=== PATIENT | male | born 1940 | race Caucasian/White ===

== ENCOUNTER → 2016-11-02 | Outpatient (REF) | payer MEDICARE ==
[~2016-11-02] MED LIST: /GUAIMAX PO; ACET50TA PO; ACET65TA OR; ALBUPOW9 INH; ASPI81TA83 OR; CEFT500T PO; COLA100C2 OR; CRANPOW2 PO; FISH1000 OR; FOLI1TAB OR; GARLIC OIL PO; LEVOTHYROXINE PO; MAALSUS OR; MATURE MULTI VITAMIN PO; METH2.5T OR; MULTIVIT PO; OMEP20TA7 OR; PRED10TA2 OR; PRED10TA2 PO; PRED1TAB32 PO; PREDFORTE OD; SULF50TA OR; VIBR100C PO; VIT D 2000 PO; [UNRECOGNIZED DRUG - CODE] PO; [UNRECOGNIZED DRUG - OTHER] OD; [UNRECOGNIZED DRUG - OTHER] OD; [UNRECOGNIZED DRUG - OTHER] OD; [UNRECOGNIZED DRUG - OTHER] OD; [UNRECOGNIZED DRUG - OTHER] OD; [UNRECOGNIZED DRUG - OTHER] OU
[2016-11-02 12:31] LABS: FREE T4 1.45 NG/DL (0.76-1.46)
== END ==
LOC: M LABDRAW1 11:44
PROVIDERS: ATTEND Emergency Medicine
DX: E03.9 Hypothyroidism, unspecified (principal)

== ENCOUNTER 2017-01-23 06:06 | Inpatient (IN) | payer MEDICARE ==
[~2017-01-23] VITALS: Ht 167.6 cm; Wt 73.4 kg
[2017-01-23] MEDS ORDERED: ALEN70TA39 PO ×2 (06:28→09:41)
[2017-01-23] MEDS ORDERED: MAGN400C2 PO (06:28)
[2017-01-23 06:40] LABS: BASO # 0.1 K/mm3 (0.0-0.2); BASO % 0.8 % (0.0-1.0); EOS # 0.3 K/mm3 (0.0-0.50); LARGE UNSTAINED CELL # 0.1 K/mm3 (0.0-0.4); LARGE UNSTAINED CELL % 1.2 % (0.0-4.0); LYMPH # 2.2 K/mm3 (1.5-4.5); MEAN CORPUSCULAR HEMOGLOBIN 28.5 pg (27.0-33.0); MEAN CORPUSCULAR HGB CONC 32.5 g/dl (32.0-36.5); MEAN CORPUSCULAR VOLUME 87.6 fl (80.0-96.0); MONO # 0.5 K/mm3 (0.0-0.8); MONO % 6.2 % (0.0-5.0); NEUTROPHILS % 60.8 % (36.0-66.0); PLATELET COUNT, AUTOMATED 397 k/mm3 (150-450); RED CELL DISTRIBUTION WIDTH 13.4 % (11.5-14.5); WHITE BLOOD COUNT 8.2 K/mm3 (4.0-10.0)
[2017-01-23 06:44] LABS: INR 0.94
[2017-01-23 06:47] LABS: ANION GAP 5 MEQ/L (8-16); BLOOD UREA NITROGEN 18 MG/DL (7-18); CALCIUM LEVEL 8.8 MG/DL (8.8-10.2); CARBON DIOXIDE LEVEL 30 MEQ/L (21-32); CHLORIDE LEVEL 101 MEQ/L (98-107); CREATININE FOR GFR 0.85 MG/DL (0.70-1.30); GLOMERULAR FILTRATION RATE > 60.0 (>42); GLUCOSE, FASTING 92 MG/DL (83-110); POTASSIUM SERUM 3.9 MEQ/L (3.5-5.1); SODIUM LEVEL 136 MEQ/L (136-145)
--- NOTE | 2017-01-23 07:00 | REPUSA ---
CLINICAL HISTORY: Altered level of consciousness. TECHNIQUE: Multiple axial CT images were obtained through the brain without IV contrast material. COMMENTS: There is normal configuration of sella turcica. There are no intra or extra-axial collections. There is no mass effect or midline shift. There is no evidence of hematoma formation. No hydrocephalus is p resent. The ventricles are symmetrical. No abnormal calcifications are present. There is diffuse age-appropriate cerebellar and cerebral atrophy with proportionally dilated ventricl es and cortical sulci. There are bilateral periventricular and subcortical white matter hypolucencies compatible with mild c hronic microvascular disease. Otherwise, no significant focal abnormalities are seen either in the posterior fossa or supratentoria l compartment. IMPRESSION: 1. Age-appropriate cerebellar and cerebral atrophy. 2. Mild chronic microvascular disease. 3. No evidence of acute intracranial pathology. Thank you for your kind referral of this patient.
[2017-01-23] MEDS ORDERED: ISOVUE-370 76% 100ML VIAL (Q9967) As Ordered ONE (07:12)
[2017-01-23] MEDS ORDERED: ASPIRIN ENTERIC 325 MG TAB PO SCH (09:00)
[2017-01-23] MEDS ORDERED: ONDANSETRON 4MG/2ML VIAL (J2405) IV PRN (09:30)
[2017-01-23] MEDS ORDERED: ACETAMINOPHEN TAB 650MG DOSE (2X325MG) PO PRN (09:30)
[2017-01-23] MEDS ORDERED: HEPARIN SOD (PORCINE) 5000 UNITS/ML VIAL SC SCH (09:30)
[2017-01-23] MEDS ORDERED: VITA20008 PO (09:41)
[2017-01-23] MEDS ORDERED: [UNRECOGNIZED DRUG - OTHER] OD (09:41)
[2017-01-23] MEDS ORDERED: OMEP40CA2 PO (09:41)
[2017-01-23] MEDS ORDERED: SYSTSOL11 OU (09:41)
[2017-01-23] MEDS ORDERED: PRED5TA PO (09:41)
[2017-01-23] MEDS ORDERED: FLAX1000 PO (09:41)
[2017-01-23] MEDS ORDERED: FISH120012 PO (09:41)
[2017-01-23] MEDS ORDERED: CALC-210 PO (09:41)
[2017-01-23] MEDS ORDERED: PRED1SUS OS (09:41)
[2017-01-23] MEDS ORDERED: LEVO112T2 PO (09:41)
[2017-01-23] MEDS ORDERED: ASPI1TAB PO (09:41)
[2017-01-23] MEDS ORDERED: MAGN1TAB25 PO (09:41)
[2017-01-23] MEDS ORDERED: VITMTA PO (09:41)
[2017-01-23] MEDS ORDERED: STOO1CAP9 PO (09:41)
[2017-01-23] MEDS ORDERED: PRESCAP6 PO (09:41)
--- NOTE | 2017-01-23 10:03 | REP ---
Portable chest, single AP view, the patient semiupright, 09:44 a.m.: Comparison is the PA and lateral chest dated 12/17/2013. The left hemidiaphragm is obscured. This is nonspecific and could be artifact from portable positioning or could represent a r left lower lobe infiltrate. The remainder of the lung mike are clear. Cardiac size is upper normal for portable positioning. The franko, mediastinum, and bony thorax are unremarkable. Impression: Left lower lobe infiltrate versus artifact from portable positioning. Signed by Zhang Kent MD 01/23/2017 09:54 A
[2017-01-23 10:12] LABS: ALBUMIN 2.7 GM/DL (3.2-5.2); ALBUMIN/GLOBULIN RATIO 0.84 (1.00-1.93); ALKALINE PHOSPHATASE 49 U/L (45-117); ALT/SGPT 35 U/L (12-78); AST/SGOT 25 U/L (15-37); BILIRUBIN,DIRECT < 0.1 MG/DL (0.0-0.2); BILIRUBIN,TOTAL 0.3 MG/DL (0.2-1.0); CHOLESTEROL LEVEL 256 MG/DL (<200); MAGNESIUM LEVEL 2.2 MG/DL (1.8-2.4); TOTAL PROTEIN 5.9 GM/DL (6.4-8.2); TRIGLYCERIDES LEVEL 153 MG/DL (<150)
[2017-01-23] MEDS ORDERED: PANTOPRAZOLE 40MG INJ (PROTONIX) (C9113) IV SCH (11:00)
--- NOTE | 2017-01-23 11:07 | REP ---
CT ANGIOGRAM OF THE HEAD: 01/23/2017. Comparison: CT brain 01/23/2017. Clinical history: CVA. Technique: The patient received a bolus of 100 mls of Isovue 370 with scanning through the brain with axial, coronal and sagittal reformats and 3-D surface rendering rotated about the longitudinal axis of the brain. Ventricles are midline, symmetric and their size proportionate to the mild diffuse cerebral atrophy. Third and fourth ventricles also correspond to some mild atrophy. There is slight asymmetric contribution of the left greater than right vertebral artery to the basilar artery. There is no basilar stenosis or basilar tip aneurysm. Origin of both posterior cerebral arteries is from the basilar tip as are the superior cerebellar arteries in a symmetric fashion supplying the posterior fossa. This is symmetric from these vessels. Right internal carotid from the skull base to the carotid siphon shows no stenosis. There is atherosclerotic plaque and calcifications in the carotid siphon. Supraclinoid, A1 and M1 segments on the right are grossly unremarkable. The A2 segment on the right was intact. The trifurcation vessels on the right are grossly unremarkable. The left internal carotid from the skull base to the carotid siphon shows some atherosclerotic plaque with more calcific plaque in the carotid siphon but no aneurysm. Supraclinoid carotid, A1 and M1 segments on the left were all intact. The A2 segment and trifurcation vessels on the left were unremarkable. Although there is very mild ectasia within the carotid siphon, I do not see aneurysm. No vascular anomaly. No vessel cutoff or other finding to suggest vascular territory infarct. Impression: 1. Atherosclerotic calcifications and slight ectasia of the carotid siphons bilaterally with the internal carotids, supraclinoid carotids, A1, M1 segments and their major branches in the anterior circulation are unremarkable. No evidence of aneurysm, vessel cutoff or other acute finding. 2. Posterior circulation grossly intact with no basilar stenosis or aneurysm and normal basilar tip origin for the posterior cerebral arteries. Signed by Aureliano Miranda MD 01/23/2017 08:14 P
[2017-01-23 12:30] VITALS: BP 127/84
[2017-01-23] MEDS: ATORVASTATIN 20 MG TAB PO SCH (12:37)
[2017-01-23] MEDS: predniSONE 10 MG TAB PO SCH (12:37)
[2017-01-23] MEDS: LEVOTHYROXINE 112MCG TABLET (0.112MG) PO SCH (12:37)
[2017-01-23] MEDS: NS 1,000 ML IV SCH (12:44)
--- NOTE | 2017-01-23 15:20 | HPE ---
DATE OF ADMISSION: 01/23/2017 Patient's primary care provider is [facility] clinic and also Dr. Lerma. Patient's mine safety manager is Dr. Vaughn. CHIEF COMPLAINT: Left-sided weakness. HISTORY OF PRESENT ILLNESS: 76-year-old male with past medical history of rheumatoid arthritis, gastroesophageal reflux disease (GERD), history of pericarditis in 2008, hyperlipidemia, BPH, history of shingles, osteopenia, and hypothyroidism, presented with left-sided weakness started this morning around 3:30 when patient woke up to urinate. Patient stated that the entire left side feels heavy. Patient was having trouble to lift his left leg up and was having trouble using the left arm as well. He also admits to some discomfort at the back of his head; however, it has improved during the interview. Patient stated this never happened in the past. Denies any headache, any blurred vision, any change of speech, any slurred speech, any loss of bladder or urine control, or any loss of consciousness. Patient denies any falls. Denies any chest pain, trouble breathing, any abdominal pains, nausea, vomiting. Patient, however, does admit to diarrhea. Denies constipation. Denies any blood in the urine or stool. Patient has also been feeling weaker for the past few weeks and has been to Dr. Lerma's office for some reason. Patient stated that he did have a recent carotid ultrasound and also echo, and he stated that he was told the results were normal. ALLERGIES: No known drug allergy. HOME MEDICATIONS: Including; - fish oil - multivitamin - stool softener - calcium 600 mg - magnesium 400 mg two at night - flaxseed oil - prednisone 5 mg two tablets by mouth daily - omeprazole 40 mg one tablet by mouth daily - levothyroxine 112 mcg one tablet by mouth daily - aspirin 81 mg one tablet by mouth daily - alendronate 70 mg one tablet by mouth daily - vitamin D one tablet by mouth daily - sodium chloride eye droplet on the right side - eye droplet both eyes - PreserVision Areds formula two times daily - Pred Forte eye droplet on the left side PAST MEDICAL HISTORY: Including; 1. 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 2. Rheumatoid arthritis, on prednisone. 3. History of peritonitis back in 2011. 4. Aortic regurgitation with a heart murmur. 5. GERD. 6. Hyperlipidemia. 7. Hypothyroidism. 8. BPH. 9. Latent tuberculosis. Patient did not have treatment due to rheumatoid arthritis. 10. History of shingles. 11. Osteopenia. 12. Unspecified facial cancer. 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 In addition, patient also had a tonsillectomy when he was a child. SOCIAL HISTORY: Patient denies any smoking, quit 40 years ago, smoked for about 16 years. Denies any drinking or recreational drug use. Patient used to work in the . FAMILY HISTORY: Denies. REVIEW OF SYSTEMS: GENERAL: Patient denies any recent weight loss, any fever or chills, any sick contact, recently traveling, any headaches. Patient, however, does admit to generalized weakness for the past few weeks before the event. HEENT: Denies any changes of vision, smell, hearing, or taste. Patient does have a chronic vision problem. Denies any trouble swallowing or cough. Denies any headache. CARDIOVASCULAR: Denies any trouble breathing, any chest pain, any palpitations. Patient does have aortic regurgitation which was likely severe. PULMONARY: Denies any shortness of breath, any lung problems. GASTROINTESTINAL (GI): Patient admits to diarrhea. Denies any nausea, vomiting, or constipation. Denies any blood in the stool. However, patient is on multiple stool softeners and bowel regimen at home. GENITOURINARY (): Admits to BPH and hesitation, however, denies any blood in the urine. MUSCULOSKELETAL: Denies any pain anywhere, however, he does have rheumatoid arthritis and on chronic prednisone. ENDOCRINE: Denies any diabetes, any polydipsia, polyuria, any heat or cold intolerance. HEMATOLOGY/ONCOLOGY: Admits to ease of bruising. Denies any bleeding anywhere. NEUROLOGICAL: Admits to left-sided weakness, which is new. Admits to feeling heavy. Denies any change of sensations. Denies any slurred speech. Denies any confusion or loss of consciousness. PSYCHOLOGICAL: Denies any anxiety/depression. PHYSICAL EXAMINATION: VITAL SIGNS: Temperature 97.4, heart rate 74, sinus rhythm. Blood pressure 103/64. Oxygen was saturating at 98% on room air. GENERAL: Patient is a pleasant, elderly male who was alert, awake, and oriented times three, does not appear to be in distress, laying comfortably in bed with head elevated at 30 degrees. HEENT: Normocephalic, atraumatic. Extraocular motor intact. Mucous moist. NECK: Supple. No neck lymphadenopathy, however, patient does have an irregular pupil on the left side, which is chronic. Patient, however, does have a carotid sound, which appears to be radiation from the heart. CARDIOVASCULAR: Patient does have significant diastolic murmur, which is at least 3/6, best heard at the left second intercostal space, however. Patient's point of maximum impulse (PMI) can be felt at the left fifth intercostal space. LUNGS: There were slight rales in bilateral basilar regions. ABDOMEN: Positive bowel sounds, soft, nontender, nondistended. No peritoneal signs. No ecchymosis. No organomegaly. No masses. EXTREMITIES: There was 1+ pitting edema in bilateral lower extremities. SKIN: Warm and dry. NEUROLOGIC: Cranial nerves II-XII intact, however, patient has worsening coordination on the left side through [id number] and also [id number]. LABS: WBC 8.2, hemoglobin 14.5, hematocrit 44.7 with platelet count of 397, MCV of 87.6. Sodium 136, potassium 3.9, chloride 101, bicarbonate 30, BUN 18, creatinine 0.85 , GFR great than 60, fasting glucose 92, calcium 8.8. Liver panel is pending. Coag shows PT 12.6, INR 0.94, PTT 30.3. Patient's portable chest x-ray result is pending. Patient had a CT head without contrast, did not show any acute findings, however, there was mild, chronic microvascular disease. CT angio of the head did not show any acute finding, however, official result is pending. ASSESSMENT/PLAN: 76-year-old male with past medical history most significant for rheumatoid arthritis on prednisone, severe aortic regurgitation, gastroesophageal reflux disease (GERD), BPH, history of pericarditis, and history of latent tuberculosis (TB), with hypothyroidism and hyperlipidemia presented with: 1. Left-sided weakness, likely secondary to cerebrovascular accident (CVA). Patient's CT of the head has been negative however. Neurologist, Dr. Arrington, has been consulted. Will follow his recommendation. Patient did receive one dose of aspirin 325 mg in the emergency room. Will continue aspirin 81 mg. Will keep patient nothing by mouth for now and keep patient on IV fluid at 80 mL per hour. Subcutaneous heparin has been on hold for now due to concern of hemorrhagic conversion later on. Will likely restart heparin the next day if confirmed negative on the CT. Otherwise, will do neurological checks every four hours, place patient on aspiration, fall, and seizure precaution, and continue to monitor patient. Will start physical therapy/occupational therapy (PT/OT) likely tomorrow. 2. History of aortic regurgitation. Currently stable. EKG did not show any new findings. Will repeat a troponin tomorrow morning and will obtain all the reports from Dr. Vaughn's office. 3. History of rheumatoid arthritis. Will continue daily prednisone. 4. Diarrhea. Possibly secondary to patient's multiple bowel regimen at home. Will hold patient's stool softeners. Will do a Clostridium (C) difficile study and if negative, will consider to restart patient's bowel regimen. 5. Hypothyroidism. Continue Synthroid. 6. Osteopenia. Will hold alendronate for now and also calcium supplement. 7. Hypomagnesemia. Patient is on supplement at home. Will check a magnesium level now and supplement as needed. 8. Deep venous thrombosis (DVT) prophylaxis. Sequential compression devices (SCDs). Holding heparin for now, and will restart heparin likely tomorrow if no hemorrhagic conversion. Will repeat CT. 9. Disposition. Patient with left-sided weakness, likely secondary to CVA. Dr. Arrington from neurology has been consulted. Will follow his recommendation, and will continue neurological checks and continue to monitor patient. Patient has been discussed with attending doctor, Dr. Woo. My preceptor for this patient encounter was Dr. Niko Woo. The preceptor was physically present in the building during the encounter and was fully available. As needed, all aspects of the patient interview, examination, medical decision making process, and medical care plan development were reviewed and approved by the preceptor. The preceptor is aware and concurs with the plan as stated in the body of this note and will attest to such by his/her cosignature. ALONSO
[2017-01-23 16:00] VITALS: BP 96/59
--- NOTE | 2017-01-23 20:00 | REPUSA ---
HISTORY: STROKE. Comparison is made to the head CT examination dated 01/23/17. TECHNIQUE: Multisequence, multiplanar MRI imaging of brain without contrast. FINDINGS: The diffusion-weighted sequences demonstrate multiple punctate areas of restricted fluid in the superior frontoparietal lobe regions at the vertex of the right hemisphere consistent with acute infarcts, seen on series 3, images 40-44. There is no midline shift or mass effect. There is no ev idence of hemorrhage. No other cortical mass lesions are seen. No abnormal extra-axial fluid collec tions are seen. The ventricles and sulci are of normal size for this age group. The orbits, optic nerves, optic ch iasm, and pituitary gland are normal..The paranasal sinuses are clear and CPA angle regions are nixon l. IMPRESSION: 1. Multiple punctate areas of acute infarct identified at the vertex of the right hemis phere at the frontal and parietal lobe regions. No significant mass effect or hemorrhagic complicati on is seen at this time. 2. The remainder of the MRI examination of the brain is normal.
[2017-01-23 20:10] VITALS: BP 111/59
--- NOTE | 2017-01-23 20:18 | REP ---
BILATERAL CAROTID DUPLEX ULTRASOUND: 01/23/2017: Clinical history: TIA, stroke. Findings: No prior study. Standard duplex techniques utilized for both sides. There is intimal thickening in the right common carotid. Small amounts of soft plaque at the bulb and into proximal ICA. The left common carotid also shows intimal thickening with small amounts of mixed plaque at the bulb and into the proximal ICA. Peak velocities: CCA systolic right 1.16 M/S left 1.12 M/S ICA systolic right 0.73 M/S left 0.90 M/S ICA diastolic right 0.19 M/S left 0.25 M/S ECA systolic right 0.14 M/S left 0.96 M/S IC/CC ratio right 0.63 left 0.81 Cranial direction of flow is seen in both vertebral arteries. There is no spectral broadening of the wave forms or filling in of the systolic window for either internal carotid on Doppler tracings. Impression: 1. Bilaterally less than 50% stenosis of the internal carotids, no hemodynamically significant or flow restricting lesion noted. 2. Cranial direction of flow in the vertebral arteries bilaterally. Signed by Aureliano Miranda MD 01/23/2017 08:30 P
[2017-01-23] MEDS: SODIUM CHLORIDE 5% OPHTH OINT 3.5 GM OD SCH (21:00)
[2017-01-23] MEDS ORDERED: TEARS NATURALE FREE OPHTH DROP VIAL OU PRN (21:45)
[2017-01-23] MEDS ORDERED: [UNRECOGNIZED DRUG - OTHER] OU PRN (23:00)
[2017-01-23 23:59] VITALS: BP 140/65
[2017-01-24] MEDS: NS 1,000 ML IV SCH (03:15)
[2017-01-24 04:18] VITALS: BP 148/67
[2017-01-24 05:45] LABS: MEAN CORPUSCULAR HEMOGLOBIN 28.7 pg (27.0-33.0); MEAN CORPUSCULAR HGB CONC 32.6 g/dl (32.0-36.5); MEAN CORPUSCULAR VOLUME 88.1 fl (80.0-96.0); RED CELL DISTRIBUTION WIDTH 13.7 % (11.5-14.5); WHITE BLOOD COUNT 8.1 K/mm3 (4.0-10.0)
[2017-01-24 06:10] LABS: ANION GAP 6 MEQ/L (8-16); BLOOD UREA NITROGEN 14 MG/DL (7-18); CALCIUM LEVEL 7.7 MG/DL (8.8-10.2); CARBON DIOXIDE LEVEL 28 MEQ/L (21-32); CHLORIDE LEVEL 104 MEQ/L (98-107); CREATININE FOR GFR 0.68 MG/DL (0.70-1.30); GLOMERULAR FILTRATION RATE > 60.0 (>42); GLUCOSE, FASTING 78 MG/DL (83-110); POTASSIUM SERUM 3.8 MEQ/L (3.5-5.1); SODIUM LEVEL 138 MEQ/L (136-145)
[2017-01-24] MEDS: LEVOTHYROXINE 112MCG TABLET (0.112MG) PO SCH (06:30)
[2017-01-24 08:00] VITALS: BP 110/56
--- NOTE | 2017-01-24 08:40 | CR ---
DATE OF CONSULTATION: 01/23/2017 REFERRING PHYSICIAN: Dr. Niko Woo REASON FOR CONSULTATION: Left-sided weakness. HISTORY OF PRESENT ILLNESS: Mark Anthony Duval is a 76-year-old man with history of rheumatoid arthritis, acid reflux, history of pericarditis, osteopenia, prostate enlargement, who woke up around 3:30 in the morning to urinate and had significant weakness of left arm and leg. He had difficulty walking. He felt his left arm and leg were weight. He came to [facility] around 6:30 a.m. [facility] [place] was contacted, but they did not recommend any thrombolytic therapy due to no clear time of onset, and the patient had been more than 3 hours into his symptoms at least. The patient states currently that his left arm and leg weakness are getting better. His left leg is significantly improved. He did not have any facial weakness or speech difficulty. He denied headache, neck pain, back pain, dysphasia, dysarthria, diplopia, or urinary incontinence. He denied falls or loss of consciousness. He denied any seizures. DIAGNOSTIC STUDIES: CT scan of his head was reviewed and showed small vessel ischemic disease of brain. CT angiography of head showed mild internal carotid artery atherosclerosis. His telemetry has not shown any irregular heart rhythm currently. PAST MEDICAL HISTORY: Fuchs disease of eyes, rheumatoid arthritis, history of pericarditis, dyslipidemia, hypothyroidism, history of shingles, latent tuberculosis, aortic valve regurgitation, acid reflux, prostate enlargement, multiple eye surgery, tonsillectomy. ALLERGIES: No known drug allergies. HOME MEDICATIONS: - aspirin 81 mg by mouth daily - Fosamax 70 mg by mouth daily - vitamin D3 - Pred Forte eyedrops on left side - magnesium 400 mg two tablets by mouth nightly - flaxseed oil - prednisone 5 mg two tablets by mouth daily - Prilosec 40 mg by mouth daily - levothyroxine 112 mcg by mouth daily - calcium 600 mg by mouth daily - multivitamin one tablet by mouth daily - fish oil one tablet by mouth daily SOCIAL HISTORY: He quit smoking 40 years ago. He denies alcohol or illicit drugs. FAMILY HISTORY: Unremarkable and noncontributory. REVIEW OF SYSTEMS: All systems were reviewed and found to be noncontributory except as mentioned in history of present illness. PHYSICAL EXAMINATION: Blood pressure 103/64, temperature 97.4, pulse 74. Heart: Regular rate and rhythm. Lungs: Clear to auscultation. Abdomen: Soft, nontender, nondistended. No pedal edema. No gross musculoskeletal abnormalities. Ears, nose, and throat examination shows his upper airways crowded, and his oropharynx is Alvarenga class IV. Teeth martin are visible on his tongue. The patient is awake, alert, oriented to place, person, and time. Normal speech, comprehension, and repetition. Extraocular muscles are intact. No facial weakness. Tongue and uvula are midline. His recent and distant memory is intact. 4/5 strength in left upper extremity throughout and left leg strength is 5-/5. Right-sided strength is 5/5. His left plantar is upgoing. He has mild left-sided dysmetria. Gait could not be tested. He has slightly decreased cold pinprick vibration sensation in his feet. LABORATORY STUDIES: His CBC and metabolic profile were within normal limits. His LDL was 179. Total cholesterol was 256. His coagulation profile was within normal limits. ASSESSMENT: 1. Suspected right-sided middle cerebral artery distribution ischemic stroke. 2. Dyslipidemia. PLAN: 1. MRI brain. 2. Carotid ultrasound. 3. Continue telemetry monitoring. 4. Aspirin 325 mg by mouth daily. 5. Lipitor 40 mg by mouth daily. 6. He had echocardiogram done by his shipping clerk/admin, Dr. Vaughn, in 2016. He has history of known aortic valvular regurgitation. 7. Physical and occupational therapy. 8. Follow with our office in 1 month after hospital discharge.
[2017-01-24] MEDS ORDERED: ASPIRIN 81 MG ENTERIC TAB PO SCH (09:00)
[2017-01-24] MEDS: predniSONE 10 MG TAB PO SCH (09:06)
[2017-01-24] MEDS: ATORVASTATIN 20 MG TAB PO SCH (09:06)
[2017-01-24] MEDS: prednisoLONE ACET 1% OPHTH SUSP 5ML OS SCH (09:08)
[2017-01-24] MEDS: SODIUM CHLORIDE 5% OPHTH OINT 3.5 GM OD SCH ×2 (09:08→21:04)
--- NOTE | 2017-01-24 11:16 | ECGEPIP ---
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
[2017-01-24] MEDS ORDERED: ASPIRIN 81 MG ENTERIC TAB PO ONE (11:45)
--- NOTE | 2017-01-24 11:49 | IPNPDOC ---
Text Note Date of Service The patient was seen on 01/24/17. NOTE Subjective: Patient seen and examined at bedside. Patient is feeling better. He stated he has walked normally this morning, however still has trouble with left hands and arm. Denies any chest pain, sob, abdominal pain, nausea, vomiting, diarrhea, constipation, blood in urine or stool. Denies any other current new complaints. Objective: Vitals: (See below) General: Patient is a pleasant elderly male laying comfortably in bed, AAOx3, not in apparent distress, with head elevated at 30 degrees HEENT: Normal cephalic atraumatic, Extraocular motion intact, pupil equal round and reactive to light, ~mucosal membrane moist, neck supple, no neck lymphadenopathy Cardio: RRR, 3/6 systolic murmur best heard at left 2nd IC space. Ectopic beats. Pulm: Moderate rales in b/l lung mike. Abdomen: + bowel sounds, soft, none tender, none distended, no peritoneal signs , no ecchymosis, no masses that were palpable Ext: No edema, clubbing, or cynosis Skin: Warm and dry Neuro: Cranial Nerve 2 through 12 intact, No focal neurological deficit Labs ( See below) Most significantly: Images/Procedures: 01/23/17 Brain MRI without contrast: showed multiple punctuate areas of acute infarct indentified at vertex of right hemisphere at the frontal and parietal lobe regions. Carotid Doppler US showed: B/l less than 50% stenosis of internal carotids, no hemodynamically significant or flow restricting lesion noted. Assessment and Plan: 76-year-old male with past medical history most significant for rheumatoid arthritis on prednisone, severe aortic regurgitation, gastroesophageal reflux disease (GERD), BPH, history of pericarditis, and history of latent tuberculosis (TB), with hypothyroidism and hyperlipidemia presented with: 1. Left-sided weakness, secondary multiple punctuate right frontal parietal stroke. Neurologist, Dr. Arrington, has been consulted. Will follow his recommendation. Patient's CT of the head has been negative however. Patient did receive one dose of aspirin 325 mg in the emergency room. Dr. Arrington recommended ASA 325 mg daily and Lipitor 40 mg PO daily and patient to follow up with him in one month. Continue to follow PT/OT/Speech recommendations. Patient is on mechanical soft diet. IVF has been DCd. Echo ordered, will follow up. Trops negative this morning. 2. Rale in lung this morning, suspect possible pulmonary edema. However patient is not shortness of breathing, possible related to IVF overnight or due to his steroid usage. Portable CXR has been ordered. Will follow echo to see if patient has heart failure. Will consider to give patient diuretic if needed. 3. History of aortic regurgitation. Currently stable. EKG did not show any new findings. 4. History of rheumatoid arthritis. Will continue daily prednisone. 5. Diarrhea. Possibly secondary to patient's multiple bowel regimen at home. Will hold patient's stool softeners. Will do a Clostridium (C) difficile study and if negative, will consider to restart patient's bowel regimen. 6. Hypothyroidism. Continue Synthroid. 7. Osteopenia. Will hold alendronate for now and also calcium supplement. 8. Hypomagnesemia. Patient is on supplement at home. Will check a magnesium level now and supplement as needed. 9. Deep venous thrombosis (DVT) prophylaxis. Sequential compression devices (SCDs). Holding heparin for now, and will restart heparin likely tomorrow if no hemorrhagic conversion. Will repeat CT. DVT prophylaxis: Starting SC Hep tonight Fluid, Electrolytes, Nutrition: Mechanical soft diet with low fat and low cholesterol Code: Have not had discussion Disposition: Pending PT/OT evaluation. Pending echo. Patient discussed with Dr. Woo. VS,Shawna, I+O VSShawna, I+O Laboratory Tests 01/24/17 05:34 Calcium Level 7.7 L 01/24/17 05:35 Red Blood Count 4.45, Mean Corpuscular Volume 88.1, Mean Corpuscular Hemoglobin 28.7, Mean Corpuscular Hemoglobin Concent 32.6, Red Cell Distribution Width 13.7 Vital Signs Date Time Temp Pulse Resp B/P (MAP) Pulse Ox O2 Delivery O2 Flow Rate FiO2 01/24/17 08:55 Room Air 01/24/17 08:00 97.8 60 18 110/56 (74) 97 I&O- Last 24 Hours up to 6 AM 01/24/17 06:00 Intake Total 1600 ml Output Total 1025 ml Balance 575 ml GME ATTESTATION GME ATTESTATION My preceptor for this patient encounter was physically present in the building during the encounter and was fully available. As needed, all aspects of the patient interview, examination, medical decision making process, and medical care plan development were reviewed and approved by the preceptor. Preceptor is aware and concurs with the plan as stated in the body of this note and will attest to such by his/her cosignature. CHARMAINE LERNER DO Jan 24, 2017 11:49
[2017-01-24 12:00] VITALS: BP 117/57
--- NOTE | 2017-01-24 12:15 | REP ---
REASON: Abnormality during auscultation. COMPARISON: Multiple latest yesterday. The technique utilized in obtaining the radiograph has magnified the cardiac silhouette and accentuated the interstitial markings. There is no significant change from the prior exam. No acute patchy parenchymal opacities or pleural effusions have developed. There are stable bibasilar opacities which could at least in part be secondary to positioning, portable technique and overlying soft tissues. IMPRESSION: No significant change from the prior exam with findings as described above. Further evaluation with chest CT should be considered given the patient's history of TB. Signed by Fred Galloway DO 01/24/2017 04:42 P
[2017-01-24] MEDS: HEPARIN SOD (PORCINE) 5000 UNITS/ML VIAL SQ SCH ×2 (13:02→21:00)
[2017-01-24 16:00] VITALS: BP 103/61
[2017-01-24 20:31] VITALS: BP 115/57
[2017-01-24 23:59] VITALS: BP 128/62
[2017-01-25 05:12] VITALS: BP 106/53
[2017-01-25 05:24] LABS: MEAN CORPUSCULAR HEMOGLOBIN 28.9 pg (27.0-33.0); MEAN CORPUSCULAR HGB CONC 32.6 g/dl (32.0-36.5); MEAN CORPUSCULAR VOLUME 88.6 fl (80.0-96.0); RED CELL DISTRIBUTION WIDTH 13.7 % (11.5-14.5); WHITE BLOOD COUNT 7.5 K/mm3 (4.0-10.0)
[2017-01-25] MEDS: LEVOTHYROXINE 112MCG TABLET (0.112MG) PO SCH (05:29)
[2017-01-25 05:41] LABS: ANION GAP 7 MEQ/L (8-16); BLOOD UREA NITROGEN 20 MG/DL (7-18); CALCIUM LEVEL 8.2 MG/DL (8.8-10.2); CARBON DIOXIDE LEVEL 29 MEQ/L (21-32); CHLORIDE LEVEL 107 MEQ/L (98-107); CREATININE FOR GFR 0.75 MG/DL (0.70-1.30); GLOMERULAR FILTRATION RATE > 60.0 (>42); GLUCOSE, FASTING 82 MG/DL (83-110); MAGNESIUM LEVEL 2.2 MG/DL (1.8-2.4); POTASSIUM SERUM 4.2 MEQ/L (3.5-5.1); SODIUM LEVEL 143 MEQ/L (136-145)
[2017-01-25 08:26] VITALS: BP 106/56
[2017-01-25] MEDS: HEPARIN SOD (PORCINE) 5000 UNITS/ML VIAL SQ SCH ×2 (09:21→21:00)
[2017-01-25] MEDS: ASPIRIN 325 MG TAB PO SCH (09:21)
[2017-01-25] MEDS: ATORVASTATIN 20 MG TAB PO SCH (09:21)
[2017-01-25] MEDS: predniSONE 10 MG TAB PO SCH (09:21)
[2017-01-25] MEDS: SODIUM CHLORIDE 5% OPHTH OINT 3.5 GM OD SCH ×2 (09:22→21:07)
[2017-01-25 12:00] VITALS: BP 139/69
--- NOTE | 2017-01-25 12:00 | IPNPDOC ---
Text Note Date of Service The patient was seen on 01/25/17. NOTE Subjective: Patient seen and examined at bedside. Dr. Arrington saw patient last night and when talked to patient's daughter, she believed he might had afib at one point and will try to bring record in from [place] and Dr. Lerma's office. We have also consuled Dr. Vaughn today for evaluation. Otherwise, patient is feeling better. He stated he has walked better this morning, however still has trouble with left hands and arm. Later nurse called stated patient's left side was worse. Denies any chest pain, sob, abdominal pain, nausea, vomiting, diarrhea, constipation, blood in urine or stool. Denies any other current new complaints. Objective: Vitals: (See below) General: Patient is a pleasant elderly male laying comfortably in bed, AAOx3, not in apparent distress, with head elevated at 30 degrees HEENT: Normal cephalic atraumatic, Extraocular motion intact, pupil equal round and reactive to light, mucosal membrane moist, neck supple, no neck lymphadenopathy Cardio: RRR, 3/6 systolic murmur best heard at left 2nd IC space. Ectopic beats. Pulm: Moderate rales in b/l lung mike. Abdomen: + bowel sounds, soft, none tender, none distended, no peritoneal signs , no ecchymosis, no masses that were palpable Ext: No edema, clubbing, or cynosis Skin: Warm and dry Neuro: Cranial Nerve 2 through 12 intact, No focal neurological deficit Labs ( See below) Most significantly: Images/Procedures: 01/25/17: CT Head without contrast pending. Assessment and Plan: 76-year-old male with past medical history most significant for rheumatoid arthritis on prednisone, severe aortic regurgitation, gastroesophageal reflux disease (GERD), BPH, history of pericarditis, and history of latent tuberculosis (TB), with hypothyroidism and hyperlipidemia presented with: 1. Left-sided weakness, secondary multiple punctuate right frontal parietal stroke. Neurologist, Dr. Arrington, has been consulted. Will follow his recommendation. Patient's CT of the head was negative on admission a repeat MRI of head showed multiple puncated right frontal parietal stroke. Patient did receive one dose of aspirin 325 mg in the emergency room. Dr. Arrington recommended ASA 325 mg daily and Lipitor 40 mg PO daily and patient to follow up with him in one month. There is a concern for history of a fib. Daughter will try to obtain old EKG [facility] Dr[facility] and [facility] Vaugh[facility], cardiology has been consulted, we will follow his recommendation regarding to possible starting anticoagulation for patient such as coumadin. Continue to follow PT/OT/Speech recommendations. Patient is on mechanical soft diet. IVF has been DCd. Echo ordered, will follow up. Trops negative this morning. 2. Possible history of Afib. Dr. Vaughn was consulted, will follow his recommendation for possible start anticoagulation for patient. 3. Rale in lung this morning, suspect possible pulmonary edema. However patient is not shortness of breathing, possible related to IVF overnight or due to his steroid usage. Portable CXR has been ordered recommended CT of chest. Which was ordered on 01/24, result is pending. Will follow echo to see if patient has heart failure. Will consider to give patient diuretic if needed. 3. History of aortic regurgitation. Currently stable. EKG did not show any new findings. 4. History of rheumatoid arthritis. Will continue daily prednisone. 5. Diarrhea. Possibly secondary to patient's multiple bowel regimen at home. Will hold patient's stool softeners. Will do a Clostridium (C) difficile study and if negative, will consider to restart patient's bowel regimen. 6. Hypothyroidism. Continue Synthroid. 7. Osteopenia. Will hold alendronate for now and also calcium supplement. 8. Hypomagnesemia. Patient is on supplement at home. Will check a magnesium level now and supplement as needed. 9. Deep venous thrombosis (DVT) prophylaxis. Sequential compression devices (SCDs). Holding heparin for now, and will restart heparin likely tomorrow if no hemorrhagic conversion. Will repeat CT. DVT prophylaxis: SC Hep q12 hours Fluid, Electrolytes, Nutrition: Mechanical soft diet with low fat and low cholesterol Code: Have not had discussion Disposition: Pending PT/OT evaluation. Pending echo. Pending Stat CT head, pending CT chest results. Possible starting anticoagulation, and will follow Dr. Vaughn's recommendation regarding Holter monitoring or start coumadin if patient has a fib. Patient discussed with Dr. Woo. VS,Fishbone, I+O VS, Fishbone, I+O Laboratory Tests 01/25/17 05:10 Red Blood Count 4.72, Mean Corpuscular Volume 88.6, Mean Corpuscular Hemoglobin 28.9, Mean Corpuscular Hemoglobin Concent 32.6, Red Cell Distribution Width 13.7 , Calcium Level 8.2 L Vital Signs Date Time Temp Pulse Resp B/P (MAP) Pulse Ox O2 Delivery O2 Flow Rate FiO2 01/25/17 08:26 98.4 78 18 106/56 (73) 96 Room Air I&O- Last 24 Hours up to 6 AM 01/25/17 05:59 Intake Total 580 ml Output Total 1250 ml Balance -670 ml GME ATTESTATION GME ATTESTATION My preceptor for this patient encounter was physically present in the building during the encounter and was fully available. As needed, all aspects of the patient interview, examination, medical decision making process, and medical care plan development were reviewed and approved by the preceptor. Preceptor is aware and concurs with the plan as stated in the body of this note and will attest to such by his/her cosignature. CHARMAINE LERNER DO Jan 25, 2017 12:00
--- NOTE | 2017-01-25 12:37 | REP ---
REASON: Left sided weakness. COMPARISON: Two days ago which showed chronic changes. TECHNIQUE: 4.5 mm contiguous transaxial sections were obtained from the skull base to the cerebral convexities with thin cuts through the posterior fossa without the administration of intravenous contrast. FINDINGS: The ventricles and sulci are consistent with the patient's age. There are no extra-axial fluid collections. There is no mass effect. The deep cerebral white matter is consistent with the patient's age. The orbital and petrous structures , cerebellopontine angles, and posterior fossa are unremarkable. The sella turcica, cavernous, and paracavernous structures are essentially unremarkable. The visualized portions of the paranasal sinuses and mastoid air cells are clear. Images of the skull base show no gross abnormality. IMPRESSION: Essentially unremarkable CT examination of the brain. There has been no change from two days ago. Age appropriate chronic changes are noted status quo. Signed by Fred Galloway DO 01/25/2017 02:27 P
--- NOTE | 2017-01-25 14:14 | REP ---
REASON: Followup bibasilar opacities see on prior plain film exam. Patient has a history of TB. Prior chest CT of 09/24/2014 was reviewed. The mediastinum and pulmonary franko are unchanged. There is no evidence of a mass or adenopathy. There are no pleural or pericardial effusions. The imaged upper abdomen is essentially unchanged. Note is again made of a simple right renal cyst. The imaged osseous structures are essentially unchanged. Evaluation of the lung mike show moderate particularly peripheral asymmetric opacities in the upper lung mike status quo. Similar findings are seen uniformly throughout the lung bases status quo. These opacities could obscure a significant nodule. No definite new abnormal nodule, mass, or opacity has developed. IMPRESSION: Chronic lung field findings as described above. Signed by Fred Galloway DO 01/25/2017 02:27 P
[2017-01-25 16:00] VITALS: BP 121/68
[2017-01-25] MEDS: CLOPIDOGREL 75 MG TAB PO SCH (16:14)
[2017-01-25 20:00] VITALS: BP 115/57
[2017-01-26] VITALS: BP 104/57
--- NOTE | 2017-01-26 03:03 | CR ---
DATE OF CONSULTATION: 01/25/2017 REFERRING PROVIDER: Niko Woo MD. REASON FOR CONSULTATION: CVA. Possible atrial fibrillation. HISTORY OF PRESENT ILLNESS: 76-year-old male was seen in the evening of 01/25/2017, upon the recommendation of his family and his hospitalist. The last time he was seen in the office was on 02/15/2016 and at that time, he was stable from a cardiac point of view with a diagnosis of mild valvular heart disease involving the aortic valve and he has a history of hypertension and hypothyroidism, arthritis, gastroesophageal reflux disease (GERD). He has been feeling well from a cardiac point of view and his next appointment is this coming month of January. However, he woke up on 01/23/2017 in [place] to urinate and felt that his left side was weak and heavy. He came to the hospital for further evaluation and he was found to have findings consistent with cerebrovascular accident. He was been seen by neurology, who started him on Plavix and aspirin. He was initially started on a baby aspirin daily and at that time his head CT was negative. However, MRI of the brain revealed multiple punctate areas of acute infarcts involving the right hemispheres at the region of the frontal and parietal lobes. Plavix was added. There was concern about atrial fibrillation and cardiology consult was called. The remainder of the rest of the MRI was negative. When I saw Mr. Mark Anthony Duval, he was walking in his room, then he sat on his bed. He has almost completely recovered. He denies any chest pain, palpitations, shortness of breath, pedal edema, orthopnea, syncope or near syncope. He denies any bleeding. He has no cough or hemoptysis or fever. He has no nausea, vomiting, diarrhea, melena or hematemesis. PAST MEDICAL HISTORY: Also positive for BPH, with latent tuberculosis, shingles , arthritis/rheumatoid arthritis, and pericarditis. PAST SURGICAL HISTORY: Positive for multiple eye surgeries done particularly on the left eye, tonsillectomy. MEDICATIONS: Prior to coming to the hospital: - prednisone 5 mg tablets and two tablets daily - omeprazole 40 mg by mouth daily - levothyroxine 112 mcg by mouth daily - aspirin 81 mg by mouth daily - Fosamax 70 mg by mouth weekly - vitamin Z one tablet by mouth daily - PreserVision - flaxseed - magnesium 400 mg tablets and two tablets daily - calcium 600 mg by mouth daily - multivitamin one tablet by mouth daily - fish oil 4000 units by mouth daily CURRENT MEDICATIONS: - aspirin 325 mg by mouth daily - Plavix 75 mg by mouth daily - heparin subcutaneously 5000 units twice a day - levothyroxine 112 mcg by mouth daily - atorvastatin 40 mg by mouth daily - prednisone 10 mg by mouth daily - ondansetron 4 mg intravenously (IV) every 6 hours as needed for nausea or vomiting - Tylenol 650 mg every 6 hours as needed for mild pain or fever FAMILY HISTORY: Noncontributory. SOCIAL HISTORY: Patient denies any smoking, he had stopped about 40 years ago. He denies any ethyl alcohol (EtOH) abuse or illicit drugs. ALLERGIES: He has no known drug allergies. PHYSICAL EXAMINATION: Patient is alert and oriented, in no acute distress at rest. His vital signs when I saw him revealed a blood pressure of 115/57 with a pulse of 71, respirations 18, and his maximum temperature was 99.2 degrees Fahrenheit with an oxygen saturation of 92-96% on room air. Examination of the head, ears, eyes, nose and throat: Atraumatic. Neck is supple. No jugular venous distention (JVD) or carotid bruits. The lungs were clear bilaterally on auscultation without any wheezing or crackles. The heart examination revealed normal S1 and S2 without gallops. The point of maximal impulse (PMI) is not displaced. There is no rub. There is a systolic murmur grade 2/6 at the base of the heart/aortic valve area with some minimal radiation to the neck. Abdomen is soft and nontender. Bowel sounds are active. Extremities reveal no pedal edema. Peripheral pulses, dorsalis pedis were +2 and equal. Neurological examination revealed minimal deficit in the left upper extremity. LABORATORIES: CBC revealed a WBC of 7.5, hemoglobin 13.6, hematocrit 41.9, and platelets 329,000. BMP revealed a sodium of 143, potassium 4.2, chloride 107, CO2 29, BUN 20, creatinine 0.7, GFR more than 60, fasting glucose 82, and calcium 8.2, and serum magnesium 2.2. PT was 12.6 with an INR of 0.94 and APTT of 30.3. Electrocardiogram on admission revealed normal sinus rhythm at 66 beats per minute, possible left ventricular hypertrophy. There was artifact on the baseline. Telemetry strips were reviewed and there was no manifestation of atrial fibrillation. IMPRESSION: 1. Right CVA with left-sided weakness with multiple punctate right frontal and parietal lobe lesions consistent with embolization in nature. The patient was seen by neurologist and on Plavix, as well as aspirin. He has significantly recovered. There is a concern about atrial fibrillation and so far since on the registered nurse cardiac telemetry, there has not been any atrial fibrillation. He recently had EKG done at the [facility] and it was normal sinus rhythm. We will continue telemetry and current medications. Upon discharge, he might need an event recorder and/or implantable loop recorder and this was discussed with him. His echocardiogram was reviewed and revealed a normal report of ventricular systolic function with a mildly dilated left atrium, moderate aortic stenosis. His carotid Doppler revealed no significant obstruction. He also might benefit from a transesophageal echocardiogram and this was discussed with him. 2. Hyperlipidemia, on a statin. 3. Valvular heart disease involving mainly the aortic valve with moderate aortic stenosis, but a normal left ventricular ejection fraction (LVEF). 4. History of rheumatoid arthritis, on prednisone. 5. Hypothyroidism, on supplement. 6. History of electrolyte abnormalities with hypomagnesemia, on supplement. It was a pleasure to participate in the care of Mr. Mark Anthony Duval for his underlying cardiac condition. He appears to be stable and his condition has improved significantly. Dr. Rubin will be seeing him over the weekend and he has an appointment this coming month with the office. Please do not hesitate to call if any question. ALONSO
[2017-01-26 04:00] VITALS: BP 100/58
[2017-01-26 04:40] LABS: MEAN CORPUSCULAR HEMOGLOBIN 28.8 pg (27.0-33.0); MEAN CORPUSCULAR HGB CONC 32.8 g/dl (32.0-36.5); MEAN CORPUSCULAR VOLUME 87.8 fl (80.0-96.0); RED CELL DISTRIBUTION WIDTH 13.6 % (11.5-14.5); WHITE BLOOD COUNT 7.4 K/mm3 (4.0-10.0)
[2017-01-26 04:56] LABS: ANION GAP 8 MEQ/L (8-16); BLOOD UREA NITROGEN 18 MG/DL (7-18); CARBON DIOXIDE LEVEL 27 MEQ/L (21-32); CHLORIDE LEVEL 106 MEQ/L (98-107); CREATININE FOR GFR 0.74 MG/DL (0.70-1.30); GLOMERULAR FILTRATION RATE > 60.0 (>42); GLUCOSE, FASTING 82 MG/DL (83-110); POTASSIUM SERUM 3.9 MEQ/L (3.5-5.1); SODIUM LEVEL 141 MEQ/L (136-145)
[2017-01-26] MEDS: LEVOTHYROXINE 112MCG TABLET (0.112MG) PO SCH (05:11)
[2017-01-26 08:00] VITALS: BP 110/56
[2017-01-26] MEDS: ASPIRIN 325 MG TAB PO SCH (09:26)
[2017-01-26] MEDS: CLOPIDOGREL 75 MG TAB PO SCH (09:26)
[2017-01-26] MEDS: prednisoLONE ACET 1% OPHTH SUSP 5ML OS SCH (09:26)
[2017-01-26] MEDS: predniSONE 10 MG TAB PO SCH (09:26)
[2017-01-26] MEDS: ATORVASTATIN 20 MG TAB PO SCH (09:26)
[2017-01-26] MEDS: SODIUM CHLORIDE 5% OPHTH OINT 3.5 GM OD SCH (09:27)
[2017-01-26] MEDS: HEPARIN SOD (PORCINE) 5000 UNITS/ML VIAL SQ SCH (09:27)
[2017-01-26 12:00] VITALS: BP 100/59
--- NOTE | 2017-01-26 12:25 | IPN ---
DATE: 01/26/2017 Mr. Duval is doing well. He tells me that his neurologic deficit had virtually completely resolved. He had no specific complaints today. He had numerous questions regarding transesophageal echocardiogram (CASIMIRO). Blood pressure 100/58. Heart rate has been in high 50s. He is afebrile. Saturation 96% on room air. Fluid balance yesterday was negative about 1800. Weight documented 73.4 kg. He is alert and oriented and appropriate. I do not appreciate any neurologic deficit, and I actually witnessed Dr. Matias today to do a fairly thorough neurologic evaluation. His jugular venous pulse (JVP) is not up. Lungs are clear. Heart exam reveals systolic ejection murmur best heard throughout the whole precordium, actually somewhat paradoxically more at the apex than the aortic valve area. No gallop. No rub. Abdomen is soft, nontender. No hepatosplenomegaly. No rebound tenderness or guarding. Extremities are free of edema and good peripheral pulses. Laboratory erickson: CBC is normal. Basic metabolic panel is normal. Cardiac enzymes have been normal. His lipids revealed very high cholesterol at 256, LDL 179, triglycerides 153, and HDL 46. ASSESSMENT AND PLAN: Mr. Duval is a 76-year-old man who presents with ischemic stroke based on neuroimaging. It is suggestive of embolic mechanism. So far there has not been any evidence for atrial fibrillation during monitoring on telemetry. I still believe that this is the most likely mechanism though. He has known approximately mild to moderate aortic stenosis. There was a suggestion to perform a transesophageal echocardiogram. I had a long discussion with the patient and his family regarding the rationale and I explained that even though he had been likely provide additional structural information it is unlikely to pattern changer and repairer as such. They are very concerned about potential side effects because patient had previously episodes of delirium after administration of sedatives and he also has apparently, fairly severe reflux symptoms. Consequently, I have fairly little appetite to proceed even though we potentially can find helpful information, like for example prominent atherosclerosis of aortic arch or presence or absence of patent foramen ovale (PFO). Ultimately, it is not likely to pattern changer and repairer. From my perspective, patient can be discharged home. We will arrange for outpatient event recorder and if no arrhythmias are documented after 4 weeks, then even implantable loop recorder can certainly be considered.
[2017-01-26] MEDS ORDERED: ATOR1TAB21 PO (12:54)
[2017-01-26] MEDS ORDERED: ASPI325T PO (12:54)
[2017-01-26] MEDS ORDERED: CLOP75TA2 PO (12:54)
--- NOTE | 2017-01-27 09:43 | ECHO ---
DATE OF PROCEDURE: 01/25/2017 DATE OF : 1940 AGE: 76 REFERRING PROVIDER: Dr. Niko Woo PATIENT LOCATION: Room 3228 REASON FOR THE ECHOCARDIOGRAM: Cerebrovascular accident (CVA). 2D MEASUREMENTS: IVS: 1.2 cm LV: 4.3 cm LVPW: 1.2 cm LA: 4.0 cm Aorta: 3.3 cm IVC: 1.6 cm DOPPLER MEASUREMENTS: Peak velocity across the aortic valve: 3.1 m/s Peak velocity across the LVOT: 1.3 m/s Peak gradient across the aortic valve: 39 mmHg Mean gradient across the aortic valve: 19 mmHg Mitral E: 0.99, Mitral A: 1.1 with a ratio of 0.9 Maximum tricuspid valve velocity: 2.8 m/s 2D COMMENTS: 1. Normal left ventricular size, wall thickness and normal global left ventricular systolic function. The estimated left ventricular systolic ejection fraction is 65-70%. 2. Borderline enlarged left atrium. Normal right atrium and right ventricle. 3. The atrial septum appeared to be normal without evidence of defect or shunt. 4. Normal aortic root. 5. No pericardial effusion seen. 6. Moderately calcified aortic valve with decreased in leaflet excursion. Mildly calcified mitral annulus with normal appearing mitral valve leaflet motion. Normal tricuspid valve. The pulmonic valve and proximal pulmonary artery branches were not well visualized. 7. The inferior vena cava was normal in size at 1.6 cm. Central venous pressure is most likely normal. DOPPLER: It detects mild aortic regurgitation, mild mitral regurgitation and mild tricuspid regurgitation. The calculated pulmonary artery systolic pressure varies between 30-40 mmHg. Abnormal relaxation pattern was noted across the mitral valve leaflets as well as the mitral valve annulus consistent with grade 1 left ventricular diastolic dysfunction. IMPRESSION: 1. Normal global left ventricular systolic function. There were features of left ventricular diastolic dysfunction manifested by abnormal relaxation. 2. Aortic valve sclerosis with mild aortic regurgitation and moderate aortic stenosis. 3. Borderline enlarged left atrium with mitral annulus calcification and mild mitral regurgitation. 4. Mild tricuspid regurgitation with mild pulmonary hypertension. MTDD
--- NOTE | 2017-01-28 02:56 | DSES ---
DATE OF ADMISSION: 01/23/2017 DATE OF DISCHARGE: 01/26/2017 Time patient was discharged was at 1257 hours. ADMISSION DIAGNOSES: 1. Left-sided weakness secondary to cerebrovascular accident (CVA). 2. History of aortic regurgitation. 3. History of rheumatoid arthritis. 4. Diarrhea. 5. Hypothyroidism. 6. Osteopenia. 7. Hypomagnesemia. DISCHARGE DIAGNOSES: Includin. Left-sided weakness secondary to multiple punctate right frontal parietal stroke. 2. Possible history of atrial fibrillation, which was later on found to be not true. 3. Rales in the lung with likely chronic lung disease. 4. History of aortic regurgitation. 5. History of rheumatoid arthritis. 6. Diarrhea. 7. Hypothyroidism. 8. Osteopenia. 9. Hypomagnesemia. CONSULTANTS: Dr. Vaughn and Dr. Rubin from cardiology and also Dr. Arrington from neurology. PROCEDURES AND IMAGING: Patient had an echocardiogram done in the hospital. However, the result is pending. Will need to be followed outpatient. On 01/24/2017, patient had a CT head without contrast. Shows no acute changes. There was a CT angiography of the head. Only shows atherosclerotic calcification and slight ectasia of carotid siphons bilaterally in the internal carotid and supraclinoid carotid. Patient had a portable chest x-ray at the same time. Shows left lower lobe infiltrate versus artifact from portable position. Patient then had a Doppler duplex of bilateral carotids. Shows less than 50% stenosis bilaterally. Later in the day, patient also had MRI of the brain, which shows multiple punctate area of acute infarct identified at the vertex of the right hemisphere to the frontal and parietal lobe region. On the following day, patient also had a portable chest x-ray. Did not show any significant changes. However, radiologist recommended CT chest due to patient's history of latent tuberculosis (TB), and the CT chest only shows chronic lung field findings. On 01/25/2017, patient had a repeat CT of the head. It did not show anything remarkable and shows no change. Results that are pending including LA. DRVVT screen ratio pending. Protein C and S activity, antithrombin III activity, factor V Leiden, HORACIO screening, atypical HORACIO, c-ANCA, p-ANCA, SS-A/Ro, SS-B/La antibody, anticardiolipin IgG, IgA, IgM antibody, and also factor II mutation are all pending. Should be followed up outpatient. HISTORY OF PRESENT ILLNESS: 76-year-old male with past medical history of rheumatoid arthritis, gastroesophageal reflux disease (GERD), history of pericarditis in 2009 due to rheumatoid arthritis, hyperlipidemia, BPH, history of shingles, osteopenia, hypothyroidism, also latent TB, presented with left-sided weakness starting in the morning around 3:30 when patient woke up to urinate. The patient stated the entire left side feels heavy. He also had trouble lifting his left leg and was having trouble using left arm, as well. Also, admits to some discomfort at the back of his head, which has improved by the time of the interview. Patient stated that it never happened in the past. Denies any headache, blurred vision, change of speech, slurred speech, loss of bladder or urine control, loss of consciousness. Patient denies any falls, any chest pain, trouble breathing, abdominal pains, nausea, vomiting. Patient admits to diarrhea; however, denies any constipation. Denies any blood in the stool or urine. Patient has been feeling weaker for the past few weeks and has been to Dr. Lerma's office for some reason, and the patient stated that he did have a recent carotid ultrasound and also echocardiogram. Patient stated that he has been told results were normal. HOSPITAL COURSE: On day of admission, patient initially had a negative CT head and CT angiography of the head. Patient was started on high-dose aspirin 325 mg in the emergency room and has been ordered daily. In addition, patient's repeat MRI later in the day shows multiple punctate ischemic stroke on the right frontal parietal region. At this point, neurologist suspected it could be cardiac in origin. Also, patient's daughter brought up that the patient might have atrial fibrillation in the past. Therefore, cardiology was consulted and the patient's history was reviewed that patient did not have atrial fibrillation in the past, and initially transesophageal echocardiogram was recommended. However, upon talking with patient, he had severe delirium with sedation and Dr. Rubin does not believe a transesophageal echocardiogram (CASIMIRO) would bring in any additional information that would change the management and the patient was started on Plavix. On the day of discharge, patient has passed physical therapy and there was also a repeat CT of the head, which was negative, and a repeat CT of the chest due to patient's latent TB and abnormal lung sounds. Did not show any acute findings. Patient was stable to be discharged. DISCHARGE TO: Home. DISCHARGE CONDITION: Stable. DISCHARGE MEDICATIONS: Including: New medications: - aspirin 325 mg one tablet by mouth daily - atorvastatin 40 mg one tablet by mouth daily - clopidogrel 75 mg one tablet by mouth daily Continue home medications including: - alendronate 70 mg one tablet by mouth daily - calcium/vitamin D one tablet by mouth twice a day - vitamin D3, 2000 units one tablet by mouth daily - fish oil 1200 mg two tablets by mouth twice a day - Synthroid 112 mcg by mouth daily - linseed oil 1000 mg one tablet by mouth daily - magnesium oxide 800 mg by mouth nightly - multivitamin one tablet by mouth daily - omeprazole 40 mg one tablet by mouth daily - prednisolone eye droplets each eye daily - prednisone 5 mg one tablet by mouth twice a day - PreserVision by mouth twice a day - sodium chloride ointment in each eye twice a day - stool softener 240 mg one tablet by mouth daily - Systane Ultra eye droplets for dry eye in each eye as needed Stopped medication including: - aspirin 81 mg, which was switched to aspirin 325 mg FOLLOWUP: Patient should followup with Dr. Arrington in 2-[address] Vaughn for possible event recorder versus a loop recorder and also her primary care provider, Dr. Lerma, as soon as possible. ADDITIONAL INSTRUCTION: If patient develops additional weakness on any one side of his body or any additional numbness or tingling, slurred speech, blurred vision, or any focal neurological changes, patient should go to emergency room. Patient has been discussed with attending doctor, Dr. Woo. My preceptor for this patient encounter was Dr. Niko Woo. The preceptor was physically present in the building during the encounter and was fully available. As needed, all aspects of the patient interview, examination, medical decision making process, and medical care plan development were reviewed and approved by the preceptor. The preceptor is aware and concurs with the plan as stated in the body of this note and will attest to such by his/her cosignature.
[2017-02-01 14:14] LABS: SJOGREN'S ANTI SS-A <0.2 AI (0.0-0.9); SJOGREN'S ANTI SS-B <0.2 AI (0.0-0.9)
== END 2017-01-26 16:54 | disposition home or self-care (01) | DRG 65 ==
LOC: M ED 06:06 → M ED INP 09:39 → M PCU 12:20
PROVIDERS: ADMIT Internal Medicine; ATTEND Internal Medicine
DX: I63.40 Cerebral infarction due to embolism of unspecified cerebral artery (principal); I69.354 Hemiplegia and hemiparesis following cerebral infarction affecting left non-dominant side; M06.9 Rheumatoid arthritis, unspecified; E03.9 Hypothyroidism, unspecified; E83.42 Hypomagnesemia; R19.7 Diarrhea, unspecified; I35.0 Nonrheumatic aortic (valve) stenosis; K21.9 Gastro-esophageal reflux disease without esophagitis; E78.5 Hyperlipidemia, unspecified; Z79.82 Long term (current) use of aspirin; Z79.899 Other long term (current) drug therapy; H18.51 Endothelial corneal dystrophy; R76.11 Nonspecific reaction to tuberculin skin test without active tuberculosis; Z94.7 Corneal transplant status; Z87.891 Personal history of nicotine dependence

== ENCOUNTER → 2017-02-11 | Outpatient (REF) | payer MEDICARE ==
[~2017-02-11] MED LIST changes: +ALEN70TA39 PO; +ARTI99.0 OU; +ASPI1TAB PO; +ASPI325T PO; +ASPI81TA85 PO; +ATOR1TAB21 PO; +ATOR40TA75 PO; +CALC-210 PO; +CLOP75TA2 PO; +FISH120012 PO; +FLAX1000 PO; +LEVO112T2 PO; +MAGN1TAB25 PO; +MAGN400C2 PO; +OMEP40CA2 PO; +PRED1SUS OS; +PRED5TA PO; +PRESCAP6 PO; +STOO1CAP9 PO; +SYSTSOL11 OU; +VITA10002 PO; +VITA20008 PO; +VITMTA PO; +[UNRECOGNIZED DRUG - OTHER] OD
[2017-02-11 17:39] LABS: BASO % 0.4 % (0.0-1.0); EOS % 0.3 % (0.0-3.0); LARGE UNSTAINED CELL # 0.1 K/mm3 (0.0-0.4); LARGE UNSTAINED CELL % 0.8 % (0.0-4.0); LYMPH # 1.5 K/mm3 (1.5-4.5); LYMPH % 11.4 % (24.0-44.0); MEAN CORPUSCULAR HEMOGLOBIN 28.1 pg (27.0-33.0); MEAN CORPUSCULAR VOLUME 90.6 fl (80.0-96.0); MONO # 0.4 K/mm3 (0.0-0.8); MONO % 3.2 % (0.0-5.0); NEUTROPHILS # 10.5 K/mm3 (1.8-7.7); NEUTROPHILS % 83.9 % (36.0-66.0); PLATELET COUNT, AUTOMATED 367 k/mm3 (150-450); RED CELL DISTRIBUTION WIDTH 13.8 % (11.5-14.5); WHITE BLOOD COUNT 12.5 K/mm3 (4.0-10.0)
[2017-02-11 18:22] LABS: ANION GAP 9 MEQ/L (8-16); BLOOD UREA NITROGEN 15 MG/DL (7-18); CALCIUM LEVEL 9.1 MG/DL (8.8-10.2); CARBON DIOXIDE LEVEL 29 MEQ/L (21-32); CHLORIDE LEVEL 100 MEQ/L (98-107); CREATININE FOR GFR 0.75 MG/DL (0.70-1.30); GLOMERULAR FILTRATION RATE > 60.0 (>42); GLUCOSE, FASTING 96 MG/DL (83-110); SODIUM LEVEL 138 MEQ/L (136-145)
[2017-02-11 18:25] LABS: POTASSIUM SERUM 5.7 MEQ/L (3.5-5.1)
== END ==
LOC: M LABDRAW1 15:58
PROVIDERS: ATTEND Physician Assistant Medical
DX: R53.1 Weakness (principal); R19.7 Diarrhea, unspecified; R42 Dizziness and giddiness

== ENCOUNTER 2017-04-03 11:01 | Inpatient (IN) | payer MEDICARE ==
[~2017-04-03] VITALS: Ht 170.2 cm; Wt 73.5 kg
[~2017-04-03 11:01] MED LIST changes: -ARTI99.0 OU; -ASPI81TA85 PO; -ATOR40TA75 PO; -VITA10002 PO
[2017-04-03] MEDS ORDERED: ASPI81TA85 PO (11:22)
[2017-04-03 11:48] LABS: BASO # 0.1 10^3/uL (0.0-0.2); BASO % 0.4 % (0.0-1.0); EOS # 0.3 10^3/uL (0.0-0.50); EOS % 2.1 % (0.0-3.0); IMMATURE GRANULOCYTE % 0.3 % (0-0); LYMPH # 2.1 10^3/uL (1.5-4.5); LYMPH % 15.1 % (24.0-44.0); MEAN CORPUSCULAR HEMOGLOBIN 28.1 pg (27.0-33.0); MEAN CORPUSCULAR HGB CONC 31.1 g/dl (32.0-36.5); MEAN CORPUSCULAR VOLUME 90.3 fl (80.0-96.0); MONO % 7.3 % (0.0-5.0); NEUTROPHILS # 10.6 10^3/uL (1.8-7.7); NEUTROPHILS % 74.8 % (36.0-66.0); PLATELET COUNT, AUTOMATED 353 10^3/uL (150-450); RED CELL DISTRIBUTION WIDTH 13.9 % (11.5-14.5); WHITE BLOOD COUNT 14.2 10^3/uL (4.0-10.0)
--- NOTE | 2017-04-03 12:07 | REP ---
CT Head without contrast HISTORY: Altered mental status COMPARISON: 01/25/2017 Areas of decreased attenuation are present in the periventricular white matter. This represents small-vessel ischemic disease. There is no intraparenchymal hemorrhage, acute infarct, mass or midline shift. The ventricular system and cortical sulci are dilated consistent with mild volume loss. There is no extra cerebral collection. There is no fracture. The visualized sinuses are clear. IMPRESSION: 1. Small vessel ischemic disease. 2. Mild volume loss. Signed by Niko Lou MD 04/03/2017 11:58 A
[2017-04-03 12:20] LABS: ALBUMIN 2.7 GM/DL (3.2-5.2); ALKALINE PHOSPHATASE 46 U/L (45-117); ALT/SGPT 30 U/L (12-78); ANION GAP 4 MEQ/L (8-16); AST/SGOT 25 U/L (15-37); BILIRUBIN,DIRECT < 0.1 MG/DL (0.0-0.2); BILIRUBIN,TOTAL 0.3 MG/DL (0.2-1.0); BLOOD UREA NITROGEN 14 MG/DL (7-18); CALCIUM LEVEL 8.5 MG/DL (8.8-10.2); CARBON DIOXIDE LEVEL 33 MEQ/L (21-32); CHLORIDE LEVEL 104 MEQ/L (98-107); CREATININE FOR GFR 0.94 MG/DL (0.70-1.30); GLOMERULAR FILTRATION RATE > 60.0 (>42); GLUCOSE, FASTING 114 MG/DL (83-110); POTASSIUM SERUM 4.3 MEQ/L (3.5-5.1); SODIUM LEVEL 141 MEQ/L (136-145); TOTAL PROTEIN 5.7 GM/DL (6.4-8.2)
[2017-04-03 12:30] LABS: OSMOLALITY SERUM 296 MOSM/KG (280-301)
[2017-04-03] MEDS ORDERED: ATOR40TA75 PO (13:22)
[2017-04-03] MEDS ORDERED: VITA10002 PO (13:24)
[2017-04-03] MEDS ORDERED: ARTI99.0 OU (13:40)
--- NOTE | 2017-04-03 13:43 | REP ---
Portable chest, 01:17 p.m., single AP view, patient sitting: Comparison is 01/24/2017. There are no focal infiltrates or pleural effusions. The study is under penetrated, artifactually accentuating the interstitium, possibly from patient body habitus. Cardiac size is normal. The franko, mediastinum, and bony thorax are unremarkable. Impression: There are no acute cardiopulmonary findings. The study is slightly underpenetrated. Signed by Zhang Kent MD 04/03/2017 01:34 P
[2017-04-03 14:51] LABS: METHADONE URINE NEGATIVE (NEGATIVE)
--- NOTE | 2017-04-03 15:34 | HPEPDOC ---
[facility] Medical History & Physical Date of Admission Apr 03, 2017 History and Physical ATTENDING: Dr. 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 Dr Vaughn. CC: confusion HPI: [id number] most recently admitted to [facility] 01/23/17-01/26/17 related to sided weakness secondary to CVA during admission the patient was seen by neurology and cardiology. The patient was started on Plavix 75 mg daily. This morning the patient states he noticed an episode of confusion which began approximately 9 AM. The patient states "I forgot what I was doing and what day it was". This lasted approximately 1-1/2 hours until 10:30 AM. Subsequently the patient was brought to the emergency department for further evaluation. He states his body felt weighty" and reports his head feeling heavy however he denies headache, changes with vision, dizziness, vertigo, dysarthria or dysphagia. He denies weakness in arms or legs. Denies numbness or tingling in upper or lower extremities. Denies loss of bowel or bladder control. He has not had any previous episodes of this. Denies any fevers, chills, weakness, fatigue, MENDEZ, CP, SOB, cough, palpitations, abdominal pain, N/V/D or changes in bowel or bladder habits. Upon presentation to the hospital the patient was found to have transient global amnesia, thus the hospitalist team was consulted. 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 Chronic reduced vision. Rheumatoid arthritis, on prednisone History of peritonitis 2012 Murmur/aortic regurgitation GERD Dyslipidemia Hypothyroid Hypomagnesemia BPH Latent tuberculosis, patient not have treatment related to rheumatoid arthritis History of shingles Osteopenia History of facial cancer Recent CVA 01/14. TTE 01/29/17 1. Normal global left ventricular systolic function. There were features of left ventricular diastolic dysfunction manifested by abnormal relaxation. 2. Aortic valve sclerosis with mild aortic regurgitation and moderate aortic stenosis. 3. Borderline enlarged left atrium with mitral annulus calcification and mild mitral regurgitation. 4. Mild tricuspid regurgitation with mild pulmonary hypertension. MRI brain 01/23/17 1. Multiple punctate areas of acute infarct identified at the vertex of the right hemisphere at the frontal and parietal lobe regions. No significant mass effect or hemorrhagic complication is seen at this time. 2. The remainder of the MRI examination of the brain is normal. Carotid ultrasound 01/14 1. Bilaterally less than 50% stenosis of the internal carotids, no hemodynamically significant or flow restricting lesion noted. 2. Cranial direction of flow in the vertebral arteries bilaterally. CTA Head 01/14 1. Atherosclerotic calcifications and slight ectasia of the carotid siphons bilaterally with the internal carotids, supraclinoid carotids, A1, M1 segments and their major branches in the anterior circulation are unremarkable. No evidence of aneurysm, vessel cutoff or other acute finding. 2. Posterior circulation grossly intact with no basilar stenosis or aneurysm and normal basilar tip origin for the posterior cerebral arteries. SOCHX: Resides in: [facility] Marital Status: Kids: 2 Employment: Retired Tobacco use: Denies ETOH: Denies Illicit Drugs: Denies Recent travel: Denies Advanced directives: Healthcare proxy is the patient's daughter Shaila. [phone] FAMHX: Children: Alive, well . ROS: As noted in HPI, otherwise 11pt ROS of systems reviewed and remarkable only for chronic reduced vision, the patient wears dark glasses. PE: GEN: 77 yo M, appears stated age. Well-nourished, well developed. No acute distress. Alert and oriented x 3. Pleasant, interactive. HEENT: Normocephalic, atraumatic. The patient has an irregular pupil on the left which is chronic. Extraocular movements are intact. No nystagmus appreciated. Sclera are nonicteric. Conjunctiva without injection. Nose midline. Nasal turbinates without bogginess. EACs both patent BL. TMs both visualized and murray with good cone of light, no bulging or erythema. No facial asymmetry. Moist mucous membranes. Dentition fair. Pharynx pink and moist, no cobblestoning. Neck supple, trachea midline. No lymphadenopathy or thyromegaly appreciated. CHEST: Regular rate and rhythm, +S1, +S2. Diastolic murmur noted. LUNGS: Clear to auscultation bilaterally. No wheezes, rales, or rhonchi. Breathing appears symmetric and easy. Patient is speaking in full sentences. No accessory muscle use. ABD: Round, soft, non-tender, non-distended. +Bowel sounds throughout. No rebound or guarding. No costovertebral angle tenderness. EXT: Pulses 2+ bilaterally dorsalis pedis and radial. 1+ pitting edema lower extremities unchanged from last admission. SKIN: [place], dry, warm. Capillary refill <2sec. No rashes. NEURO: Alert and oriented x 3. Cranial nerves III-XII are intact. No focal deficits appreciated. CXR There are no acute cardiopulmonary findings. The study is slightly underpenetrated. CT: head 1. Small vessel ischemic disease. 2. Mild volume loss. EKG: SR, occas PVC, LVH, 91 bpm. BLOOD CULTURES: pending UC pending. LA 2.5 U Tox pending MRI brain pending MRA brain pending A&P: 77yoM most recently admitted to [facility] 01/23/17-01/26/17 related to sided weakness secondary to CVA during admission the patient was seen by neurology and cardiology. The patient was started on Plavix 75 mg daily. This morning the patient states he noticed an episode of confusion which began approximately 9 AM. The patient states "I forgot what I was doing and what day it was". This lasted approximately 1-1/2 hours until 10:30 AM. Subsequently the patient was brought to the emergency department for further evaluation. 1. The patient will be admitted to PCU for at least [address] Valderrama 's service. Pt is discussed with Dr Hernandez. 2. Episode of transient global amnesia. PCU/TM. Request neuro checks Q 4hr. MRI/MRA brain pending. Request EEG. Blood cultures/urine culture pending. Serial CIP/troponin. Toxicology screen. 2. Lactic acidosis. Patient is afebrile. White blood cell count is noted to be 14.2. Gentle IV fluid hydration at 75 mL per hour. Recheck lactic acid at 4 PM. Blood cultures, urine culture pending. Chest x-ray as noted above. Hold off on addition of antibiotics at this time. 3. History of CVA 01/14. Continue with Plavix 75 mg daily and aspirin 81 mg daily. Continue statin. 4. Rheumatoid arthritis. Patient remains on prednisone 5. Hypothyroid. Continue supplement. TSH WNL. 6. Dyslipidemia. Continue statin. 7. Chronic lower extremity edema/diastolic dysfunction. Caution with IV fluids. Patient does not take diuretic as outpatient. 8. History of aortic regurgitation. TTE as noted above. Patient follows with cardiology as outpatient. 9. Hypomagnesemia. Continue supplement. Monitor magnesium level. DVT prophylaxis. The patient is a Full code. Vital Signs Vital Signs Date Time Temp Pulse Resp B/P (MAP) Pulse Ox O2 Delivery O2 Flow Rate FiO2 04/03/17 15:02 76 97 04/03/17 15:00 120/69 (86) 04/03/17 13:17 98.6 20 Room Air Laboratory Data Labs 24H Laboratory Tests 2 04/03/17 11:32: Immature Granulocyte % (Auto) 0.3H, White Blood Count 14.2H, Red Blood Count 4.95, Hemoglobin 13.9L, Hematocrit 44.7, Mean Corpuscular Volume 90.3, Mean Corpuscular Hemoglobin 28.1, Mean Corpuscular Hemoglobin Concent 31.1L, Red Cell Distribution Width 13.9, Platelet Count 353, Neutrophils (%) (Auto) 74.8H, Lymphocytes (%) (Auto) 15.1L, Monocytes (%) (Auto) 7.3H, Eosinophils (%) (Auto) 2.1, Basophils (%) (Auto) 0.4, Neutrophils # (Auto) 10.6H, Lymphocytes # (Auto) 2.1, Monocytes # (Auto) 1.0H, Eosinophils # (Auto) 0.3, Basophils # (Auto) 0.1, Immature Granulocyte # (Auto) 0.0, Nucleated Red Blood Cells % (auto) 0.0, Anion Gap 4L, Glomerular Filtration Rate > 60.0, Osmolality 296, Calcium Level 8.5L, Aspartate Amino Transf (AST/SGOT) 25, Alanine Aminotransferase (ALT/SGPT) 30, Alkaline Phosphatase 46, Total Bilirubin 0.3, Direct Bilirubin < 0.1, Total Creatine Kinase 89, Creatine Kinase MB 11.6H, Creatine Kinase MB Relative Index 13.03H, Troponin I 0.02, Total Protein 5.7L, Albumin 2.7L, Albumin/Globulin Ratio 0.90L, Thyroid Stimulating Hormone (TSH) 3.210, Salicylates Level < 1.7L, Urine Amphetamines Screen NEGATIVE, Urine Benzodiazepines Screen NEGATIVE, Urine Opiates Screen NEGATIVE, Urine Methadone Screen NEGATIVE, Acetaminophen Level 2.1L, Urine Barbiturates Screen NEGATIVE, Urine Phencyclidine Screen NEGATIVE, Urine Cocaine Metabolite Screen NEGATIVE, Urine Cannabinoids Screen NEGATIVE, Ethyl Alcohol Level < 0.003 04/03/17 11:33: Lactic Acid Level 2.5*H, Ammonia 17 04/03/17 11:44: Bedside Glucose (Misc Panel) 105 04/03/17 12:54: Urine Appearance CLEAR, Urine Color YELLOW, Urine pH 8.0, Urine Specific [place] 1.005, Urine Protein NEGATIVE, Urine Glucose (UA) NEGATIVE, Urine Ketones NEGATIVE, Urine Urobilinogen 0.2, Urine Bilirubin NEGATIVE, Urine Leukocyte Esterase NEGATIVE, Urine Blood NEGATIVE, Urine Nitrite NEGATIVE, Urine WBC (Auto) 0, Urine RBC (Auto) 0, Urine Hyaline Casts (Auto) 0, Urine Bacteria (Auto) 1+H, Urine Squamous Epithelial Cells 0, Urine Sperm (Auto) CBC/BMP Laboratory Tests 04/03/17 11:32 Red Blood Count 4.95, Mean Corpuscular Volume 90.3, Mean Corpuscular Hemoglobin 28.1, Mean Corpuscular Hemoglobin Concent 31.1 L, Red Cell Distribution Width 13.9, Neutrophils (%) (Auto) 74.8 H, Lymphocytes (%) (Auto) 15.1 L, Monocytes (% ) (Auto) 7.3 H, Eosinophils (%) (Auto) 2.1, Basophils (%) (Auto) 0.4, Neutrophils # (Auto) 10.6 H, Lymphocytes # (Auto) 2.1, Monocytes # (Auto) 1.0 H , Eosinophils # (Auto) 0.3, Basophils # (Auto) 0.1 Home Medications Scheduled (Stool Softener) 240 Mg Cap, 240 MG PO DAILY (Preservision Areds 2) 1 Cap Cap, 1 CAP PO BID Alendronate Sodium (Alendronate Sodium) 70 Mg Tab, 70 MG PO QWEEK SATURDAY Aspirin (Aspir-81) 81 Mg Tab, 81 MG PO DAILY Atorvastatin Calcium (Atorvastatin Calcium) 40 Mg Tab, 40 MG PO QHS Calcium/Vitamin D (Calcium 600+D3 600-200 mg-Unit) 1 Tab Tab, 1 TAB PO BID Cholecalciferol (Vitamin D3) 2,000 Unit Tab, 2,000 UNIT PO DAILY Clopidogrel Bisulfate (Clopidogrel) 75 Mg Tab, 75 MG PO DAILY Cyanocobalamin (Vitamin B-12) 1,000 Mcg Tab, 3,000 MCG PO DAILY Fish Oil (Fish Oil) 1,200 Mg Cap, 2,400 MG PO DAILY Levothyroxine Sodium (Synthroid) 112 Mcg Tab, 112 MCG PO DAILY Linseed Oil (Flaxseed Oil) 1,000 Mg Cap, 1,000 MG PO BID Magnesium Oxide (Magnesium) 400 Mg Tab, 400 MG PO QHS Multivitamins *[facility] STOCKED* (Thera M Plus *[facility] STOCKED*) 1 Tab Tab, 1 TAB PO DAILY Prednisolone Acetate (Pred Forte 1% Opth Susp) 1 % [place], 1 DROP OS Q2D Prednisone (Prednisone) 5 Mg Tab, 10 MG PO DAILY Sodium Chloride (Sodium Chloride 5% Opth Oint) 1 Dose/3.5 Gm Oint, 1 DOSE OD BID Scheduled PRN Artificial Tears (Artificial Tears) 1.4 % Mable, 1 DROP OU PRN PRN for DRY EYES Allergies Coded Allergies: No Known Allergies (Verified , 03/21/11) Rosalinda Rizvi Apr 03, 2017 15:34
[2017-04-03] MEDS: NS 1,000 ML IV SCH (15:36)
[2017-04-03] MEDS ORDERED: POLYVINYL ALCOHOL OPHTH SOLN 15 ML(LIQUITEARS) OU PRN (15:45)
[2017-04-03] MEDS ORDERED: ACETAMINOPHEN TAB 650MG DOSE (2X325MG) PO PRN (15:45)
[2017-04-03 16:28] LABS: MAGNESIUM LEVEL 2.3 MG/DL (1.8-2.4)
[2017-04-03 19:49] VITALS: BP 117/60
[2017-04-03 20:00] VITALS: BP 124/58
--- NOTE | 2017-04-03 20:33 | REP ---
MRA BRAIN WITHOUT CONTRAST: HISTORY: Mental status change. 3D TOF MR angiography was performed at the level of the [place]. There is no aneurysm or arteriovenous malformation. Mild atherosclerotic disease involves the cavernous and supraclinoid internal carotid arteries. Moderate atherosclerotic disease involves the proximal A1 segment of the left anterior cerebral artery and M1 segment of the left middle cerebral artery. Major intracranial vessels are patent. The left vertebral artery is dominant. IMPRESSION: 1. There is no aneurysm or arteriovenous malformation. 2. Atherosclerotic disease as described above. Signed by Niko Lou MD 04/04/2017 08:13 A
--- NOTE | 2017-04-03 20:38 | REP ---
MRI BRAIN WITHOUT CONTRAST: HISTORY: Mental status change. COMPARISON: CT 04/03/2017 Areas of increased signal intensity on T2-weighted images are present in the periventricular and subcortical white matter. This represents small vessel ischemic disease. There is no intraparenchymal hemorrhage, infarct, mass or midline shift. The ventricular system and cortical sulci are dilated consistent with mild volume loss. There is no extracerebral collection. The sinuses are clear. IMPRESSION: 1. Small vessel ischemic disease. 2. Mild volume loss. Signed by Niko Lou MD 04/04/2017 08:13 A
[2017-04-03] MEDS: SODIUM CHLORIDE 5% OPHTH OINT 3.5 GM OD SCH (22:03)
[2017-04-03] MEDS: ATORVASTATIN 20 MG TAB PO SCH (22:03)
[2017-04-04 01:00] VITALS: BP 105/60
[2017-04-04 03:07] LABS: BASO # 0.1 10^3/uL (0.0-0.2); BASO % 0.6 % (0.0-1.0); EOS # 0.3 10^3/uL (0.0-0.50); EOS % 3.4 % (0.0-3.0); IMMATURE GRANULOCYTE % 0.3 % (0-0); LYMPH # 2.7 10^3/uL (1.5-4.5); LYMPH % 26.6 % (24.0-44.0); MEAN CORPUSCULAR HEMOGLOBIN 28.2 pg (27.0-33.0); MEAN CORPUSCULAR HGB CONC 31.6 g/dl (32.0-36.5); MONO # 0.7 10^3/uL (0.0-0.8); MONO % 6.5 % (0.0-5.0); NEUTROPHILS # 6.3 10^3/uL (1.8-7.7); NEUTROPHILS % 62.6 % (36.0-66.0); PLATELET COUNT, AUTOMATED 289 10^3/uL (150-450); RED CELL DISTRIBUTION WIDTH 13.9 % (11.5-14.5)
[2017-04-04 03:31] LABS: ALBUMIN 2.2 GM/DL (3.2-5.2); ALBUMIN/GLOBULIN RATIO 0.73 (1.00-1.93); ALKALINE PHOSPHATASE 35 U/L (45-117); ALT/SGPT 24 U/L (12-78); ANION GAP 7 MEQ/L (8-16); AST/SGOT 16 U/L (15-37); BILIRUBIN,TOTAL 0.3 MG/DL (0.2-1.0); BLOOD UREA NITROGEN 12 MG/DL (7-18); CALCIUM LEVEL 7.6 MG/DL (8.8-10.2); CARBON DIOXIDE LEVEL 29 MEQ/L (21-32); CHLORIDE LEVEL 108 MEQ/L (98-107); CREATININE FOR GFR 0.68 MG/DL (0.70-1.30); GLOMERULAR FILTRATION RATE > 60.0 (>42); GLUCOSE, FASTING 87 MG/DL (83-110); MAGNESIUM LEVEL 1.9 MG/DL (1.8-2.4); POTASSIUM SERUM 4.2 MEQ/L (3.5-5.1); SODIUM LEVEL 144 MEQ/L (136-145); TOTAL PROTEIN 5.2 GM/DL (6.4-8.2)
[2017-04-04 04:00] VITALS: BP 120/70
[2017-04-04] MEDS: LEVOTHYROXINE 112MCG TABLET (0.112MG) PO SCH (06:00)
[2017-04-04] MEDS: NS 1,000 ML IV SCH (07:57)
[2017-04-04 08:00] VITALS: BP 106/55
--- NOTE | 2017-04-04 08:39 | IPN ---
DATE: 04/04/2017 The patient seen and examined at the bedside. The chart has been reviewed. No issues on telemetry. The patient remains sinus rhythm with ventricular rate of 67 to 97. This morning, the patient is awake, alert and oriented to person, place and time, answering questions appropriately. He denies any chest pain, pressure or tightness, shortness of breath, palpitations, lightheadedness or dizziness. VITALS: Temperature 97.9, pulse 67, respiratory rate 18, blood pressure 120/70, and 97% in room air. Generally, awake, alert and oriented times three, answering questions appropriately. Pupils are equally round and reactive to light and accommodation. Extraocular muscles are intact. Normocephalic, atraumatic. Moist mucous membranes. No facial asymmetry. Speaks in full sentences. Fluent speech. No word finding difficulties. Tongue is midline. Extraocular muscles are intact. No nystagmus noted. Lungs are clear to auscultation. No wheezing, rales or rhonchi. Heart: S1, S2, sinus rhythm. Systolic ejection murmur in the right second intercostal space radiating to the carotids. Abdomen: Soft. Nontender. Nondistended. Positive bowel sounds. Extremities: No cyanosis, clubbing or pitting edema. LABORATORY DATA AND IMAGING STUDIES: Have been reviewed. ASSESSMENT AND PLAN: This is a 77-year-old male with history of aortic stenosis, rheumatoid arthritis, chronic prednisone use, Fuchs disease of the eye, reflux, dyslipidemia, hypothyroidism, benign prostatic hypertrophy (BPH), tuberculosis, history of facial cancer, recent CVA on 01/14/2017, mild pulmonary hypertension, mild tricuspid who presents to the emergency room with confusion that started around 9:00 a.m. The patient states that he forgot what he was doing and what day it was, lasting for about one and a half hours until 10:30 a.m. Brought into the emergency room for further evaluation. The patient complained of his body feeling heavy and "weighty". Otherwise denies any fevers or chills or syncopal episodes. CBC and metabolic panel have been reviewed, all of which are negative. MRI and MRA of the brain shows . The patient has not had any fevers or other focal sources of infection. IMPRESSION: 1. Transient global amnesia with prior history of CVA. MRI/MRA unremarkable. Currently on aspirin 81 mg. Consult neurology, Dr. Arrington. Obtain an EEG off telemetry and continue with neuro checks every 4 hourly. 2. Abnormal cardiac markers. Repeat cardiac markers and assess for symptoms. Currently on aspirin. No complaints of chest pain, pressure or tightness or heaviness. 3. History of rheumatoid arthritis, on chronic prednisone. 4. Hypothyroidism, on Synthroid. 5. History of facial cancer, stable. 6. Aortic stenosis, no complaints of syncope, will monitor for now. Outpatient followup with Dr. Vaughn, cardiology. 7. Vitamin D deficiency, continue vitamin D. 8. History of CVA, on aspirin, Plavix and Lipitor.
[2017-04-04] MEDS: SODIUM CHLORIDE 5% OPHTH OINT 3.5 GM OD SCH ×2 (09:00→20:21)
[2017-04-04] MEDS: predniSONE 10 MG TAB PO SCH (09:18)
[2017-04-04] MEDS: ASPIRIN 81 MG ENTERIC TAB PO SCH (09:18)
[2017-04-04] MEDS: CLOPIDOGREL 75 MG TAB PO SCH (09:18)
[2017-04-04] MEDS: VITAMIN D 1,000 INTERNATIONAL UNITS TABLET PO SCH (09:19)
[2017-04-04] MEDS: CYANOCOBALAMIN 500 MCG TAB PO SCH (09:19)
[2017-04-04] MEDS: MULTIVITAMINS/MINERALS THERAP 1 TAB PO SCH (09:19)
[2017-04-04 12:00] VITALS: BP 110/64
[2017-04-04 16:00] VITALS: BP 111/53
--- NOTE | 2017-04-04 19:24 | ECGEPIP ---
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
--- NOTE | 2017-04-04 19:32 | ECGEPIP ---
Stationary ECG Study [facility] Test Date: 2017-04-04 Pat Name: YOUNG MARTINEZ Department: Room: [place] [address] Gender: M Pss Delivery Professional: : 1940 Requested By: LULU Suarez Order Number: [id number] Reading MD: Javon Rubin Measurements Intervals [place] Rate: 82 P: 38 [place]: 139 QRS: -25 QRSD: 88 T: 15 QT: 347 QTc: 407 Interpretive Statements SINUS RHYTHM BORDERLINE LEFT AXIS DEVIATION MINIMAL VOLTAGE CRITERIA FOR LVH, CONSIDER NORMAL VARIANT SIMILAR 8:13 SAME DAY Electronically Signed On 04-04-2017 19:32:01 EDT by Javon Rubin
[2017-04-04] MEDS: ATORVASTATIN 20 MG TAB PO SCH (20:21)
[2017-04-04 20:41] VITALS: BP 117/55
[2017-04-05] VITALS: BP 103/57
[2017-04-05 04:00] VITALS: BP 121/57
[2017-04-05] MEDS: LEVOTHYROXINE 112MCG TABLET (0.112MG) PO SCH (05:20)
--- NOTE | 2017-04-05 05:53 | ECGEPIP ---
Stationary ECG Study [facility] Test Date: 2017-04-03 Pat Name: YOUNG MARTINEZ Department: Room: - Gender: M Biometrics Head: lyubov : 1940 Requested By: Wendy Everett Order Number: [id number] Reading MD: Andrew Francis Measurements Intervals [place] Rate: 91 P: [place]: 0 QRS: -24 QRSD: 80 T: 18 QT: 299 QTc: 370 Interpretive Statements SINUS RHYTHM WITH SINUS ARRHYTMMIA AND FREQUENT PACS MINIMAL VOLTAGE CRITERIA FOR LVH, CONSIDER NORMAL VARIANT BASELINE ARTIFACT AFFECTS INTERPRETATION Electronically Signed On 04-05-2017 5:53:13 EDT by Andrew Francis
[2017-04-05 06:08] LABS: BASO # 0.1 10^3/uL (0.0-0.2); BASO % 0.7 % (0.0-1.0); EOS # 0.4 10^3/uL (0.0-0.50); EOS % 3.6 % (0.0-3.0); IMMATURE GRANULOCYTE % 0.4 % (0-0); LYMPH # 3.3 10^3/uL (1.5-4.5); LYMPH % 32.6 % (24.0-44.0); MEAN CORPUSCULAR HGB CONC 31.3 g/dl (32.0-36.5); MEAN CORPUSCULAR VOLUME 89.7 fl (80.0-96.0); MONO # 0.7 10^3/uL (0.0-0.8); MONO % 6.6 % (0.0-5.0); NEUTROPHILS # 5.6 10^3/uL (1.8-7.7); NEUTROPHILS % 56.1 % (36.0-66.0); PLATELET COUNT, AUTOMATED 321 10^3/uL (150-450); RED CELL DISTRIBUTION WIDTH 13.9 % (11.5-14.5)
--- NOTE | 2017-04-05 06:26 | CR ---
DATE OF CONSULTATION: 04/04/2017 REFERRING PHYSICIAN: Dr. Lisha Valderrama. REASON FOR CONSULTATION: Confusion and altered mental status. HISTORY OF PRESENT ILLNESS: Mark Anthony Duval is a 77-year-old man who was admitted at [facility] due to an episode of confusion. He was recently admitted at [facility] in December 2016 when he had multiple small left sided strokes causing left-sided weakness and slurred speech. He recently recovered from his deficit at that time. He was at his baseline state of health until the morning of admission at [facility]. He suddenly became confused around 9 a.m. He is able to recall what he had for breakfast but then he completely forgot what he was doing and what day it was. It lasted for 1-1/2 hour until 10:30 a.m. He walked to his daughter's house who lives next door. He saw his son-in-law there. He kept asking the same questions and kept repeating himself. He denies any head injury, illness, or loss of consciousness. He denies any headache. He denies any numbness, weakness of his arms and legs or trouble with speech. He just appeared confused. He denies dysphagia, dysarthria, diplopia, urinary incontinence. PAST MEDICAL HISTORY: Tonsillectomy. Fuchs' disease of eyes. Rheumatoid arthritis. History of small multiple strokes in December 2016. Dyslipidemia. Hypothyroidism. Acid reflux. Osteopenia. History of facial cancer. HOME MEDICATIONS: - Plavix 75 mg by mouth daily - aspirin 81 mg by mouth daily - Lipitor 40 mg by mouth daily - fish oil 1200 mg by mouth - levothyroxine 112 mcg by mouth daily - aspirin 81 mg by mouth daily - alendronate 70 mg by mouth once a week SOCIAL HISTORY: He denies smoking, alcohol or illicit drugs. FAMILY HISTORY: Noncontributory. REVIEW OF SYSTEMS: All systems were reviewed and found to be noncontributory except as mentioned in history of present illness. PHYSICAL EXAMINATION: Heart: Regular rate and rhythm. Lungs: Clear to auscultation. No pedal edema. No gross musculoskeletal abnormalities. No rash. Ear, nose, throat examination is within normal limits. The patient is awake, alert, oriented to place, person and time. Normal speech, comprehension and repetition. Extraocular muscles are intact. No facial weakness. Tongue and uvula are midline. 5/5 strength in all four extremities. Deep tendon reflexes are 2+ throughout. Normal sensation. No tremor. No dysmetria. Plantars are downgoing. No ataxia. Gait is normal. DIAGNOSTIC STUDIES: His MRI scan of brain showed small vessel ischemic disease of brain. His MRI scan of brain in December 2016 had shown small multiple right frontal and parietal ischemic strokes. His MRA brain showed mild carotid atherosclerosis. Carotid ultrasound showed less than 50% bilateral carotid artery stenosis. His EEG is within normal limits. ASSESSMENT: 1. Transient global amnesia. 2. Transient ischemic attack (TIA) cannot entirely be excluded. 3. History of small multiple right frontal and parietal acute ischemic strokes in December 2016. 4. Less than 50% bilateral carotid artery stenosis. PLAN: 1. Continue aspirin 81 mg by mouth daily and Plavix 75 mg by mouth daily. 2. Continue Lipitor 40 mg by mouth daily. 3. Follow with our office in 1-2 months after hospital discharge. The patient states that he already has an appointment scheduled with our office in near future and he will keep that.
--- NOTE | 2017-04-05 06:30 | EEG ---
DATE OF CONSULTATION: 04/04/2017 REFERRING PHYSICIAN: Dr. Lisha Valderrama. DIAGNOSIS: Transient global amnesia, rule out seizure. EEG NUMBER: [id number] HISTORY: Patient is a 77-year-old man with history of right frontal and parietal ischemic strokes in December 2016 and was admitted this time at [facility] due to altered mental status. He is currently taking aspirin, Plavix, Lipitor, etc.. This EEG was done to rule out epileptic potential. TECHNICAL DESCRIPTION: This digital EEG was recorded by 21 scalp, ear and two EKG electrodes and was reviewed in bipolar and referential montages following reformatting in 10-20 international electrode placement system. INTERPRETATION: The patient was noted to be in awake and drowsy states. Resting awake background rhythm consisted of low voltage 9 Hertz alpha activity measuring 10-20 microvolts in amplitude. Stage I and II sleep were reviewed and was symmetric bilaterally. Hyperventilation and photic stimulation remained unremarkable. EKG revealed normal sinus rhythm. No focal, lateralizing or epileptiform abnormalities were seen. No clinical or electrographic seizures were recorded. CONCLUSION: This EEG in awake, drowsy states, stage I and II sleep is within normal limits.
[2017-04-05 06:41] LABS: ALBUMIN 2.3 GM/DL (3.2-5.2); ALBUMIN/GLOBULIN RATIO 0.68 (1.00-1.93); ALKALINE PHOSPHATASE 38 U/L (45-117); ALT/SGPT 26 U/L (12-78); ANION GAP 6 MEQ/L (8-16); AST/SGOT 17 U/L (15-37); BILIRUBIN,TOTAL 0.4 MG/DL (0.2-1.0); BLOOD UREA NITROGEN 17 MG/DL (7-18); CALCIUM LEVEL 7.9 MG/DL (8.8-10.2); CARBON DIOXIDE LEVEL 29 MEQ/L (21-32); CHLORIDE LEVEL 106 MEQ/L (98-107); CREATININE FOR GFR 0.74 MG/DL (0.70-1.30); GLOMERULAR FILTRATION RATE > 60.0 (>42); GLUCOSE, FASTING 83 MG/DL (83-110); POTASSIUM SERUM 3.9 MEQ/L (3.5-5.1); SODIUM LEVEL 141 MEQ/L (136-145); TOTAL PROTEIN 5.7 GM/DL (6.4-8.2)
[2017-04-05 08:00] VITALS: BP 112/53
[2017-04-05] MEDS ORDERED: prednisoLONE ACET 1% OPHTH SUSP 5ML OS SCH (09:00)
[2017-04-05] MEDS: predniSONE 10 MG TAB PO SCH (09:14)
[2017-04-05] MEDS: CYANOCOBALAMIN 500 MCG TAB PO SCH (09:14)
[2017-04-05] MEDS: CLOPIDOGREL 75 MG TAB PO SCH (09:14)
[2017-04-05] MEDS: VITAMIN D 1,000 INTERNATIONAL UNITS TABLET PO SCH (09:14)
[2017-04-05] MEDS: ASPIRIN 81 MG ENTERIC TAB PO SCH (09:14)
[2017-04-05] MEDS: MULTIVITAMINS/MINERALS THERAP 1 TAB PO SCH (09:14)
--- NOTE | 2017-04-05 13:58 | DSES ---
DATE OF ADMISSION: 04/03/2017 DATE OF DISCHARGE: 04/05/2017 CONSULTANTS DURING THIS ADMISSION: Dr. Sweta Arrington, neurology. PRIMARY DISCHARGE DIAGNOSES: Transient global amnesia. Acute transient ischemic attack (TIA) cannot be excluded. History of small multiple right frontal parietal acute ischemic cerebrovascular accident (CVA). History of bilateral carotid artery stenosis less than 50%. Small to moderate pericardial effusion. Abnormal cardiac markers on chronic aspirin and Plavix. Abnormal EKG with borderline left axis deviation, left ventricular hypertrophy (LVH) and occasional PVC. DISCHARGE MEDICATIONS: - aspirin 81 mg daily - Plavix 75 mg daily - alendronate 70 mg weekly - artificial tears one drop both eyes as needed - atorvastatin 40 mg daily - vitamin D one tablet twice daily - vitamin B12 3000 mg daily - fish oil 2400 mg daily - Synthroid 112 mcg daily - flack seed twice daily - Mag Ox 400 daily at bedtime - multivitamin one tablet daily - Predforte one drop os every second day - prednisone 10 mg daily - PreserVision AREDS one cap twice daily - sodium chloride ophthalmic ointment one drop both eyes twice daily - stool softener 40 mg daily HOSPITAL COURSE: This is a 77-year-old male with history of tonsillectomy, Fuchs' disease of eye, rheumatoid arthritis, multiple strokes in December 2016, dyslipidemia, hypothyroidism, acid reflux, facial cancer, osteopenia, presents to the emergency room with confusion, slurred speech, altered mental status and left sided weakness around 9 o'clock lasting for about 1-1/2 hours. Walked to his daughter's house who lives next door and saw his son-in-law there asking the same questions and repeating himself. Patient was admitted and found to have transient global amnesia, transient ischemic attack could not be excluded. He was continued on his aspirin and Plavix MRI/MRA were unremarkable. EEG shows within normal limits. Carotid ultrasound shows less than 50% bilateral carotid artery stenosis. Dr. Sweta Arrington was consulted, recommended continuation of aspirin and Plavix, Lipitor and to followup in the office in 1-2 months. During this admission, patient had cardiac markers which were abnormal at 0.26, troponin 0.3, 0.2, 0.14. He denied any complaints of chest pain, pressure or tightness. EKG read by Dr. Rubin shows sinus rhythm with ventricular rate of 80, occasional supraventricular premature complex, borderline LAD, moderate voltage criteria for LVH considered normal variant. No acute ischemia was noted. Patient ambulated well with no complaints. Continued on aspirin and Plavix. LABS ON DISCHARGE: White count 10, hemoglobin 13, hematocrit 41, platelet count 321. Sodium 141, potassium 3.9, chloride 106, bicarbonate 29, BUN 17, creatinine 0;.74, glucose of 83. Troponin 0.14. Microbiology two sets of blood culture, urine culture negative. 04/03 MRI of the brain: Small vessel ischemic disease, mild volume loss. MRA of the brain 04/03 shows no aneurysm or AVM. Atherosclerotic disease. Chest x-ray on 04/03 shows no acute cardiopulmonary findings, slightly under penetrated. TIME SPENT ON DISCHARGE: 30 minutes. OUTPATIENT PATIENT FOLLOWUP ISSUES: 1. Followup with patient's card tender within 1 week of discharge regarding abnormal cardiac markers and recurrent episodes of altered mental status, to evaluate the need for stress test versus coronary catheterization. 2. Transient global amnesia. Continue aspirin and Plavix. Followup with Dr. Sweta Arrington, neurology, within 1 month of discharge.
== END 2017-04-05 09:35 | disposition home health service (06) | DRG 71 ==
LOC: M ED 11:01 → M ED INP 15:10 → M PCU 20:34
PROVIDERS: ADMIT Internal Medicine; ATTEND General Practice
DX: G45.4 Transient global amnesia (principal); E87.2 Acidosis; I35.0 Nonrheumatic aortic (valve) stenosis; M06.9 Rheumatoid arthritis, unspecified; Z86.73 Personal history of transient ischemic attack (TIA), and cerebral infarction without residual deficits; Z79.82 Long term (current) use of aspirin; Z79.899 Other long term (current) drug therapy; E03.9 Hypothyroidism, unspecified; E78.5 Hyperlipidemia, unspecified; K21.9 Gastro-esophageal reflux disease without esophagitis; Z94.7 Corneal transplant status; N40.0 Benign prostatic hyperplasia without lower urinary tract symptoms; E83.42 Hypomagnesemia; Z79.52 Long term (current) use of systemic steroids; E55.9 Vitamin D deficiency, unspecified

== ENCOUNTER 2017-10-25 18:05 | Emergency (ER) | payer MEDICARE ==
[2017-10-25 19:07] LABS: BASO % 0.5 % (0.0-1.0); EOS # 0.2 10^3/uL (0.0-0.50); EOS % 2.3 % (0.0-3.0); HEMATOCRIT 38.1 % (42.0-52.0); HEMOGLOBIN 11.8 g/dl (13.5-17.5); IMMATURE GRANULOCYTE % 0.4 % (0-3.0); LYMPH # 1.6 10^3/uL (1.5-4.5); LYMPH % 18.7 % (24.0-44.0); MEAN CORPUSCULAR HEMOGLOBIN 26.9 pg (27.0-33.0); MEAN CORPUSCULAR VOLUME 86.8 fl (80.0-96.0); MONO # 0.6 10^3/uL (0.0-0.8); MONO % 7.6 % (0.0-5.0); NEUTROPHILS # 5.9 10^3/uL (1.8-7.7); NEUTROPHILS % 70.5 % (36.0-66.0); PLATELET COUNT, AUTOMATED 350 10^3/uL (150-450); RED BLOOD COUNT 4.39 10^6/uL (4.30-6.10); RED CELL DISTRIBUTION WIDTH 14.2 % (11.5-14.5); WHITE BLOOD COUNT 8.3 10^3/uL (4.0-10.0)
[2017-10-25 19:21] LABS: LACTIC ACID SEPSIS PROTOCOL 1.5 MMOL/L (0.4-2.0)
[2017-10-25 19:22] LABS: AMMONIA < 10 uMOL/L (<32)
[2017-10-25 19:23] LABS: ALBUMIN 2.8 GM/DL (3.2-5.2); ALKALINE PHOSPHATASE 54 U/L (45-117); ALT/SGPT 22 U/L (12-78); ANION GAP 5 MEQ/L (8-16); AST/SGOT 18 U/L (7-37); BILIRUBIN,DIRECT < 0.1 MG/DL (0.0-0.2); BILIRUBIN,TOTAL 0.2 MG/DL (0.2-1.0); BLOOD UREA NITROGEN 15 MG/DL (7-18); CALCIUM LEVEL 8.1 MG/DL (8.8-10.2); CARBON DIOXIDE LEVEL 30 MEQ/L (21-32); CHLORIDE LEVEL 108 MEQ/L (98-107); CPK CREATINE PHOSPHOKINASE 67 U/L (39-308); CREATININE FOR GFR 0.83 MG/DL (0.70-1.30); GLOMERULAR FILTRATION RATE > 60.0 (>42); GLUCOSE, FASTING 104 MG/DL (70-100); POTASSIUM SERUM 4.8 MEQ/L (3.5-5.1); SODIUM LEVEL 143 MEQ/L (136-145); TOTAL PROTEIN 5.9 GM/DL (6.4-8.2); TROPONIN I 0.05 NG/ML (< 0.10)
[2017-10-25 19:29] LABS: CK-MB VALUE MASS 5.7 NG/ML (<3.6)
[2017-10-25] MEDS: MECLIZINE 25 MG TABLET PO (21:08)
[2017-10-26 02:52] LABS: BEDSIDE GLUCOSE 95 MG/DL (83-110)
== END 2017-10-25 23:02 | disposition home or self-care (01) ==
LOC: M ED 18:05
DX: H81.392 Other peripheral vertigo, left ear (principal); I48.91 Unspecified atrial fibrillation; I25.10 Atherosclerotic heart disease of native coronary artery without angina pectoris; E03.9 Hypothyroidism, unspecified; Z79.899 Other long term (current) drug therapy; Z79.01 Long term (current) use of anticoagulants; Z79.890 Hormone replacement therapy
CPT/HCPCS: 70450

== ENCOUNTER 2018-10-10 14:31 | Emergency (ER) | payer MEDICARE ==
[~2018-10-10] VITALS: Ht 167.6 cm; Wt 75.5 kg
[~2018-10-10 14:31] MED LIST changes: -ACET50TA PO; -ALEN70TA39 PO; +ALEN70TA74 PO; +ARTI99.0 OU; +ASPI-1 PO; -ASPI1TAB PO; -ASPI325T PO; +ASPI81TA26 PO; +ASPI81TA85 PO; +ATOR40TA75 PO; -CALC-210 PO; +CALC-239 PO; +ELIQ5TAB PO; -FLAX1000 PO; +FLAX10008 PO; -MAGN1TAB25 PO; +MAGN1TAB26 PO; +MAPA500T17 PO; +MECL-68 PO; -PRED1SUS OS; +PRED1SUS2 OS; +SODI3.5O3 OD; +VITA10002 PO; -[UNRECOGNIZED DRUG - OTHER] OD
[2018-10-10] MEDS ORDERED: LIPI10TA PO (14:43)
--- NOTE | 2018-10-10 16:41 | REP ---
Right lower extremity deep vein duplex ultrasound: The deep veins demonstrate normal compression, normal Doppler color flow and normal Doppler waveforms with respiration and augmentation from the popliteal vein to the common femoral vein. Impression: There is no lower extremity deep vein thrombus. Electronically Signed by Zhang Kent MD 10/10/2018 04:32 P
--- NOTE | 2018-10-10 16:43 | REP ---
Pelvis, right hip: Three views. History: Pain. Findings: AP view of the pelvis shows an intact bony pelvic ring. There is mild sclerosis at the left SI joint. Mild bilateral hip joint osteoarthritis. There is a bone island in the left proximal femur. Periarticular soft tissues are unremarkable. AP and frog-leg views of the right hip show mild femoral spurring and greater trochanteric tendon insertion site spurring. Impression: Mild osteoarthritis. Tendon insertion site spurring on the greater trochanter. Mild sclerosis in the left SI joint. No acute bony abnormality. Electronically Signed by Ady Harden MD 10/10/2018 08:11 P
[2018-10-10 18:03] VITALS: BP 134/94
== END 2018-10-10 18:21 | disposition home or self-care (01) ==
LOC: M ED 14:31
DX: M65.28 Calcific tendinitis, other site (principal); M54.31 Sciatica, right side; I48.91 Unspecified atrial fibrillation; E03.9 Hypothyroidism, unspecified; F33.9 Major depressive disorder, recurrent, unspecified; F41.9 Anxiety disorder, unspecified; E78.5 Hyperlipidemia, unspecified; N40.0 Benign prostatic hyperplasia without lower urinary tract symptoms; Z79.01 Long term (current) use of anticoagulants; Z88.8 Allergy status to other drugs, medicaments and biological substances; Z87.891 Personal history of nicotine dependence

== ENCOUNTER 2018-10-23 14:08 | Inpatient (IN) | payer MEDICARE ==
[~2018-10-23] VITALS: Ht 167.6 cm; Wt 72.6 kg
[~2018-10-23 14:08] MED LIST changes: +LIPI10TA PO
[2018-10-23] MEDS ORDERED: MORPHINE 4 MG/ML 1ML VIAL/SYRINGE (J2270) IV ONE (14:30)
[2018-10-23 14:55] LABS: BASO % 0.1 % (0.0-1.0); HEMATOCRIT 47.1 % (42.0-52.0); HEMOGLOBIN 14.8 g/dl (13.5-17.5); LYMPH # 0.7 10^3/uL (1.5-4.5); LYMPH % 8.2 % (24.0-44.0); MEAN CORPUSCULAR HEMOGLOBIN 27.4 pg (27.0-33.0); MEAN CORPUSCULAR HGB CONC 31.4 g/dl (32.0-36.5); MEAN CORPUSCULAR VOLUME 87.1 fl (80.0-96.0); MONO # 0.1 10^3/uL (0.0-0.8); MONO % 1.6 % (0.0-5.0); NEUTROPHILS # 7.7 10^3/uL (1.8-7.7); NEUTROPHILS % 89.5 % (36.0-66.0); PLATELET COUNT, AUTOMATED 438 10^3/uL (150-450); RED BLOOD COUNT 5.41 10^6/uL (4.30-6.10); WHITE BLOOD COUNT 8.6 10^3/uL (4.0-10.0)
[2018-10-23] MEDS ORDERED: METOPROLOL TART 25 MG TABLET PO ONE (15:00)
[2018-10-23 15:18] LABS: ALBUMIN 3.2 GM/DL (3.2-5.2); ALT/SGPT 35 U/L (12-78); BILIRUBIN,DIRECT 0.2 MG/DL (0.0-0.2); BILIRUBIN,TOTAL 0.7 MG/DL (0.2-1.0); BLOOD UREA NITROGEN 23 MG/DL (7-18); CALCIUM LEVEL 8.9 MG/DL (8.8-10.2); CARBON DIOXIDE LEVEL 26 MEQ/L (21-32); CHLORIDE LEVEL 104 MEQ/L (98-107); CPK CREATINE PHOSPHOKINASE 37 U/L (39-308); CREATININE FOR GFR 1.16 MG/DL (0.70-1.30); FREE T4 1.92 NG/DL (0.76-1.46); GLOMERULAR FILTRATION RATE > 60.0 (>35); GLUCOSE, FASTING 123 MG/DL (70-100); LIPASE 112 U/L (73-393); NT-PRO BNP 1403 PG/ML (<450); POTASSIUM SERUM 4.6 MEQ/L (3.5-5.1); SODIUM LEVEL 138 MEQ/L (136-145); THYROID STIMULATING HORMONE 0.702 uIU/ML (0.358-3.740); TOTAL PROTEIN 7.1 GM/DL (6.4-8.2); TROPONIN I < 0.02 NG/ML (< 0.10)
[2018-10-23 15:25] LABS: INR 1.19; PARTIAL THROMBOPLASTIN TIME 32.5 SECONDS (25.4-37.6); PROTHROMBIN TIME 15.3 SECONDS (12.1-14.4)
--- NOTE | 2018-10-23 15:45 | REP ---
Chest x-ray: Two views. History: Short of breath. Comparison study: April 03, 2017. Findings: EKG electrodes are noted. No focal infiltrate is seen. Heart is not enlarged. Pulmonary vascular and interstitial markings are somewhat prominent diffusely unchanged from the prior study. No pleural effusion is seen. No focal infiltrate is noted. There is mild stable pleural thickening on the right. Impression: Mildly prominent in interstitial and vascular markings unchanged. No acute infiltrate. Electronically Signed by Ady Harden MD 10/23/2018 03:36 P
--- NOTE | 2018-10-23 15:50 | REP ---
Duplex extremity venous ultrasound: Right lower extremity. History: Right calf pain, rule out DVT. Findings: The deep veins are anechoic and fully compressible from the groin to the popliteal fossa in the right lower extremity. Color flow imaging is homogeneous. Spectral Doppler interrogation demonstrates intact respiratory variation in flow and normal manual augmentation of flow. There is no evidence of deep vein thrombosis. Impression: Negative right lower extremity duplex venous ultrasound. No evidence of deep vein thrombosis. Electronically Signed by Ady Harden MD 10/23/2018 03:42 P
--- NOTE | 2018-10-23 16:19 | REP ---
Pelvis right hip: Three views: History: Right hip pain. Findings: AP view of the pelvis and AP and frog-leg views of the right hip are obtained. Femoral head is smooth and rounded. Hip joint space is thus mildly and symmetrically narrowed. There is mild acetabular spurring. No fracture is seen. No bony destructive lesion is appreciated. Sacrum appears intact. Impression: Mild osteoarthritis. No acute bony abnormality. Electronically Signed by Ady Harden MD 10/23/2018 04:27 P
[2018-10-23] MEDS ORDERED: PERCOCET 5MG/325MG TAB PO ONE (16:45)
[2018-10-23] MEDS ORDERED: SM M250T PO (17:08)
[2018-10-23] MEDS ORDERED: PEPC10TA6 PO (17:08)
[2018-10-23] MEDS ORDERED: FOLI1TAB11 PO (17:08)
[2018-10-23] MEDS ORDERED: ACET-897 PO (17:08)
[2018-10-23] MEDS ORDERED: ASPI81TA85 PO (17:08)
[2018-10-23] MEDS ORDERED: METH2.5T48 PO (17:08)
[2018-10-23] MEDS ORDERED: OMEG12003 PO (17:08)
[2018-10-23] MEDS ORDERED: PRED5TA PO (17:08)
[2018-10-23] MEDS ORDERED: PRES10CA2 PO (17:08)
[2018-10-23] MEDS ORDERED: MORPHINE 4 MG/ML 1ML VIAL/SYRINGE (J2270) IV PRN (18:15)
[2018-10-23] MEDS ORDERED: POLYVINYL ALCOHOL OPHTH SOLN 15 ML(LIQUITEARS) OU PRN (18:15)
[2018-10-23] MEDS ORDERED: PROHANCE 279.3MG/ML 15ML VIAL (A9576) As Ordered ONE (18:49)
--- NOTE | 2018-10-23 19:07 | HPE ---
DATE OF ADMISSION: 10/23/2018 PRIMARY CARE PROVIDER: [facility] HISTORY OF THE PRESENT ILLNESS: The patient is an 78-year-old gentleman with a past medical history significant for Fuchs' disease of the eye bilaterally, rheumatoid arthritis, gastroesophageal reflux disease, dyslipidemia, hypothyroidism, latent tuberculosis, history of CVA, presented to [facility] on 10/23/2018 for persistent right hip pain. The patient has a history of rheumatoid arthritis. At baseline, the patient has 5-6 flares of hip pain from the rheumatoid arthritis (RA) flare. However, usually the pain will subside after a short moment and sometimes patient will get relief with escalation of the prednisone. However, the patient woke up with severe sharp pain of the right hip, and the pain is radiating to the right lower extremity. The pain has been persistent, and he is not able to perform any significant hip or lower extremity movement due to severe pain. Therefore, he came to [facility] for further evaluation. In the emergency room, the patient was found to have atrial fibrillation with heart rate of 160. The patient was given one dose of metoprolol and the hospitalist team was called for admission. Other significant history includes patient had a recent CVA and patient was started on Eliquis. Patient was followed by Dr. Vaughn in the outpatient setting. The patient had a loop recorder in place previously. Approximately 3 weeks ago, the patient was given a prescription for metoprolol for the atrial fibrillation; however, due to some issue with the pharmacy, the patient has not received the metoprolol. PAST MEDICAL HISTORY: Fuchs' disease of the eye bilaterally. Rheumatoid arthritis, on chronic prednisone and methotrexate. Aortic regurgitation. Gastroesophageal reflux disease. Dyslipidemia. Hypothyroidism. BPH. Latent tuberculosis (TB). CVA in December 2016. PAST SURGICAL HISTORY: Bilateral cataract surgery. Corneal transplant. SOCIAL HISTORY: The patient used to smoke a half a pack daily for 15 years. The patient quit in the . The patient quit drinking alcohol in 1976. Denied recreational drug use. REVIEW OF SYSTEMS: GENERAL: No fever, no chills. HEENT: No vision change. No auditory changes. CARDIOVASCULAR: The patient denies palpitations or chest pain. The patient was found to have atrial fibrillation with heart rate greater than 100 in the emergency room. RESPIRATORY: No shortness of breath, no cough, no sputum production. GASTROINTESTINAL: No nausea, no vomiting, no abdominal pain. No diarrhea. MUSCULOSKELETAL: Acute persistent sharp pain, mainly located in the right hip and right buttock, exacerbated with any type of right lower extremity or right hip movement. Pain has been persistent. Patient does have a history of rheumatoid arthritis. NEUROLOGICAL: Denied any numbness or tingling. OBJECTIVE: VITAL SIGNS: Temperature is 98.1, pulse is 124, blood pressure 105/65, pulse oximetry 96% in room air. GENERAL: Moderate distress secondary to persistent right hip pain. The patient is alert and awake. HEENT: Normocephalic, atraumatic. Extraocular motor grossly intact. Wearing corrective lenses. CARDIOVASCULAR: Irregularly irregular, tachycardic. LUNGS: Clear to auscultation bilaterally. ABDOMEN: Soft, nontender. Bowel sounds present. MUSCULOSKELETAL: There is tenderness to palpation in the right hip joint. There is also point of tenderness around the sciatic nerve site. The pain is exacerbated with direct pressure and the hip pain and the right buttock pain is also exacerbated with any type of right hip movement. NEUROLOGICAL: Sensation to fine touch grossly intact. Unable to test the lower extremity muscle strength due to the severe discomfort. LABORATORY DATA: WBC 8.6, hemoglobin 14.8, hematocrit 47.1, platelet count is 438. Sodium 138, potassium 4.6, chloride 107, carbon dioxide 26, BUN 23, creatinine 1.16, GFR greater than 60, fasting glucose 123, calcium 8.9, total bilirubin 0.7, direct bilirubin is 0.2, AST 18, ALT 35, alkaline phosphatase is 50, total CK 37, troponin I is less than 0.02, BNP is 1403, total protein 7.1, albumin 3.2, lipase 112, TSH is 0.7, free T4 is 1.92. PT is 15.3, INR is 1.19. IMAGING STUDIES: Chest x-ray showed mildly prominent interstitial and vascular markings, unchanged. No acute infiltrate. Right lower extremity Doppler showed no deep vein thrombosis (DVT). Right hip x-ray showed mild osteoarthritis. No acute bony abnormalities. ASSESSMENT AND PLAN: 1. Uncontrolled atrial fibrillation. Patient admitted to medical-surgical with telemetry under inpatient status. When patient was in the emergency room, patient with highest heart rate of 160. Patient had a loop recorder previously. Patient was given a prescription for metoprolol 3 weeks ago; however, due to the issue with the medication delivery, the patient has not had metoprolol at home. The patient was given the first dose of metoprolol in the emergency room. Will continue to monitor the patient and will try to adjust the rate control medication as needed. The patient will continue on the Eliquis. 2. Severe persistent right hip pain. The pain is sharp in nature, exacerbated with direct pressure of the right hip or the right buttock near the sciatic site. The pain is sharp with radiation to the right lower extremity. The patient will continue on scheduled Percocet with trial of gabapentin. IV morphine for severe uncontrolled pain. Will also obtain an image of the right hip for closer evaluation. Patient has a history of rheumatoid arthritis. Previously, the patient was told he has bursitis and tendonitis. Patient will be on elevated dose of steroids. Will continue to monitor the patient's response to steroids. 3. Rheumatoid arthritis. At baseline, patient is taking prednisone 12.5 mg by mouth daily and methotrexate. 4. Hypothyroidism. Continue Synthroid. 5. Dyslipidemia. Continue Lipitor. 6. Fuchs' disease of the bilateral eye, status post cataract surgery and status post cornea transplant. 7. CVA. Occurring in 2017. Continue aspirin and Lipitor. 8. Latent TB. Patient did not receive treatment due to the rheumatoid arthritis chronic treatment, immunosuppressant. 9. DVT prophylaxis. The patient will be on heparin.
[2018-10-23] MEDS: predniSONE 20 MG TAB PO SCH (20:27)
[2018-10-23] MEDS: METOPROLOL TART 25 MG TABLET PO SCH (20:28)
[2018-10-23] MEDS: ASPIRIN 81 MG ENTERIC TAB PO SCH (20:31)
[2018-10-23] MEDS: GABAPENTIN 300 MG CAP PO SCH (20:31)
[2018-10-23] MEDS: FAMOTIDINE 20 MG TAB PO SCH (20:32)
[2018-10-23] MEDS: APIXABAN 5 MG TAB (ELIQUIS) PO SCH (20:32)
[2018-10-23] MEDS: ATORVASTATIN 10 MG TAB PO SCH (20:32)
--- NOTE | 2018-10-23 21:03 | REPVR ---
EXAM: MR Right Lower Extremity Without and With Contrast, Hip EXAM DATE/TIME: 10/23/2018 7:41 PM CLINICAL HISTORY: 78 years old, male; Pain; Hip; Right; Additional info: Severe right hip pain TECHNIQUE: Imaging protocol: MR of the Right lower extremity without and with intravenous contrast. Exam focused on the hip. Contrast material: PROHANCE; Contrast volume: 14 ml; Contrast route: IV; COMPARISON: CR Hip,AP,LAT to include Pelvis 10/23/2018 3:22 PM FINDINGS: Labrum: The labrum are not well seen on the axial images due to pulsation artifact. Mild degenerative change suggested. Cartilage: Mild thinning of the articular cartilage bilaterally Fluid: Unremarkable. No joint effusion. Bones/joints: There is mild irregularity noted of the articular surfaces of the right hip joint. The joint space is narrowed medially. Small marginal osteophytes are present. Mild irregularity of the articular surfaces of the left hip joint. Tiny marginal osteophytes are present. 7 mm area of low signal on the T1 and T2 weighted images noted within the left proximal femoral diaphysis. This corresponds to a sclerotic lesion on plain films suggesting a benign area of sclerosis/bone island. Muscles: Unremarkable. TENDONS: Extensors: Unremarkable. No evidence of tear. Flexors: Unremarkable. No evidence of tear. Abductors: Mild increased signal noted within the gluteus medius tendon at its insertion on the greater trochanter bilaterally, left slightly greater than right. Adductors: Unremarkable. No evidence of tear. Rotators: Unremarkable. No evidence of tear. IMPRESSION: 1. Mild to moderate osteoarthritis of both hip joints. Degenerative change suggested of the labrum bilaterally. 2. Gluteus medius tendinosis bilaterally. Electronically signed by: Nerissa Melara On 10/23/2018 21:02:57 PM
--- NOTE | 2018-10-23 21:13 | REPVR ---
EXAM: MR Lumbar Spine Without and With Contrast. EXAM DATE/TIME: 10/23/2018 7:41 PM CLINICAL HISTORY: 78 years old, male; Pain; Sciatica; Right; Additional info: Severe right hip pain TECHNIQUE: Imaging protocol: Multiplanar magnetic resonance images of the lumbar spine without and with intravenous contrast. Contrast material: PROHANCE; Contrast volume: 14 ml; Contrast route: IV; COMPARISON: No relevant prior studies available. FINDINGS: Vertebrae: Unremarkable. L1-L2: No significant disc disease. No stenosis. L2-L3: No significant disc disease. No stenosis. L3-L4: Circumferential annulus bulge. No stenosis. L4-L5: Small vertical annular fissure noted posteriorly. Circumferential annulus bulge. Mild hypertrophic facet arthropathy. Mild narrowing right lateral recess. . No stenosis. L5-S1: Circumferential annulus bulge asymmetric to the right. Narrowed right lateral recess. Mild right foraminal stenosis. No stenosis. Spinal cord: The conus is posterior to T12-L1. No signal abnormality seen in the visualized portion of the conus. Soft tissues: 3.8 cm simple cyst in the upper pole the right kidney. IMPRESSION: 1. Broad-based eccentric disc bulge to the right at L5-S1 with narrowing the right lateral recess and mild right foraminal stenosis. No central stenosis. 2. Small annular fissure at L4-5. Mild narrowing of right lateral recess. No central stenosis. 3. Facet arthropathy at L4-5 and L5-S1. 4. Right renal cyst Electronically signed by: Nerissa Melara On 10/23/2018 21:13:02 PM
[2018-10-23] MEDS: PERCOCET 5MG/325MG TAB PO SCH (23:02)
[2018-10-24 03:15] VITALS: BP 125/82
[2018-10-24 06:00] VITALS: BP 135/64
[2018-10-24] MEDS ORDERED: LEVOTHYROXINE 112MCG TABLET (0.112MG) PO SCH (06:00)
[2018-10-24] MEDS ORDERED: HEPARIN SOD (PORCINE) 5000 UNITS/ML VIAL SC SCH (06:00)
[2018-10-24] MEDS: PERCOCET 5MG/325MG TAB PO SCH ×3 (06:27→18:57)
[2018-10-24 08:19] LABS: HEMATOCRIT 45.4 % (42.0-52.0); HEMOGLOBIN 13.5 g/dl (13.5-17.5); MEAN CORPUSCULAR HEMOGLOBIN 26.3 pg (27.0-33.0); MEAN CORPUSCULAR HGB CONC 29.7 g/dl (32.0-36.5); MEAN CORPUSCULAR VOLUME 88.5 fl (80.0-96.0); PLATELET COUNT, AUTOMATED 419 10^3/uL (150-450); RED BLOOD COUNT 5.13 10^6/uL (4.30-6.10); WHITE BLOOD COUNT 14.2 10^3/uL (4.0-10.0)
[2018-10-24 08:45] LABS: BLOOD UREA NITROGEN 22 MG/DL (7-18); CALCIUM LEVEL 8.4 MG/DL (8.8-10.2); CARBON DIOXIDE LEVEL 28 MEQ/L (21-32); CHLORIDE LEVEL 106 MEQ/L (98-107); CREATININE FOR GFR 1.04 MG/DL (0.70-1.30); GLOMERULAR FILTRATION RATE > 60.0 (>35); GLUCOSE, FASTING 76 MG/DL (70-100); MAGNESIUM LEVEL 2.3 MG/DL (1.8-2.4); POTASSIUM SERUM 4.7 MEQ/L (3.5-5.1); SODIUM LEVEL 140 MEQ/L (136-145)
[2018-10-24] MEDS: FAMOTIDINE 20 MG TAB PO SCH ×2 (08:49→20:35)
[2018-10-24] MEDS: METOPROLOL TART 25 MG TABLET PO SCH ×2 (08:49→20:35)
[2018-10-24] MEDS: GABAPENTIN 300 MG CAP PO SCH ×3 (08:50→20:35)
[2018-10-24] MEDS: APIXABAN 5 MG TAB (ELIQUIS) PO SCH ×2 (08:50→20:35)
[2018-10-24] MEDS: predniSONE 20 MG TAB PO SCH ×2 (08:50→20:35)
[2018-10-24] MEDS: MULTIVITAMINS/MINERALS THERAP 1 TAB PO SCH (08:50)
[2018-10-24] MEDS: FOLIC ACID 1 MG TAB PO SCH (08:50)
[2018-10-24] MEDS: prednisoLONE ACET 1% OPHTH SUSP 5ML OS SCH (11:22)
[2018-10-24 14:00] VITALS: BP 105/56
--- NOTE | 2018-10-24 18:19 | IPN ---
DATE: 10/24/2018 SUBJECTIVE: The patient is seen and examined in the room today. The patient feels his right hip pain is under much better control. Heart rate has been in the satisfactory range after metoprolol is started. No acute complaints. OBJECTIVE: VITAL SIGNS: Temperature 96.9, pulse is 93, respiratory rate 20, blood pressure 135/64, pulse oximetry 97% in room air. GENERAL: No sign of acute distress, alert and oriented times three. HEENT: Normocephalic, atraumatic. Extraocular motor grossly intact. CARDIOVASCULAR: Positive S1, S2, regular rate. LUNGS: Clear to auscultation bilaterally. ABDOMEN: Soft, nontender, nondistended. Bowel sounds present. EXTREMITIES: Still some tenderness to palpation of the gluteal sonali area and also the right hip but the pain has improved compared to yesterday. LABORATORY DATA: WBC 14.2, hemoglobin 13.5, hematocrit is 45.4, platelet count is 419. Sodium is 140, potassium 4.7, chloride 106, carbon dioxide 28, BUN 22, creatinine 1.04, GFR greater than 60, fasting glucose 76, calcium is 8.4, magnesium 2.3. ASSESSMENT AND PLAN: 1. Atrial fibrillation. The patient is currently on metoprolol. Heart rate is under better control. The patient is also on anticoagulation. A prescription was given by Dr. Vaughn to the pharmacy. We will try to assist to see if there is going to an issue for the long-term metoprolol supply. 2. Severe persistent right hip pain. The differential includes sciatica versus a rheumatoid arthritis flare versus bursitis. 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 The patient is currently on Percocet and also on gabapentin. The patient's pain is under much better control. Physical therapy is ordered. 3. Rheumatoid arthritis, on chronic steroids and methotrexate. Currently, there is a possibility that the patient may be experiencing a rheumatoid arthritis flare. The patient is on an escalated dose of prednisone. 4. Dyslipidemia. The patient is on Lipitor. 5. Hypothyroidism. Free T4 is mildly elevated. We will adjust the Synthroid dosage. 6. Gastroesophageal reflux disease. Continue to monitor. The patient is on Pepcid. 7. Benign prostatic hypertrophy (BPH). Continue to monitor. 8. Latent tuberculosis. Continue outpatient followup. 9. History of cerebrovascular accident (CVA) in December 2016. The patient will be evaluated by physical therapy. 10. Deep vein thrombosis (DVT) prophylaxis. The patient is on Eliquis.
--- NOTE | 2018-10-24 19:26 | ECGEPIP ---
Stationary ECG Study [facility] - ED Test Date: 2018-10-23 Pat Name: YOUNG MARTINEZ Department: Room: - Gender: M Scholarship Counselor: : 1940 Requested By: MICHELLE Baker Order Number: [id number] Reading MD: Wendy Everett Measurements Intervals [place] Rate: 119 P: MO: 0 QRS: -20 QRSD: 81 T: 23 QT: 299 QTc: 421 Interpretive Statements ATRIAL FIBRILLATION WITH RAPID VENTRICULAR RESPONSE VOLTAGE CRITERIA FOR LVH NSTTW ABNORALITY Electronically Signed On 10-24-2018 19:25:49 EDT by Wendy Everett
[2018-10-24] MEDS: ASPIRIN 81 MG ENTERIC TAB PO SCH (20:34)
[2018-10-24] MEDS: ATORVASTATIN 10 MG TAB PO SCH (20:35)
[2018-10-24 22:00] VITALS: BP 102/61
[2018-10-25 06:00] VITALS: BP 125/61
[2018-10-25 06:02] LABS: HEMATOCRIT 41.7 % (42.0-52.0); HEMOGLOBIN 12.6 g/dl (13.5-17.5); MEAN CORPUSCULAR HEMOGLOBIN 26.5 pg (27.0-33.0); MEAN CORPUSCULAR HGB CONC 30.2 g/dl (32.0-36.5); MEAN CORPUSCULAR VOLUME 87.8 fl (80.0-96.0); PLATELET COUNT, AUTOMATED 386 10^3/uL (150-450); RED BLOOD COUNT 4.75 10^6/uL (4.30-6.10); WHITE BLOOD COUNT 12.7 10^3/uL (4.0-10.0)
[2018-10-25] MEDS: LEVOTHYROXINE 88MCG TABLET (0.088 MG) PO SCH (06:09)
[2018-10-25 06:23] LABS: BLOOD UREA NITROGEN 23 MG/DL (7-18); CALCIUM LEVEL 7.9 MG/DL (8.8-10.2); CARBON DIOXIDE LEVEL 27 MEQ/L (21-32); CHLORIDE LEVEL 109 MEQ/L (98-107); CREATININE FOR GFR 0.92 MG/DL (0.70-1.30); GLOMERULAR FILTRATION RATE > 60.0 (>35); GLUCOSE, FASTING 107 MG/DL (70-100); MAGNESIUM LEVEL 2.4 MG/DL (1.8-2.4); POTASSIUM SERUM 4.7 MEQ/L (3.5-5.1); SODIUM LEVEL 139 MEQ/L (136-145)
--- NOTE | 2018-10-25 06:42 | IPNPDOC ---
Text Note Date of Service The patient was seen on 10/25/18. NOTE NIGHT FLOAT NOTE Paged overnight regarding concerns of patient's heart rate rising for 1-2 mins due to hip pain while he tried to ablate to the bathroom. He was otherwise asymptomatic and HR returned to his normal when he got settled in bed. Staff also concerned that he was taking a bit longer to appropriately answer what his name is and where he currently is, and he became emotional and crying due to stress over having to think about his name. Per staff, no neuro deficits or neuro changes. Pt examined at bedside, A&Ox3. Daughter at bedside. Motor & sensation intact without focal deficits. HR controlled, and he states he does indeed remember the episode of "brain fogginess," but now feels normal. They express concern about his Gabapentin making him more confused and are requesting to try muscle relaxants & heating pad instead. They are agreeable to continue with PT. All questions answered, Gabapentin d/c'd per pt & daughter request, and muscle rel axer & k pad ordered. Care plan relayed to staff at central station. A-FIB/CHADSVASC A-FIB History Current/History of A-Fib/PAF?: Yes Current Oral Anticoagulant The: Yes Treatment Treatment ordered: Apixaban VS,Fishbone, I+O VS, Fishbone, I+O Laboratory Tests 10/24/18 07:54 Red Blood Count 5.13, Mean Corpuscular Volume 88.5, Mean Corpuscular Hemoglobin 26.3 L, Mean Corpuscular Hemoglobin Concent 29.7 L, Red Cell Distribution Width 18.0 H, Calcium Level 8.4 L 10/25/18 05:22 Red Blood Count 4.75, Mean Corpuscular Volume 87.8, Mean Corpuscular Hemoglobin 26.5 L, Mean Corpuscular Hemoglobin Concent 30.2 L, Red Cell Distribution Width 17.8 H, Calcium Level 7.9 L Vital Signs Date Time Temp Pulse Resp B/P (MAP) Pulse Ox O2 Delivery O2 Flow Rate FiO2 10/24/18 22:00 98.0 85 18 102/61 (75) 97 10/24/18 03:00 Room Air I&O- Last 24 Hours up to 6 AM 10/25/18 05:59 Intake Total 1875 ml Output Total 1450 ml Balance 425 ml GME ATTESTATION GME ATTESTATION My faculty preceptor for this patient encounter was physically present during the encounter and was fully available. All aspects of the patient interview, examination, medical decision making process, and medical care plan development were reviewed and approved by the faculty preceptor. The faculty preceptor is aware and concurs with the plan as stated in the body of this note and will attest to such by his/her cosignature. ISAIAS BERNARD DO Oct 25, 2018 06:42
[2018-10-25] MEDS: METOPROLOL TART 25 MG TABLET PO SCH ×2 (08:39→20:23)
[2018-10-25] MEDS: predniSONE 20 MG TAB PO SCH (08:39)
[2018-10-25] MEDS: FOLIC ACID 1 MG TAB PO SCH (08:39)
[2018-10-25] MEDS: FAMOTIDINE 20 MG TAB PO SCH ×2 (08:39→20:24)
[2018-10-25] MEDS: APIXABAN 5 MG TAB (ELIQUIS) PO SCH ×2 (08:39→20:24)
[2018-10-25] MEDS: MULTIVITAMINS/MINERALS THERAP 1 TAB PO SCH (08:39)
[2018-10-25 14:00] VITALS: BP 99/56
--- NOTE | 2018-10-25 14:25 | IPNPDOC ---
Text Note Date of Service The patient was seen on 10/25/18. NOTE SUBJECTIVE: The patient is seen and examined in the room today. Patient is alert and oriented during encounter today. Patient states his pain under control at rest. Denies chest pain or palpitation. OBJECTIVE: VITAL SIGNS: Listed below. GENERAL: No sign of acute distress, alert and oriented times three. HEENT: Normocephalic, atraumatic. Extraocular motor grossly intact. CARDIOVASCULAR: Positive S1, S2, regular rate. LUNGS: Clear to auscultation bilaterally. ABDOMEN: Soft, nontender, nondistended. Bowel sounds present. EXTREMITIES: No edema. LABORATORY DATA: Listed below. ASSESSMENT AND PLAN: #. Atrial fibrillation. - On metoprolol. Heart rate is under better control. The patient is also on anticoagulation. - Metoprolol prescription was given by Dr. Vaughn to [place] pharmacy. We will try to assist to see if there is going to an issue for the long-term metoprolol supply. #. Severe persistent right hip pain. - MRI demonstrates Gluteus medius tendinosis bilaterally. On percocet. Gabapentin discontinued. Continue physical therapy. #. Rheumatoid arthritis - On chronic steroids and methotrexate. - Previously there was concern for flare of rheumatoid arthritis and patient was on increased dose of prednisone. On home prednisone dosage currently. #. Dyslipidemia. The patient is on Lipitor. #. Hypothyroidism. - Free T4 is mildly elevated. Adjusted Synthroid dosage. #. Gastroesophageal reflux disease. - Continue to monitor. The patient is on Pepcid. #. Benign prostatic hypertrophy (BPH). Continue to monitor. #. Latent tuberculosis. - Continue outpatient followup. #. History of cerebrovascular accident (CVA) - Occurred in December 2016. Continue physical therapy. #. Deep vein thrombosis (DVT) prophylaxis. The patient is on Eliquis. VS,Fishbone, I+O VS, Fishbone, I+O Laboratory Tests 10/25/18 05:22 Red Blood Count 4.75, Mean Corpuscular Volume 87.8, Mean Corpuscular Hemoglobin 26.5 L, Mean Corpuscular Hemoglobin Concent 30.2 L, Red Cell Distribution Width 17.8 H, Calcium Level 7.9 L Vital Signs Date Time Temp Pulse Resp B/P (MAP) Pulse Ox O2 Delivery O2 Flow Rate FiO2 10/25/18 08:39 90 125/61 10/25/18 06:00 98.2 18 96 10/24/18 03:00 Room Air I&O- Last 24 Hours up to 6 AM 10/25/18 06:00 Intake Total 1635 ml Output Total 1400 ml Balance 235 ml STEVE SANCHEZ DO Oct 25, 2018 14:25
[2018-10-25] MEDS: ATORVASTATIN 10 MG TAB PO SCH (20:24)
[2018-10-25] MEDS: ASPIRIN 81 MG ENTERIC TAB PO SCH (20:24)
[2018-10-25] MEDS: predniSONE 2.5 MG TAB PO SCH (20:24)
[2018-10-25 22:00] VITALS: BP 116/66
[2018-10-26] MEDS: LEVOTHYROXINE 88MCG TABLET (0.088 MG) PO SCH (05:38)
[2018-10-26 06:00] VITALS: BP 123/71
[2018-10-26 06:02] LABS: HEMATOCRIT 42.4 % (42.0-52.0); HEMOGLOBIN 12.9 g/dl (13.5-17.5); MEAN CORPUSCULAR HGB CONC 30.4 g/dl (32.0-36.5); MEAN CORPUSCULAR VOLUME 88.9 fl (80.0-96.0); PLATELET COUNT, AUTOMATED 376 10^3/uL (150-450); RED BLOOD COUNT 4.77 10^6/uL (4.30-6.10); WHITE BLOOD COUNT 13.9 10^3/uL (4.0-10.0)
[2018-10-26 06:22] LABS: BLOOD UREA NITROGEN 25 MG/DL (7-18); CALCIUM LEVEL 7.8 MG/DL (8.8-10.2); CARBON DIOXIDE LEVEL 27 MEQ/L (21-32); CHLORIDE LEVEL 110 MEQ/L (98-107); CREATININE FOR GFR 0.97 MG/DL (0.70-1.30); GLOMERULAR FILTRATION RATE > 60.0 (>35); GLUCOSE, FASTING 83 MG/DL (70-100); MAGNESIUM LEVEL 2.3 MG/DL (1.8-2.4); POTASSIUM SERUM 4.8 MEQ/L (3.5-5.1); SODIUM LEVEL 142 MEQ/L (136-145)
[2018-10-26] MEDS: MULTIVITAMINS/MINERALS THERAP 1 TAB PO SCH (09:05)
[2018-10-26] MEDS: FAMOTIDINE 20 MG TAB PO SCH ×2 (09:05→20:08)
[2018-10-26] MEDS: METOPROLOL TART 25 MG TABLET PO SCH ×2 (09:06→20:10)
[2018-10-26] MEDS: PERCOCET 5MG/325MG TAB PO SCH (09:07)
[2018-10-26] MEDS: APIXABAN 5 MG TAB (ELIQUIS) PO SCH ×2 (09:08→20:08)
[2018-10-26] MEDS: FOLIC ACID 1 MG TAB PO SCH (09:08)
[2018-10-26] MEDS: prednisoLONE ACET 1% OPHTH SUSP 5ML OS SCH (09:08)
[2018-10-26 14:00] VITALS: BP 107/55
--- NOTE | 2018-10-26 14:41 | IPNPDOC ---
Text Note Date of Service The patient was seen on 10/26/18. NOTE SUBJECTIVE: The patient is seen and examined in the room today. Patient still complains about right hip and right lower extremity pain. Denies chest pain or palpitation. OBJECTIVE: VITAL SIGNS: Listed below. GENERAL: No sign of acute distress, alert and oriented times three. HEENT: Normocephalic, atraumatic. Extraocular motor grossly intact. CARDIOVASCULAR: Positive S1, S2, regular rate. LUNGS: Clear to auscultation bilaterally. ABDOMEN: Soft, nontender, nondistended. Bowel sounds present. EXTREMITIES: No edema. LABORATORY DATA: Listed below. ASSESSMENT AND PLAN: #. Atrial fibrillation. - On metoprolol. Heart rate is under better control. The patient is also on anti coagulation. - Metoprolol prescription was given by Dr. Vaughn to [place] pharmacy. We will try to assist to see if there is going to an issue for the long-term metoprolol supply. #. Severe persistent right hip pain. - MRI demonstrates Gluteus medius tendinosis bilaterally. On percocet. Gabapentin discontinued. On PRN flexeril. - Continues physical therapy. Patient did not pass physical therapy evaluation #. Rheumatoid arthritis - On chronic steroids and methotrexate. - Previously there was concern for flare of rheumatoid arthritis and patient was on increased dose of prednisone. On home prednisone dosage currently. #. Dyslipidemia. - The patient is on Lipitor. #. Hypothyroidism. - Free T4 is mildly elevated. Adjusted Synthroid dosage. #. Gastroesophageal reflux disease. - Continue to monitor. The patient is on Pepcid. #. Benign prostatic hypertrophy (BPH). Continue to monitor. #. Latent tuberculosis. - Continue outpatient followup. #. History of cerebrovascular accident (CVA) - Occurred in December 2016. Continue physical therapy. #. Deep vein thrombosis (DVT) prophylaxis. The patient is on Eliquis. VS,Fishbone, I+O VS, Fishbone, I+O Laboratory Tests 10/26/18 05:24 Red Blood Count 4.77, Mean Corpuscular Volume 88.9, Mean Corpuscular Hemoglobin 27.0, Mean Corpuscular Hemoglobin Concent 30.4 L, Red Cell Distribution Width 17.9 H, Calcium Level 7.8 L Vital Signs Date Time Temp Pulse Resp B/P (MAP) Pulse Ox O2 Delivery O2 Flow Rate FiO2 10/26/18 14:00 97.6 68 18 107/55 (72) 99 10/24/18 03:00 Room Air I&O- Last 24 Hours up to 6 AM 10/26/18 06:00 Intake Total 2100 ml Output Total 2200 ml Balance -100 ml STEVE SANCHEZ DO Oct 26, 2018 14:41
[2018-10-26] MEDS: CYCLOBENZAPRINE 5MG TABLET PO PRN (18:43)
[2018-10-26] MEDS: predniSONE 2.5 MG TAB PO SCH (20:08)
[2018-10-26] MEDS: ASPIRIN 81 MG ENTERIC TAB PO SCH (20:08)
[2018-10-26] MEDS: ATORVASTATIN 10 MG TAB PO SCH (20:08)
[2018-10-26 22:00] VITALS: BP 110/65
[2018-10-27] MEDS: LEVOTHYROXINE 88MCG TABLET (0.088 MG) PO SCH (05:22)
[2018-10-27 06:00] VITALS: BP 128/67
[2018-10-27 06:06] LABS: HEMATOCRIT 43.5 % (42.0-52.0); HEMOGLOBIN 13.1 g/dl (13.5-17.5); MEAN CORPUSCULAR HGB CONC 30.1 g/dl (32.0-36.5); MEAN CORPUSCULAR VOLUME 89.7 fl (80.0-96.0); PLATELET COUNT, AUTOMATED 359 10^3/uL (150-450); RED BLOOD COUNT 4.85 10^6/uL (4.30-6.10); WHITE BLOOD COUNT 13.6 10^3/uL (4.0-10.0)
[2018-10-27] MEDS: CYCLOBENZAPRINE 5MG TABLET PO PRN ×3 (06:22→20:29)
[2018-10-27] MEDS: ACETAMINOPHEN 500 MG TAB PO PRN ×3 (06:25→20:28)
[2018-10-27 06:30] LABS: BLOOD UREA NITROGEN 25 MG/DL (7-18); CALCIUM LEVEL 7.9 MG/DL (8.8-10.2); CARBON DIOXIDE LEVEL 27 MEQ/L (21-32); CHLORIDE LEVEL 107 MEQ/L (98-107); CREATININE FOR GFR 0.93 MG/DL (0.70-1.30); GLOMERULAR FILTRATION RATE > 60.0 (>35); GLUCOSE, FASTING 87 MG/DL (70-100); MAGNESIUM LEVEL 2.1 MG/DL (1.8-2.4); POTASSIUM SERUM 4.9 MEQ/L (3.5-5.1); SODIUM LEVEL 139 MEQ/L (136-145)
[2018-10-27] MEDS: FAMOTIDINE 20 MG TAB PO SCH ×2 (08:03→20:27)
[2018-10-27] MEDS: APIXABAN 5 MG TAB (ELIQUIS) PO SCH ×2 (08:03→20:29)
[2018-10-27] MEDS: MULTIVITAMINS/MINERALS THERAP 1 TAB PO SCH (08:05)
[2018-10-27] MEDS: FOLIC ACID 1 MG TAB PO SCH (08:05)
[2018-10-27] MEDS: METOPROLOL TART 25 MG TABLET PO SCH ×2 (08:05→20:29)
[2018-10-27] MEDS: PERCOCET 5MG/325MG TAB PO SCH (13:35)
[2018-10-27 14:00] VITALS: BP 99/52
--- NOTE | 2018-10-27 16:53 | IPNPDOC ---
Text Note Date of Service The patient was seen on 10/27/18. NOTE SUBJECTIVE: The patient is seen and examined in the room today. Patient experienced recurrence of right hip pain after he walked back from restroom. He states muscle relaxant is helping with pain control. OBJECTIVE: VITAL SIGNS: Listed below. GENERAL: No sign of acute distress, alert and oriented times three. HEENT: Normocephalic, atraumatic. Extraocular motor grossly intact. CARDIOVASCULAR: Positive S1, S2, regular rate. LUNGS: Clear to auscultation bilaterally. ABDOMEN: Soft, nontender, nondistended. Bowel sounds present. EXTREMITIES: No edema. LABORATORY DATA: Listed below. ASSESSMENT AND PLAN: #. Severe persistent right hip pain. - MRI demonstrates Gluteus medius tendinosis bilaterally. On percocet. Gabapentin discontinued. On PRN flexeril. - Continues physical therapy. Patient did not pass physical therapy evaluation #. Atrial fibrillation. - On metoprolol. Heart rate is under better control. The patient is also on anticoagulation. - Metoprolol prescription was given by Dr. Vaughn to [place] pharmacy. We will try to assist to see if there is going to an issue for the long-term metoprolol supply. #. Rheumatoid arthritis - On chronic steroids and methotrexate. - Previously there was concern for flare of rheumatoid arthritis and patient was on increased dose of prednisone. On home prednisone dosage currently. #. Dyslipidemia. - The patient is on Lipitor. #. Hypothyroidism. - Free T4 is mildly elevated. Adjusted Synthroid dosage. #. Gastroesophageal reflux disease. - Continue to monitor. The patient is on Pepcid. #. Benign prostatic hypertrophy (BPH). Continue to monitor. #. Latent tuberculosis. - Continue outpatient followup. #. History of cerebrovascular accident (CVA) - Occurred in December 2016. Continue physical therapy. #. Deep vein thrombosis (DVT) prophylaxis. The patient is on Eliquis. VS,Fishbone, I+O VS, Fishbone, I+O Laboratory Tests 10/27/18 05:19 Red Blood Count 4.85, Mean Corpuscular Volume 89.7, Mean Corpuscular Hemoglobin 27.0, Mean Corpuscular Hemoglobin Concent 30.1 L, Red Cell Distribution Width 18.0 H, Calcium Level 7.9 L Vital Signs Date Time Temp Pulse Resp B/P (MAP) Pulse Ox O2 Delivery O2 Flow Rate FiO2 10/27/18 14:05 19 10/27/18 14:00 96.9 69 99/52 (68) 96 10/24/18 03:00 Room Air I&O- Last 24 Hours up to 6 AM 10/27/18 05:59 Intake Total 1880 ml Output Total 1625 ml Balance 255 ml STEVE SANCHEZ DO Oct 27, 2018 16:53
[2018-10-27] MEDS: ASPIRIN 81 MG ENTERIC TAB PO SCH (20:28)
[2018-10-27] MEDS: predniSONE 2.5 MG TAB PO SCH (20:28)
[2018-10-27] MEDS: ATORVASTATIN 10 MG TAB PO SCH (20:29)
[2018-10-27] MEDS: OPTH OD SCH (21:00)
[2018-10-27] MEDS: SODIUM CHLORIDE 5% OD SCH (21:00)
[2018-10-27 22:00] VITALS: BP 111/59
[2018-10-28] MEDS ORDERED: UNRESOLVED PATIENT OWN MED ORDER XX SCH (00:01)
[2018-10-28] MEDS: LEVOTHYROXINE 88MCG TABLET (0.088 MG) PO SCH (05:54)
[2018-10-28 05:55] LABS: HEMOGLOBIN 13.1 g/dl (13.5-17.5); MEAN CORPUSCULAR HEMOGLOBIN 27.3 pg (27.0-33.0); MEAN CORPUSCULAR HGB CONC 30.5 g/dl (32.0-36.5); MEAN CORPUSCULAR VOLUME 89.6 fl (80.0-96.0); PLATELET COUNT, AUTOMATED 326 10^3/uL (150-450); WHITE BLOOD COUNT 12.2 10^3/uL (4.0-10.0)
[2018-10-28 06:00] VITALS: BP 113/64
[2018-10-28 06:27] LABS: BLOOD UREA NITROGEN 21 MG/DL (7-18); CALCIUM LEVEL 7.9 MG/DL (8.8-10.2); CARBON DIOXIDE LEVEL 28 MEQ/L (21-32); CHLORIDE LEVEL 109 MEQ/L (98-107); CREATININE FOR GFR 0.83 MG/DL (0.70-1.30); GLOMERULAR FILTRATION RATE > 60.0 (>35); GLUCOSE, FASTING 85 MG/DL (70-100); MAGNESIUM LEVEL 2.2 MG/DL (1.8-2.4); SODIUM LEVEL 140 MEQ/L (136-145)
[2018-10-28] MEDS: FAMOTIDINE 20 MG TAB PO SCH ×2 (08:18→20:00)
[2018-10-28] MEDS: FOLIC ACID 1 MG TAB PO SCH (08:18)
[2018-10-28] MEDS: MULTIVITAMINS/MINERALS THERAP 1 TAB PO SCH (08:18)
[2018-10-28] MEDS: APIXABAN 5 MG TAB (ELIQUIS) PO SCH ×2 (08:20→20:00)
[2018-10-28] MEDS: OPTH OD SCH ×2 (08:20→20:01)
[2018-10-28] MEDS: METOPROLOL TART 25 MG TABLET PO SCH ×2 (08:20→20:00)
[2018-10-28] MEDS: SODIUM CHLORIDE 5% OD SCH ×2 (08:20→20:01)
[2018-10-28] MEDS: prednisoLONE ACET 1% OPHTH SUSP 5ML OS SCH (08:21)
[2018-10-28] MEDS: ACETAMINOPHEN 500 MG TAB PO PRN ×2 (08:34→18:51)
[2018-10-28] MEDS: CYCLOBENZAPRINE 5MG TABLET PO PRN ×2 (08:35→18:51)
--- NOTE | 2018-10-28 11:40 | IPNPDOC ---
Text Note Date of Service The patient was seen on 10/28/18. NOTE SUBJECTIVE: Patient seen and examined at bedside. States his right hip pain has significantly improved, however is complaining of right ankle pain. OBJECTIVE: VITAL SIGNS: Listed below. GENERAL: NAD, lying comfortably in bed HEENT: NC/AT CARDIOVASCULAR: +S1S2, harsh systolic murmur, irregularly irregular LUNGS: CTA B/L ABDOMEN: Soft, NT, ND, +BS EXTREMITIES: No edema. LABORATORY DATA: Listed below. ASSESSMENT AND PLAN: #right hip pain - improving - MRI demonstrates Gluteus medius tendinosis bilaterally. On percocet. Gabapentin discontinued. On PRN flexeril. - Continues physical therapy. Patient did not pass physical therapy evaluation #ankle pain - consider ortho c/s #Atrial fibrillation - rate controlled - a/c with Eliquis - Metoprolol prescription was given by Dr. Vaughn to [place] pharmacy. We will try to assist to see if there is going to an issue for the long-term metoprolol supply. #RA - On chronic steroids and methotrexate. - Previously there was concern for flare of rheumatoid arthritis and patient was on increased dose of prednisone. On home prednisone dosage currently. #DLP - The patient is on Lipitor. #. Hypothyroidism. - Free T4 is mildly elevated. Adjusted Synthroid dosage. #GERD - Continue to monitor. The patient is on Pepcid. #BPH - Continue to monitor. # Latent TB - Continue outpatient followup. #. History of cerebrovascular accident (CVA) - Occurred in December 2016. Continue physical therapy. #. Deep vein thrombosis (DVT) prophylaxis. The patient is on Eliquis. Dispo: ortho c/s pending, xray right ankle pending VS,Fishbone, I+O VS, Fishbone, I+O Laboratory Tests 10/28/18 05:16 Red Blood Count 4.80, Mean Corpuscular Volume 89.6, Mean Corpuscular Hemoglobin 27.3, Mean Corpuscular Hemoglobin Concent 30.5 L, Red Cell Distribution Width 17.9 H, Calcium Level 7.9 L Vital Signs Date Time Temp Pulse Resp B/P (MAP) Pulse Ox O2 Delivery O2 Flow Rate FiO2 10/28/18 08:20 74 120/65 10/28/18 06:00 97.9 18 99 10/24/18 03:00 Room Air I&O- Last 24 Hours up to 6 AM 10/28/18 06:00 Intake Total 1150 ml Output Total 1650 ml Balance -500 ml HERMINIA DELACRUZ MD Oct 28, 2018 11:40
--- NOTE | 2018-10-28 13:45 | REP ---
Right ankle four views History: Pain There is no acute fracture or dislocation. The joint space is normal in appearance. Impression: There is no acute fracture or dislocation. Electronically Signed by Niko Lou MD 10/28/2018 01:36 P
[2018-10-28 14:00] VITALS: BP 115/55
--- NOTE | 2018-10-28 17:27 | CR ---
DATE OF CONSULTATION: 10/28/2018 INDICATION: Right hip and ankle pain. HISTORY OF PRESENT ILLNESS: Mr. Duval is a pleasant 78-year-old gentleman who was admitted on October 23 for intractable hip pain and atrial fibrillation. He is on Eliquis. He has rheumatoid arthritis. Gets several flares of right hip pain, more in the trochanteric area, per year, often responding to steroids, and it did not respond this time. He did have a trochanteric bursal injection at the orthopedic office about 2 weeks prior to admission that did not help. He denies groin pain. He says his pain is now more posterior than normal, more in the buttock area. It radiates down the leg into his foot. He also is having a constant pain in his ankle. He denies falling. For the patient's full past medical history, past surgical history, medications, allergies, social history, and review of systems, please see the admitting hospitalist history and physical, which I personally reviewed. PHYSICAL EXAMINATION: Reveals an elderly gentleman no distress. He is alert and times three. NEUROLOGIC: Appropriate mood, pleasant affect. CARDIOVASCULAR: PT pulse 2+: PULMONARY: Nonlabored breathing. MUSCULOSKELETAL: The patient has tenderness in the lumbar spinous processes. He has tenderness just posterior to the greater trochanter in the area of the sciatic nerve. The greater trochanter itself was relatively nontender. He denies groin pain with hip rotation. He has no tenderness over the mid femur/subtrochanteric area. Exam of the right ankle reveals no effusion, no significant swelling. He has localized tenderness to palpation over the anterior talofibular ligament (ATFL). He has smooth ankle range of motion without crepitus. In terms of strength, he has 5/5 extensor hallucis longus (EHL), tibialis anterior (TA), gastrocsoleus, (GS), and quadriceps bilaterally. He has slight weakness with flexor hallucis longus (FHL) on the right compared to the left. Sensation to light touch L2-S1 is intact bilaterally. He has symmetric 1+ Achilles reflexes bilaterally. IMAGING STUDIES: MRI of the right hip obtained at the hospital was reviewed. The report states there is mild degenerative change at the hip joint and some mild tendinopathy of the gluteus medius, and I would agree with that. No high-grade gluteus medius tear. There is no hip effusion. There is no sign of femoral neck fracture. There is no sign of avascular necrosis. No effusion. An MRI of the lumbar spine. The report states that there is a disc herniation at L4-5 and L5-S1 with right-sided lateral recess herniation at L5-S1. I would agree with those findings. There is no significant central canal stenosis. There is compression at the exiting L5 nerve root on axial imaging. Ankle, three views, right ankle, obtained also reveal mild arthritic changes. No fractures. No dislocations. I strongly suspect an osteochondral lesion in the lateral aspect the talus. ASSESSMENT AND PLAN: Mr. Duval is an 78-year-old gentleman with right hip and leg symptoms consistent with L5-S1 disc herniation. He is having pain despite a trial gabapentin and IV steroids. The best recommendation would be for an epidural cortisone injection. This is obviously going to be a problem with him being on Eliquis. I still think it is worth reaching out to the [employer] to see if it is a possible at all for him to come off temporarily for a one-time shot. That could be performed by either the pain specialist here at the hospital. In terms of the ankle, he does not have any overt symptoms of instability. I have asked him to monitor for signs of ankle instability. We could do a lace-up brace on an outpatient basis. We could also do an intra-articular cortisone injection to treat the mild arthritis and possible osteochondral lesion. He is weightbearing as tolerated, bilateral lower extremities. He should mobilize with physical therapy. No indication for surgery at this time. Orthopedics will be signing off on this patient. I did specifically discussed the signs and symptoms of cauda equina syndrome with this patient, and he knows if he develops any urine or bowel incontinence, any saddle anesthesia, worsening numbness or weakness, he needs to either go the emergency room (ER) or let the nurses know immediately. I spent greater than 45 minutes with this patient, greater than 50% which was coordinating care and on [id number] time.
[2018-10-28] MEDS: predniSONE 2.5 MG TAB PO SCH (20:00)
[2018-10-28] MEDS: ASPIRIN 81 MG ENTERIC TAB PO SCH (20:00)
[2018-10-28] MEDS: ATORVASTATIN 10 MG TAB PO SCH (20:01)
[2018-10-28 22:00] VITALS: BP 117/65
[2018-10-28] MEDS: PERCOCET 5MG/325MG TAB PO SCH (23:54)
[2018-10-29] MEDS: CYCLOBENZAPRINE 5MG TABLET PO PRN ×2 (03:04→12:19)
[2018-10-29] MEDS: ACETAMINOPHEN 500 MG TAB PO PRN (03:05)
[2018-10-29] MEDS: LEVOTHYROXINE 88MCG TABLET (0.088 MG) PO SCH (05:40)
[2018-10-29 06:00] VITALS: BP 119/63
[2018-10-29 06:08] LABS: HEMATOCRIT 42.1 % (42.0-52.0); HEMOGLOBIN 12.9 g/dl (13.5-17.5); MEAN CORPUSCULAR HEMOGLOBIN 26.8 pg (27.0-33.0); MEAN CORPUSCULAR HGB CONC 30.6 g/dl (32.0-36.5); MEAN CORPUSCULAR VOLUME 87.3 fl (80.0-96.0); PLATELET COUNT, AUTOMATED 306 10^3/uL (150-450); RED BLOOD COUNT 4.82 10^6/uL (4.30-6.10); WHITE BLOOD COUNT 12.7 10^3/uL (4.0-10.0)
[2018-10-29 06:24] LABS: BLOOD UREA NITROGEN 19 MG/DL (7-18); CARBON DIOXIDE LEVEL 29 MEQ/L (21-32); CHLORIDE LEVEL 108 MEQ/L (98-107); CREATININE FOR GFR 0.78 MG/DL (0.70-1.30); GLOMERULAR FILTRATION RATE > 60.0 (>35); GLUCOSE, FASTING 93 MG/DL (70-100); MAGNESIUM LEVEL 2.1 MG/DL (1.8-2.4); SODIUM LEVEL 140 MEQ/L (136-145)
[2018-10-29] MEDS: APIXABAN 5 MG TAB (ELIQUIS) PO SCH ×2 (08:17→20:49)
[2018-10-29] MEDS: OPTH OD SCH ×2 (08:17→21:00)
[2018-10-29] MEDS: FAMOTIDINE 20 MG TAB PO SCH ×2 (08:17→20:48)
[2018-10-29] MEDS: SODIUM CHLORIDE 5% OD SCH ×2 (08:17→21:00)
[2018-10-29] MEDS: FOLIC ACID 1 MG TAB PO SCH (08:17)
[2018-10-29] MEDS: MULTIVITAMINS/MINERALS THERAP 1 TAB PO SCH (08:17)
[2018-10-29] MEDS: PERCOCET 5MG/325MG TAB PO SCH (08:23)
[2018-10-29] MEDS: METOPROLOL TART 25 MG TABLET PO SCH ×2 (08:23→20:48)
--- NOTE | 2018-10-29 11:10 | IPNPDOC ---
Text Note Date of Service The patient was seen on 10/29/18. NOTE SUBJECTIVE: Patient seen and examined at bedside. Still complains of some right hip pain and constipation. OBJECTIVE: VITAL SIGNS: Listed below. GENERAL: NAD, lying comfortably in bed HEENT: NC/AT CARDIOVASCULAR: +S1S2, harsh systolic murmur, irregularly irregular LUNGS: CTA B/L ABDOMEN: Soft, NT, ND, +BS EXTREMITIES: No edema. LABORATORY DATA: Listed below. ASSESSMENT AND PLAN: #right hip pain - MRI demonstrates Gluteus medius tendinosis bilaterally. On percocet. Jayson apentin discontinued. On PRN flexeril. - Continues physical therapy. Patient did not pass physical therapy evaluation - ortho c/s appreciated #ankle pain - ortho c/s appreciated #Atrial fibrillation - rate controlled - a/c with Eliquis - Metoprolol prescription was given by Dr. Vaughn to [facility]. We will try to assist to see if there is going to an issue for the long-term metoprolol supply. #RA - On chronic steroids and methotrexate. - Previously there was concern for flare of rheumatoid arthritis and patient was on increased dose of prednisone. On home prednisone dosage currently. #DLP - The patient is on Lipitor. #. Hypothyroidism. - Free T4 is mildly elevated. Adjusted Synthroid dosage. #GERD - Continue to monitor. The patient is on Pepcid. #BPH - Continue to monitor. # Latent TB - Continue outpatient followup. #. History of cerebrovascular accident (CVA) - Occurred in December 2016. Continue physical therapy. #. Deep vein thrombosis (DVT) prophylaxis. The patient is on Eliquis. Dispo: PT/OT, placement VS,Fishbone, I+O VS, Fishbone, I+O Laboratory Tests 10/29/18 05:13 Red Blood Count 4.82, Mean Corpuscular Volume 87.3, Mean Corpuscular Hemoglobin 26.8 L, Mean Corpuscular Hemoglobin Concent 30.6 L, Red Cell Distribution Width 17.6 H, Calcium Level 8.0 L Vital Signs Date Time Temp Pulse Resp B/P (MAP) Pulse Ox O2 Delivery O2 Flow Rate FiO2 10/29/18 08:53 18 10/29/18 08:23 89 149/60 10/29/18 06:00 98.1 97 10/24/18 03:00 Room Air I&O- Last 24 Hours up to 6 AM 10/29/18 06:00 Intake Total 1290 ml Output Total 1350 ml Balance -60 ml HERMINIA DELACRUZ MD October 29, 2018 11:10
[2018-10-29] MEDS ORDERED: SENNA 8.6 MG TAB (SENOKOT) PO PRN (11:15)
[2018-10-29] MEDS ORDERED: DOCUSATE SODIUM 100 MG CAP PO PRN (11:15)
[2018-10-29 14:00] VITALS: BP 113/68
[2018-10-29] MEDS: predniSONE 2.5 MG TAB PO SCH (20:48)
[2018-10-29] MEDS: ASPIRIN 81 MG ENTERIC TAB PO SCH (20:49)
[2018-10-29] MEDS: ATORVASTATIN 10 MG TAB PO SCH (21:00)
[2018-10-29 22:00] VITALS: BP 115/59
[2018-10-30] MEDS: PERCOCET 5MG/325MG TAB PO SCH (05:06)
[2018-10-30] MEDS: LEVOTHYROXINE 88MCG TABLET (0.088 MG) PO SCH (05:06)
[2018-10-30 06:00] VITALS: BP 123/61
[2018-10-30 06:10] LABS: HEMOGLOBIN 13.5 g/dl (13.5-17.5); MEAN CORPUSCULAR HEMOGLOBIN 26.9 pg (27.0-33.0); MEAN CORPUSCULAR HGB CONC 30.7 g/dl (32.0-36.5); MEAN CORPUSCULAR VOLUME 87.8 fl (80.0-96.0); PLATELET COUNT, AUTOMATED 341 10^3/uL (150-450); RED BLOOD COUNT 5.01 10^6/uL (4.30-6.10); WHITE BLOOD COUNT 12.3 10^3/uL (4.0-10.0)
[2018-10-30 06:37] LABS: BLOOD UREA NITROGEN 19 MG/DL (7-18); CALCIUM LEVEL 8.1 MG/DL (8.8-10.2); CARBON DIOXIDE LEVEL 25 MEQ/L (21-32); CHLORIDE LEVEL 107 MEQ/L (98-107); CREATININE FOR GFR 0.79 MG/DL (0.70-1.30); GLOMERULAR FILTRATION RATE > 60.0 (>35); GLUCOSE, FASTING 88 MG/DL (70-100); MAGNESIUM LEVEL 2.1 MG/DL (1.8-2.4); POTASSIUM SERUM 5.1 MEQ/L (3.5-5.1); SODIUM LEVEL 136 MEQ/L (136-145)
[2018-10-30] MEDS: FOLIC ACID 1 MG TAB PO SCH (08:29)
[2018-10-30] MEDS: MULTIVITAMINS/MINERALS THERAP 1 TAB PO SCH (08:30)
[2018-10-30] MEDS: FAMOTIDINE 20 MG TAB PO SCH ×2 (08:30→20:44)
[2018-10-30] MEDS: APIXABAN 5 MG TAB (ELIQUIS) PO SCH ×2 (08:30→20:44)
[2018-10-30] MEDS: METOPROLOL TART 25 MG TABLET PO SCH ×2 (08:32→20:44)
[2018-10-30] MEDS: prednisoLONE ACET 1% OPHTH SUSP 5ML OS SCH (08:33)
[2018-10-30] MEDS: SODIUM CHLORIDE 5% OD SCH ×2 (08:33→20:44)
[2018-10-30] MEDS: OPTH OD SCH ×2 (08:33→20:44)
[2018-10-30] MEDS: CYCLOBENZAPRINE 5MG TABLET PO PRN ×2 (09:26→17:11)
--- NOTE | 2018-10-30 12:48 | IPNPDOC ---
Text Note Date of Service The patient was seen on 10/30/18. NOTE SUBJECTIVE: Patient seen and examined at bedside. Still complains of some right hip pain , somewhat improved. OBJECTIVE: VITAL SIGNS: Listed below. GENERAL: NAD, lying comfortably in bed HEENT: NC/AT CARDIOVASCULAR: +S1S2, harsh systolic murmur, irregularly irregular LUNGS: CTA B/L ABDOMEN: Soft, NT, ND, +BS EXTREMITIES: No edema. LABORATORY DATA: Listed below. ASSESSMENT AND PLAN: #right hip pain - MRI demonstrates Gluteus medius tendinosis bilaterally. On percocet. Gabapentin discontinued. On PRN flexeril. - Continues physical therapy. - ortho c/s appreciated #ankle pain - ortho c/s appreciated #Atrial fibrillation - rate controlled - a/c with Eliquis - Metoprolol prescription was given by Dr. Vaughn to [place] [facility]. We will try to assist to see if there is going to an issue for the long-term metoprolol supply. #RA - On chronic steroids and methotrexate. - Previously there was concern for flare of rheumatoid arthritis and patient was on increased dose of prednisone. On home prednisone dosage currently. #DLP - The patient is on Lipitor. # Hypothyroidism. - continue synthroid #GERD - Continue to monitor. The patient is on Pepcid. #BPH - Continue to monitor. # Latent TB - Continue outpatient followup. # History of cerebrovascular accident (CVA) - Occurred in December 2016. Continue physical therapy. # Deep vein thrombosis (DVT) prophylaxis. The patient is on Eliquis. Dispo: PT/OT, home with services VS,Shawna, I+O VS, Shawna, I+O Laboratory Tests 10/30/18 05:12 Red Blood Count 5.01, Mean Corpuscular Volume 87.8, Mean Corpuscular Hemoglobin 26.9 L, Mean Corpuscular Hemoglobin Concent 30.7 L, Red Cell Distribution Width 17.7 H, Calcium Level 8.1 L Vital Signs Date Time Temp Pulse Resp B/P (MAP) Pulse Ox O2 Delivery O2 Flow Rate FiO2 10/30/18 08:32 73 120/60 10/30/18 06:00 97.2 20 97 10/24/18 03:00 Room Air I&O- Last 24 Hours up to 6 AM 10/30/18 06:00 Intake Total 1150 ml Output Total 1375 ml Balance -225 ml HERMINIA DELACRUZ MD October 30, 2018 12:48
[2018-10-30 14:00] VITALS: BP 115/63
[2018-10-30] MEDS: ACETAMINOPHEN 500 MG TAB PO PRN (17:16)
[2018-10-30] MEDS: predniSONE 2.5 MG TAB PO SCH (20:43)
[2018-10-30] MEDS: ATORVASTATIN 10 MG TAB PO SCH ×2 (20:43→20:44)
[2018-10-30] MEDS: ASPIRIN 81 MG ENTERIC TAB PO SCH (20:43)
[2018-10-30 22:00] VITALS: BP 120/59
[2018-10-31] MEDS: LEVOTHYROXINE 88MCG TABLET (0.088 MG) PO SCH (05:46)
[2018-10-31 06:00] VITALS: BP 96/51
[2018-10-31 06:03] LABS: HEMATOCRIT 42.1 % (42.0-52.0); HEMOGLOBIN 12.7 g/dl (13.5-17.5); MEAN CORPUSCULAR HEMOGLOBIN 26.6 pg (27.0-33.0); MEAN CORPUSCULAR HGB CONC 30.2 g/dl (32.0-36.5); MEAN CORPUSCULAR VOLUME 88.3 fl (80.0-96.0); PLATELET COUNT, AUTOMATED 296 10^3/uL (150-450); RED BLOOD COUNT 4.77 10^6/uL (4.30-6.10); WHITE BLOOD COUNT 8.9 10^3/uL (4.0-10.0)
[2018-10-31 06:18] LABS: BLOOD UREA NITROGEN 23 MG/DL (7-18); CALCIUM LEVEL 7.8 MG/DL (8.8-10.2); CARBON DIOXIDE LEVEL 29 MEQ/L (21-32); CHLORIDE LEVEL 106 MEQ/L (98-107); CREATININE FOR GFR 0.97 MG/DL (0.70-1.30); GLOMERULAR FILTRATION RATE > 60.0 (>35); GLUCOSE, FASTING 149 MG/DL (70-100); MAGNESIUM LEVEL 2.2 MG/DL (1.8-2.4); POTASSIUM SERUM 4.6 MEQ/L (3.5-5.1); SODIUM LEVEL 138 MEQ/L (136-145)
[2018-10-31] MEDS: MULTIVITAMINS/MINERALS THERAP 1 TAB PO SCH (08:29)
[2018-10-31] MEDS: APIXABAN 5 MG TAB (ELIQUIS) PO SCH (08:29)
[2018-10-31] MEDS: FAMOTIDINE 20 MG TAB PO SCH (08:29)
[2018-10-31] MEDS: FOLIC ACID 1 MG TAB PO SCH (08:29)
[2018-10-31] MEDS: SODIUM CHLORIDE 5% OD SCH (08:30)
[2018-10-31] MEDS: OPTH OD SCH (08:30)
[2018-10-31 08:33] VITALS: BP 100/52
[2018-10-31] MEDS: METOPROLOL TART 25 MG TABLET PO SCH (08:33)
[2018-10-31] MEDS ORDERED: CYCL5TAB PO ×2 (10:53→11:53)
[2018-10-31] MEDS ORDERED: PERCOCET PO ×2 (10:53→11:53)
[2018-10-31] MEDS ORDERED: METO1TAB87 PO ×2 (10:53→11:50)
[2018-10-31] MEDS ORDERED: predniSONE 10 MG TAB PO ONE (11:00)
[2018-10-31] MEDS: ACETAMINOPHEN 500 MG TAB PO PRN (11:11)
[2018-10-31] MEDS: CYCLOBENZAPRINE 5MG TABLET PO PRN (11:11)
--- NOTE | 2018-10-31 13:49 | DS.PDOC ---
Discharge Summary General Date of Admission Oct 23, 2018 at 18:01 Date of Discharge 10/31/18 Specialist/Consultants Involve: SRIKANTH JEAN MD Discharge Summary PROCEDURES PERFORMED DURING STAY: [None]. DISCHARGE DIAGNOSES: 1. Atrial fibrillation 2. right hip pain 3. right ankle pain. 4. generalized deconditioning SECONDARY DIAGNOSES: Fuchs' disease of the eye bilaterally. Rheumatoid arthritis, on chronic prednisone and methotrexate. Aortic regurgitation. Gastroesophageal reflux disease. Dyslipidemia. Hypothyroidism. BPH. Latent tuberculosis (TB). CVA in December 2016. COMPLICATIONS/CHIEF COMPLAINT: A Fib; R Hip Pain. HOSPITAL COURSE: The patient is an 78-year-old gentleman with a past medical history significant for Fuchs' disease of the eye bilaterally, rheumatoid art hritis, gastroesophageal reflux disease, dyslipidemia, hypothyroidism, latent tuberculosis, history of CVA, presented to [facility] on 10/23/2018 for persistent right hip pain. The patient has a history of rheumatoid arthritis. At baseline, the patient has 5-6 flares of hip pain from t he rheumatoid arthritis (RA) flare. However, usually the pain will subside after a short moment and sometimes patient will get relief with escalation of the prednisone. However, the patient woke up with severe sharp pain of the right hip, and the pain is radiating to the right lower extremity. The pain had been persistent, and he is not able to perform any significant hip or lower extremity movement due to severe pain. Therefore, he came to [facility] for further evaluation. In the emergency room, the patient was found to have atrial fibrillation with heart rate of 160. The patient was given one dose of metoprolol and the hospitalist team was called for admission. Other significant history includes patient had a recent CVA and patient was started on Eliquis. Patient was followed by Dr. Vaughn in the outpatient setting. The patient had a loop recorder in place previously. Approximately 3 weeks ago, the patient was given a prescription for metoprolol for the atrial fibrillation; however, due to some issue with the pharmacy, the patient had not received the metoprolol. Patient responded well to treatment with beta iván, and remained rate controlled. Hospital stay complicated with generalized deconditioning and right hip/ankle pain. Seen by orthopedics, with recommendation for outpatient follow up. Also seen by PT, with recommendations for outpatient PT. DISCHARGE MEDICATIONS: Please see below. ALLERGIES: Please see below. PHYSICAL EXAMINATION ON DISCHARGE: VITAL SIGNS: Please see below. GENERAL: NAD, lying comfortably in bed HEENT: NC/AT CARDIOVASCULAR: +S1S2, harsh systolic murmur, irregularly irregular LUNGS: CTA B/L ABDOMEN: Soft, NT, ND, +BS EXTREMITIES: No edema. LABORATORY DATA: Please see below. ACTIVITY: [As tolerated as per PT DIET: low fat low cholesterol DISPOSITION: Discharge home with outpatient PT. DISCHARGE INSTRUCTIONS: 1. Follow up ortho in 1-2 weeks or as scheduled 2. Follow up PCP in 3-5 days 3. Outpatient PT as directed. DISCHARGE CONDITION: [Stable]. TIME SPENT ON DISCHARGE: Greater than 30 minutes. Vital Signs/I&Os Vital Signs Date Time Temp Pulse Resp B/P (MAP) Pulse Ox O2 Delivery O2 Flow Rate FiO2 10/31/18 08:33 79 100/52 10/31/18 06:00 97.0 18 98 I&O- Last 24 Hours up to 6 AM 10/31/18 06:00 Intake Total 1270 ml Output Total 900 ml Balance 370 ml Laboratory Data Labs 24H Laboratory Tests 2 10/31/18 05:16: Nucleated Red Blood Cells % (auto) 0.0, Anion Gap 3L, Glomerular Filtration Rate > 60.0, Blood Urea Nitrogen 23H, Creatinine 0.97, Sodium Level 138, Potassium Level 4.6, Chloride Level 106, Carbon Dioxide Level 29, Calcium Level 7.8L, Magnesium Level 2.2 CBC/BMP Laboratory Tests 10/31/18 05:16 Red Blood Count 4.77, Mean Corpuscular Volume 88.3, Mean Corpuscular Hemoglobin 26.6 L, Mean Corpuscular Hemoglobin Concent 30.2 L, Red Cell Distribution Width 17.5 H, Calcium Level 7.8 L Discharge Medications Scheduled Apixaban (Eliquis) 5 Mg Tab, 5 MG PO BID, (Reported) Aspirin (Aspir 81) 81 Mg Tablet.dr, 81 MG PO QHS, (Reported) Atorvastatin Calcium (Lipitor) 10 Mg Tablet, 10 MG PO QHS, (Reported) Famotidine (Pepcid AC) 10 Mg Tablet, 10 MG PO BID, (Reported) Flaxseed Oil (Flaxseed Oil) 1,000 Mg Cap, 1,000 MG PO QHS, (Reported) Folic Acid (Folic Acid) 1 Mg Tablet, 1 MG PO DAILY, (Reported) Levothyroxine Sodium (Levothyroxine Sodium) 112 Mcg Tab, 112 MCG PO DAILY, (Reported) Magnesium (Magnesium) 250 Mg Tablet, 500 MG PO QHS, (Reported) Methotrexate Sodium (Methotrexate) 2.5 Mg Tablet, 10 MG PO QWEEK, (Reported) WEDNESDAYS Metoprolol Tartrate (Metoprolol Tartrate) 25 Mg Tablet, 25 MG PO BID Multivitamins (Thera M Plus Tablet) 1 Tab Tab, 1 TAB PO DAILY, (Reported) [place]-3/Dha/Epa/Fish Oil (Fish Oil 1,200 mg Softgel) 1 Each Capsule.dr, 1 CAP PO BID, (Reported) Oxycodone/Acetaminophen (Oxycodone-Acetaminophen 5-325) 1 Each Tablet, 1 TAB PO Q6HP Prednisolone Acetate (Pred Forte 1% Opth Susp) 1 % Esperanza, 1 DROP OS Q2D, (Reported) Prednisone (Prednisone) 5 Mg Tab, 10 MG PO QAM, (Reported) NORMAL DOSE 12.5MG TOTAL DAILY - THOUGHT THE PAIN HE WAS HAVING WAS AN RA FLARE UP - HE INCREASES DOSE TO 40MG DAILY FOR 3 DAYS, 30MG DAILY FOR 3 DAYS, 20MG DAILY FOR 3 DAYS, THEN RESUMES NORMAL DOSE. Prednisone (Prednisone) 5 Mg Tablet, 2.5 MG PO QHS, (Reported) 12.5MG TOTAL DAILY Sodium Chloride (Sodium Chloride 5% Opth Oint) 1 Dose/3.5 Gm Oint, 1 DOSE OD BID, (Reported) Vit C/E/Zn/Coppr/Lutein/Zeaxan (Preservision Areds 2 Softgel) 1 Each Capsule, 1 CAP PO BID, (Reported) Scheduled PRN Acetaminophen (Tylenol Extra Strength) 500 Mg Tablet, 1,000 MG PO QID PRN for PAIN, (Reported) Cyclobenzaprine HCl (Cyclobenzaprine HCl) 5 Mg Tablet, 5 MG PO Q6HP PRN for PAIN Polyvinyl Alcohol (Artificial Tears) 1.4 % Mable, 1 DROP OU PRN PRN for DRY EYES, (Reported) Allergies Coded Allergies: bee venom protein (honey bee) (Verified Allergy, Unknown, 10/10/18) meloxicam (Verified Allergy, Unknown, 10/10/18) HERMINIA DELACRUZ MD October 31, 2018 13:49
== END 2018-10-31 13:25 | disposition home or self-care (01) | DRG 558 ==
LOC: EDBD 14:08 → M ED 14:08 → M ED INP 18:01 → M MSPAV 10-24 03:16
PROVIDERS: ADMIT Internal Medicine; ATTEND Internal Medicine
DX: M76.01 Gluteal tendinitis, right hip (principal); I48.91 Unspecified atrial fibrillation; M06.9 Rheumatoid arthritis, unspecified; K21.9 Gastro-esophageal reflux disease without esophagitis; N40.0 Benign prostatic hyperplasia without lower urinary tract symptoms; E03.9 Hypothyroidism, unspecified; Z79.52 Long term (current) use of systemic steroids; E78.5 Hyperlipidemia, unspecified; I35.0 Nonrheumatic aortic (valve) stenosis; Z86.73 Personal history of transient ischemic attack (TIA), and cerebral infarction without residual deficits; H44.23 Degenerative myopia, bilateral; R76.11 Nonspecific reaction to tuberculin skin test without active tuberculosis; Z79.82 Long term (current) use of aspirin; Z79.899 Other long term (current) drug therapy; Z88.8 Allergy status to other drugs, medicaments and biological substances; Z91.038 Other insect allergy status; Z87.891 Personal history of nicotine dependence; Z79.01 Long term (current) use of anticoagulants; M51.27 Other intervertebral disc displacement, lumbosacral region

== ENCOUNTER → 2018-11-28 | Outpatient (RCR) | payer MEDICARE ==
[~2018-11-28] MED LIST changes: +ACET-897 PO; +CYCL5TAB PO; +FOLI1TAB11 PO; +METH2.5T48 PO; +METO1TAB87 PO; +OMEG12003 PO; +PEPC10TA6 PO; +PERCOCET PO; +PRES10CA2 PO; +SM M250T PO
== END ==
LOC: M PT 11-03 09:07
PROVIDERS: ATTEND Orthopaedic Surgery
DX: M54.5 Low back pain (principal)

== ENCOUNTER 2018-12-26 08:45 | Outpatient (RCR) | payer MEDICARE | END 2018-12-28 | LOC: M PT 08:45 | PROVIDERS: ATTEND Orthopaedic Surgery | DX: M54.5 Low back pain (principal) ==

== ENCOUNTER 2019-01-26 08:21 | Outpatient (RCR) | payer MEDICARE ==
[~2019-01-26 08:21] MED LIST changes: +CYAN100049 PO; -VITA10002 PO
== END 2019-01-28 ==
LOC: M PT 08:21
PROVIDERS: ATTEND Orthopaedic Surgery
DX: Z51.89 Encounter for other specified aftercare (principal); R26.9 Unspecified abnormalities of gait and mobility; M54.5 Low back pain

== ENCOUNTER 2019-02-23 08:18 | Outpatient (RCR) | payer MEDICARE ==
[~2019-02-23 08:18] MED LIST changes: -ARTI99.0 OU; +ARTIDRO2 OU
== END 2019-02-28 ==
LOC: M PT 08:18
PROVIDERS: ATTEND Orthopaedic Surgery
DX: M54.5 Low back pain (principal)

== ENCOUNTER 2019-03-09 08:32 | Outpatient (RCR) | payer MEDICARE | END 2019-03-30 | LOC: M PT 08:32 | PROVIDERS: ATTEND Orthopaedic Surgery | DX: M54.5 Low back pain (principal) ==

== ENCOUNTER 2021-01-08 15:05 | Inpatient (IN) | payer MEDICARE ==
[~2021-01-08] VITALS: Ht 167.6 cm; Wt 65.7 kg
[~2021-01-08 15:05] MED LIST changes: -ALEN70TA74 PO; +ALEN70TA82 PO; -ARTIDRO2 OU; -ASPI81TA85 PO; +ASPI81TA86 PO; -MECL-68 PO; +MECL1TAB31 PO; -OMEP40CA2 PO; +OMEP40CA4 PO; +POLYOPD OU; -STOO1CAP9 PO; +STOO240C PO
[2021-01-08] MEDS: METOPROLOL 5 MG/5 ML VIAL IV SCH ×6 (15:40→23:52)
[2021-01-08 15:51] LABS: BASO % 0.3 % (0.0-1.0); EOS % 0.2 % (0.0-3.0); HEMATOCRIT 43.9 % (42.0-52.0); HEMOGLOBIN 13.2 g/dl (13.5-17.5); LYMPH # 0.7 10^3/uL (1.5-5.0); LYMPH % 6.6 % (24.0-44.0); MEAN CORPUSCULAR HEMOGLOBIN 26.6 pg (27.0-33.0); MEAN CORPUSCULAR HGB CONC 30.1 g/dl (32.0-36.5); MEAN CORPUSCULAR VOLUME 88.3 fl (80.0-96.0); MONO # 0.3 10^3/uL (0.0-0.8); MONO % 3.2 % (2.0-8.0); NEUTROPHILS # 9.6 10^3/uL (1.5-8.5); PLATELET COUNT, AUTOMATED 338 10^3/uL (150-450); RED BLOOD COUNT 4.97 10^6/uL (4.30-6.10); WHITE BLOOD COUNT 10.8 10^3/uL (4.0-10.0)
--- NOTE | 2021-01-08 15:51 | REP ---
INDICATION: CHEST PAIN COMPARISON: 10/23/2018 TECHNIQUE: Portable AP view of the chest FINDINGS: Examination is limited by portable technique, underpenetration and decreased inspiratory effort. Stable cardiomegaly and diffuse chronic interstitial changes suggesting COPD/emphysematous disease. Superimposed bibasilar airspace disease cannot be excluded. No obvious effusion. No pneumothorax. IMPRESSION: Advanced chronic changes. Cannot exclude superimposed acute process. <Electronically signed by Kelechi Can > 01/08/21 [id number]
[2021-01-08] MEDS ORDERED: METOPROLOL TART 25 MG TABLET PO ONE (16:00)
[2021-01-08 16:06] LABS: INR 1.19; PROTHROMBIN TIME 15.4 SECONDS (12.5-14.3)
[2021-01-08 16:07] LABS: PARTIAL THROMBOPLASTIN TIME 37.1 SECONDS (24.2-38.5)
[2021-01-08 16:23] LABS: ALBUMIN 2.8 GM/DL (3.2-5.2); ALT/SGPT 46 U/L (12-78); BILIRUBIN,DIRECT 0.2 MG/DL (0.0-0.2); BILIRUBIN,TOTAL 0.6 MG/DL (0.2-1.0); BLOOD UREA NITROGEN 18 MG/DL (7-18); CALCIUM LEVEL 8.2 MG/DL (8.8-10.2); CARBON DIOXIDE LEVEL 26 MEQ/L (21-32); CHLORIDE LEVEL 103 MEQ/L (98-107); CREATININE FOR GFR 0.68 MG/DL (0.70-1.30); GLOMERULAR FILTRATION RATE > 60.0 (>35); GLUCOSE, FASTING 103 MG/DL (70-100); IRON (FE) 47 UG/DL (65-175); LIPASE 79 U/L (73-393); MAGNESIUM LEVEL 2.2 MG/DL (1.8-2.4); NT-PRO BNP 7146 PG/ML (<450); PERCENT SATURATION 15.8 % (19.7-50.0); POTASSIUM SERUM 5.7 MEQ/L (3.5-5.1); SODIUM LEVEL 137 MEQ/L (136-145); THYROID STIMULATING HORMONE 0.912 uIU/ML (0.358-3.740); TOTAL IRON BINDING CAPACITY 298 UG/DL (250-450); TOTAL PROTEIN 5.9 GM/DL (6.4-8.2)
[2021-01-08] MEDS ORDERED: NITROGLYCERIN 0.4 MG SUBL TABLET SL STA (16:52)
--- NOTE | 2021-01-08 18:04 | HPEPDOC ---
[facility] Medical History & Physical Date of Admission Jan 08, 2021 Date of Service: Jan 08, 2021 History and Physical CHIEF COMPLAINT: tachycardia HISTORY OF PRESENT ILLNESS: 80 year old male for one day history of sustained tachycardia monitored through his wearable device, palpitations, dyspnea on exertion. He notes chronic intermittent chest pain that has been ongoing for several months, described as 'heavy', substernal, non-exertional, lasts for 5-10 seconds, with no clear modifying factors, non-radiating. He also notes chronic lower extremity edema, intermittent, usually associated with his left foot. He notes a history of what appears to be aortic regurg, but has not been interested in valve replacement. He also notes what may be issues with his hyperthyroidism, based [facility]. His daughter at bedside states that roughly six months ago his T4 was elevated, with the plan to recheck in 6 months, around this time. He does note weight loss (180lbs down to 138lbs), unintentional, but notes poor appetite over the last year. In the ED he has no medical complaints. He denies chest pain, shortness of breath, abdominal pain, N/V/D, headaches, changes in vision or depressed mood. PAST MEDICAL HISTORY: #afib - episodes of bradycardia #CVA #aortic stenosis #hypothyroidism SOCIAL HISTORY: Reviewed - remote history of smoking, quit 1969, possible alcohol abuse - quit 1976 FAMILY HISTORY: Reviewed non-contributory ALLERGIES: Please see below. REVIEW OF SYSTEMS: Negative except as per HPI. HOME MEDICATIONS: Please see below. PHYSICAL EXAMINATION: VITAL SIGNS: See below GENERAL APPEARANCE: NAD, lying comfortably in bed HEENT: NC/AT, EOMI CARDIOVASCULAR: +S1S2, harsh systolic murmur LUNGS: CTA B/L ABDOMEN: soft, NT, +BS EXTREMITIES: trace pedal edema b/l NEUROLOGICAL: no gross focal deficits PSYCHIATRIC: AAOx3 LABORATORY DATA: See below. MICROBIOLOGY: Please see below. A/P: 80 yo male for one day history of tachycardia (monitored on wearable device), palpitations, dyspnea on exertion. Found to be in aflutter in the ED. #aflutter - admit to PCU - cardiology c/s - beta blockers have been effective in controlling his rate so far - serial trops - echocardiogram - d/w cardiology - caution with beta blockers as he does have a history of bradycardia as well #CVA #aortic stenosis - patient has not been interested in valve replacement #hypothyroidism - patient appears to be possibly hyperthyroid at this time - family notes that this was [facility] months [facility], with the plan to follow up labs in 6 months for further evaluation - holding levothyroxine at this time - likely resume at lower dose Vital Signs Vital Signs Date Time Temp Pulse Resp B/P (MAP) Pulse Ox O2 Delivery O2 Flow Rate FiO2 01/08/21 17:03 122/57 01/08/21 16:33 79 01/08/21 15:50 16 97 01/08/21 15:47 Room Air 01/08/21 15:06 98.6 Laboratory Data Labs 24H Laboratory Tests 2 01/08/21 15:38: Immature Granulocyte % (Auto) 0.7, Neutrophils (%) (Auto) 89.0H, Lymphocytes (%) (Auto) 6.6L, Monocytes (%) (Auto) 3.2, Eosinophils (%) (Auto) 0.2, Basophils (%) (Auto) 0.3, Neutrophils # (Auto) 9.6H, Lymphocytes # (Auto) 0.7L, Monocytes # (Auto) 0.3, Eosinophils # (Auto) 0.0, Basophils # (Auto) 0.0, Nucleated Red Blood Cells % (auto) 0.0, Prothrombin Time 15.4H, Prothromb Time International Ratio 1.19, Activated Partial Thromboplast Time 37.1, POC Troponin I (Misc) 0.10H, Anion Gap 8, Glomerular Filtration Rate > 60.0, Calcium Level 8.2L, Magnesium Level 2.2, Iron Level 47L, Total Iron Binding Capacity 298, Transferrin % Saturation 15.8L, Total Bilirubin 0.6, Direct Bilirubin 0.2, Aspartate Amino Transf (AST/SGOT) 32, Alanine Aminotransferase (ALT/SGPT) 46, Alkaline Phosphatase 76, WA-Zfo-N-Type Natriuretic Peptide 7146H, Total Protein 5.9L, Albumin 2.8L, Albumin/Globulin Ratio 0.9, Lipase 79, Thyroid Stimulating Hormone (TSH) 0.912, Free Thyroxine 1.70H 01/08/21 17:08: POC Troponin I (Misc) 0.12H CBC/BMP Laboratory Tests 01/08/21 15:38 Home Medications Scheduled Apixaban (Eliquis) 5 Mg Tab, 5 MG PO BID Ascorbic Acid (Vitamin C) 500 Mg Tablet, 1,000 MG PO DAILY Aspirin (Aspirin EC) 81 Mg Tablet.dr, 81 MG PO QHS Famotidine (Pepcid AC) 10 Mg Tablet, 10 MG PO DAILY Iron,Carbonyl (Iron Chews) 15 Mg Tab.chew, 30 MG PO DAILY Levothyroxine Sodium (Levothyroxine Sodium) 112 Mcg Tab, 112 MCG PO DAILY Magnesium (Magnesium) 250 Mg Tablet, 500 MG PO QHS [place]-3 Fatty Acids/Fish Oil (Fish Oil 1,000 mg Capsule) 1 Each Capsule, 1,000 MG PO DAILY Prednisolone Acetate (Pred Forte 1% Opth Susp) 1 % Esperanza, 1 DROP OS Q2D Prednisone (Prednisone) 5 Mg Tablet, 2.5 MG PO QAM TAKES WITH 10MG TO EQUAL 12.5MG TOTAL DAILY Prednisone (Prednisone) 10 Mg Tablet, 10 MG PO QAM TAKES WITH 5 MG- HALF TAB FOR EQUAL 12.5MG Sodium Chloride (Sodium Chloride 5% Opth Oint) 1 Dose/3.5 Gm Oint, 1 DOSE OD BID Vit C/E/Zn/Coppr/Lutein/Zeaxan (Preservision Areds 2 Softgel) 1 Each Capsule, 1 CAP PO BID Scheduled PRN Acetaminophen (Tylenol Extra Strength) 500 Mg Tablet, 1,000 MG PO QID PRN for PAIN Polyvinyl Alcohol (Artificial Tears) 1.4 % Mable, 1 DROP OU PRN PRN for DRY EYES Allergies Coded Allergies: bee venom protein (honey bee) (Verified Allergy, Unknown, 10/10/18) meloxicam (Verified Allergy, Unknown, 10/10/18) terazosin (Verified Allergy, Unknown, 01/08/21) A-FIB/CHADSVASC A-FIB History Current/History of A-Fib/PAF?: Yes Current PO Anticoag Therapy: Yes HERMINIA DELACRUZ MD Jan 08, 2021 18:04
[2021-01-08] MEDS ORDERED: ASPI81TA26 PO (18:56)
[2021-01-08] MEDS ORDERED: PRED10TA2 PO (18:56)
[2021-01-08] MEDS ORDERED: VITA-243 PO (18:58)
[2021-01-08] MEDS ORDERED: FISH1000 PO (18:58)
[2021-01-08] MEDS ORDERED: IRON15CH PO (18:58)
[2021-01-08] MEDS ORDERED: ACETAMINOPHEN 500 MG TAB PO PRN (19:10)
[2021-01-08] MEDS ORDERED: POLYVINYL ALCOHOL OPHTH SOLN 15 ML(LIQUITEARS) OU PRN (19:10)
[2021-01-08] MEDS ORDERED: PILL CUTTER 1 EACH XX PRN (19:20)
[2021-01-08 20:03] LABS: RSV AMPLIFICATION NEGATIVE (NEGATIVE)
[2021-01-08] MEDS: SODIUM CHLORIDE 5% OPHTH OINT 3.5 GM OD SCH (21:00)
[2021-01-08 23:24] VITALS: BP 113/71
[2021-01-08 23:52] VITALS: BP 113/71
[2021-01-08] MEDS: ASPIRIN 81MG ENTERIC TABLET PO SCH (23:52)
[2021-01-08] MEDS: APIXABAN 5 MG TAB (ELIQUIS) PO SCH (23:52)
[2021-01-09 00:32] LABS: CK-MB VALUE MASS 3.5 NG/ML (<3.6); MB/CK RELATIVE INDEX 11.67 (< OR =4); TROPONIN I 0.23 NG/ML (< 0.10)
[2021-01-09 04:00] VITALS: BP 91/52
[2021-01-09 06:11] LABS: HEMOGLOBIN 11.5 g/dl (13.5-17.5); MEAN CORPUSCULAR HEMOGLOBIN 26.7 pg (27.0-33.0); MEAN CORPUSCULAR HGB CONC 30.3 g/dl (32.0-36.5); MEAN CORPUSCULAR VOLUME 88.4 fl (80.0-96.0); PLATELET COUNT, AUTOMATED 304 10^3/uL (150-450); WHITE BLOOD COUNT 9.4 10^3/uL (4.0-10.0)
[2021-01-09 06:46] LABS: ALBUMIN 2.3 GM/DL (3.2-5.2); ALT/SGPT 48 U/L (12-78); BILIRUBIN,TOTAL 0.6 MG/DL (0.2-1.0); BLOOD UREA NITROGEN 17 MG/DL (7-18); CALCIUM LEVEL 7.9 MG/DL (8.8-10.2); CARBON DIOXIDE LEVEL 27 MEQ/L (21-32); CHLORIDE LEVEL 108 MEQ/L (98-107); CK-MB VALUE MASS 2.2 NG/ML (<3.6); CPK CREATINE PHOSPHOKINASE 33 U/L (39-308); CREATININE FOR GFR 0.71 MG/DL (0.70-1.30); FREE THYROXINE INDEX 2.9 % (1.4-3.8); GLOMERULAR FILTRATION RATE > 60.0 (>35); GLUCOSE, FASTING 68 MG/DL (70-100); MB/CK RELATIVE INDEX 6.67 (< OR =4); NT-PRO BNP 8770 PG/ML (<450); POTASSIUM SERUM 4.5 MEQ/L (3.5-5.1); SODIUM LEVEL 141 MEQ/L (136-145); T UPTAKE 39 % (33-40); THYROXINE (T4) 7.5 UG/DL (4.5-12.0); TROPONIN I 0.23 NG/ML (< 0.10)
[2021-01-09 08:00] VITALS: BP 87/53
[2021-01-09] MEDS: APIXABAN 5 MG TAB (ELIQUIS) PO SCH (08:55)
[2021-01-09] MEDS ORDERED: FAMOTIDINE 20 MG TAB PO SCH (09:00)
[2021-01-09] MEDS: SODIUM CHLORIDE 5% OPHTH OINT 3.5 GM OD SCH ×2 (09:00→21:00)
[2021-01-09] MEDS ORDERED: predniSONE 10 MG TAB PO SCH (09:00)
[2021-01-09] MEDS ORDERED: ASCORBIC ACID 500 MG TAB PO SCH (09:00)
[2021-01-09] MEDS ORDERED: prednisoLONE ACET 1% OPHTH SUSP 5ML OS SCH (09:00)
[2021-01-09] MEDS ORDERED: predniSONE 2.5 MG TAB PO SCH (09:00)
[2021-01-09 12:00] VITALS: BP 105/63
[2021-01-09 16:00] VITALS: BP 122/54
--- NOTE | 2021-01-09 17:24 | IPNPDOC ---
Text Note Date of Service The patient was seen on 01/09/21. NOTE Subjective: Patient seen and examined at bedside. No acute overnight events reported. Patient has no new medical complaints this morning. There was extensive discussion with patient regarding aortic valve replacement. Objective: VITAL SIGNS: See below GENERAL APPEARANCE: NAD, lying comfortably in bed HEENT: NC/AT, EOMI CARDIOVASCULAR: +S1S2, harsh systolic murmur LUNGS: CTA B/L ABDOMEN: soft, NT, +BS EXTREMITIES: trace pedal edema b/l NEUROLOGICAL: no gross focal deficits PSYCHIATRIC: AAOx3 A/P: 80 yo male for one day history of tachycardia (monitored on wearable device), palpitations, dyspnea on exertion. Found to be in aflutter in the ED. #aflutter - resolved - follow as per cardiology - assistance appreciated - echocardiogram #history of CVA #aortic stenosis - patient previously has not been interested in valve replacement - further discussion today with patient and family - he now is interested in possibility of valve replacement #hypothyroidism - appears he is now slightly hyperthyroid - as per family - this was noted several months ago on lab work, plan was to repeat in 6 months (around this time) for further evaluation - will likely reduce dosage of oral thyroid supplementation - on hold for now #DVT prophylaxis Disposition: discussed with cardiology; to discuss further regarding transfer vs outpatient follow up for valve replacement VSShawna I+O VSShawna I+O Laboratory Tests 01/09/21 05:35 Vital Signs Date Time Temp Pulse Resp B/P (MAP) Pulse Ox O2 Delivery O2 Flow Rate FiO2 01/09/21 12:00 98.6 86 20 105/63 (77) 99 Room Air I&O- Last 24 Hours up to 6 AM 01/09/21 06:00 Intake Total 0 ml Balance 0 ml HERMINIA DELACRUZ MD Jan 09, 2021 17:24
[2021-01-09 18:11] LABS: MAGNESIUM LEVEL 2.4 MG/DL (1.8-2.4)
[2021-01-09] MEDS ORDERED: SLF 3 ML SYR IV PRN (18:15)
[2021-01-09 20:00] VITALS: BP 118/58
--- NOTE | 2021-01-09 20:53 | ECGEPIP ---
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
--- NOTE | 2021-01-09 21:17 | ECGEPIP ---
[facility] - ED Test Date: 2021-01-08 Pat Name: YOUNG MARTINEZ Department: Room: - Gender: Male Social Work Specialist: LEIDY : 1940 Requested By: ALEX CUEVA Order Number: [id number] Reading MD: Wendy Everett Measurements Intervals [place] Rate: 154 P: 193 [place]: QRS: -22 QRSD: 72 T: 153 QT: 274 QTc: 438 Interpretive Statements Atrial flutter with 2:1 AV conduction Left ventricular hypertrophy with repolarization abnormality ( R in aVL ) Electronically Signed on 01-09-2021 21:17:27 EDT by Wendy Everett
--- NOTE | 2021-01-09 21:19 | ECGEPIP ---
[facility] - ED Test Date: 2021-01-08 Pat Name: YOUNG MARTINEZ Department: Room: - Gender: Male Internet Marketing Analyst: NOVAASHANTI : 1940 Requested By: ALEX CUEVA Order Number: [id number] Reading MD: Wendy Everett Measurements Intervals [place] Rate: 78 P: 45 [place]: QRS: -21 QRSD: 78 T: -12 QT: 334 QTc: 380 Interpretive Statements Atrial flutter with 4:1 AV conduction Minimal voltage criteria for LVH, may be normal variant ( R in aVL ) Cannot rule out Anterior infarct , age undetermined rate slower 15:23 Electronically Signed on 01-09-2021 21:18:58 EDT by Wendy Everett
[2021-01-09] MEDS: ASPIRIN 81MG ENTERIC TABLET PO SCH (21:45)
--- NOTE | 2021-01-09 21:49 | ECHO ---
ECHOCARDIOGRAM DATE OF PROCEDURE: 01/09/2021 Age: 80 Gender: Female Height: 168 cm Weight: 63 kg REFERRING PHYSICIAN: Dr. Niko Woo INDICATION: Cardiac dysrhythmia MEASUREMENTS: IVS 0.7 cm LV 5.5 cm LVPW 0.8 cm LA 4.4 cm Aorta 3.1 cm IVC 2.0 cm FINDINGS: This study is of adequate technical quality, underlying atrial fibrillation alternating with sinus rhythm and frequent atrial ectopy. Left ventricle is normal size. Overall there is low normal LV systolic function, estimated EF approximately 50 to 55%. Right ventricle does not appear grossly enlarged. Both atria are severely enlarged. Aortic valve is heavily calcified and there is restriction of cusp mobility. There are also very prominent mitral annular calcifications and restriction of mitral leaflets with thickening present. Tricuspid valve appears normal. Pulmonic valve was not seen. No pericardial effusion is noted. Inferior vena cava is dilated and there is no appreciable collapse with inspiration indicative of very high central venous pressure. Aortic root, aortic arch and visualized segment of abdominal aorta all appear normal. Doppler interrogation of the aortic valve reveals mild to moderate insufficiency and probably critical stenosis. Peak gradient was only 51 mmHg, which probably slightly underestimates its true severity. Calculated aortic valve area was 0.5 cm/m2. There is mild to moderate mitral insufficiency and mild mitral stenosis with mean gradient across the mitral valve 3 mmHg. Mild tricuspid insufficiency was seen. Calculated pulmonary artery pressure is in the 50's, corresponding to minimum moderate pulmonary hypertension. Evaluation of diastolic function is inconclusive due to underlying atrial fibrillation or sinus rhythm with frequent ectopy. CONCLUSIONS: 1. Study is of acceptable technical quality, underlying atrial fibrillation alternating with sinus rhythm and atrial ectopy. 2. Normal LV size with low normal LV systolic function and estimated LVEF 50 to 55%. 3. Heavily calcified aortic valve with mild to moderate insufficiency and probably severe or critical stenosis (mean gradient 35 mmHg, calculated CORRY 0.5 cm/m2). 4. 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 5. Very high central venous pressure and at least moderate pulmonary hypertension. 6. Severe biatrial enlargement. MTDD
[2021-01-09] MEDS: SLF 3 ML SYR IV SCH (22:00)
[2021-01-10] VITALS: BP 117/57
[2021-01-10 04:00] VITALS: BP 100/58
[2021-01-10 05:53] LABS: HEMATOCRIT 38.6 % (42.0-52.0); HEMOGLOBIN 11.6 g/dl (13.5-17.5); MEAN CORPUSCULAR HEMOGLOBIN 26.7 pg (27.0-33.0); MEAN CORPUSCULAR HGB CONC 30.1 g/dl (32.0-36.5); MEAN CORPUSCULAR VOLUME 88.9 fl (80.0-96.0); PLATELET COUNT, AUTOMATED 299 10^3/uL (150-450); RED BLOOD COUNT 4.34 10^6/uL (4.30-6.10); WHITE BLOOD COUNT 8.8 10^3/uL (4.0-10.0)
[2021-01-10] MEDS: SLF 3 ML SYR IV SCH (06:04)
[2021-01-10 06:19] LABS: BLOOD UREA NITROGEN 19 MG/DL (7-18); CALCIUM LEVEL 8.2 MG/DL (8.8-10.2); CARBON DIOXIDE LEVEL 26 MEQ/L (21-32); CHLORIDE LEVEL 108 MEQ/L (98-107); CREATININE FOR GFR 0.71 MG/DL (0.70-1.30); GLOMERULAR FILTRATION RATE > 60.0 (>35); GLUCOSE, FASTING 97 MG/DL (70-100); POTASSIUM SERUM 4.6 MEQ/L (3.5-5.1); SODIUM LEVEL 139 MEQ/L (136-145)
--- NOTE | 2021-01-10 07:01 | CR ---
CONSULTATION DATE: 01/09/2021 REFERRING PHYSICIAN: HERMINIA DELACRUZ M.D. REASON FOR CONSULTATION: Elevated troponin, atrial fibrillation and heart murmur. HISTORY OF PRESENT ILLNESS: Mr. Duval is previously unknown to me but he has been followed by my partner, Dr. Vaughn. He presented to [facility] with a sensation of tachycardia associated with chest discomfort that he describes as a pressure like sensation on the left side of his chest and substernal heaviness and he also has had had a progressively worsening exertional intolerance with dyspnea limiting. After admission, he had minimally elevated troponin without any obvious trend. He also has been monitored on telemetry and so far there is a pretty consistent pattern of alternating atrial fibrillation with mildly tachycardic response with sinus rhythm. Both yesterday and to a lesser degree today he also had episodes of nonsustained ventricular tachycardia usually in the form of triplets. Patient is known to have valvular heart disease. I was informed that he previously refused consideration of surgical or other intervention in that regard. At bedside, the patient is a very pleasant man. He gave me a good description of his history. He is a Jehov[employer] Witness and consequently would not be willing to take blood products but after a brief discussion he is fully ready to proceed with TAVR or even open heart surgery if felt feasible. PAST MEDICAL HISTORY: 1. Paroxysmal atrial fibrillation of several years. 2. Dyslipidemia. 3. Valvular heart disease. He had an echocardiogram earlier this year with Dr. Vaughn that revealed critical aortic stenosis and mild to moderate aortic insufficiency, there was also a component of probably mild mitral stenosis. 4. History of hypothyroidism. 5. GERD. 6. Hyperlipidemia. 7. Degenerative joint disease and diffuse arthritis. 8. Paroxysmal atrial fibrillation. 9. CVA in 2017. SOCIAL HISTORY: Patient is an ex-smoker, quit approximately 50 years ago. There is also a remote history of alcohol use. He currently lives alone but his daughter is very involved. FAMILY HISTORY: No longer relevant considering his age. ALLERGIES: Positive for bee venom, Meloxicam and terazosin. OUTPATIENT MEDICATIONS: 1. Tylenol as needed. 2. Eliquis 5 mg twice a day. 3. Vitamin C. 4. Aspirin 81 mg daily. 5. Pepcid 10 mg a day. 6. Supplemental oral iron 30 mg daily. 7. Levothyroxine 112 mcg daily. 8. Magnesium 250 mg at bedtime. 9. Fish oil 1 gram daily. 10.Prednisone every morning 12.5 mg total dose. 11.Multivitamin. REVIEW OF SYSTEMS: He denies any recent fever, chills, nausea, vomiting or diarrhea. He reports that he has lost a considerable amount of weight over the last year. There has been shortness of breath and no sharla PND. No sharla orthopnea. He has had chest discomfort as described in the HPI. He does have a sensation of palpitations intermittently. No syncope nor near syncope. No abdominal pain. No recent peripheral edema. He has diffuse joint aches. PHYSICAL EXAMINATION: GENERAL: Mr. Duval is a pleasant 80-year-old man alert and oriented, and appropriate, he provides a good history. VITAL SIGNS: Blood pressure at the time of my visit was 87/53 and heart rate in the 80s, irregularly irregular. Saturation 98% on room air. NECK: JVP does not look elevated. LUNGS: Clear. HEART: Irregular rhythm with harsh ejection systolic murmur radiating to carotid arteries approximately 3 to 4/6 intensity. I do not appreciate a closing sound. There is also a blowing murmur best heard over the apex about 3/6 intensity consistent with mitral insufficiency. ABDOMEN: Soft, nontender, no hepatosplenomegaly. EXTREMITIES: Free of edema. His peripheral pulses are of acceptable quality. NEUROLOGIC: Intact. LABORATORY DATA: WBC count is 9.4, hemoglobin 11.5, hematocrit 38, platelet count 304,000. Basic metabolic panel is normal. Liver function tests are normal. Troponin is steady at 0.23. CK is not elevated. BNP was 8700. Albumin 2.3. TSH 1.99. An electrocardiogram that was performed earlier today reveals the presence of sinus rhythm with PACs with ventricular rate of 65 beats per minute. There is poor R-wave progression and nonspecific repolarization abnormalities. An echocardiogram performed today and interpreted by myself revealed a low normal ejection fraction with ejection fraction around 50%. There is severe aortic stenosis. The mean gradient was only 35 mmHg but calculated aortic valve area was 0.5 and there was approximately moderate or mild to moderate aortic insufficiency. There is also mild mitral stenosis with mild to moderate mitral insufficiency. I do believe that the gradient across the aortic valve was not fully captured and the true gradient is actually higher than demonstrated. ASSESSMENT AND PLAN: Mr. Duval is an 80-year-old man who has paroxysmal atrial fibrillation with a remote history of CVA without residual neurologic deficit. He presents with persistent tachycardia due to atrial fibrillation with ventricular rate around 100 beats per minute associated with episodes of chest discomfort and worsening shortness of breath. There is mild troponin elevation and minimal not convincing ischemic abnormalities on EKG. The dominant clinical problem I believe is severe if not critical aortic stenosis. He previously refused consideration of surgery as documented by Dr. Vaughn in his last office visit. When I talked to him at some length in the presence of his daughter, including my prior phone call with his daughter, it becomes obvious that he is actually interested in intervention. Unfortunately, as a Am[employer] he would not accept blood products but short of that he is willing to undergo any necessary procedure even including possible open heart surgery. I think that it is hopeful that he may not have underlying CAD and cardiac catheterization will reveal only severe aortic stenosis at which point he would be a candidate for TAVR which I believe can be performed with reasonable degree of safety even accounting for no eligibility for blood products. I again met with the patient and his daughter in the evening hours to stress their commitment to intervention. I then consulted with Dr. Luna at [facility] in [place] and we tentatively planned on transferring the patient for a cardiac catheterization tomorrow. Order was given to hold his Fercho rose. As far as the remaining concerns are concerned, as far as the atrial fibrillation, I would not introduce any additional medications for rate control. His blood pressure is quite low and Dr. Vaughn reports a history of bradycardia previously. Until the aortic stenosis is addressed, I think it would be best left alone. He is already chronically anticoagulated. As far as the blood pressure is concerned, if anything it is soft even though improved later during the day. Again, I do not believe that introduction of any medication in this regard is appropriate. ALONSO
[2021-01-10] MEDS ORDERED: LEVO50TA5 PO (09:28)
--- NOTE | 2021-01-10 09:42 | DS.PDOC ---
Discharge Summary General Date of Admission Jan 08, 2021 at 18:04 Date of Discharge Jan 10, 2021 Discharge Summary PROCEDURES PERFORMED DURING STAY: None ADMITTING DIAGNOSES: 1. Atrial flutter with rapid ventricular response 2. History of VA 3. Aortic stenosis 4. Hypothyroidism DISCHARGE DIAGNOSES: 1. Atrial flutter with rapid ventricular response 2. History of VA 3. Severe aortic stenosis 4. Hypothyroidism COMPLICATIONS/CHIEF COMPLAINT: Atrial Flutter. HISTORY OF PRESENT ILLNESS: Copied from admitting attending's H&P " 80 year old male for one day history of sustained tachycardia monitored thro h his wearable device, palpitations, dyspnea on exertion. He notes chronic intermittent chest pain that has been ongoing for several months, described as 'heavy', substernal, non-exertional, lasts for 5-10 seconds, with no clear modifying factors, non-radiating. He also notes chronic lower extremity edema, intermittent, usually associated with his left foot. He notes a history of what appears to be aortic regurg, but has not been interested in valve replacement. He also notes what may be issues with his hyperthyroidism, based on lab results through his VA. His daughter at bedside states that roughly six months ago his T4 was elevated, with the plan to recheck in 6 months, around this time. He does note weight loss (180lbs down to 138lbs), unintentional, but notes poor appetite over the last year. In the ED he has no medical complaints. He denies chest pain, shortness of breath, abdominal pain, N/V/D, headaches, changes in vision or depressed mood. " HOSPITAL COURSE: During hospitalization, heart rate improved with IV Lopressor. Patient's TSH was 0.912 and Free T4 was 1.7 while on levothyroxine 112 mcg. It was held for the past 2 days. Will restart levothyroxine at a lower dose ( 50mcg). Otherwise, cardiology, Dr. Rubin, evaluated the patient and discussed the case with Dr. Luna at [facility] in [place]. Plan for patient to be transferred for intervention on the severe aortic stenosis. This morning, he appears comfortable. Patient denies chest pain or dyspnea at rest, but still has dyspnea on exertion. Heart murmur present. Patient feels ready to be transferred and will be transferred this morning. DISCHARGE MEDICATIONS: Please see below. ALLERGIES: Please see below. PHYSICAL EXAMINATION ON DISCHARGE: VITAL SIGNS: Please see below. GENERAL: Comfortable, in no apparent distress. HEENT: Head normocephalic/atraumatic, sclera clear. RESPIRATORY: Lungs clear to auscultation bilaterally. CARDIOVASCULAR: Regular rate and rhythm. ABDOMEN: Soft, nontender, no guarding or rebound tenderness. Normal bowel sounds. MUSCLE SKELETAL: Bilateral pitting edema PSYCHOLOGICAL: Normal mood and affect LABORATORY DATA: Please see below. IMAGING: Radiologist interpretation CXR FINDINGS: Examination is limited by portable technique, underpenetration and decreased inspiratory effort. Stable cardiomegaly and diffuse chronic interstitial changes suggesting COPD/emphysematous disease. Superimposed bibasilar airspace disease cannot be excluded. No obvious effusion. No pneumothorax. IMPRESSION: Advanced chronic changes. Cannot exclude superimposed acute process. PROGNOSIS: Good ACTIVITY: As tolerated. DIET: As tolerated DISCHARGE PLAN: Transfer to [facility] in [place], [place]. DISPOSITION: Transfer to [facility] in [place], [place]. DISCHARGE INSTRUCTIONS: 1. On discharge from [facility], follow up with PCP within 1 week 2. On discharge from [facility], follow up with cardiology ITEMS TO FOLLOWUP ON ON OUTPATIENT: 1. Thyroid studies DISCHARGE CONDITION: Stable. Total time spent on discharge planning, discharge summary, and medication reconciliation: 45 minutes. Vital Signs/I&Os Vital Signs Date Time Temp Pulse Resp B/P (MAP) Pulse Ox O2 Delivery O2 Flow Rate FiO2 01/10/21 04:00 96.1 91 17 100/58 (72) 95 Room Air I&O- Last 24 Hours up to 6 AM 01/10/21 05:59 Intake Total 1170 ml Output Total 600 ml Balance 570 ml Laboratory Data Labs 24H Laboratory Tests 2 01/10/21 05:36: Nucleated Red Blood Cells % (auto) 0.0, Anion Gap 5L, Glomerular Filtration Rate > 60.0, Calcium Level 8.2L CBC/BMP Laboratory Tests 01/10/21 05:36 Discharge Medications Scheduled Apixaban (Eliquis) 5 Mg Tab, 5 MG PO BID, (Reported) Ascorbic Acid (Vitamin C) 500 Mg Tablet, 1,000 MG PO DAILY, (Reported) Aspirin (Aspirin EC) 81 Mg Tablet.dr, 81 MG PO QHS, (Reported) Famotidine (Pepcid AC) 10 Mg Tablet, 10 MG PO DAILY, (Reported) Iron,Carbonyl (Iron Chews) 15 Mg Tab.chew, 30 MG PO DAILY, (Reported) [place]-3 Fatty Acids/Fish Oil (Fish Oil 1,000 mg Capsule) 1 Each Capsule, 1,000 MG PO DAILY, (Reported) Prednisolone Acetate (Pred Forte 1% Opth Susp) 1 % [place], 1 DROP OS Q2D, (Reported) Prednisone (Prednisone) 5 Mg Tablet, 2.5 MG PO QAM, (Reported) TAKES WITH 10MG TO EQUAL 12.5MG TOTAL DAILY Prednisone (Prednisone) 10 Mg Tablet, 10 MG PO QAM, (Reported) TAKES WITH 5 MG- HALF TAB FOR EQUAL 12.5MG Sodium Chloride (Sodium Chloride 5% Opth Oint) 1 Dose/3.5 Gm Oint, 1 DOSE OD BID, (Reported) Vit C/E/Zn/Coppr/Lutein/Zeaxan (Preservision Areds 2 Softgel) 1 Each Capsule, 1 CAP PO BID, (Reported) Scheduled PRN Acetaminophen (Tylenol Extra Strength) 500 Mg Tablet, 1,000 MG PO QID PRN for PAIN, (Reported) Polyvinyl Alcohol (Artificial Tears) 1.4 % Mable, 1 DROP OU PRN PRN for DRY EYES, (Reported) Allergies Coded Allergies: bee venom protein (honey bee) (Verified Allergy, Unknown, 10/10/18) meloxicam (Verified Allergy, Unknown, 10/10/18) terazosin (Verified Allergy, Unknown, 01/08/21) ADELE CHAN DO Jan 10, 2021 09:42
== END 2021-01-10 09:43 | disposition short-term general hospital (02) | DRG 310 ==
LOC: M ED 15:05 → M ED INP 18:04 → M PCU 23:17
PROVIDERS: ADMIT Internal Medicine; ATTEND Internal Medicine
DX: I48.92 Unspecified atrial flutter (principal); R00.0 Tachycardia, unspecified; R07.89 Other chest pain; E03.9 Hypothyroidism, unspecified; I35.0 Nonrheumatic aortic (valve) stenosis; Z86.73 Personal history of transient ischemic attack (TIA), and cerebral infarction without residual deficits; Z79.82 Long term (current) use of aspirin; Z79.899 Other long term (current) drug therapy; Z88.8 Allergy status to other drugs, medicaments and biological substances; Z91.030 Bee allergy status; Z20.822 Contact with and (suspected) exposure to COVID-19

== ENCOUNTER 2021-04-05 10:24 | Inpatient (IN) | payer MEDICARE ==
[~2021-04-05] VITALS: Ht 167.6 cm; Wt 66.5 kg
[~2021-04-05 10:24] MED LIST changes: +FISH1000 PO; +IRON15CH PO; +LEVO50TA5 PO; +VITA-243 PO
--- NOTE | 2021-04-05 11:11 | REP ---
INDICATION: tachy COMPARISON: 01/08/2021 TECHNIQUE: Portable AP view of the chest FINDINGS: Cardiomegaly with evidence for prior aortic valve repair and pacemaker. Lung mike demonstrate diffuse chronic changes with suspected superimposed bilateral mid to lower lobe infiltrates. Blunting to the costophrenic angles suggests small pleural effusions (right greater than left). IMPRESSION: Cardiomegaly with chronic changes and superimposed opacities. Differential diagnosis includes multifocal pneumonia including COVID-19 pulmonary disease and CHF. <Electronically signed by Kelechi Can > 04/05/21 1102
[2021-04-05 11:49] LABS: BASO % 0.3 % (0.0-1.0); EOS # 0.1 10^3/uL (0.0-0.5); EOS % 0.4 % (0.0-3.0); HEMATOCRIT 39.1 % (42.0-52.0); HEMOGLOBIN 12.3 g/dl (13.5-17.5); LYMPH # 0.6 10^3/uL (1.5-5.0); LYMPH % 3.6 % (24.0-44.0); MEAN CORPUSCULAR HEMOGLOBIN 26.5 pg (27.0-33.0); MEAN CORPUSCULAR HGB CONC 31.5 g/dl (32.0-36.5); MEAN CORPUSCULAR VOLUME 84.1 fl (80.0-96.0); MONO # 0.6 10^3/uL (0.0-0.8); MONO % 3.5 % (2.0-8.0); NEUTROPHILS # 14.4 10^3/uL (1.5-8.5); NEUTROPHILS % 91.4 % (36.0-66.0); PLATELET COUNT, AUTOMATED 194 10^3/uL (150-450); RED BLOOD COUNT 4.65 10^6/uL (4.30-6.10); WHITE BLOOD COUNT 15.8 10^3/uL (4.0-10.0)
[2021-04-05] MEDS ORDERED: ETOMIDATE INJ 20MG/10ML VIAL IV ONE (11:50)
[2021-04-05] MEDS ORDERED: AMIODARONE HCL 150 MG in IV 1 EA IV STA (12:04)
[2021-04-05 12:58] LABS: BLOOD UREA NITROGEN 18 MG/DL (7-18); CALCIUM LEVEL 8.1 MG/DL (8.8-10.2); CARBON DIOXIDE LEVEL 26 MEQ/L (21-32); CHLORIDE LEVEL 100 MEQ/L (98-107); CK-MB VALUE MASS 5.7 NG/ML (<3.6); CPK CREATINE PHOSPHOKINASE 44 U/L (39-308); CREATININE FOR GFR 0.78 MG/DL (0.70-1.30); GLOMERULAR FILTRATION RATE > 60.0 (>35); GLUCOSE, FASTING 99 MG/DL (70-100); MAGNESIUM LEVEL 1.8 MG/DL (1.8-2.4); MB/CK RELATIVE INDEX 12.95 (< OR =4); POTASSIUM SERUM 4.8 MEQ/L (3.5-5.1); SODIUM LEVEL 133 MEQ/L (136-145); TROPONIN I 0.53 NG/ML (< 0.10)
[2021-04-05] MEDS ORDERED: ISOVUE-370 76% 100ML VIAL As Ordered ONE (13:38)
[2021-04-05] MEDS ORDERED: CALCCAP4 PO (13:55)
[2021-04-05] MEDS ORDERED: EPIN0.3I11 IM (13:55)
[2021-04-05] MEDS ORDERED: MAGN133T PO (13:55)
[2021-04-05] MEDS ORDERED: ISOP0.5S OU (13:55)
[2021-04-05] MEDS ORDERED: PRED1TABL PO (13:55)
[2021-04-05] MEDS ORDERED: FERR32TA PO (13:55)
[2021-04-05] MEDS ORDERED: LEVO100T5 PO (13:55)
[2021-04-05] MEDS ORDERED: C-101TAB3 PO (13:56)
[2021-04-05] MEDS ORDERED: HOME MED LIST COMPLETE! XX SCH (14:00)
--- NOTE | 2021-04-05 14:18 | REP ---
INDICATION: elevated troponin and aflutter with rvr COMPARISON: Standard noncontrast enhanced CT of the chest of 01/24/2017 the latest prior TECHNIQUE: CT angiography of the chest after the intravenous administration of 75 cc Isovue 370 attention pulmonary arteries. FINDINGS: There is excellent visualization of the pulmonary arterial vasculature. No focal filling defects are present that would be considered consistent with acute pulmonary emboli. Limited evaluation of the thoracic aorta shows no gross abnormality. The mediastinum and pulmonary franko appear stable. Borderline and mildly enlarged lymph nodes are noted status quo. Small bilateral pleural effusions have developed. There is no pericardial effusion. There is no significant change in appearance of the imaged upper abdomen. There is a right renal cyst status quo. There is no significant change in the appearance of the imaged osseous structures. Evaluation of the lung mike shows extensive increased interstitial markings throughout particularly in the lung periphery and lung bases. There is thickening of the fissures consistent with fluid collection representing a change from the prior exam. The aforementioned findings could obscure a significant nodule. IMPRESSION: 1. There is no evidence of a pulmonary embolism. 2. Small bilateral pleural effusions with fluid in the major fissures and evidence of diffuse interstitial edema superimposed upon chronic fibrotic change as described above. This needs to be correlated clinically with appropriate follow-up. 3. Other findings as described above. <Electronically signed by Fred Galloway > 04/05/21 [id number]
[2021-04-05] MEDS ORDERED: FUROSEMIDE 20MG/2ML VIAL (J1940) IV ONE (14:45)
[2021-04-05 15:10] LABS: CK-MB VALUE MASS 4.2 NG/ML (<3.6); MB/CK RELATIVE INDEX 9.55 (< OR =4); TROPONIN I 0.4 NG/ML (< 0.10)
[2021-04-05] MEDS ORDERED: ACETAMINOPHEN TAB 650MG DOSE (2X325MG) PO PRN (16:10)
[2021-04-05] MEDS ORDERED: POLYVINYL ALCOHOL OPHTH SOLN 15 ML(LIQUITEARS) OU PRN (16:15)
[2021-04-05] MEDS ORDERED: FAMOTIDINE 20 MG TAB PO PRN (16:15)
--- NOTE | 2021-04-05 17:21 | HPEPDOC ---
General Date of Admission Apr 05, 2021 at 16:08 Date of Service: Apr 05, 2021 Chief Complaint The patient is a 81-year-old male admitted with a reason for visit of Acute Decompensated Heart Failure,Atrial Flutter. History of Present Illness Mr. Duval is an 81-year-old male with recently placed bovine aortic valve and pacemaker who presents with palpitations. [facility] 10, 2021 for atrial flutter with rapid ventricular response. Echocardiogram demonstrated severe aortic stenosis and patient was transferred to [facility] for aortic valve replacement. While there, he had a bovine aortic transcatheter heart valve placed. The following day he had a Medtronic pacemaker placed. Patient was discharged home. Patient tells me that his blood pressure does run on the lower side with systolic blood pressure between 90s to 110s. He also told her that his heart rate ranges between 40 to 160. Yesterday, he felt palpitations. He checked his pulse and it was 163. He thought he was in A. fib. He tells me that his heart rate sometimes go fast and then go slow. Today his heart rate was still 163, and he came into the ED for evaluation. While here, patient had some lightheadedness and confusion. His heart rate was 150 and appeared to be atrial flutter. Blood pressure was borderline low. Troponin was 0.53. About 3 hours later, troponin decreased to 0.4. He was then cardioverted. He returned to normal sinus rhythm with PACs. Blood pressure initially was low with systolic blood pressure of 80s. Patient was given amiodarone. Further work-up demonstrated heart failure. Patient had a BNP of 10,[address] angio chest demonstrated pulmonary edema. When I saw the patient, he is feeling better. Denies chest pain or dyspnea, although he reported exertional dyspnea. Also denied fever, abdominal pain, diarrhea, or dysuria. I reached out to Dr. Vaughn, who will see the patient later today. Patient supposed to be on Lopressor 12.5 mg every other day due to patient's low blood pressure and occasional bradycardia. Patient will be admitted for atrial flutter with rapid ventricular response and acute decompensated heart failure with preserved ejection fraction. Home Medications Scheduled Apixaban (Eliquis) 5 Mg Tab, 5 MG PO BID, (Reported) Ascorbic Acid (C-1000) 1,000 Mg Tablet, 1,000 MG PO QHS, (Reported) Aspirin (Aspirin EC) 81 Mg Tablet.dr, 81 MG PO QHS, (Reported) Calcium Carbonate/Vitamin D3 (Calcium 600 + Vit D 400 Softgl) 1 Each Capsule, 1 CAP PO DAILY, (Reported) Ferrous Gluconate (Ferrous Gluconate) 324 Mg Tablet, 324 MG PO DAILY, (Reported) Levothyroxine Sodium (Levothyroxine Sodium) 100 Mcg Tablet, 100 MCG PO DAILY, (R eported) Magnesium Oxide/Magnesium (qu-Ufcq-Anbwptc Tablet) 133 Mg Tablet, 266 MG PO QHS, (Reported) Prednisone (Prednisone) 10 Mg Tablet, 10 MG PO DAILY, (Reported) TAKES WITH TWO 1 MG TABS FOR 12 MG TOTAL DOSE Prednisone (Prednisone) 1 Mg Tablet, 2 MG PO DAILY, (Reported) TAKES WITH 10 MG TAB FOR 12 MG TOTAL DOSE Sodium Chloride (Sodium Chloride 5% Opth Oint) 1 Dose/3.5 Gm Oint, 1 DOSE OD BID, (Reported) Vit C/E/Zn/Coppr/Lutein/Zeaxan (Preservision Areds 2 Softgel) 1 Each Capsule, 1 CAP PO BID, (Reported) Scheduled PRN Epinephrine (Epinephrine) 0.3 Mg/0.3 Ml Auto.injct, 0.3 MG IM ASDIRECTED PRN for ANAPHYLAXIS, (Reported) Famotidine (Pepcid AC) 10 Mg Tablet, 10 MG PO DAILY PRN for HEARTBURN, (Reported) Hypromellose (Isopto Tears) 15 Ml Drops, 1 DROP OU QID PRN for DRY EYES, (Reported) Allergies Coded Allergies: bee venom protein (honey bee) (Verified Allergy, Unknown, 10/10/18) meloxicam (Verified Allergy, Unknown, 10/10/18) terazosin (Verified Allergy, Unknown, 01/08/21) Past Medical History Medical History 1. Atrial fibrillation, has episodes of bradycardia, status post Medtronic pacemaker placement on January 20, 2021 2. History of CVA on December 2016 3. Aortic stenosis status post bovine transcatheter heart valve on January 19, 2021 4. Hypothyroidism 5. GERD 6. Fuchs' disease of the eye bilaterally 7. Rheumatoid arthritis, on chronic prednisone 8. Dyslipidemia 9. BPH 10. Latent TB Surgical History 1. Bovine transcatheter aortic heart valve placed on January 19, 2021 2. Medtronic pacemaker placed in January 202020 3. Bilateral cataract surgery 4. Corneal transplant Family History Father: History of heart disease Mother: Patient reports mother is in good health Social History * Smoker: former Smoker (Quit smoking in 1969) Alcohol: sober (Quit drinking in 1976) Drugs: denies A-FIB/CHADSVASC A-FIB History Current/History of A-Fib/PAF?: Yes Current PO Anticoag Therapy: Yes Review of Systems Constitutional: Denies: Chills, Fever Eyes: Reports: Other (Patient has poor vision and is seeing an eye doctor) ENT: Reports: Other Symptoms (Denies headache but reports having head heaviness); Denies: Head Aches, Sore Throat Skin: Denies: Rash Pulmonary: Reports: Dyspnea (With exertion); Denies: Cough Cardiovascular: Reports: Palpitations; Denies: Chest Pain Gastrointestinal: Denies: Nausea, Abdominal Pain Genitourinary: Denies: Dysuria Hematologic: Denies: Bruising Neurological: Denies: Numbness Psych: Denies: Anxiety, Depression Physical Examination General Exam: Positive: Alert, Cooperative Eye Exam: Positive: EOMI; Negative: Sclera icteric ENT Exam: Positive: Atraumatic Neck Exam: Positive: Supple Chest Exam: Positive: Diminished Heart Exam: Positive: Tachycardic, Irregular Rhythm Abdomen Exam: Positive: Normal bowel sounds, Soft; Negative: Tenderness Extremity Exam: Positive: Edema (Mild pitting edema) Neuro Exam: Positive: Normal Speech, Cranial Nerves 3-12 NL Psych Exam: Positive: Mental status NL Vital Signs Vital Signs Date Time Temp Pulse Resp B/P (MAP) Pulse Ox O2 Delivery O2 Flow Rate FiO2 04/05/21 13:30 97.9 81 16 86/54 (65) 98 04/05/21 11:57 Nasal Cannula 2.0 Laboratory Data Labs 24H Laboratory Tests 2 04/05/21 11:09: Immature Granulocyte % (Auto) 0.8, Neutrophils (%) (Auto) 91.4H, Lymphocytes (%) (Auto) 3.6L, Monocytes (%) (Auto) 3.5, Eosinophils (%) (Auto) 0.4, Basophils (%) (Auto) 0.3, Neutrophils # (Auto) 14.4H, Lymphocytes # (Auto) 0.6L, Monocytes # (Auto) 0.6, Eosinophils # (Auto) 0.1, Basophils # (Auto) 0.0, Nucleated Red Blood Cells % (auto) 0.0, Anion Gap 7L, Glomerular Filtration Rate > 60.0, Calcium Level 8.1L, Magnesium Level 1.8, Total Creatine Kinase 44, Creatine Kinase MB 5.7H, Creatine Kinase MB Relative Index 12.95H, Troponin I 0.53H, Thyroid Stimulating Hormone (TSH) 1.070 04/05/21 13:44: Total Creatine Kinase 44, Creatine Kinase MB 4.2H, Creatine Kinase MB Relative Index 9.55H, Troponin I 0.40#H, [id number]-Type Natriuretic Peptide [id number] CBC/BMP Laboratory Tests 04/05/21 11:09 Microbiology Microbiology 04/05/21 Respiratory Virus Panel (PCR) ([facility]) - Final, Complete Assessment/Plan Mr. Duval is an 81-year-old male with recently placed bovine aortic valve and pacemaker who presents with palpitations. Patient was found to have atrial flutter with rapid ventricular response. Patient was cardioverted. And rhythm returned to normal sinus rhythm with PACs. Patient was then found to have acute heart failure with pulmonary edema. This is most likely secondary to the rapid ventricular response. Patient was given 20 mg of IV Lasix and amiodarone in the ED. I reached out to Dr. Vaughn. He recommended restarting Lopressor 12.5 every other day and giving another dose of IV Lasix tomorrow morning. Plan / VTE VTE Prophylaxis Ordered?: Yes Plan Plan 1. Atrial flutter with rapid ventricular response Cardioverted Continue Eliquis Restart Lopressor 12.5 mg every other day Monitor on telemetry 2. Acute heart failure with preserved ejection fraction Most likely secondary to rapid ventricular response Patient was given 20 mg IV Lasix in the ED We will continue with 20 mg IV Lasix in the morning 2 g sodium diet 3. Hypothyroidism Continue levothyroxine 4. Rheumatoid arthritis Continue prednisone 5. DVT prophylaxis Eliquis Disposition: Pending clinical improvement ADELE CHAN DO Apr 05, 2021 17:21
--- NOTE | 2021-04-05 17:47 | ECGEPIP ---
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
[2021-04-05] MEDS: METOPROLOL TART 12.5 MG PER 1/2 TAB PO SCH (18:28)
[2021-04-05] MEDS: APIXABAN 5 MG TAB (ELIQUIS) PO SCH (22:14)
[2021-04-05] MEDS: ASPIRIN 81MG ENTERIC TABLET PO SCH (22:14)
[2021-04-05 23:36] VITALS: BP 148/61
[2021-04-06 00:34] VITALS: BP 111/57
[2021-04-06] MEDS: SODIUM CHLORIDE 5% OPHTH OINT 3.5 GM OD SCH ×3 (02:29→21:30)
[2021-04-06 03:56] VITALS: BP 117/71
--- NOTE | 2021-04-06 04:16 | ECGEPIP ---
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
--- NOTE | 2021-04-06 04:18 | ECGEPIP ---
[facility] - ED Test Date: 2021-04-05 Pat Name: YOUNG MARTINEZ Department: Room: [place] [address] Gender: Male Skidder Driver: katie graham : 1940 Requested By: ALEX Sanon Order Number: [id number] Reading MD: Andrew Francis Measurements Intervals [place] Rate: 89 P: [place]: 184 QRS: -25 QRSD: 132 T: 130 QT: 396 QTc: 481 Interpretive Statements Sinus rhythm with premature atrial complexes AV sequential or dual chamber electronic pacemaker Left bundle branch block Electronically Signed on 04-06-2021 4:18:38 EDT by Andrew Francis
[2021-04-06] MEDS: LEVOTHYROXINE 100MCG TABLET (0.1MG) PO SCH (06:00)
[2021-04-06 06:29] LABS: HEMATOCRIT 38.2 % (42.0-52.0); HEMOGLOBIN 11.8 g/dl (13.5-17.5); MEAN CORPUSCULAR HEMOGLOBIN 26.6 pg (27.0-33.0); MEAN CORPUSCULAR HGB CONC 30.9 g/dl (32.0-36.5); PLATELET COUNT, AUTOMATED 170 10^3/uL (150-450); RED BLOOD COUNT 4.44 10^6/uL (4.30-6.10); WHITE BLOOD COUNT 8.5 10^3/uL (4.0-10.0)
[2021-04-06 06:48] LABS: BLOOD UREA NITROGEN 17 MG/DL (7-18); CALCIUM LEVEL 7.9 MG/DL (8.8-10.2); CARBON DIOXIDE LEVEL 26 MEQ/L (21-32); CHLORIDE LEVEL 103 MEQ/L (98-107); CREATININE FOR GFR 0.69 MG/DL (0.70-1.30); GLOMERULAR FILTRATION RATE > 60.0 (>35); GLUCOSE, FASTING 78 MG/DL (70-100); MAGNESIUM LEVEL 1.9 MG/DL (1.8-2.4); SODIUM LEVEL 136 MEQ/L (136-145)
[2021-04-06 08:03] VITALS: BP 108/67
[2021-04-06] MEDS: APIXABAN 5 MG TAB (ELIQUIS) PO SCH ×2 (08:34→21:29)
[2021-04-06] MEDS: predniSONE 1 MG TAB PO SCH (08:34)
[2021-04-06] MEDS: FUROSEMIDE 20MG/2ML VIAL (J1940) IV SCH (08:34)
[2021-04-06] MEDS: predniSONE 10 MG TAB PO SCH (08:34)
[2021-04-06] MEDS: FERROUS GLUCONATE 324 MG TAB PO SCH (08:34)
[2021-04-06 11:34] VITALS: BP 112/67
--- NOTE | 2021-04-06 15:17 | IPNPDOC ---
Subjective Date Seen The patient was seen on 04/06/21. Subjective Chief Complaint/HPI Mr. Duval is an 81-year-old male with recently placed bovine aortic valve and pacemaker who presents with palpitations. Patient was seen this morning. He denies any chest pain or dyspnea. Heart rate remains under control and blood pressure is stable. I reached out to Dr. Vaughn. Continue with every other day Lopressor and have patient follow-up with cardiology outpatient. Physical therapy worked with patient, patient will need 1-2 more sessions Objective Physical Examination General Exam: Positive: Alert, Cooperative Eye Exam: Positive: EOMI; Negative: Sclera icteric ENT Exam: Positive: Atraumatic Neck Exam: Positive: Supple Chest Exam: Positive: Diminished Heart Exam: Positive: Rate Normal, Regular Rhythm Abdomen Exam: Positive: Normal bowel sounds, Soft; Negative: Tenderness Extremity Exam: Positive: Edema (Mild pitting edema) Neuro Exam: Positive: Normal Speech, Cranial Nerves 3-12 NL Psych Exam: Positive: Mental status NL Assessment /Plan Assessment Mr. Duval is an 81-year-old male with recently placed bovine aortic valve and pacemaker who presents with palpitations. Patient was found to have atrial flutter with rapid ventricular response. Patient was cardioverted. And rhythm returned to normal sinus rhythm with PACs. Patient was then found to have acute heart failure with pulmonary edema. This is most likely secondary to the rapid ventricular response. Patient was given 20 mg of IV Lasix and amiodarone in the ED. I reached out to Dr. Vaughn. He recommended restarting Lopressor 12.5 every other day and giving another dose of IV Lasix tomorrow morning. Plan/VTE VTE Prophylaxis Ordered?: Yes Plan 1. Atrial flutter with rapid ventricular response Cardioverted Continue Eliquis Restart Lopressor 12.5 mg every other day Monitor on telemetry 2. Acute heart failure with preserved ejection fraction Most likely secondary to rapid ventricular response Patient was given 20 mg IV Lasix in the ED We will continue with 20 mg IV Lasix in the morning 2 g sodium diet 3. Hypothyroidism Continue levothyroxine 4. Rheumatoid arthritis Continue prednisone 5. DVT prophylaxis Eliquis Disposition: Patient will need 1-2 more sessions of physical therapy. Possible discharge tomorrow. VS, I&O, 24H, Fishbone Vital Signs/I&O Vital Signs Date Time Temp Pulse Resp B/P (MAP) Pulse Ox O2 Delivery O2 Flow Rate FiO2 04/06/21 11:34 98.9 70 20 112/67 (82) 92 Room Air 04/05/21 11:57 2.0 I&O- Last 24 Hours up to 6 AM 04/06/21 06:00 Intake Total 120 ml Output Total 200 ml Balance -80 ml Laboratory Data 24H LABS Laboratory Tests 2 04/06/21 05:40: Nucleated Red Blood Cells % (auto) 0.0, Anion Gap 7L, Glomerular Filtration Rate > 60.0, Calcium Level 7.9L, Magnesium Level 1.9 CBC/BMP Laboratory Tests 04/06/21 05:40 Microbiology Microbiology 04/05/21 Respiratory Virus Panel (PCR) ([facility]) - Final, Complete ADELE CHAN DO Apr 06, 2021 15:17
[2021-04-06 16:00] VITALS: BP 109/59
[2021-04-06 20:00] VITALS: BP 123/57
[2021-04-06] MEDS: ASPIRIN 81MG ENTERIC TABLET PO SCH (21:30)
[2021-04-07] VITALS: BP 148/64
[2021-04-07 04:00] VITALS: BP_SYST 111; BP_SYST 129; BP_DIAS 60; BP_DIAS 68
[2021-04-07 06:21] LABS: HEMATOCRIT 38.4 % (42.0-52.0); MEAN CORPUSCULAR HEMOGLOBIN 26.5 pg (27.0-33.0); MEAN CORPUSCULAR HGB CONC 31.3 g/dl (32.0-36.5); MEAN CORPUSCULAR VOLUME 84.8 fl (80.0-96.0); PLATELET COUNT, AUTOMATED 229 10^3/uL (150-450); RED BLOOD COUNT 4.53 10^6/uL (4.30-6.10); WHITE BLOOD COUNT 11.1 10^3/uL (4.0-10.0)
[2021-04-07] MEDS: LEVOTHYROXINE 100MCG TABLET (0.1MG) PO SCH (06:24)
[2021-04-07 06:41] LABS: BLOOD UREA NITROGEN 19 MG/DL (7-18); CALCIUM LEVEL 8.2 MG/DL (8.8-10.2); CARBON DIOXIDE LEVEL 29 MEQ/L (21-32); CHLORIDE LEVEL 104 MEQ/L (98-107); CREATININE FOR GFR 0.78 MG/DL (0.70-1.30); GLOMERULAR FILTRATION RATE > 60.0 (>35); GLUCOSE, FASTING 93 MG/DL (70-100); POTASSIUM SERUM 4.5 MEQ/L (3.5-5.1); SODIUM LEVEL 137 MEQ/L (136-145)
[2021-04-07 07:51] VITALS: BP 106/61
[2021-04-07] MEDS ORDERED: METO1TAB87 PO (08:49)
[2021-04-07] MEDS: predniSONE 10 MG TAB PO SCH (10:08)
[2021-04-07] MEDS: predniSONE 1 MG TAB PO SCH (10:09)
[2021-04-07 10:10] VITALS: BP 106/61
[2021-04-07] MEDS: FERROUS GLUCONATE 324 MG TAB PO SCH (10:10)
[2021-04-07] MEDS: SODIUM CHLORIDE 5% OPHTH OINT 3.5 GM OD SCH (10:10)
[2021-04-07] MEDS: FUROSEMIDE 20MG/2ML VIAL (J1940) IV SCH (10:10)
[2021-04-07] MEDS: METOPROLOL TART 12.5 MG PER 1/2 TAB PO SCH (10:10)
[2021-04-07] MEDS: APIXABAN 5 MG TAB (ELIQUIS) PO SCH (10:10)
--- NOTE | 2021-04-07 15:43 | DS.PDOC ---
Discharge Summary General Date of Admission Apr 05, 2021 at 16:08 Date of Discharge Apr 07, 2021 Discharge Summary PROCEDURES PERFORMED DURING STAY: None ADMITTING DIAGNOSES: 1. Atrial flutter with rapid ventricular response 2. Acute heart failure with preserved ejection fraction 3. Hypothyroidism 4. Rheumatoid arthritis DISCHARGE DIAGNOSES: 1. Atrial flutter with rapid ventricular response 2. Acute heart failure with preserved ejection fraction 3. Hypothyroidism 4. Rheumatoid arthritis COMPLICATIONS/CHIEF COMPLAINT: Acute Decompensated Heart Failure,Atrial Flutter. HISTORY OF PRESENT ILLNESS: Mr. Duval is an 81-year-old male with recently placed bovine aortic valve and pacemaker who presents with palpitations. Patient was recently admitted from January 08, 2021 to January 10, 2021 for atrial flutter with rapid ventricular response. Echocardiogram demonstrated severe aortic stenosis and patient was transferred to [facility] for aortic valve replacement. While there, he had a bovine aortic transcatheter heart valve placed. The following day he had a [employer] pacemaker placed. Patient was discharged home. Patient tells me that his blood pressure does run on the lower side with systolic blood pressure between 90s to 110s. He also told her that his heart rate ranges between 40 to 160. Yesterday, he felt palpitations. He checked his pulse and it was 163. He thought he was in A. fib. He tells me that his heart rate sometimes go fast and then go slow. Today his heart rate was still 163, and he came into the ED for evaluation. While here, patient had some lightheadedness and confusion. His heart rate was 150 and appeared to be atrial flutter. Blood pressure was borderline low. Troponin was 0.53. About 3 hours later, troponin decreased to 0.4. He was then cardioverted. He returned to normal sinus rhythm with PACs. Blood pressure initially was low with systolic blood pressure of 80s. Patient was given amiodarone. Further work-up demonstrated heart failure. Patient had a BNP of 10,[address] angio chest demonstrated pulmonary edema. When I saw the patient, he is feeling better. Denies chest pain or dyspnea, although he reported exertional dyspnea. Also denied fever, abdominal pain, diarrhea, or dysuria. I reached out to Dr. Vaughn, who will see the patient later today. Patient supposed to be on Lopressor 12.5 mg every other day due to patient's low blood pressure and occasional bradycardia. Patient will be admitted for atrial flutter with rapid ventricular response and acute decompensated heart failure with preserved ejection fraction. HOSPITAL COURSE: Patient did well during hospitalization. Patient heart rate was controlled, and he tolerated IV Lasix. Physical therapy had recommended additional day for skilled therapy. I reached out to [employer] rep who i nterrogated his device. He tells me that he was in atrial flutter with RVR for a few days (3 to 4 days). He tells me now that he is in sinus rhythm with PACs. Today, he cleared physical therapy. He feels well. Denies any chest pain or shortness of breath. He denies any palpitations. He felt ready for home and was subsequently discharged home. DISCHARGE MEDICATIONS: Please see below. ALLERGIES: Please see below. PHYSICAL EXAMINATION ON DISCHARGE: VITAL SIGNS: Please see below. GENERAL: Comfortable, in no apparent distress. HEENT: EOMI, sclera clear. NECK: Supple RESPIRATORY: Lungs clear to auscultation bilaterally, no rales, wheeze or rhonchi. CARDIOVASCULAR: Regular rate and rhythm. ABDOMEN: Soft, nontender, no guarding or rebound tenderness. Normal bowel sounds. MUSCLE SKELETAL: Mild bilateral pedal edema NEUROLOGICAL: Normal speech, cranial nerves 3 through 12 grossly intact PSYCHOLOGICAL: Normal mood and affect LABORATORY DATA: Please see below. IMAGING: Copied from radiologist report CT angio chest "FINDINGS: There is excellent visualization of the pulmonary arterial vasculature. No focal filling defects are present that would be considered consistent with acute pulmonary emboli. Limited evaluation of the thoracic aorta shows no gross abnormality. The mediastinum and pulmonary franko appear stable. Borderline and mildly enlarged lymph nodes are noted status quo. Small bilateral pleural effusions have developed. There is no pericardial effusion. There is no significant change in appearance of the imaged upper abdomen. There is a right renal cyst status quo. There is no significant change in the appearance of the imaged osseous structures. Evaluation of the lung mike shows extensive increased interstitial markings throughout particularly in the lung periphery and lung bases. There is thickening of the fissures consistent with fluid collection representing a change from the prior exam. The aforementioned findings could obscure a significant nodule. IMPRESSION: 1. There is no evidence of a pulmonary embolism. 2. Small bilateral pleural effusions with fluid in the major fissures and evidence of diffuse interstitial edema superimposed upon chronic fibrotic change as described above. This needs to be correlated clinically with appropriate follow-up. 3. Other findings as described above." PROGNOSIS: Good ACTIVITY: As tolerated. DIET: 2 g sodium diet DISCHARGE PLAN: Home with home services DISPOSITION: Home, Self-Care. DISCHARGE INSTRUCTIONS: 1. Follow-up with PCP in 1 week. 2. Follow-up with cardiology, Dr. Vaughn, within 1 week 3. I have restarted your metoprolol 12.5 mg every other day ITEMS TO FOLLOWUP ON ON OUTPATIENT: 1. Blood pressure and heart rate. 2. Echocardiogram result DISCHARGE CONDITION: Stable. Total time spent on discharge planning, discharge summary, and medication reconciliation: 35 minutes Vital Signs/I&Os Vital Signs Date Time Temp Pulse Resp B/P (MAP) Pulse Ox O2 Delivery O2 Flow Rate FiO2 04/07/21 10:10 101 106/61 04/07/21 07:51 98.4 18 96 Room Air 04/05/21 11:57 2.0 I&O- Last 24 Hours up to 6 AM 04/07/21 06:00 Intake Total 1020 ml Output Total 1000 ml Balance 20 ml Laboratory Data Labs 24H Laboratory Tests 2 04/07/21 05:52: Nucleated Red Blood Cells % (auto) 0.0, Anion Gap 4L, Glomerular Filtration Rate > 60.0, Calcium Level 8.2L, Magnesium Level 2.0 CBC/BMP Laboratory Tests 04/07/21 05:52 Microbiology Microbiology 04/05/21 Respiratory Virus Panel (PCR) ([facility]) - Final, Complete Discharge Medications Scheduled Apixaban (Eliquis) 5 Mg Tab, 5 MG PO BID, (Reported) Ascorbic Acid (C-1000) 1,000 Mg Tablet, 1,000 MG PO QHS, (Reported) Aspirin (Aspirin EC) 81 Mg Tablet.dr, 81 MG PO QHS, (Reported) Calcium Carbonate/Vitamin D3 (Calcium 600 + Vit D 400 Softgl) 1 Each Capsule, 1 CAP PO DAILY, (Reported) Ferrous Gluconate (Ferrous Gluconate) 324 Mg Tablet, 324 MG PO DAILY, (Reported) Levothyroxine Sodium (Levothyroxine Sodium) 100 Mcg Tablet, 100 MCG PO DAILY, (Reported) Magnesium Oxide/Magnesium (ly-Beqm-Htelshq Tablet) 133 Mg Tablet, 266 MG PO QHS, (Reported) Metoprolol Tartrate (Metoprolol Tartrate) 25 Mg Tablet, 12.5 MG PO Q48H Prednisone (Prednisone) 10 Mg Tablet, 10 MG PO DAILY, (Reported) TAKES WITH TWO 1 MG TABS FOR 12 MG TOTAL DOSE Prednisone (Prednisone) 1 Mg Tablet, 2 MG PO DAILY, (Reported) TAKES WITH 10 MG TAB FOR 12 MG TOTAL DOSE Sodium Chloride (Sodium Chloride 5% Opth Oint) 1 Dose/3.5 Gm Oint, 1 DOSE OD BID, (Reported) Vit C/E/Zn/Coppr/Lutein/Zeaxan (Preservision Areds 2 Softgel) 1 Each Capsule, 1 CAP PO BID, (Reported) Scheduled PRN Epinephrine (Epinephrine) 0.3 Mg/0.3 Ml Auto.injct, 0.3 MG IM ASDIRECTED PRN for ANAPHYLAXIS, (Reported) Famotidine (Pepcid AC) 10 Mg Tablet, 10 MG PO DAILY PRN for HEARTBURN, (Reported) Hypromellose (Isopto Tears) 15 Ml Drops, 1 DROP OU QID PRN for DRY EYES, (Reported) Allergies Coded Allergies: bee venom protein (honey bee) (Verified Allergy, Unknown, 10/10/18) meloxicam (Verified Allergy, Unknown, 10/10/18) terazosin (Verified Allergy, Unknown, 01/08/21) ADELE CHAN DO Apr 07, 2021 15:43
--- NOTE | 2021-04-09 17:13 | ECHO ---
ECHOCARDIOGRAM DATE OF PROCEDURE: 04/06/2021 Age: 81 Gender: Male Height: 168 cm Weight: 61 kg REFERRING PROVIDER: Robert Yoon M.D. PATIENT LOCATION: Room 3223. REASON FOR THE TESTING: Atrial fibrillation, congestive heart failure. MEASUREMENTS: 2D Measurements: IVS 1.4 cm LV 4.6 cm LVPW 1.4 cm LA 4.1 cm Doppler Measurements: Peak velocity across the aortic valve 2.8 m/sec Peak velocity across the LVOT 0.6 m/sec Peak gradient across the aortic valve 32 mmHg Mean gradient across the aortic valve 16 mmHg Mitral E 1.6 Mitral A 1.0 with a ratio of 1.6 Maximum tricuspid valve velocity 4.0 m/sec 2D COMMENTS: 1. Normal left ventricular size with mildly increased left ventricular wall thickness and a mildly depressed global left ventricular systolic function. The anterior septum appeared to be dyskinetic and hypokinetic. The estimated left ventricular systolic ejection fraction is 40-45%. 2. Mildly dilated left atrium. Mildly dilated right atrium. Normal right ventricle. 3. The atrial septum appeared to be normal without evidence of defect or shunt. 4. The aortic root appeared to be normal in size. 5. Trace pericardial effusion noted. No evidence of cardiac tamponade. 6. Bioprosthetic transcatheter aortic valve replacement (TAVR) aortic valve noted and seems to be functioning well. Moderately calcified mitral annulus with normal anterior mitral valve leaflet motion. Normal tricuspid valve. The pulmonic valve and proximal pulmonary artery branches were not well visualized. 7. The inferior vena cava was mildly dilated at 2.3 cm. Central venous pressure might be elevated. 8. Pacemaker wire artifacts noted in the right heart chambers. DOPPLER: It detects trace eccentric aortic regurgitation, moderately severe mitral regurgitation, moderate tricuspid regurgitation. The calculated pulmonary artery systolic pressure varies between 60-70 mmHg. Assessment of the left ventricular diastolic function appeared to be normal. IMPRESSION: 1. Mild to moderate global left ventricular systolic dysfunction with regional wall motion abnormalities involving the anterior septum. 2. Assessment of the left ventricular diastolic function appeared to be normal. 3. Normal functioning bioprosthetic aortic valve, transcatheter aortic valve replacement (TAVR), with trace eccentric regurgitation. Peak velocity across the aortic valve was 2.8 m/sec with a peak gradient of 32 mmHg and a mean gradient of 16 mmHg. 4. Moderately severe mitral regurgitation with mitral annulus calcification and mildly enlarged left atrium. 5. Moderate tricuspid regurgitation with severe pulmonary hypertension and dilated right atrium. The right ventricular systolic function seems to be normal. 6. Trace pericardial effusion. 7. There are findings consistent with elevated central venous pressure. The inferior vena cava was mildly enlarged. 8. Pacemaker wire artifacts noted in the right heart chambers.
== END 2021-04-07 12:47 | disposition home or self-care (01) | DRG 308 ==
LOC: EDBD 10:24 → M ED 10:24 → M ED INP 16:08 → M PCU 23:34
PROVIDERS: ADMIT Internal Medicine; ATTEND Internal Medicine
DX: I48.92 Unspecified atrial flutter (principal); I50.33 Acute on chronic diastolic (congestive) heart failure; M06.9 Rheumatoid arthritis, unspecified; E03.9 Hypothyroidism, unspecified; Z95.0 Presence of cardiac pacemaker; Z95.2 Presence of prosthetic heart valve; Z79.899 Other long term (current) drug therapy; Z91.030 Bee allergy status; Z88.8 Allergy status to other drugs, medicaments and biological substances; Z79.52 Long term (current) use of systemic steroids; Z86.73 Personal history of transient ischemic attack (TIA), and cerebral infarction without residual deficits; K21.9 Gastro-esophageal reflux disease without esophagitis; E78.5 Hyperlipidemia, unspecified; N40.0 Benign prostatic hyperplasia without lower urinary tract symptoms; Z22.7 Latent tuberculosis; Z98.41 Cataract extraction status, right eye; Z98.42 Cataract extraction status, left eye; Z94.7 Corneal transplant status; Z87.891 Personal history of nicotine dependence

== ENCOUNTER 2021-05-16 13:04 | Inpatient (IN) | payer MEDICARE ==
[~2021-05-16] VITALS: Ht 167.6 cm; Wt 63.7 kg
[~2021-05-16 13:04] MED LIST changes: +C-101TAB3 PO; +CALCCAP4 PO; +EPIN0.3I11 IM; +FERR32TA PO; +ISOP0.5S OU; +LEVO100T5 PO; +MAGN133T PO; +PRED1TABL PO
--- NOTE | 2021-05-16 13:34 | REP ---
INDICATION: fall COMPARISON: 10/25/2017 TECHNIQUE: Axial noncontrast images from the skull base to the thoracic inlet with coronal reformations. This CT examination was performed using the following dose reduction techniques: Automated exposure control, adjustment of mA and/or kv according to the patient's size, and use of iterative reconstruction technique. FINDINGS: Atrophy with periventricular leukomalacia and microvascular ischemic changes are appreciated. The ventricles and sulci are symmetric. Greer-white differentiation is maintained. There is no evidence for acute intracranial hemorrhage, mass/mass effect, pathology or infarction. No extra-axial fluid collection. Calvarium is intact. Paranasal sinuses and mastoid air cells are clear. IMPRESSION: Atrophy and microvascular ischemic changes. No acute intracranial hemorrhage, infarction, or mass/mass effect. <Electronically signed by Kelechi Can > 05/16/21 [id number]
--- NOTE | 2021-05-16 13:36 | REP ---
INDICATION: fall COMPARISON: None. TECHNIQUE: Axial noncontrast images from the skull base to the thoracic inlet with coronal and sagittal re-formations This CT examination was performed using the following dose reduction techniques: Automated exposure control, adjustment of mA and/or kv according to the patient's size, and use of iterative reconstruction technique. FINDINGS: Normal alignment and lordosis is maintained. Cervical vertebral bodies including transverse processes and spinous processes are intact and there is no evidence for acute fracture / compression injury or subluxation. Spinal canal is patent. Posterior elements are intact. Paravertebral soft tissues are normal. In age-related degenerative changes include endplate sclerosis with marginal spurring and disc space narrowing primarily involving C5-6 and C6-7. IMPRESSION: Generalized age-related changes. No evidence for acute pathology or trauma/injury. <Electronically signed by Kelechi Can > 05/16/21 [id number]
[2021-05-16] MEDS ORDERED: MORPHINE 2 MG/ML 1ML VIAL (J2270) IV PRN (13:50)
[2021-05-16 13:52] LABS: BASO % 0.3 % (0.0-1.0); EOS # 0.1 10^3/uL (0.0-0.5); EOS % 0.9 % (0.0-3.0); HEMATOCRIT 42.4 % (42.0-52.0); HEMOGLOBIN 13.1 g/dl (13.5-17.5); LYMPH # 1.5 10^3/uL (1.5-5.0); LYMPH % 9.8 % (24.0-44.0); MEAN CORPUSCULAR HEMOGLOBIN 26.2 pg (27.0-33.0); MEAN CORPUSCULAR HGB CONC 30.9 g/dl (32.0-36.5); MEAN CORPUSCULAR VOLUME 84.8 fl (80.0-96.0); MONO # 0.7 10^3/uL (0.0-0.8); MONO % 4.9 % (2.0-8.0); NEUTROPHILS # 12.3 10^3/uL (1.5-8.5); NEUTROPHILS % 83.3 % (36.0-66.0); PLATELET COUNT, AUTOMATED 212 10^3/uL (150-450); WHITE BLOOD COUNT 14.8 10^3/uL (4.0-10.0)
[2021-05-16 14:05] LABS: INR 1.19; PROTHROMBIN TIME 15.6 SECONDS (12.7-14.5)
[2021-05-16 14:06] LABS: PARTIAL THROMBOPLASTIN TIME 35.3 SECONDS (25.9-37.0)
[2021-05-16] MEDS ORDERED: ISOVUE-370 76% 100ML VIAL As Ordered ONE (14:09)
[2021-05-16 14:13] LABS: CK-MB VALUE MASS 5.4 NG/ML (<3.6); MB/CK RELATIVE INDEX 9.47 (< OR =4); TROPONIN I 0.08 NG/ML (< 0.10)
[2021-05-16 14:20] LABS: BLOOD UREA NITROGEN 24 MG/DL (7-18); CALCIUM LEVEL 8.4 MG/DL (8.8-10.2); CARBON DIOXIDE LEVEL 27 MEQ/L (21-32); CHLORIDE LEVEL 103 MEQ/L (98-107); CREATININE FOR GFR 0.83 MG/DL (0.70-1.30); GLOMERULAR FILTRATION RATE > 60.0 (>35); GLUCOSE, FASTING 97 MG/DL (70-100); POTASSIUM SERUM 4.4 MEQ/L (3.5-5.1); SODIUM LEVEL 137 MEQ/L (136-145)
[2021-05-16 14:49] LABS: D-DIMER QUANT > 4000 ng/ml (<500)
--- OUTSIDE RECORDS SUMMARY | 2021-05-16 14:53 | CCD | Continuity of Care Document ---
Author Author Dolphin Trainer, Mark Anthony Mcclellan Organization Unknown Address Unknown Phone Unavailable Care Team Providers Care Rougher Helper Name Role Phone Tanisha Farmer MD Unavailable Terry Dominguez Unavailable Problems No Problem Information Available Allergies and Adverse Reactions No Allergy Information Available Medications No Medication Information Available Social History No Social History Information Available Tobacco smoking consumption unknown Male Results No Known Results No Result Information Available Vital Signs No Vital Observation Information Available Advance Directives HIPAA - Patient specified Unknown. Payers Medicare [place] Group Number: NONE [address] [facility] [address] [place] tel: [facility] Group Number: NONE [id number] [facility] [address] [place] tel: Mark Anthony [place] [address] [address] [facility] [id number] [place] tel:
--- OUTSIDE RECORDS SUMMARY | 2021-05-16 14:53 | CCD | Continuity of Care Document ---
Author Author Mark Anthony STRICKLAND CELL MANAGER-C Organization Unknown Address [address], [address] [place] [address] Phone [phone] Care Team Providers Care Cartographic Designer Name Role Phone [facility] [phone] Problems Description No Information Available Social History Type Date Description Comments Sex Unknown Tobacco Use Start: Unknown End: Unknown Former Cigarette Smo ker quit 1969 ETOH Use Denies alcohol use quit 1976 Tobacco Use Start: Unknown End: Unknown Patient is a former smoker quit 1969 Sun Exposure minimum amount of sun exposure Sun Exposure Has never used tanning bed Sun Exposure Has never experienced blistering from sunburns Sun Exposure Uses > 30 SPF Allergies and adverse reactions Active Allergies Criticality Reaction | Severity Comments Date Meloxicam Unable to assess criticality 04/14/2020 Bee Sting Unable to assess criticality 04/14/2020 Terazosin Unable to assess criticality 04/14/2020 Statins Unable to assess criticality 04/17/2021 Medications Active Medications SIG Qnty Indications Ordering Provide r Date Fluorouracil 5% Cream apply to scalp, face, and ears twice a day 45gm L57.0 Carin Ramirez PHOTOENGRAVING FINISHER-C 04/17/2021 Prednisone Unknown Levothyroxine Sodium Unknown Eliquis Unknown Sodium Chloride Unknown 0 Hypromellose Unknown Pred Forte Unknown Preservision Areds 2 Unknown 00 Vitamin D Unknown Metoprolol Succinate ER Unknown 0 Vitamin C Unknown Magnesium Unknown Pepcid Unknown Iron Unknown Immunizations Description No Information Available Vital Signs Date Vital Result Comment 04/17/2021 8:35am BP Systolic 135 mmHg BP Diastolic 75 mmHg Heart Rate 60 /min Weight 139.00 lb 05/12/2020 8:33am Weight 145.00 lb Body Temperature 98.8 F Respiratory Rate 16 /min Results Test Acquired Date Facility Test Result H/L Range Note L Nasal Ala (1 Of 2) 04/17/2021 [facility] Icd9 Code ICD9 Code: L57.0 1, 2 PDFReport SEE IMAGE 1 Will be doing Efudex. Has n ot received from pharmacy yet. [facility] 2 ICD9 Code: L57.0 Protocol: shave Clinical Text: SCC IN SITU VS BCC VS AK Final Diagnosis: HYPERTROPHIC ACTINIC KERATOSIS. Gross Text: The specimen grossly was oval shaped, measuring 7 x 5 mm. on the surface and 1 mm. deep. It was divided into 2 sections on the long axis. All of the tissue was submitted for processing. Microscopic Description: Markedly thickened, partially parakeratotic horn overlies epithelium showing partial thickness keratinocytic atypia. There is a background of solar elastosis. CPT: 77883*1 CPT: 40146*1 Procedures Date Code Description Status 04/17/2021 26804 Office/Outpatient Established Mo d MDM 30-39 Min Completed 04/17/2021 13007 Each Separate/Additional Lesion Completed 04/17/2021 87359 Shave Biopsy Of Skin, Single Les ion Completed Medical Devices Description No Information Available Encounters Type Date Location Provider Dx Diagnosis Office Visit 04/17/2021 8:45a Main Office YANELY Ramirez D48.5 Neoplasm of uncertain behavior of skin L57.0 Actinic keratosis D22.62 Melanocytic nevi of left upp er limb, including shoulder L82.1 Other seborrheic keratosis L81.4 Other melanin hyperpigmentat ion L85.9 Epidermal thickening, unspec ified R21 Rash and other nonspecific s kin eruption L73.8 Other specified follicular d isorders 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 Z85.828 Personal history of other ma lignant neoplasm of skin Z87.2 Personal history of diseases of the skin, subcu Z08 Encntr for follow-up exam af ter trtmt for malignant neoplasm Assessments Date Code Description Provider 04/17/2021 D48.5 Neoplasm of uncertain behavior o f skin YANELY Ramirez 04/17/2021 L57.0 Actinic keratosis YANELY Gurrola 04/17/2021 D22.62 Melanocytic nevi of left upper l imb, including shoulder YANELY Ramirez 04/17/2021 L82.1 Other seborrheic keratosis Juliet zoraida YANLEY Hyman 04/17/2021 L81.4 Other melanin hyperpigmentation YANELY Ramirez 04/17/2021 L85.9 Epidermal thickening, unspecifie d YANELY Raimrez 04/17/2021 R21 Rash and other nonspecific skin eruption YANELY Ramirez 04/17/2021 L73.8 Other specified follicular disor ders YANELY Ramirez 04/17/2021 Q82.8 Other specified congenital malfo rmations of skin YANELY Ramirez 04/17/2021 Z85.828 Personal history of other malign ant neoplasm of skin YANELY Ramirez 04/17/2021 Z87.2 Personal history of diseases of the skin and subcutaneous tissue YANELY Ramirez 04/17/2021 Z08 Encounter for follow -up examination after completed treatment for malignant neoplasm YANELY Ramirez Plan of Treatment Future Appointment(s):* 05/10/2021 10:30 am - YANELY Ramirez at Main Office * 10/17/2021 9:45 am - YANELY Ramirez at Main Office 04/17/2021 - YANELY Ramirez* D48.5 Neoplasm of uncertain behavior of skin* Comments:* Shave biopsy today, L restorationism - SCC in situ vs BCC vs AK and L nasal ala - BCC vs cyst Wound care instructions given. Will contact with pathology when available. 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 Discussed to expect redness, scaling, crusting, swelling and/or blistering. Instructed to not cover areas treated and to avoid getting in eyes. Can use Aquaphor after about 1 hour PRN for comfort.Side effects include infection at site of application, headache, flu-like symptoms. Call with any problems. * D22.62 Melanocytic nevi of left upper limb, including shoulder* Comments:* Nevi located on L arm appears healthy. Monitor for changes. * L82.1 Other seborrheic keratosis* Comments:* Reassurance. Seborrheic keratoses are benign warty growths, patients will get more of them as they age. * L81.4 Other melanin hyperpigmentation* Comments:* Sunscreen use and sun protection discussed. * L85.9 Epidermal thickening, unspecified* Comments:* Nonsymptomatic. Reassurance. * R21 Rash and other nonspecific skin eruption* Comments:* Continue to monitor.Will do punch biopsy at next visit-psoriasis vs AK vs SCC.Call with any problems. 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 Moisturizers daily * Z85.828 Personal history of other malignant neoplasm of skin* Comments:* Continue to monitor for recurrence invasive SCC. Sun protection and sunscreen use discussed. Literature given on monthly self skin evaluations. * Z87.2 Personal history of diseases of the skin and subcutaneous tissue* Comments:* Continue to monitor for recurrence SCC in situ * Z08 Encounter for follow-up examination after completed treatment for malignant neoplasm* Comments:* See above. * Follow up:* 3 weeks - efudex follow up/punch biopsy 6 months/PRN - [facility] Functional Status Description No Information Available Mental Status Description No Information Available Referrals Description No Information Available"
--- OUTSIDE RECORDS SUMMARY | 2021-05-16 14:53 | CCD | Continuity of Care Document ---
Author Author Mark Anthony FAULKNER KITCHEN BATH DESIGNER-C Organization Unknown Address [address], [address] [place] [address] Phone [phone] Care Team Providers Care Health Teacher Name Role Phone [facility] [phone] Problems Description No Information Available Social History [...] twice a day 45gm L57.0 Carin Ramirez POWERHOUSE MECHANIC-C 04/17/2021 Prednisone Unknown Levothyroxine Sodium Unknown Eliquis [...] L Nasal Ala (1 Of 2) 04/17/2021 [employer] Icd9 Code ICD9 Code: L57.0 1, 2 [...] is a background of solar elastosis. CPT: 01668*1 CPT: 19542*1 Procedures Description No Information Available Medical Devices Description No Information Available Encounters Description No Information Available Assessments Date Code Description Provider 04/17/2021 D48.5 Neoplasm of uncertain behavior o f skin HAMMAD Ramirez-C 04/17/2021 L57.0 Actinic keratosis HAMMAD Gurrola-C 04/17/2021 D22.62 Melanocytic nevi of left upper l imb, including shoulder HAMMAD Ramirez-C 04/17/2021 L82.1 Other seborrheic keratosis Juliet aney HAMMAD Hyman-C 04/17/2021 L81.4 Other melanin hyperpigmentation Nicole Faulkner KITCHEN BATH DESIGNER-C 04/17/2021 L85.9 Epidermal thickening, unspecifie d HAMMAD Ramirez-C 04/17/2021 R21 Rash and other nonspecific skin eruption HAMMAD Ramirez-C 04/17/2021 L73.8 Other specified follicular disor ders [...] of skin* Comments:* Shave biopsy today, L restorationist - SCC in situ vs BCC vs [...]
--- OUTSIDE RECORDS SUMMARY | 2021-05-16 14:54 | CCD ---
Author Author [facility] Organization [facility] Address Unknown Phone Unavailable Care Team Providers Care [employer] Presser Name Role Phone RAMÓN BERNAL MD Unavailable Unavailable RAMÓN BERNAL MD Unavailable Unavailable GABERAMÓN MD Unavailable Unavailable GABERAMÓN MD Unavailable Unavailable RAMÓN BERNAL MD Unavailable Unavailable RAMÓN BERNAL MD Unavailable Unavailable RAMÓN BERNAL MD Unavailable Unavailable RAMÓN BERNAL MD Unavailable Unavailable RAMÓN BERNAL MD Unavailable Unavailable GABERAMÓN MD Unavailable Unavailable GABERAMÓN MD Unavailable Unavailable RAMÓN BERNAL MD Unavailable Unavailable RAMÓN BERNAL MD Unavailable Unavailable RAMÓN BERNAL MD Unavailable Unavailable RAMÓN BERNAL MD Unavailable Unavailable RAMÓN BERNAL MD Unavailable Unavailable RAMÓN BERNAL MD Unavailable Unavailable RAMÓN BERNAL MD Unavailable Unavailable RAMÓN BERNAL MD Unavailable Unavailable RAMÓN BERNAL MD Unavailable Unavailable RAMÓN BERNAL MD Unavailable Unavailable RAMÓN BERNAL MD Unavailable Unavailable RAMÓN BERNAL MD Unavailable Unavailable RAMÓN BERNAL MD Unavailable Unavailable RAMÓN BERNAL MD Unavailable Unavailable RAMÓN BERNAL MD Unavailable Unavailable RAMÓN BERNAL MD Unavailable Unavailable RAMÓN BERNAL MD Unavailable Unavailable RAMÓN BERNAL MD Unavailable Unavailable RAMÓN BERNAL MD Unavailable Unavailable RAMÓN BERNAL MD Unavailable Unavailable RAMÓN BERNAL MD Unavailable Unavailable RAMÓN BERNAL MD Unavailable Unavailable RAMÓN BERNAL MD Unavailable Unavailable RAMÓN BERNAL MD Unavailable Unavailable RAMÓN BERNAL MD Unavailable Unavailable RAMÓN BERNAL MD Unavailable Unavailable RAMÓN BERNAL MD Unavailable Unavailable RAMÓN BERNAL MD Unavailable Unavailable GABE, MELGAR MD Unavailable Unavailable GABE, MELGAR MD Unavailable Unavailable GABE, MELGAR MD Unavailable Unavailable GABE, MELGAR MD Unavailable Unavailable GABE, MELGAR MD Unavailable Unavailable GABE, MELGAR MD Unavailable Unavailable GABE, MELGAR MD Unavailable Unavailable GABE, MELGAR MD Unavailable Unavailable GABE, MELGAR MD Unavailable Unavailable GABE, MELGAR MD Unavailable Unavailable GABE, MELGAR MD Unavailable Unavailable GABE, MELGAR MD Unavailable Unavailable GABE, MELGAR MD Unavailable Unavailable GABE, MELGAR MD Unavailable Unavailable GABE, MELGAR MD Unavailable Unavailable GABE, MELGAR MD Unavailable Unavailable El-Khally, A Ziad MD Unavailable Unavailable El-Khally, A Ziad MD Unavailable Unavailable El-Khally, A Ziad MD Unavailable Unavailable El-Khally, A Ziad MD Unavailable Unavailable El-Khally, A Ziad MD Unavailable Unavailable El-Khally, A Ziad MD Unavailable Unavailable El-Khally, A Ziad MD Unavailable Unavailable El-Khally, A Ziad MD Unavailable Unavailable El-Khally, A Ziad MD Unavailable Unavailable El-Khally, A Ziad MD Unavailable Unavailable El-Khally, A Ziad MD Unavailable Unavailable El-Khally, A Ziad MD Unavailable Unavailable El-Khally, A Ziad MD Unavailable Unavailable El-Khally, A Ziad MD Unavailable Unavailable El-Khally, A Ziad MD Unavailable Unavailable El-Khally, A Ziad MD Unavailable Unavailable El-Khally, A Ziad MD Unavailable Unavailable El-Khally, A Ziad MD Unavailable Unavailable El-Khally, A Ziad MD Unavailable Unavailable El-Khally, A Ziad MD Unavailable Unavailable El-Khally, A Ziad MD Unavailable Unavailable El-Khally, A Ziad MD Unavailable Unavailable El-Khally, A Ziad MD Unavailable Unavailable El-Khally, A Ziad MD Unavailable Unavailable El-Khally, A Ziad MD Unavailable Unavailable El-Khally, A Ziad MD Unavailable Unavailable El-Khally, A Ziad MD Unavailable Unavailable El-Khally, A Ziad MD Unavailable Unavailable El-Khally, A Ziad MD Unavailable Unavailable El-Khally, A Ziad MD Unavailable Unavailable El-Khally, A Ziad MD Unavailable Unavailable El-Khally, A Ziad MD Unavailable Unavailable El-Khally, A Ziad MD Unavailable Unavailable El-Khally, A Ziad MD Unavailable Unavailable El-Khally, A Ziad MD Unavailable Unavailable El-Khally, A Ziad MD Unavailable Unavailable El-Khally, A Ziad MD Unavailable Unavailable El-Khally, A Ziad MD Unavailable Unavailable El-Khally, A Ziad MD Unavailable Unavailable El-Khally, A Ziad MD Unavailable Unavailable El-Khally, A Ziad MD Unavailable Unavailable El-Khally, A Ziad MD Unavailable Unavailable El-Khally, A Ziad MD Unavailable Unavailable Hegard, Nicole AWS ARCHITECT Unavailable Unavailable Hegard, Nicole AWS ARCHITECT Unavailable Unavailable Hegard, Nicole AWS ARCHITECT Unavailable Unavailable Hegard, Nicole AWS ARCHITECT Unavailable Unavailable Hegard, Nicole AWS ARCHITECT Unavailable Unavailable Hegard, Nicole AWS ARCHITECT Unavailable Unavailable Hegard, Nicole AWS ARCHITECT Unavailable Unavailable Hegard, Nicole AWS ARCHITECT Unavailable Unavailable Hegard, Nicole AWS ARCHITECT Unavailable Unavailable Hegard, Nicole AWS ARCHITECT Unavailable Unavailable Hegard, Nicole AWS ARCHITECT Unavailable Unavailable Hegard, Nicole AWS ARCHITECT Unavailable Unavailable Hegard, Nicole AWS ARCHITECT Unavailable Unavailable Hegard, Nicole AWS ARCHITECT Unavailable Unavailable Hegard, Nicole AWS ARCHITECT Unavailable Unavailable Hegard, Nicole AWS ARCHITECT Unavailable Unavailable Hegard, Nicole AWS ARCHITECT Unavailable Unavailable Re-disclosure Warning The records that you are about to access may contain information from federally-assisted alcohol or drug abuse programs. If such information is present, then the following federally mandated warning applies: This information has been disclosed to you from records protected by federal confidentiality rules (42 CFR part 2). The federal rules prohibit you from making any further disclosure of this information unless further disclosure is expressly permitted by the written consent of the person to whom it pertains or as otherwise permitted by 42 CFR part 2. A general authorization for the release of medical or other information is NOT sufficient for this purpose. The Federal rules restrict any use of the information to criminally investigate or prosecute any alcohol or drug abuse patient.The records that you are about to access may contain highly sensitive health information, the redisclosure of which is protected by Article 27-F of the [facility] Public Health law. If you continue you may have access to information: Regarding HIV / AIDS; Provided by facilities licensed or operated by the [facility] Office of Mental Health; or Provided by the [facility] Office for People With Developmental Disabilities. If such information is present, then the following [facility] mandated warning applies: This information has been disclosed to you from confidential records which are protected by state law. State law prohibits you from making any further disclosure of this information without the specific written consent of the person to whom it pertains, or as otherwise permitted by law. Any unauthorized further disclosure in violation of state law may result in a fine or halfway sentence or both. A general authorization for the release of medical or other information is NOT sufficient authorization for further disc losure. Allergies and Adverse Reactions Type Description Substance Reaction Status Data Source(s ) Propensity to adverse reactions BEE VENOM Honey bee venom Active [facility] Propensity to adverse reactions STATINS Statins Acti ve [facility] Family History Family Member Name Family Member Gender Family Member Status Date o f Status Description Data Source(s) Unknown Female Problem [facility] ([facility] Unknown Female Problem [facility] ([facility] Encounters Encounter Providers Location Date Indications Data Source(s ) Outpatient Attender: Nicole Faulkner [facility] Main Office 1 08:45:00 AM EDT [facility] ([facility]) Outpatient Attender: RAMÓN FREDERICKKAREN-SJP.KAREN 03:23:42 PM EDT - 04/13/2021 08:19:45 AM EDT [facility] Outpatient Referrer: RAMÓN FREDERICKPUL-SJP.PUL 04/11/2021 10:05:37 AM EDT [facility] Outpatient CAIO.CT-[id number] 02/23/2021 12:00:29 AM EDT [facility] Outpatient Referrer: Terry FREDERICKKAREN-ROSAP.KAREN 01/30 03:21:18 PM EDT - 02/22/2021 04:30:09 PM EDT [facility] Outpatient Attender: RAMÓN FREDERICKKAREN-SJP.KAREN 02/22/2021 03:19:12 PM EDT [facility] Outpatient Attender: RAMÓN RASHIDSJP.KAREN 12:00:00 AM EDT - 01/25/2021 02:40:46 PM EDT [facility] Outpatient [id number] 01/20/2021 01:47:52 PM EDT [facility] ES1-PC 01/19/2021 06:19:06 PM EDT [facility] Inpatient Admitter: Terry Luna MDReferrer: Terry holland MD [id number] 01/19/2021 11:50:45 AM EDT [facility] Inpatient Attender: Terry Luna MDAdmitter: Terry holland MD [id number] 01/19/2021 09:14:00 AM EDT - 01/20/2021 07:23:00 PM EDT [facility] Patient discharged. Inpatient Attender: Terry Luna MDAdmitter: Terry holland MD [id number] 01/10/2021 11:34:00 AM EDT - 01/12/2021 01:14:00 PM EDT [facility] Patient discharged. Outpatient Attender: RAMÓN BERNAL MDReferrer: RAMÓN MARY-SJP.KAREN 08/17/2020 03:10:05 PM EST - 08/17/2020 04:36:06 PM EST [facility] Outpatient Attender: RAMÓN BERNAL MDReferrer: RAMÓN VOSJP.KAREN 08/17/2020 12:00:00 AM EST [facility] Immunizations Vaccine Date Status Description Data Source(s) COVID-19 VACCINE Moderna 04/18/2021 12:00:00 AM EDT completed [facility] Vaccine Series Complete: YESThis Data wa s Submitted to [facility] Via [employer]. COVID-19 VACCINE Moderna 09/30/2020 12:00:00 AM EDT completed [facility] Vaccine Series Complete: YESThis Data wa s Submitted to [facility] Via [employer]. COVID-19 VACCINE Moderna 09/02/2020 12:00:00 AM EST completed [facility] Vaccine Series Complete: NOThis Data was Submitted to [facility] Via [employer]. Medications Medication Brand Name Start Date Product Form Dose Route Admi nistrative Instructions Pharmacy Instructions Status Indications Reaction Description Data Source(s) 100 mcg/0.5 mL 04/18/2021 12:00:00 AM EDT suspension 0 INJECT DIRECTED PER STANDING ORDER INJECT DIRECTED PER STANDING ORDER SOLD: 04/18/2021 Tomo Clases Fluorouracil 50 MG/ML Topical Cream Fluorouracil 04/17/2021 12:00:00 AM EDT active [facility] ([facility] Practition[facility]) Metoprolol Tartrate 25 MG Oral Tablet me toprolol tartrate (LOPRESSOR) 25 MG tablet metoprolol tartrate (LOPRESSOR) 25 MG tablet 04/07/2021 12:0 0:00 AM EDT aborted [facility] Prednisone 10 MG Oral Tablet predniSONE (DELTASONE) 10 MG tablet predniSONE (DELTASONE) 10 MG tablet 02/22/2021 12:00:00 AM EDT 10 mg Oral active Take 1 tablet (10 mg total) by mouth daily [facility] Prednisone 2.5 MG Oral Tablet predniSONE (DELTASONE) 2 .5 MG tablet predniSONE (DELTASONE) 2.5 MG tablet 02/22/2021 12:00:00 AM EDT 2.5 mg Oral active Arthritis Take 1 tablet (2.5 mg total) by mouth da alexsandra [facility] Arthritis 24 HR metoprolol succinate 25 MG Extende d Release Oral Tablet metoprolol succinate (TOPROL-XL) 25 MG 24 hr tablet metoprolol succinate (TOPROL-XL) 25 MG 24 hr tablet 02/22/2021 12:00:00 AM EDT 12.5 mg Oral acti ve Take 0.5 tablets (12.5 mg total) by mouth every other day [facility] Bisacodyl 10 MG Rectal Suppository bisacodyl (DULCOLAX ) suppository 10 mg bisacodyl (DULCOLAX) suppository 10 mg 01/22/2021 09:00:00 AM EDT 10 mg Rectal active 10 mg, Rectal, Daily PRN, constipation, Starting on 01/22/21 at 0900, Post-op
If lactulose not effective, give bisacodyl suppository x 1 per rectum prn starting POD #3.
[facility] Medication administered onsite prednisolone acetate 10 MG/ML Ophthalmic Suspension prednisoLONE acetate (PRED FORTE) 1 % ophthalmic suspension 1 drop prednisoLONE acetate (PRED FORTE) 1 % ophthalmic suspension 1 drop 01/21/2021 09:00:00 AM EDT 1 [drp] active 1 drop, Left Eye, Every 48 hours, First dose on 01/21/21 at 0900 [facility] Medication administered onsite POLYETHYLENE GLYCOL 3350 142 MG/ML Oral Solution polyethylene glycol (GLYCOLAX) packet 17 g polyethylene glycol (GLYCOLAX) packet 17 g 01/21/2021 07:00:00 AM EDT 17 g Oral active 17 g, Or al, Daily PRN, For constipation, Starting on Sat01/21/21 at 0700, PACU & Post-op
hold for loose stools
[facility] Medication administered onsite iodixanol (VISIPAQUE) 320 MG/ML injection [id number] 01/20/2021 12:57 :53 PM EDT active As needed, Starting on Sat01/20/21 at 1257, Intra-Procedure [facility] Medication administered onsite lidocaine 1 % injection [id number] 01/20/2021 12:53:00 PM EDT active As needed, Starting on Sat at 1253, Intra-Procedure [facility] Medication administered onsite 2 ML Midazolam 1 MG/ML Injection midazolam (VERSED) in jection midazolam (VERSED) injection 01/20/2021 12:45:26 PM EDT active As needed, Starting on Sat01/20/21 at 1245, Intra-Procedure [facility] Medication administered onsite fentaNYL Citrate (PF) (SUBLIMAZE) injection [id number] 01/20/2021 12:45:20 PM EDT active As neede d, Starting on Sat01/20/21 at 1245, Intra-Procedure [facility] Medication administered onsite Cefazolin 1000 MG Injection ceFAZolin (ANCEF) injectio n ceFAZolin (ANCEF) injection 01/20/2021 12:45:13 PM EDT active As needed, Starting on Sat01/20/21 at 1245, Intra-Procedure [facility] Medication administered onsite furosemide (LASIX) injection 20 mg [id number] 01/20/2021 11:00:00 AM EDT 20 mg Intravenous completed 20 mg, I ntravenous, Once, On Sat01/20/21 at 1100, For 1 dose [facility] Medication administered onsite Aspirin 81 MG Delayed Release Oral Tablet aspirin EC t ablet 81 mg aspirin EC tablet 81 mg 01/20/2021 09:00:00 AM EDT 81 mg Oral activ e 81 mg, Oral, Daily, First dose on Sat01/20/21 at 0900, Post-op
Starting POD # 1 for TANYA patient. Hold for platelet count less than 90,000. If OG tube in place, give non-enteric aspirin.
[facility] Medication administered onsite Docusate Sodium 100 MG Oral Capsule docusate sodium (C OLACE) capsule 100 mg docusate sodium (COLACE) capsule 100 mg 01/20/2021 09:00:00 AM EDT 100 mg Oral active 100 mg, Oral, 2 times daily, First dose on Sat01/20/21 at 0900, Post-op
Start first POD.
[facility] Medication administered onsite normal saline flush 0.9 % injection 3 mL [id number] 01/20/2021 09:00:00 AM EDT 3 mL Intravenous active 3 mL , Intravenous, PROTOCOL, First dose on Sat01/20/21 at 0900, Post-op
flush per protocol, D/C Main IV fluid if appropriate
[facility] Medication administered onsite normal saline flush 0.9 % injection 3 mL [id number] 01/20/2021 12:00:00 AM EDT 3 mL Intravenous active 3 mL , Intravenous, Every 8 hours (scheduled), First dose on Sat01/20/21 at 0000, Pre-op
Rapid push positive pressure flushing shall be performed with a 10 cc normal saline syringe to check the PATENCY of a PIV site prior to any infusion therapy initiation unless resistance is met.
[facility] Medication administered onsite Cefazolin 1000 MG Injection ceFAZolin (ANCEF) injectio n 1 g ceFAZolin (ANCEF) injection 1 g 01/20/2021 12:00:00 AM EDT 1 g Intravenous completed Perioperative Pharmacoprophylaxis 1 g, Intravenous, Ev bao 8 hours (relative), First dose on Sat01/20/21 at 0000, For 2 doses, Post-op
Reconstitute with 10 ml sterile water for injection. Administer IV push over 3 minutes. Use within 1 hour of reconstitution
[facility] Perioperative Pharmacoprophylaxis Medication administered onsite Amoxicillin 500 MG Oral Capsule amoxicillin (AMOXIL) 5 00 MG capsule amoxicillin (AMOXIL) 500 MG capsule 01/20/2021 12:00:00 AM EDT 2000 mg Oral active Take 4 capsules (2,000 mg total) by mout h once for 1 dose Take 4 tabs before dental visits [facility] normal saline flush 0.9 % injection 3 mL [id number] 01/20/2021 12:00:00 AM EDT 3 mL Intravenous active 3 mL , Intravenous, Every 8 hours (scheduled), First dose on Sat01/20/21 at 0000, Pre-op
Rapid push positive pressure flushing shall be performed with a 10 cc normal saline syringe to check the PATENCY of a PIV site prior to any infusion therapy initiation unless resistance is met.
[facility] Medication administered onsite 24 HR metoprolol succinate 25 MG Extende d Release Oral Tablet metoprolol succinate (TOPROL-XL) 25 MG 24 hr tablet metoprolol succinate (TOPROL-XL) 25 MG 24 hr tablet 01/20/2021 12:00:00 AM EDT 25 mg Oral abort ed Take 1 tablet (25 mg total) by mouth daily [facility] Amoxicillin 500 MG Oral Capsule amoxicillin (AMOXIL) 5 00 MG capsule amoxicillin (AMOXIL) 500 MG capsule 01/20/2021 12:00:00 AM EDT 2000 mg Oral aborted Take 4 capsules (2,000 mg total) by mouth once for 1 d ose [facility] acetaminophen (TYLENOL) 325 MG tablet 650 mg 11:12:10 PM EDT 650 mg Oral active [Order 1 S tart] Name: acetaminophen (TYLENOL) 325 MG tablet 650 mg Signed Summary: 650 mg, Oral, Every 4 hours PRN, mild pain (1-3), for temperature > 101. Call MD/PA. May also give for headache., Starting on Araceli 01/19/21 at 2312, Post-op
"Maximum dose of acetaminophen is 4,000 mg from all sources in 24 hours."
[Order 1 End] [Order 2 Start] Name: acetaminophen (TYLENOL) suppository 650 mg Signed Summary: 650 mg (1 suppository), Rectal, Every 4 hours PRN, mild pain (1-3), for temperature > 101. Call MD/PA. May also give for headache., Starting on Araceli 01/19/21 at 2312, Post-op [Order 2 End] [facility] Medication administered onsite ondansetron (ZOFRAN) injection 4 mg [id number] 01/19/2021 11:12:1 0 PM EDT 4 mg Intravenous active 4 mg, In travenous, Every 6 hours PRN, nausea, vomiting, Starting on Araceli 01/19/21 at 2312, Post-op
If no response in 15-30 minutes then give metoclopramide 10 mg IV x 1 then q6h prn N/V.
[facility] Medication administered onsite 10 ML Atropine Sulfate 0.1 MG/ML Prefill ed Syringe atropine sulfate injection 0.5 mg atropine sulfate injection 0.5 mg 01/19/2021 11:12:09 PM EDT 0.5 mg active 0.5 mg, Intrave nous Push, Every 5 min PRN, other, As needed, for heart rate less than 60 BPM and the patient is hemodynamically unstable and/or SBP is less than 90mmHg, Starting on Araceli 01/19/21 at 2312, For 6 doses, Post-op
Not to exceed a total of 3 mg or 0.04 mg/kg.
[facility] Medication administered onsite 2 ML Metoclopramide 5 MG/ML Prefilled Sy ringe metoclopramide (REGLAN) injection 10 mg metoclopramide (REGLAN) injection 10 mg 01/19/2021 11:12:09 PM E DT 10 mg Intravenous active 10 mg, I ntravenous, Every 6 hours PRN, nausea, vomiting, Starting on Araceli 01/19/21 at 2312, Post-op
Give once if no response to Zofran after 15-30 minutes, then q6h prn N/V.
[facility] Medication administered onsite Sodium Chloride 0.460942 MEQ/MG Ophthalm ic Ointment sodium chloride 5 % ophthalmic ointment sodium chloride 5 % ophthalmic ointment 01/19/2021 09: 00:00 PM EDT active Right Ey e, 2 times daily, First dose on Araceli 01/19/21 at 2100, Until Discontinued [facility] Medication administered onsite predniSONE (DELTASONE) tablet 12.5 mg 01/19/2021 04:00:00 PM EDT 12.5 mg Oral active 12.5 mg, Oral, Daily , First dose on Araceli 01/19/21 at 1600 [facility] Medication administered onsite Levothyroxine Sodium 0.112 MG Oral Table t levothyroxine (SYNTHROID, LEVOTHROID) tablet 112 mcg levothyroxine (SYNTHROID, LEVOTHROID) tablet 112 mcg 0 01/19/2021 04:00:00 PM EDT 112 ug Oral active 112 mcg, Oral, Daily, First dose on Araceli 01/19/21 at 1600 [facility] Medication administered onsite Famotidine 20 MG Oral Tablet famotidine (PEPCID) table t 10 mg famotidine (PEPCID) tablet 10 mg 01/19/2021 04:00:00 PM EDT 10 mg Oral active 10 mg, Oral, Daily, First dose on Araceli 01/19/21 at 1600 [facility] Medication administered onsite sodium chloride 0.9% (NS) infusion [id number] 01/19/2021 04:00:00 P M EDT Intravenous completed at 100 mL/hr, Intravenous, Continuous, Starting on Sat01/19/21 at 1600, For 4 hours, Post-op [facility] Medication administered onsite Polyvinyl Alcohol 0.014 ML/ML Ophthalmic Solution polyvinyl alcohol (LIQUIFILM TEARS) 1.4 % ophthalmic solution 1 drop polyvinyl alcohol (LIQUIFILM TEARS) 1.4 % ophthalmic solution 1 drop 01/19/2021 02:00:00 PM EDT 1 [drp] active 1 drop, Both Eyes, Daily, First dose on Sat01/19/21 at 1400 [facility] Medication administered onsite Magnesium Chloride 0.25442 MEQ/ML / Pota ssium Chloride 0.0497 MEQ/ML / Sodium Acetate 0.0163 MEQ/ML / Sodium Chloride 0.0899 MEQ/ML / Sodium gluconate 5.02 MG/ML Injectable Solution [Normosol-R] electrolyte-R (NORMOSOL-R/PLASMALYTE-R) solution electrolyte-R (NORMOSOL-R/PLASMALYTE-R) solution 01/19 10:00:00 AM EDT Intravenous active at 1 00 mL/hr, Intravenous, Continuous, Starting on Sat01/19/21 at 1000 [facility] Medication administered onsite apixaban 5 MG Oral Tablet Apixaban (ELIQUIS) tablet 5 mg Apixaban (ELIQUIS) tablet 5 mg 01/12/2021 09:00:00 AM EDT 5 mg Oral active 5 mg, Oral, 2 times daily, First dose on Sat01/12/21 at 0900
Current dose selected for any 2 criteria of: Serum Cr < 1.5 mg/dL, age < 80 years, & weight > 60 kg Do not combine with strong 3A4 or p-Gp inhibitors (ketoconazole, itraconazole, ritonavir, clarithromycin)
[facility] Medication administered onsite iopamidol (ISOVUE-370) 76 % 120 mL [id number] 01/11/2021 07:50:16 PM EDT 120 mL Intravenous completed 120 mL, Intra venous, Once in imaging, contrast, Starting on Sat01/11/21 at 1950, For 1 dose [facility] Medication administered onsite prednisolone acetate 10 MG/ML Ophthalmic Suspension prednisoLONE acetate (PRED FORTE) 1 % ophthalmic suspension 1 drop prednisoLONE acetate (PRED FORTE) 1 % ophthalmic suspension 1 drop 01/11/2021 09:00:00 AM EDT 1 [drp] active 1 drop, Left Eye, Every 48 hours, First dose on Sat01/11/21 at 0900 [facility] Medication administered onsite predniSONE (DELTASONE) tablet 12.5 mg 01/11/2021 09:00:00 AM EDT 12.5 mg Oral active 12.5 mg, Oral, Daily , First dose on Sat01/11/21 at 0900 [facility] Medication administered onsite Famotidine 20 MG Oral Tablet famotidine (PEPCID) table t 10 mg famotidine (PEPCID) tablet 10 mg 01/11/2021 09:00:00 AM EDT 10 mg Oral active 10 mg, Oral, Daily, First dose on Sat01/11/21 at 0900 [facility] Medication administered onsite Levothyroxine Sodium 0.112 MG Oral Table t levothyroxine (SYNTHROID, LEVOTHROID) tablet 112 mcg levothyroxine (SYNTHROID, LEVOTHROID) tablet 112 mcg 0 01/11/2021 06:00:00 AM EDT 112 ug Oral active 112 mcg, Oral, Daily (06), First dose on Sat01/11/21 at 0600 [facility] Medication administered onsite atorvastatin 40 MG Oral Tablet atorvastatin (LIPITOR) tablet 40 mg atorvastatin (LIPITOR) tablet 40 mg 01/10/2021 09:00:00 PM EDT 40 mg Oral aborted 40 mg, Oral, Nightly, First dose on Sat01/10/21 at 2100 [facility] Medication administered onsite Sodium Chloride 0.572632 MEQ/MG Ophthalm ic Ointment sodium chloride 5 % ophthalmic ointment sodium chloride 5 % ophthalmic ointment 01/10/2021 09: 00:00 PM EDT active Right Ey e, 2 times daily, First dose on Sat01/10/21 at 2100, Until Discontinued [facility] Medication administered onsite Ascorbic Acid 200 MG / Beta Carotene 100 0 UNT / cuprous oxide 2 MG / dl-alpha tocopheryl acetate 60 UNT / Lutein 2 MG / sodium selenate 0.055 MG / Zinc Oxide 40 MG Oral Tablet [Ocuvite] beta carotene w/ C and E mineral (OCUVITE) 1 tablet beta carotene w/ C and E mineral (OCUVITE) 1 tablet 01/10/2021 09:00:00 PM EDT 1 {tbl} Oral active 1 tablet, Oral, 2 times daily, First dose on Sat01/10/21 at 2100 [facility] Medication administered onsite 500 ML heparin sodium, porcine 50 UNT/ML Injection heparin infusion 25,000 units in 500 mL 0.45% NaCl heparin infusion 25,000 units in 500 mL 0.45% NaCl 01/10/2021 07:00:00 PM EDT 17 U/kg/h Intravenous aborted 17 Units/kg/hr 65.7 kg (22.338 mL/hr, rounded to 22.3 mL/hr), Intravenous, at 22.3 mL/hr, Continuous, Starting on Sat01/10/21 at 2000
For Cardiac/BridgeaPTT (seconds) Heparin Dose (weight based)< 34 Bolus: 60 units/kg IV (Maximum bolus: 5,000 units) and increase infusion 3 units/kg/hr IV34 - 50 Bolus: 30 units/kg IV (Maximum bolus: 5,000 units) and increase infusion 2 units/kg/hr IV50.1 - 58 No bolus. Increase infusion 1 unit/kg/hr IV58.1 - 87 Therapeutic, No Fdpyul45.1 - 97 Decrease infusion 1 unit/kg/hr IV 97.1 - 110Hold infusion for 30 minutes & decrease infusion 2 units/kg/hr IV> 110 Call MD if patient is bleeding. Hold infusion for 60 minutes & decrease infusion 3 units/kg/hr IVInitial heparin IV infusion rate:Do not exceed 1000 units/hr or 12 units/kg/hr initially (whichever is less)Infuse this medication only through single port tubing (SmartSite Infusion Set ref [id number]). Medication and tubing is to be discarded if infusion off for 4 hours.
[facility] Medication administered onsite normal saline flush 0.9 % injection 3 mL [id number] 01/10/2021 02:00:00 PM EDT 3 mL Intravenous active 3 mL , Intravenous, Every 8 hours (scheduled), First dose on Sat01/10/21 at 1400
flush per protocol, D/C Main IV fluid if appropriate
[facility] Medication administered onsite clopidogrel 300 MG Oral Tablet clopidogrel (PLAVIX) ta blet 300 mg clopidogrel (PLAVIX) tablet 300 mg 01/10/2021 02:00:00 PM EDT 300 mg Oral completed 300 mg, Oral, Daily, First dose on Sat01/10/21 at 1400 , For 1 dose [facility] Medication administered onsite 1 ML heparin sodium, porcine 1000 UNT/ML Injection heparin (porcine) injection 60 Units/kg heparin (porcine) injection 60 Units/kg 01/10/2021 01:00:00 PM EDT 60 U/kg Intravenous completed 60 Units/k g, Intravenous, Once, On Sat01/10/21 at 1300, For 1 dose
Do not exceed 5,000 units or 60 units/kg (whichever is less)
[facility] Medication administered onsite 500 ML heparin sodium, porcine 50 UNT/ML Injection heparin infusion 25,000 units in 500 mL 0.45% NaCl heparin infusion 25,000 units in 500 mL 0.45% NaCl 01/10/2021 01:00:00 PM EDT 12 U/kg/h Intravenous aborted 12 Units/kg/hr, Intravenous, Continuous, Starting on Sat01/10/21 at 1300
For Cardiac/Bridge aPTT (seconds) Heparin Dose (weight based) < 34 &n bsp; Bolus: 60 units/kg IV (Maximum bolus: 5,000 units) and increase infusion 3 units/kg/hr IV 34 - 50 Bolus: 30 units/kg IV (Maximum bolus: 5,000 units) and increase infusion 2 units/kg/hr IV 50.1 - 58 No bolus. Increase infusion 1 unit/kg/hr IV 58.1 - 87 Therapeutic, No Change 87.1 - 97 Decrease infusion 1 unit/kg/hr IV 97.1 - 110 &amp ;nbsp; Ho ld infusion for 30 minutes & decrease infusion 2 units/kg/hr IV > 110 &nbsp ; &am p;nbsp; Call MD if patient is bleeding. Hold infusion for 60 minutes & decrease infusion 3 units/kg/hr IV Initial heparin IV infusion rate:Do not exceed 1000 units/hr or 12 units/kg/hr initially (whichever is less) Infuse this medication only through single port tubing (SmartSite Infusion Set ref [id number]). Medication and tubing is to be discarded if infusion off for 4 hours.
[facility] Medication administered onsite Polyvinyl Alcohol 0.014 ML/ML Ophthalmic Solution polyvinyl alcohol (LIQUIFILM TEARS) 1.4 % ophthalmic solution 1 drop polyvinyl alcohol (LIQUIFILM TEARS) 1.4 % ophthalmic solution 1 drop 01/10/2021 12:29:10 PM EDT 1 [drp] active 1 drop, Both Eyes, As needed, dry eyes, Starting on Sat01/10/21 at 1229 [facility] Medication administered onsite 1 ML heparin sodium, porcine 1000 UNT/ML Injection heparin (porcine) injection 100-5,000 Units heparin (porcine) injection 100-5,000 Units 01/10/2021 12:03:16 PM EDT U Intravenous aborted 100- 5,000 Units, Intravenous, As needed, other, Starting on Sat01/10/21 at 1203
Round dose to nearest 100 units aPTT: < 34 &n bsp; Bolus: 60 units/kg IV (Maximum bolus: 5,000 units) 34 - 50 Bolus: 30 units/kg IV (Maximum bolus: 5,000 units)
[facility] Medication administered onsite ondansetron (ZOFRAN) injection 4 mg [id number] 01/10/2021 12:02:4 6 PM EDT 4 mg Intravenous active 4 mg, In travenous, Every 4 hours PRN, nausea, vomiting, Starting on Sat01/10/21 at 1202 [facility] Medication administered onsite Acetaminophen 325 MG Oral Tablet acetaminophen (TYLENO L) 325 MG tablet 650 mg acetaminophen (TYLENOL) 325 MG tablet 650 mg 01/10/2021 12:02:44 PM EDT 650 mg Oral active 650 mg, Or al, Every 4 hours PRN, mild pain (1-3), headaches, Starting on Sat01/10/21 at 1202
"Maximum dose of acetaminophen is 4,000 mg from all sources in 24 hours."
[facility] Medication administered onsite Aspirin 81 MG Oral Tablet aspirin (ASPIRIN LOW DOSE) 8 1 MG tablet aspirin (ASPIRIN LOW DOSE) 81 MG tablet 81 mg Oral aborte d Take 81 mg by mouth daily [facility] Prednisone 10 MG Oral Tablet predniSONE (DELTASONE) 10 MG tablet predniSONE (DELTASONE) 10 MG tablet 12.5 mg Oral aborted Take 12.5 mg by mouth daily [facility] Multiple Vitamin (MULTIVITAMIN) capsule [id number] aborted MULTIVITAMINS CAPS [facility] Linseed Oil 1000 MG Oral Capsule Flaxseed, Linseed, (F LAXSEED OIL) 1000 MG CAPS Flaxseed, Linseed, (FLAXSEED OIL) 1000 MG CAPS aborted FLAXSEED OIL 1000 MG CAPS [facility] Calcium Carbonate 1500 MG Oral Tablet ca lcium carbonate (CALCIUM 600) 600 MG tablet calcium carbonate (CALCIUM 600) 600 MG tablet aborted CALCIUM 600 600 MG TABS [facility] Magnesium 125 MG CAPS 87224 Oral aborted Take by mouth daily [facility] Ascorbic Acid 1000 MG Oral Tablet ascorbic acid (VITAM IN C) 1000 MG tablet ascorbic acid (VITAMIN C) 1000 MG tablet 1000 mg Oral aborted Take 1,000 mg by mouth daily [facility] Insurance Providers Payer name Policy type / Coverage type Policy ID Covered republican ID Covered republican's relationship to starr Policy Starr Plan Information MEDICARE [id number] SP [id number] MEDICARE [id number] SP [id number] [place] [id number] Self [id number] [place] Primary [id number] Self [id number] MEDICARE [id number] Zahra [id number] [id number] MEDICARE [id number] xxxxxxxxxxx [id number] A [employer] C[employer] OPTIONS [id number] SP [id number] [employer] Options Medigap Part B [id number] Self [id number] [employer] Medigap Part B [id number] Self [id number] [facility] [id number] xxxxxxxxxxx [id number] INSURANCE COVID-19 COVID Zahra C OVID [facility] [id number] Zahra [id number] INSURANCE COVID-19 COVID Zahra C OVID INSURANCE COVID-19 COVID Zahra C OVID INSURANCE COVID-19 [id number] 2 [id number] [place] MEDICARE PART B C [id number] S [id number] [employer] Medigap Part B [id number] Self Medicare [facility] Medicare Primary [id number] Self [facility] P [id number] S [id number] AARP O [id number] S [id number] MEDICARE C [id number] S [id number] A [employer] Medigap Part B [id number] Self [id number] [place] Primary [id number] Self [id number] [employer] Medigap Part B [id number] Self [id number] Medicare [place] Medicare Primary [id number] Self [id number] [facility] Medigap Part B [id number] Self [id number] Medicare [place] Medicare Primary [id number] Self [id number] [facility] [id number] Self [id number] Medicare [place] Medicare Primary [id number] Self [id number] [place] MEDICARE PART B C [id number] S [id number] [employer] Medigap Part B [id number] Self [id number] Medicare [place] Medicare Primary [id number] Self [id number] [facility] [id number] Self [id number] Medicare [place] Medicare Primary [id number] Self [id number] Problems, Conditions, and Diagnoses Code Display Name Description Problem Type Effective Dates Data Source(s) I73.9 Peripheral vascular disease, unspecified Peripheral vascular disease, unspecified Diagnosis 04/12/2021 03:23:42 PM EDT [facility] Z78.9 Other specified health status Other specified health s tatus Diagnosis 04/12/2021 03:23:42 PM EDT [facility] E03.9 Hypothyroidism, unspecified Hypothyroidism, unspecifie d Diagnosis 04/12/2021 03:23:42 PM EDT [facility] K21.9 Gastro-esophageal reflux disease without esophagitis Gastro-esophageal reflux disease without Diagnosis 04/12/2021 03:23:42 PM EDT [facility] I10 Essential (primary) hypertension Essential (primary) h ypertension Diagnosis 04/12/2021 03:23:42 PM EDT [facility] I63.9 Cerebral infarction, unspecified Cerebral infarc tion, unspecified Diagnosis 04/12/2021 03:23:42 PM EDT [facility] Z95.0 Presence of cardiac pacemaker Presence of cardiac pace maker Diagnosis 04/12/2021 03:23:42 PM EDT [facility] M19.90 Unspecified osteoarthritis, unspecified site Unspecified osteoarthritis, unspecified Diagnosis 04/12/2021 03:23:42 PM EDT [facility] I48.0 Paroxysmal atrial fibrillation Paroxysmal atrial fibri llation Diagnosis 04/12/2021 03:23:42 PM EDT [facility] I35.0 Nonrheumatic aortic (valve) stenosis Nonrheumati c aortic (valve) stenosis Diagnosis 04/12/2021 03:23:42 PM EDT [facility] E78.5 Hyperlipidemia, unspecified Hyperlipidemia, unspecifie d Diagnosis 04/12/2021 03:23:42 PM EDT [facility] 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 Artificial cardiac pacema ker [id number] 01/25/2021 12:00:00 AM EDT [facility] I25.10 CAD (coronary artery disease) CAD (coronary artery dis ease) [id number] 01/25/2021 12:00:00 AM EDT [facility] H18.519 Fuchs' corneal dystrophy Fuchs' corneal dystrophy 6457 200001/10/2021 12:00:00 AM EDT [facility] Z78.9 Patient is Rastafari Patient is Jehovah's Witn ess [id number] 01/10/2021 12:00:00 AM EDT [facility] I35.0 Nonrheumatic aortic valve stenosis Nonrheumatic aortic valve stenosis [id number] 01/10/2021 12:00:00 AM EDT [facility] I10 Essential hypertension Essential hypertension [id number] 01/10/2021 12:00:00 AM EDT [facility] Surgeries/Procedures Procedure Description Date Indications Data Source(s) Shave Biopsy Of Skin, Single Lesion 04/17/2021 12:00:0 0 AM EDT [facility] ([facility]) Each Separate/Additional Lesion 04/17/2021 12:00:00 AM EDT MEDADILIA ([facility]) OFFICE OUTPATIENT VISIT 25 MINUTES 04/17/2021 12:00:00 AM EDT [facility] ([facility]) ECG ROUTINE ECG W/LEAST 12 LDS W/I&R <td>POCT AMB EKG</td><td>Routine</td><td>04/12/2021 5:36 PM EDT</td><td> Coronary artery disease involving [facility] heart without angina pectoris, unspecified vessel or lesion type Paroxysmal atrial fibrillation Artificial cardiac pacemaker</td><td> </td> 04/12/2021 05:36:00 PM EDT Artificial cardiac pacemakerParoxysmal a trial fibrillationCoronary artery disease involving [facility] heart without angina pectoris, unspecified vessel or lesion type [facility] Artificial cardiac pacemaker Paroxysmal atrial fibrillation Coronary artery disease involving [facility] heart without angina pectoris, unspecified vessel or lesion type BASIC METABOLIC PANEL CALCIUM TOTAL <td>BASIC METABOLI C PANEL</td><td>Routine</td><td>04/07/2021</td><td></td><td> </td> 04/07/2021 12:00:00 AM EDT [facility] TROPONIN QUANTITATIVE <td>TROPONIN I</td><td>Routine</td><td>04/05/2021</td><td></td><td> </td> 04/05/2021 12:00:00 AM EDT [facility] BLOOD COUNT COMPLETE AUTO&AUTO DIFRNTL WBC COUNT <td>C BC AND DIFFERENTIAL</td><td>Routine</td><td>04/05/2021</td><td></td><td> </td> 04/05/2021 12:00:00 AM EDT [facility] THYROID STIMULATING HORMONE TSH <td>TSH</td><td>Routine</td><td>04/05/2021</td><td></td><td> </td> 04/05/2021 12:00:00 AM EDT [facility] BASIC METABOLIC PANEL CALCIUM TOTAL <td>BASIC METABOLI C PANEL</td><td>Routine</td><td>04/05/2021</td><td></td><td> </td> 04/05/2021 12:00:00 AM EDT [facility] ECG ROUTINE ECG W/LEAST 12 LDS W/I&R <td>POCT AMB EKG</td><td>Routine</td><td>01/25/2021 3:44 PM EDT</td><td> Paroxysmal atrial fibrillation Essential hypertension</td><td> </td> 01/25/2021 03:44:00 PM EDT Essential hypertensionParoxysmal atrial fibrillation S [facility] Essential hypertension Paroxysmal atrial fibrillation XR CHEST PORTABLE <td>XR CHEST PORTABLE</td><t d>STAT</td><td>01/20/2021 2:41 PM EDT</td><td></td><td> </td> 01/20/2021 02:41:42 PM EDT [facility] EP STUDY <td>EP STUDY</td><td>Routine </td><td>01/20/2021 1:14 PM EDT</td><td> Nonrheumatic aortic valve stenosis</td><td> </td> 01/20/2021 01:14:50 PM EDT Nonrheumatic aortic valve stenosis [facility] Nonrheumatic aortic valve stenosis COVID/FLU AB/RSV PCR <td>COVID/FLU AB/RSV PCR</td ><td>STAT</td><td>01/20/2021 11:30 AM EDT</td><td></td><td> </td> 01/20/2021 11:30:00 AM EDT [facility] ECHO TTHRC R-T 2D W/WOM-MODE COMPL SPEC&COLR DOP <td>E CHOCARDIOGRAM TRANSTHORACIC</td><td>Routine</td><td>01/20/2021 8:45 AM EDT</td><td></td><td> </td> 01/20/2021 08:45:05 AM EDT [facility] BLOOD COUNT COMPLETE AUTOMATED <td>CBC</td><td>Timed</ td><td>01/20/2021 4:41 AM EDT</td><td></td><td> </td> 01/20/2021 04:41:00 AM EDT [facility] BASIC METABOLIC PANEL CALCIUM TOTAL <td>BASIC METABOLI C PANEL</td><td>Timed</td><td>01/20/2021 4:41 AM EDT</td><td></td><td> </td> 01/20/2021 04:41:00 AM EDT [facility] PROTHROMBIN TIME <td>PROTIME-INR</td><td>Rout ine</td><td>01/20/2021 12:21 AM EDT</td><td></td><td> </td> 01/20/2021 12:21:00 AM EDT [facility] MAGNESIUM <td>MAGNESIUM</td><td>Routin e</td><td>01/20/2021 12:21 AM EDT</td><td></td><td> </td> 01/20/2021 12:21:00 AM EDT [facility] XR CHEST PORTABLE <td>XR CHEST PORTABLE</td><t d>STAT</td><td>01/19/2021 1:48 PM EDT</td><td></td><td> </td> 01/19/2021 01:48:40 PM EDT [facility] PROTHROMBIN TIME <td>PROTIME-INR</td><td>STAT </td><td>01/19/2021 1:34 PM EDT</td><td></td><td> </td> 01/19/2021 01:34:00 PM EDT [facility] BLOOD COUNT COMPLETE AUTOMATED <td>CBC</td><td>STAT</t d><td>01/19/2021 1:34 PM EDT</td><td></td><td> </td> 01/19/2021 01:34:00 PM EDT [facility] MAGNESIUM <td>MAGNESIUM</td><td>STAT</ td><td>01/19/2021 1:34 PM EDT</td><td></td><td> </td> 01/19/2021 01:34:00 PM EDT [facility] BASIC METABOLIC PANEL CALCIUM TOTAL <td>BASIC METABOLI C PANEL</td><td>STAT</td><td>01/19/2021 1:34 PM EDT</td><td></td><td> </td> 01/19/2021 01:34:00 PM EDT [facility] ECG ROUTINE ECG W/LEAST 12 LDS TRCG ONLY W/O I&R <td>E CG 12- LEAD</td><td>Routine</td><td>01/19/2021 1:27 PM EDT</td><td></td><td></td> 01/19/2021 01:27:18 PM EDT [facility] TRANSCATHETER AORTIC VALVE IMPLANT FEMORAL <td>TRANSCA THETER AORTIC VALVE IMPLANT FEMORAL</td><td>Routine</td><td>01/19/2021 1:01 PM EDT</td><td> Nonrheumatic aortic valve stenosis</td><td> </td> 01/19/2021 01:01:00 PM EDT Nonrheumatic aortic valve stenosis [facility] Nonrheumatic aortic valve stenosis POC ARTERIAL BLOOD GAS W LYTES <td>POC ARTERIAL BLOOD GAS W LYTES</td><td>Routine</td><td>01/19/2021 12:48 PM EDT</td><td></td><td> </td> 01/19/2021 12:48:00 PM EDT [facility] POC ACT <td>POC ACT</td><td>Routine< /td><td>01/19/2021 12:47 PM EDT</td><td></td><td> </td> 01/19/2021 12:47:00 PM EDT [facility] POC ARTERIAL BLOOD GAS W LYTES <td>POC ARTERIAL BLOOD GAS W LYTES</td><td>Routine</td><td>01/19/2021 12:08 PM EDT</td><td></td><td> </td> 01/19/2021 12:08:00 PM EDT [facility] POC ACT <td>POC ACT</td><td>Routine< /td><td>01/19/2021 12:07 PM EDT</td><td></td><td> </td> 01/19/2021 12:07:00 PM EDT [facility] ECG TRANSESOPHAG R-T 2D W/PRB IMG ACQUISJ I&R <td>ECHO CARDIOGRAM TRANSESOPHAGEAL</td><td>Routine</td><td>01/19/2021 11:50 AM EDT</td><td></td><td> </td> 01/19/2021 11:50:45 AM EDT [facility] ROOM TEMP AB SCREEN <td>ROOM TEMP AB SCREEN</td> <td>Routine</td><td>01/19/2021 11:30 AM EDT</td><td></td><td> </td> 01/19/2021 11:30:00 AM EDT [facility] GLUC BLD GLUC MNTR DEV CLEARED FDA SPEC HOME USE <td>P OCT GLUCOSE</td><td>Routine</td><td>01/19/2021 9:41 AM EDT</td><td></td><td> </td> 01/19/2021 09:41:00 AM EDT [facility] THROMBOPLASTIN TIME PARTIAL PLASMA/WHOLE BLOOD <td>APTT</td><td>Routine</td><td>01/12/2021 2:20 AM EDT</td><td></td><td> </td> 01/12/2021 02:20:00 AM EDT [facility] BLOOD COUNT COMPLETE AUTOMATED <td>CBC</td><td>Routine </td><td>01/12/2021 2:20 AM EDT</td><td></td><td> </td> 01/12/2021 02:20:00 AM EDT [facility] BASIC METABOLIC PANEL CALCIUM TOTAL <td>BASIC METABOLI C PANEL</td><td>Routine</td><td>01/12/2021 2:20 AM EDT</td><td></td><td> </td> 01/12/2021 02:20:00 AM EDT [facility] THROMBOPLASTIN TIME PARTIAL PLASMA/WHOLE BLOOD <td>APTT</td><td>STAT</td><td>01/11/2021 8:29 PM EDT</td><td></td><td> </td> 01/11/2021 08:29:00 PM EDT [facility] CT ANGIO ABD&PLVIS CNTRST MTRL W/WO CNTRST IMGES <td>C T ANGIOGRAM ABDOMEN PELVIS</td><td>Pending Discharge</td><td>01/11/2021 7:49 PM EDT</td><td></td><td> </td> 01/11/2021 07:49:57 PM EDT [facility] CT ANGIOGRAPHY CHEST W/CONTRAST/NONCONTRAST <td>CT ANG IOGRAM CHEST</td><td>Pending Discharge</td><td>01/11/2021 7:49 PM EDT</td><td></td><td> </td> 01/11/2021 07:49:57 PM EDT [facility] DUPLEX SCAN EXTRACRANIAL ART COMPL BI STUDY <td>US CAR OTID BILATERAL</td><td>Pending Discharge</td><td>01/11/2021 3:40 PM EDT</td><td></td><td> </td> 01/11/2021 03:40:41 PM EDT [facility] BEDSIDE PULMONARY FUNCTION TEST <td>BEDSIDE PULMONARY FUNCTION TEST</td><td>Routine</td><td>01/11/2021 12:39 PM EDT</td><td></td><td></td> 01/11/2021 12:39:02 PM EDT [facility] THROMBOPLASTIN TIME PARTIAL PLASMA/WHOLE BLOOD <td>APTT</td><td>STAT</td><td>01/11/2021 11:26 AM EDT</td><td></td><td> </td> 01/11/2021 11:26:00 AM EDT [facility] ECHO TTHRC R-T 2D W/WOM-MODE COMPL SPEC&COLR DOP <td>E CHOCARDIOGRAM TRANSTHORACIC</td><td>Routine</td><td>01/11/2021 9:13 AM EDT</td><td></td><td> </td> 01/11/2021 09:13:42 AM EDT [facility] THROMBOPLASTIN TIME PARTIAL PLASMA/WHOLE BLOOD <td>APTT</td><td>STAT</td><td>01/11/2021 2:11 AM EDT</td><td></td><td> </td> 01/11/2021 02:11:00 AM EDT [facility] BLOOD COUNT COMPLETE AUTOMATED <td>CBC</td><td>Routine </td><td>01/11/2021 2:11 AM EDT</td><td></td><td> </td> 01/11/2021 02:11:00 AM EDT [facility] LIPID PANEL <td>LIPID PANEL</td><td>Rout ine</td><td>01/11/2021 2:11 AM EDT</td><td></td><td> </td> 01/11/2021 02:11:00 AM EDT [facility] BASIC METABOLIC PANEL CALCIUM TOTAL <td>BASIC METABOLI C PANEL</td><td>Routine</td><td>01/11/2021 2:11 AM EDT</td><td></td><td> </td> 01/11/2021 02:11:00 AM EDT [facility] THROMBOPLASTIN TIME PARTIAL PLASMA/WHOLE BLOOD <td>APTT</td><td>STAT</td><td>01/10/2021 7:25 PM EDT</td><td></td><td> </td> 01/10/2021 07:25:00 PM EDT [facility] CARDIAC CATHETERIZATION <td>CARDIAC CATHETERIZATION</td><td>Routine</td><td>01/10/2021 5:29 PM EDT</td><td> Nonrheumatic aortic valve stenosis</td><td> </td> 01/10/2021 05:29:04 PM EDT Nonrheumatic aortic valve stenosis [facility] Nonrheumatic aortic valve stenosis XR CHEST PORTABLE <td>XR CHEST PORTABLE</td><t d>Routine</td><td>01/10/2021 1:11 PM EDT</td><td></td><td> </td> 01/10/2021 01:11:53 PM EDT [facility] ECG ROUTINE ECG W/LEAST 12 LDS TRCG ONLY W/O I&R <td>E CG 12- LEAD</td><td>Routine</td><td>01/10/2021 12:40 PM EDT</td><td></td><td></td> 01/10/2021 12:40:22 PM EDT [facility] NT PRO BNP <td>NT PRO BNP</td><td>Routi ne</td><td>01/10/2021 12:33 PM EDT</td><td></td><td> </td> 01/10/2021 12:33:00 PM EDT [facility] TROPONIN QUANTITATIVE <td>TROPONIN I</td><td>Routi ne</td><td>01/10/2021 12:33 PM EDT</td><td></td><td> </td> 01/10/2021 12:33:00 PM EDT [facility] THROMBOPLASTIN TIME PARTIAL PLASMA/WHOLE BLOOD <td>APTT</td><td>Routine</td><td>01/10/2021 12:33 PM EDT</td><td></td><td> </td> 01/10/2021 12:33:00 PM EDT [facility] BLOOD COUNT COMPLETE AUTOMATED <td>CBC</td><td>Routine </td><td>01/10/2021 12:33 PM EDT</td><td></td><td> </td> 01/10/2021 12:33:00 PM EDT [facility] MAGNESIUM <td>MAGNESIUM</td><td>Routin e</td><td>01/10/2021 12:33 PM EDT</td><td></td><td> </td> 01/10/2021 12:33:00 PM EDT [facility] HEMOGLOBIN GLYCOSYLATED A1C <td>HEMOGLOBIN A1C</td><td>Routine</td><td>01/10/2021 12:33 PM EDT</td><td></td><td> </td> 01/10/2021 12:33:00 PM EDT [facility] COMPREHENSIVE METABOLIC PANEL <td>COMPREHENSIVE METABO LIC PANEL</td><td>Routine</td><td>01/10/2021 12:33 PM EDT</td><td></td><td> </td> 01/10/2021 12:33:00 PM EDT [facility] COVID/FLU AB/RSV PCR <td>COVID/FLU AB/RSV PCR</td ><td>STAT</td><td>01/10/2021 11:50 AM EDT</td><td></td><td> </td> 01/10/2021 11:50:00 AM EDT [facility] Results ID Date Data Source [id number] 04/17/2021 09:04:00 AM EDT [facility] ([facility]) Name Value Range Interpretation Code Description Data Dariela rce(s) Supporting Document(s) Laboratory test finding (navigational concept) Laboratory test result [facility] ([facility]) Will be doing Efudex. Has not received from pharmacy yet. [facility] Laboratory test finding (navigational concept) Laboratory test result [facility] ([facility]) Will be doing Efudex. Has not received from pharmacy yet. In[facility]ed [facility] and see [facility] going on with the script ID Date Data Source [id number] 04/05/2021 11:09:00 AM EDT [facility] Name Value Range Interpretation Code Description Data Dariela rce(s) Supporting Document(s) SARS-CoV-2 (COVID 19) NEGATIVE - SARS-CoV-2 (COVID19) [place] This lab was ordered by [facility] a nd reported by [facility]. ID Date Data Source [id number] 02/22/2021 11:48:28 PM EDT [facility] Name Value Range Interpretation Code Description Data Dariela rce(s) Supporting Document(s) &PDF [facility] YWMZUb1iXrAEOfWj11/CZOsoYZTpf8CgDQeoEVs6ODluBRWcJ0ImzWbjCNgVCTtUQ2KkGhfJIYDZTEZX 0b3 DxJLHeZsWJjEL7OG3pKEIhjcWhbpA2lH3zNK5YMCC+Cx7WJH5bl7NqMIn0MHKqb9TdZWrvARp1B3CsgG OgtoXdQsfehGWDNVWsMBYiF1vzjhe2rCNfHXVnNe8TPkLmq9YmNMOeHQsLdg1ynZ4cerI+XqD/gUDR1g GiE1+CPpYTYQi00wAnIBuaeUvr6TicxAzu9rnZlUs8 68slubccZsXcC+fqpnGMSGNy5+E8M+TwbZcQ/+dfZKQVpZS0/21+1TyT0Tz1+U+sjnr6ikt/s9JKEVDc TbV/bB1w2G5boLDvv63trloY+KnENfB2ecEN8AlHAc512qnY/4KXkToNCCggMRaEL89PkytVlo595Wyb xQaWfupEVXmJAOnCV+28ojMAnrBBIYr2SpPZVafkEo XC9MQAItl/iYRNEnh6Q/Ei9+hfcqASFlIoVtlSBkWVFWso/aAIvDeVtXtg8GlzdDBOBz4O+DFpsIHiKa jMsfTe7aP6lRLit3aq54N3zVF3nf7idRvC4zFluM4A4Jqacq6Lvx53qF779gkgPQGsXgsq5rkzzNtic2 uaEztMrBpyVVa/7a3UWHvqo4i/USPDMkEN7d2kHcX0 t5YSCTQVAT7JNgqWvCPytm7WzZ5M3UotN+clZLDFlpULPziZFhmMI70Z6q2LyXjA/tQkiEHy1ucUw4CG 5UDN5YzHIMja+DhVxIT7pfdZUwS5orEWJaqy0KggWgqawSw5w1QGqpMnFiVKjEtk66hGIeH6pIlXxR0C OESFyBaHhQ6XzW5KY6QN4dXmJg8MR70jPnIzpV+Lili [file] IG3sXwvXazQETW1c4kik3ZaCoVGifDB5SLf2Rq/Jose Roberto [file] RmxhdGVEZWNvZGVdDQo+Vz6Bb4UjNNOhLHyDpFOtCTEoNtHOHHHc/5+HxBV++f//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 [file] ICAgICAgICAgICAgICAgICAgICAgICAgICAgICAgICAgICAgICAgICAgICAgICAgICAgICAgICAgICAg ICAgICAgICAgICAgICAgICAgICAgICAgICAgICAgIC AgICANCiAgICAgICAgICAgICAgICAgICAgICAgICAgICAgICAgICAgICAgICAgICAgICAgICAgICAgIC AgICAgICAgICAgICAgICAgICAgICAgICAgICAgICAgICAgICAgICAgICAgICANCiAgICAgICAgICAgIC AgICAgICAgICAgICAgICAgICAgICAgICAgICAgICAg ICAgICAgICAgICAgICAgICAgICAgICAgICAgICAgICAgICAgICAgICAgICAgICAgICAgICAgICANCiAg ICAgICAgICAgICAgICAgICAgICAgICAgICAgICAgICAgICAgICAgICAgICAgICAgICAgICAgICAgICAg ICAgICAgICAgICAgICAgICAgICAgICAgICAgICAgIC AgICAgICANCiAgICAgICAgICAgICAgICAgICAgICAgICAgICAgICAgICAgICAgICAgICAgICAgICAgIC AgICAgICAgICAgICAgICAgICAgICAgICAgICAgICAgICAgICAgICAgICAgICAgICANCiAgICAgICAgIC AgICAgICAgICAgICAgICAgICAgICAgICAgICAgICAg ICAgICAgICAgICAgICAgICAgICAgICAgICAgICAgICAgICAgICAgICAgICAgICAgICAgICAgICAgICAN CiAgICAgICAgICAgICAgICAgICAgICAgICAgICAgICAgICAgICAgICAgICAgICAgICAgICAgICAgICAg ICAgICAgICAgICAgICAgICAgICAgICAgICAgICAgIC AgICAgICAgICANCiAgICAgICAgICAgICAgICAgICAgICAgICAgICAgICAgICAgICAgICAgICAgICAgIC AgICAgICAgICAgICAgICAgICAgICAgICAgICAgICAgICAgICAgICAgICAgICAgICAgICANCiAgICAgIC AgICAgICAgICAgICAgICAgICAgICAgICAgICAgICAg ICAgICAgICAgICAgICAgICAgICAgICAgICAgICAgICAgICAgICAgICAgICAgICAgICAgICAgICAgICAg ICANCiAgICAgICAgICAgICAgICAgICAgICAgICAgICAgICAgICAgICAgICAgICAgICAgICAgICAgICAg ICAgICAgICAgICAgICAgICAgICAgICAgICAgICAgIC AgICAgICAgICAgICANCjw/dXBhY5cwrPTzqvR4M4yoPg4REe7FRX0cs1BcXVZoAZyndgQvMegRLzNgMX DnCkjEAdp4KBobTF2VjQRlV7AbQ2OxBNiwTQ9KEJKvBWPlzAVnKPJqQVCcUdE9JBAvJXtgSL7BiOVuMC wzXXUyGABjKjWiRRAxYMRkNIVbVD7WPLYfD498jkXl Oq2OAj4HHzPnKG9pkn6GKyJwBOJlQjlYTlr8WKtyPP9FlPUmP2YqtIZbu0eYEfQhI1BDHDXxMJRjCs3H UBXyCxNaYLSsYCfaLW1eILIwFZPYxJcjhfS7XT1LGD3nueUkLJ8IXgUiNa7lQp5ZUdFkI7SdM5PkWPCl OZYHHJijBU9CTVDeYQN6GJYpCEVeUAWLOlFiR17aFI 0CV8Mmn73mIdD8CVCmBeKgKIhhLB02oDqenxNbcPBvzEurFK6CVc7+DQplbmRvYmoNCnhyZWYNCjAgMz HWQaXjPDNaXVWiJLTnTnN5IjQyWs2RSCWaTSVfITRgHyDmQFVvOIZrDGznZOEfMFLnRFh9DVCqCXOpJF 6PXqKvKARfSrR5ACvbWOUnZJKylm7KLWQsESRxXAW7 MAVcNQZbLUMaCYijWSIbIBYlUTU3BKSnQTLpLM9DLeKjYERrHODoCCGmTFAtPPFfog2DHCFuSFCnHjB5 NoUbVTPcCVXcXAfjMONhEBT7EAM6YYXkVEJqAU5BQqJbXOFfJNn5FzDxGGTcNXAtck1VHZOiQYIiUNv6 TLLeHNMgYAGaIEoxLAOxXMZiDjQ5RKMvKBBkBR7XLy KrXFZjMAR2LhQiLASvBVIhal0NTJWdILRbQGSvIVShSHLiXVOqXLhlIICvAWQsUQK8CETiBLKtOO8DAc DtZWNjGGNnMkZeFKRmHOAbxn8VSHGyMDRdHxK1YPNcHDMjMODaEAgrQOLpAXA7HnU4PETyQXVyAD6YHu KeLHVeAVj6WdIxNDVaHZCjbt4ZMSNuIUOiAft0RbOb CMHcVOOrJYeiENVpCZH1WVtmNGTxLCKfCX3ZIyMbVTPsIAnjVbAmZZKeHAXajq1XCRSzGCDqJDE8LeSi SBOgQLCdFPvlBSTuQZG5ZbB3FORmEIMeKQ2VXiYwACTkRWd6ErAaHRFcVAVbdj8OIBSgEIAsTEW2RuUd VHVvIJKhJXtnZZDyGCNyWtR6NVOpXTUtYD7QKiMrDS AmVrP3KyXuELVpMJIfhq0VDIQvWAWwUOE2SeUoQQNoLUVhSMocNKDeNWTgNYY3HOIgWOGyQS8YNhUcLZ DxQxP1UAztVMGbQBZodw7NXNZvVEJiRfN1TMLkNYOpRZWuXNnxEPIgSNXwAsO3TDNdOFEmES5VZhOhPJ WbEfW0HdJxVZIzSGLojc0MBFFrTYLgWqFsXCJoUWPh ENZaODynPTOyUKI0OMT9WBEtJYNmPU6NBjVoUHtqRVJBPbi5OHrvD0l7ULLiYu2SM9Rcp4LfQxAdCFWX TOpnJW7slvHlNPNmCy4YQ1yKXhmrBdE0XvQiLKi0HTI3LrSoKuh4IjVpCbS8KtMyVKOoCo4sFVIpDerm V4S8UTj3IHWwFCEhRqQaN5H5OPVeSYO5TRGrHqXd AC4TLl9DAzG7JCY8cJBjMi6JLvM0PIOSTqIqPB1SYCs= ID Date Data Source [id number] 01/20/2021 07:07:15 PM EDT [facility] NT INFORMATIONPatient MRN Name Date of Age Gend*PT [id number] Young Martinez 1940 80 years M IPPT Location Admission Date/Time Visit ID Attending [id number] 01/19/2114 --- Terry Luna MD([id number]) EPI ID CSN Admitting Provider [id number] Terry Luna MD([id number])DISCHARGE SUMMARYAdmission Date: 01/19/2021ischarge date: 01/20/21PRINCIPAL DIAGNOSIS: Severe aortic stenosis post successful TAVRCURRENT [id number] man Rastafari And paroxysmal atrial fibrillation on Eliquiswho recently was admitted with non-STEMI and found to have critical aorticstenosis and single-vessel borderline coronary artery disease. Anechocardiogram showed mild to moderate mitral stenosis and critical aorticstenosis with a peak gradient of 125.HOSPITAL COURSEThe patient received a transcatheter aortic valve replacement with a 26 mmSapien 3 ultra valve. 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 Soonafter he recovered sinus rhythm but with persistent left bundle branch block.He was seen by electrophysiology and received dual-chamber pacemaker. He is nowstable and vitals are stable. An echocardiogram showed Low normal systolicfunction with a mean aortic valve gradient of 10 and no aortic insufficiency.TODAY'S PHYSICAL EXAM:BP 123/56 | Pulse 63 | Temp 97.7 F (Oral) | Resp 18 | Ht 1.676 m (5' 6") |Wt 61.6 kg (135 lb 12.9 oz) | SpO2 100% | BMI 21.92 kg/m Alert and oriented. Lungs are clear to auscultation heart sounds are normal S1and S2 with faint short systolic ejection murmur.SIGNIFICANT DIAGNOSTIC DATA:Results from last 7 daysLab Units WBC 10*3/uL 10.0HEMOGLOBIN g/dL 11.0*HEMATOCRIT % 33.1*PLATELETS 10*3/uL 274Results from last 7 daysLab Units ODIUM mmol/L 141POTASSIUM mmol/L 4.8CHLORIDE mmol/L 109*CO2 mmol/L 27BUN mg/dL 16CREATININE mg/dL 0.53*GLUCOSE mg/dL 97CALCIUM mg/dL 7.4*DISCHARGE MEDICATION LISTYour medication listSTART taking these medications Instructions Last Dose Given Morning Afternoon Evening Bedtime As Neededamoxicillin 500 MG capsuleCommonly known as: AMOXILNotes to patient: Prior to dental appointments Take 4 capsules (2,000 mg total) by mouth once for 1 dose Take 4 tabs beforedental visitsmetoprolol succinate 25 MG 24 hr tabletCommonly known as: TOPROL-XL Take 1 tablet (25 mg total) by mouth daily7/24CONTINUE taking these medications Instructions Last Dose Given Morning Afternoon Evening Bedtime As NeededArtificial Tears 1.4 % ophthalmic solutionGeneric drug: polyvinyl alcohol Administer 1 drop to both eyes daily01/21ascorbic acid 1000 MG tabletCommonly known as: VITAMIN C Take 1,000 mg by mouth daily01/21Aspirin Low Dose 81 MG tabletGeneric drug: aspirin Take 81 mg by mouth daily01/21Carbonyl Iron 15 MG Chew Chew 30 mg daily01/21cholecalciferol 25 MCG (1000 UT) capsuleCommonly known as: VITAMIN D3 Take 1,000 Units by mouth daily01/21Eliquis 5 MG Tabs tabletGeneric drug: Apixaban 5 mg 2 (two) times a day01/20famotidine 20 MG tabletCommonly known as: PEPCID Take 10 mg by mouth daily01/21Fish Oil 1200 MG Caps Take 1,200 mg by mouth daily01/21MAG-CAPS PO Take 133 mg by mouth daily 2 tabs01/20prednisoLONE acetate 1 % ophthalmic suspensionCommonly known as: PRED FORTENotes to patient: 01/22 Administer 1 drop into the left eye every other day01/22predniSONE 10 MG tabletCommonly known as: DELTASONE Take 12.5 mg by mouth daily01/21PreserVision AREDS 2 Caps Take 1 capsule by mouth 2 (two) times a day01/20sodium chloride 5 % ophthalmic ointment Administer 1 drop to the right eye 2 (two) times a day01/20Synthroid 112 MCG tabletGeneric drug: levothyroxine Take 112 mcg by mouth daily01/21Where to Get Your MedicationsThese medications were sent to [facility] [address] [place] [address] - [facility] [address] [address] amoxicillin 500 MG capsule metoprolol succinate 25 MG 24 hr tabletSignature: Terry Luna, MDDate: January 20, 2021Time: 7:04 [facility]: Dr. Neely document or parts of this document, were dictated using [employer] software. A reasonable attempt at proofreading has been made tominimize errors. Please call with any questions or corrections. Name Value Range Interpretation Code Description Data Dariela rce(s) Supporting Document(s) ID Date Data Source [id number] 01/20/2021 02:48:20 PM EDT [address] [id number] Name: YOUNG WELLEROB: 1940Sex: MOrdering Provider: MURPHY MCKENZIEuthoj Prov: MURPHY Mofermatthew Provider: Procedure Performed: / XR CHEST PORTABLEExam Date: 01/20/2021 14:41MRN: [id number] Number: [id number] Class: InpatientAccount #: [id number] for Exam: ppmTechnique: AP portable view obtained.Comparison: Portable chest x-ray January 19, 2021Findings: Slowly improving consolidation is seen bilaterally. New atrial ventricular pacemaker in good position. No pneumothorax identified. External to internal pacemaker has been removed. There is an aortic valve cage prosthesis. The heart size looks normal. There is no free air beneath the diaphragms. Degenerative changes are seen in the shoulders.IMPRESSION: New atrial ventricular pacemaker in good position. No pneumothorax identified. Better aeration compared to the prior study. Follow-up should be determined clinically.Report electronically signed by: HERMINIA WASSERMAN On 01/20/2021 2:48 PMWorkstation ID: [id number] Name Value Range Interpretation Code Description Data Dariela rce(s) Supporting Document(s) ID Date Data Source [id number] 01/20/2021 01:25:15 PM EDT [facility] Name Value Range Interpretation Code Description Data [facility] rce(s) Supporting Document(s) &PDF [facility] LZLSQi8fTcJUDhFz83/ESSemKTIbo6UaOWbsGKr0ZHqfFYHoM1LwyOqkBPyHSUfYX2RbQwmRNCWGODVO 0b3 [file] [id number] ID Date Data Source [id number] 01/20/2021 11:30:00 AM EDT [facility] Name Value Range Interpretation Code Description Data Dariela rce(s) Supporting Document(s) SARS coronavirus 2 RNA [Presence] in Res piratory specimen by ELENA with probe detection NOT DETECTED [facility] This lab was reported by [facility]. ID Date Data Source [id number] 01/20/2021 01:08:17 PM EDT [facility] Name Value Range Interpretation Code Description Data Dariela rce(s) Supporting Document(s) SPECIMEN DESCRIPTION [facility] INFLUENZA A (NEG) [facility] INFLUENZA B (NEG) [facility] RSV (NEG) [facility] COMMENT [facility] THE [place] FDA HAS MADE THIS TEST AVAILABL EUNDER AN EMERGENCY USE AUTHORIZATION(EUA) FOR THE DETECTION AND/OR DIAGNOSISOF THE VIRUS THAT CAUSES COVID-19.PERFORMED AT [address] [place] [id number] COVID19 RESULT (NDET) [facility] THIS ASSAY AMPLIFIES AND DETECTSTHE TARG ET RNA USING REAL-TIME PCR.TESTING PERFORMED ON CEPSTYLHUNTID GENEXPERTNEGATIVE 2019_NCOV RT-PCR RESULTS DONOT PRECLUDE 2019_NCOV INFECTION ANDSHOULD NOT BE USED THE SOLE BASISFOR PATIENT MANAGEMENT DECISIONS. FIRST TEST [facility] EMPLOYED IN HLTHCARE [facility] SYMPTOMATIC [facility] DATE OF SYMPT ONSET [facility] HOSPITALIZED [facility] ICU [facility] CONGREGATE CARE SET [facility] ID Date Data Source [id number] 01/20/2021 10:26:43 AM EDT [facility] Name Value Range Interpretation Code Description Data Dariela rce(s) Supporting Document(s) &PDF [facility] [id number]/IQQyfIFFfj6FzAWmyPRk1ZKwbRHXxL9GlgYzbVHhSMFeFH3KjVsqFQVUIXYDE 0b3 [file] q1TI3CM5wquM1NEVD/Angela/f5znsMzMeiW6HVlAGLwnyQ/Ac7zr4mddBUb6Il/JkJQN6a9rcuDv0WLlRM /DYx3a7EwOuPq2oe585mLmBKnFN9vMDHxRslAMTY/Zw7yl0ysWiAutMEInGWxYhJ90iXEuQnODPHc5Ch lbRT0XVkM9iFxR8h8vlWT86hUUPfXUtOHoLkichH8j h4eiRg5GhB8qcUKCdzudpN2a+BQ7cSAuYkK1Wj/jYCr3jxUnqAyapg6yTUDEUOGw/FL8pkwcFM9aTHkc oO/5HH9/5icQeIq/uU1neQh1J9Gt6f6qrZW8BjurgUJgS0i4454FfR6gFLlrkvFi8JB2t5OcapU5oLsz oBOSLJ0ecvbNJVIF68gep7nBMGzAaZra3G28KzcaKJ 9pxcZbZ/cxu8ZXtFic+9RdU/SA5+g3ghzvH3y8w+cCZouUaI7giJDiJl+WCN7/7eQSbVf0sOgHQlv3ck RaZ6MhFgEgMdOt5hRhC/+5XTDTatBuq75WfZU5WbZvDA1mQbxl000nd2GdnFnpD2GTDJBjCO9goJ3AGn B+ct scan special procedures technologist+IT1d3umHPB43Auae5y+f7Ftv6dWEwAyx7C23 [file] ICAgICAgICAgICAgICAgICAgICAgICAgICAgICAgICAgICAgICAgICAgICAgICAgICAgICAgICAgICAg ICANCiAgICAgICAgICAgICAgICAgICAgICAgICAgIC AgICAgICAgICAgICAgICAgICAgICAgICAgICAgICAgICAgICAgICAgICAgICAgICAgICAgICAgICAgIC AgICAgICAgICAgICANCiAgICAgICAgICAgICAgICAgICAgICAgICAgICAgICAgICAgICAgICAgICAgIC AgICAgICAgICAgICAgICAgICAgICAgICAgICAgICAg ICAgICAgICAgICAgICAgICAgICAgICANCiAgICAgICAgICAgICAgICAgICAgICAgICAgICAgICAgICAg ICAgICAgICAgICAgICAgICAgICAgICAgICAgICAgICAgICAgICAgICAgICAgICAgICAgICAgICAgICAg ICAgICANCiAgICAgICAgICAgICAgICAgICAgICAgIC AgICAgICAgICAgICAgICAgICAgICAgICAgICAgICAgICAgICAgICAgICAgICAgICAgICAgICAgICAgIC AgICAgICAgICAgICAgICANCiAgICAgICAgICAgICAgICAgICAgICAgICAgICAgICAgICAgICAgICAgIC AgICAgICAgICAgICAgICAgICAgICAgICAgICAgICAg ICAgICAgICAgICAgICAgICAgICAgICAgICANCiAgICAgICAgICAgICAgICAgICAgICAgICAgICAgICAg ICAgICAgICAgICAgICAgICAgICAgICAgICAgICAgICAgICAgICAgICAgICAgICAgICAgICAgICAgICAg ICAgICAgICANCiAgICAgICAgICAgICAgICAgICAgIC AgICAgICAgICAgICAgICAgICAgICAgICAgICAgICAgICAgICAgICAgICAgICAgICAgICAgICAgICAgIC AgICAgICAgICAgICAgICAgICANCiAgICAgICAgICAgICAgICAgICAgICAgICAgICAgICAgICAgICAgIC AgICAgICAgICAgICAgICAgICAgICAgICAgICAgICAg ICAgICAgICAgICAgICAgICAgICAgICAgICAgICANCiAgICAgICAgICAgICAgICAgICAgICAgICAgICAg ICAgICAgICAgICAgICAgICAgICAgICAgICAgICAgICAgICAgICAgICAgICAgICAgICAgICAgICAgICAg ICAgICAgICAgICANCjw/hGIaP8lzrFAmedO9B9qgMe 1PDu6EKU9tj1OxIZYlSTqgzqBiGjyHTuAxCEPpOhwLEke9APvnMU3FaMCuI9MrD4JhQSgiWZ1MQVWwRJ KkyWVuWFNgGATzLjQ6GOBdNHphAN6McXQlUModSUSsUHGgJrDmTLXoNZSuZRXhAASlFHWAQK9WAgLfH3 QcpL19ZBCXWa9+JXsifhIvEnnFLpQrWEFbz6WbOBl5 HO4FFVOaTOerQF4ICRXbtZ3yXLnjFS2DMgE3ZWLnYACKOxYaW88kgMEuOQv1O2FkQiLtUWTeOvsvTFFq PDwvTmFtZXMgWyBdDQogID4+ID4+OYutWS6OIYjxgyOmPNMqVd3HDEBaOOD2HGZezQXbYLAvFLBCOAso ZQ2LdHXiEEE0bB2rUIwoJYGnIWOrS2yNMlBuxRrtFZ 51bGwgbnVsbCBdDQo+Vy6DUC6eq6NxMHl3hgZwYUdaMTIwFHhwNKAqGAJjHWJgKAK3FQN8BIFKHwIeYK KcBTFvQNgeGOObKMGoga2ALQCiTSX2BPr0YdGnESFlDPYqIAjzFYUeWOyaIPw6MVXnXZMzVR8CYwQeJL UkQSRcGTSoIVKqJRVoim9SHRXdGTHnXyT4YAXxJUZr WPYbFUfaGUQyDZAuMSu0ODWaCSYyJT4XTmGjGGYwAXT8LUudXRZcIECypl4AIYWvZOPsDKE5NuSdEMZu YKCzWBbwLOCwMLM5JPFrGHMyUZWpPX1RTaLiPKTzAFx8NSYsTIGqKSGpbi0TRAAoSBBgLAjsEQEcRPDm LXGdXEzxVBWcJZD5OOV0JSByWJHiGV7QXbNzHSBtBI d2SnZrGRKwUVInlb4HWYKbTHEgFRL0JkTuJEPtLOCxZWrkPPYdOTQlVaY5ZFRuMMAaTO6CYtYmUFSoWA CmJEFzCDPoECSxhj6DSGSuZGZwKUXnXkRmHJMvIEBgICylHBJlBSCvVnI9KMJgLOSeRE3KAxIjMRFfWE T2BvGiSCDbFJDtyz7CRUQjQQWgLun1ITFvEPSwBTUz IEigRTSbKSSlPAF6TWJwKZMkUC3SJpLeWWKuZYAtBZMxKBByPRNpde5BAFAdLGKcABSeAxAwYDXhVYPg KRsyERXiUYE1Vka5IYHjHQHrVM6WWbKeFQAlRMf6SDFoFTLhXXFndo8DDODrONAxGwcnYqMsZHKnYSDs IPadLZVgIXR4LXE6RKAxSBQkXU5POdZhMOVeFoB2OZ MaTLQzJWTcet6XMZDqHAXfPZVsOLTtBKHoRJTiFTnjVGOtWJMbFtkkIQFgULGzZY5TAsCbNDZdGfH5Dh YwKUXrKLDgwq9KUOTwPNB0NPSiXdDgCGKgAVJsBUdgQDMdBLDpRqH7NHOfHHQxLO4LDwEpNNDnZCFoPG IrPXLqEDEkjb7CXCSpAED1BNbpPPDsOAQvWXGtUStj EGJrSQJ7QCWqOOYoUBUiMY6XLcPbYSIxIPxfDQdsBCJeSUEaaf4ZCKNrQOP9QemqTKTuFUEzSABjQAyz IOAnVJG5NQz3ZGEuLQHuEF7HKxQpYGIvJjS9URPfNLIsTRDnle3NSVDmWVQ5BKU8BEAsTJXkNSWcGBym SMHvEGraKGMcCZNtMTKsYF4LRvLlLXfdKZWURuq4PD pyK9n7ANK1Vw3QU6Xpn4BiJTFoWUQLXRodHF6lrcTcPZZtCf7KU5oIOlt6QCY9CGT9ZnK0JnGrWMJ6Ov dzFwCuHvJ0KiZ5PlGqBm2vGIlpHnm5UTEvHjIkMuR4KEAuZCScV3SmQps4FIf6NNJmGtIcPW0JOm2FWv D0OOT8cHDpNk2VEzSwHUzKYoIyHZ3ZLOv= ID Date Data Source [id number] 01/20/2021 05:43:10 AM EDT [facility] Name Value Range Interpretation Code Description Data Dariela rce(s) Supporting Document(s) SODIUM 141 mmol/L (136-145) [facility] POTASSIUM 4.8 mmol/L (3.6-5.2) [facility] CHLORIDE 109 mmol/L (100-108) H [facility] CO2 27 mmol/L (22-31) [facility] ANION GAP 5 mmol/L (7-16) L [facility] UREA NITROGEN 16 mg/dL (7-24) [facility] CREATININE 0.53 mg/dL (0.80-1.30) L [facility] BUN/CREAT RATIO 30.2 RATIO (10.0-20.0) H [facility] GLUCOSE 97 mg/dL (70-99) [facility] CALCIUM 7.4 mg/dL (8.4-10.2) L [facility] GFR >60 ml/min/1.73m2 (>59) [facility] GFR ( AMER) >60 ml/min/1.73m2 (>59) [facility] GFR INTERPRETATION [facility] --NORMAL KIDNEY FUNCTION OR MILD DISEASE - GFR >OR= 60CHRONIC KIDNEY DISEASE - GFR 15 - 59RENAL FAILURE - GFR <15 Est. GFR calculation based on the MDRDstudy equation, which assumes a steadystate for creatinine. Est. GFR should notbe used for medication dosing. ID Date Data Source [id number] 01/20/2021 05:21:33 AM EDT [facility] Name Value Range Interpretation Code Description Data Dariela rce(s) Supporting Document(s) WBC 10.0 10*3/uL (4.1-11.0) [facility] RBC 3.95 10*6/uL (4.60-6.10) L [facility] HGB 11.0 g/dL (13.5-18.0) L [facility] HCT 33.1 % (41.0-53.0) L [facility] MCV 83.8 fL (80.0-95.0) [facility] MCH 27.9 pg (27.0-32.0) [facility] MCHC 33.3 g/dL (32.0-36.0) [facility] RDW 15.3 % (10.5-14.5) H [facility] PLT 274 10*3/uL (150-450) [facility] MPV 7.5 fL (7.1-10.7) [facility] ID Date Data Source [id number] 01/20/2021 01:27:57 AM EDT [facility] Name Value Range Interpretation Code Description Data Dariela rce(s) Supporting Document(s) MAGNESIUM 2.5 mg/dL (1.7-2.4) H [facility] ID Date Data Source [id number] 01/20/2021 01:19:17 AM EDT [facility] Name Value Range Interpretation Code Description Data Dariela rce(s) Supporting Document(s) PT 11.5 s (9.2-11.9) [facility] INR 1.10 [facility] SUGGESTED THERAPEUTIC RANGES USING INR F ORSTABILIZED ANTICOAGULATED PATIENTS:STANDARD DOSE THERAPY INR 2.0-3.0 DVT, PE, PREVENT DVT OR EMBOLISMHIGH DOSE THERAPY INR 2.5-3.5 PREVENT EMBOLISM FROM MECHANICAL HEART VALVE ID Date Data Source [id number] 01/19/2021 06:19:06 PM EDT [facility]FORMATIONPatient MRN Name Date of Age Gend*PT [id number] Young Martinez 1940 80 years M ---PT Location Admission Date/Time Visit ID Attending Provider --- --- --- --- EPI ID CSN Admitting Provider [id number] ---STRUCTURAL HEART TEAM RECOMMENDATIONSPatient Name: Young MayeraceDate of Conference: January 18, 2021Team Members Present: Dr. Kalia Hyde, Dr. Nile Brandt, Dr. Arian Post,Dr. Jesus Walden, Dr. Christine Lopez, Dr. aSnti March and Dr. Stevie Yang Risk ScoreSTS Score: 4.1%TAVR Risk ScoreTAVR Score: 1.8%Co-Morbidities:Past Medical History:Diagnosis Date Arthritis Atrial fibrillation Essential hypertension 01/10/2021 normally low bp Fuchs' corneal dystrophy 01/10/2021 GERD (gastroesophageal reflux disease) Heart murmur Hyperlipidemia Hypothyroidism Nonrheumatic aortic valve stenosis 01/10/2021 PAD (peripheral artery disease) Patient is Rastafari 01/10/2021 PONV (postoperative nausea and vomiting) x 1 with corneal transplane StrokePast Surgical History:Procedure Laterality Date CARDIAC CATHETERIZATION N/A 01/10/2021 Procedure: Left heart cath; Surgeon: Terry Luna MD; Laterality: N/A; CARDIAC CATHETERIZATION N/A 01/10/2021 Procedure: Right heart cath; Surgeon: Terry Luna MD; Laterality: N/A; CARDIAC CATHETERIZATION N/A 01/10/2021 Procedure: Coronary angiography; Surgeon: Terry Luna MD; Laterality:N/A; CARDIAC CATHETERIZATION N/A 01/10/2021 Procedure: Left ventriculography; Surgeon: Terry Luna MD; Laterality:N/A; CATARACT EXTRACTION, BILATERAL Bilateral 2009 CORNEAL TRANSPLANT TONSILLECTOMYRisk Level: IntermediateValve Team Recommendations: TAVRRationale: The patient's case was discussed at the multi-disciplinary structuralheart conference. The patient has been experiencing fatigue, shortness of breathand angina. He had a cardiac catheterization that revealed borderlinesingle-vessel CAD. He had an echocardiogram that revealed critical aorticstenosis with a MG of 80 mmHg. Given the patient's age and co-morbidities theteam agrees that the best treatment for his severe aortic stenosis is TAVR. Heis tentatively scheduled for 01/19/21.Signature: Kelsie Sotelo, JUAN PABLODate: January 18, 2021Time: 6:15 PM Name Value Range Interpretation Code Description Data Dariela rce(s) Supporting Document(s) ID Date Data Source [id number] 01/19/2021 03:03:14 PM EDT [facility] Name Value Range Interpretation Code Description Data Dariela rce(s) Supporting Document(s) &PDF [facility] [id number]/ZIDxaGLXwx1YxKMvqCSz4OBvjRAJbG0PheQtpDTvFTYyBX2VpRinTDRQQPWTR 0b3 [file] ICAgICAgICAgICAgICAgICAgICAgICAgICAgICAgICAgICAgICAgICAgICAgICAgICAgICAgICAgICAg VVWfJLAuWRWpLOJcEZSxJU2DZTLxLNUbSPKmGNXpGU AgICAgICAgICAgICAgICAgICAgICAgICAgICAgICAgICAgICAgICAgICAgICAgICAgICAgICAgICAgIC BnCBVtDVOnIEHmREYuEHGkNQAlDFAwDTXyLR3NOVGoUNFnHETmPLUmHFSqXRUcYPJyYVOaTVVtTVHhKX AgICAgICAgICAgICAgICAgICAgICAgICAgICAgICAg YQTrGIZlVTTrCVWnQXTaPIKmUJNpGTEeMRQhMCViYRCgBJKtPQ9HVVToLJKjGQPnAOXsSOXmYVHvUWUf ICAgICAgICAgICAgICAgICAgICAgICAgICAgICAgICAgICAgICAgICAgICAgICAgICAgICAgICAgICAg PUArMMElVIMcZHYhIAGnKXHfSR7USCWiBESfCKCwOM AgICAgICAgICAgICAgICAgICAgICAgICAgICAgICAgICAgICAgICAgICAgICAgICAgICAgICAgICAgIC XqVVSpTNScZJIyZARzJAXmYZWfTCNjAQXjNEJhLB7KNGMrEXOjRCJxITWsINJdHAFlANIfZFCgNJEvWU AgICAgICAgICAgICAgICAgICAgICAgICAgICAgICAg QHEbSESnWQInQJFaPVYmZTHaKMFjUZWlQNRpJBJcFQDcODHlIKBnKI1VZNCdQOUbNVGhYWLrKQMpZPRl ICAgICAgICAgICAgICAgICAgICAgICAgICAgICAgICAgICAgICAgICAgICAgICAgICAgICAgICAgICAg QVVxMTGrHJJcUXSaGUPjAQNyKUKdLA7LFWBiVGRxST AgICAgICAgICAgICAgICAgICAgICAgICAgICAgICAgICAgICAgICAgICAgICAgICAgICAgICAgICAgIC KuDCEkYKAiCOQhORLuBOTyLFQeUZJhEMXyEFNaROMkQN0ASJMjUOVfRDAlFGYwAJLqAVHdZXIsHILmBZ AgICAgICAgICAgICAgICAgICAgICAgICAgICAgICAg LXWfZCHyNEUfZUEpKLQdILSbKPVfCYVbUZUfJEJwNRDxHGPvLFSwWHPqHK6PYLRtYPJcJDYqIEJaQWRp ICAgICAgICAgICAgICAgICAgICAgICAgICAgICAgICAgICAgICAgICAgICAgICAgICAgICAgICAgICAg NHSjXTUaQVBgXYCzJCYzAUDeTEVqQWTlBP4JHP24pM Wgd5G5IZDiYO7hbmg/Fg3XGUeadzGmqXOrAG5HJlGsPY9vsi4ZRuXjEK0sjc3GJKvTZcLuQ0C7pAPaGZ RwTRCYCiUbF20rMZejIs80WMbwOZIqPbWbBOb2Gn7RSxBmI2ilYGXdNlZ4FGXiExWjJCenNL4Kw8MvlA AxDQo+Cv1VIN6hy6DjVQoqSTOrJP0aku8LGSvPDiNz G4V0nZYeI4I1ZExwGp2ZDSKaRHZjSBzhIAPERYdgKS3PRX5qzwP0LL5UvQZhWTQvYFZgoNFbTTy2F62n rYDyRGwtIT4WKUC+Himanshu+Mc5HJUSrPNXgAEDkRuIzLGVGGfCaE57cxHKwVEWfGMJ2HOBmCm0NBORnV4Jb brKqcLvcwpHrPSYhVTEORG5ALTfmxwWcgWEtdVsvMN 55mBhyKD0ERf5ZUmYwIL9alu4SiNZhIe4ZICVvQD0DFRHsEKSwXHCuTNY8PIDjJkIuEZnhGUCwSPXjNT L8CVLiRULwKN2OXkLqUUEsGUEyKEAgSAVuEEZezv0AOOZkVSEfEpe4OqJjDAVoGTJoLLedMTSlJYQuJH j7TNKxPVBjHQ8UEnQyYYZkNTUyPjOiEPXxQOUgww8N AXOdUVVjOzZgTxUpOAHgCSLnWGicDBVsIDAgELa9KCEvCCUaLC7GEkGwFBGhZQH1MYCyEXSbXOGwkn9R KVGmCMUwGhg1FzXqKVQsHCFnDGbeODQlYGB1PLBoDEZtVESxCG7CGnAvPRHwWPKzEaGbYTSmDVIgiw6A DDFfLJRvKDGmIJJeRCSbNTGkIAvuFLEfSQY9NHC7JZ CfNKQtEZ6JEvJiDFTxZCRcYbsaQNAtVWEcqx9WJDPwPQNtPqH3RtAqQHQkMCZjZAjxBMNiPMEjLvR3SA KcQLHeYW9RDkPkLHJyNLJ2JMJwVQYeBSWjbu8ILYKcNKTzBaUbThZdDENbMBGwUYanXUCpWOW7VQBgIA JiYPOnMU9MXhCfVWibXWKZBpe7BBohP8b3LVVrRI7D J8Saa1CrESaiEXVKYYarYS1zviOzTOCnMb8DH7nGOuwcLSA3QKFzFpHrVVG0CEQ4VoWsIYWtGfL8XJM5 W2L6TT1gVFI7QTIgJCEhPCCvMBTyUdA2LxBlYCNqARMnULzzYaStWqLcAS1MDz0FNrK4WXX7xDXaRx0L ZXlkOSzFXsCpWI7ONOq= ID Date Data Source [id number] 01/19/2021 02:38:29 PM EDT [facility] HospitalPATIE NT INFORMATIONPatient MRN Name Date of Age Gend*PT [id number] Young Martinez 1940 80 years M IPPT Location Admission Date/Time Visit ID Attending [id number] 01/19/21 0914 --- Terry Luna MD([id number]) EPI ID CSN Admitting Provider [id number] Terry Luna MD([id number])Cardiac Electrophysiology Consult NoteName: Young Martinez Gender: maleDate of : 1940 Age: 80 yearsDate/Time of Admit: 01/19/2021 9:14 AM Code Status: Full CodePrimary Care Provider:Referring Physician: [place] Radha Middleton for consultation: Complete heart blockHPI: This patient is a 80 years male who underwent TAVR today and who during theprocedure had asystole and complete AV block. A temporary pacemaker was placed.The patient has not regained conduction but now is conducting with a left bundlebranch block. Patient's baseline EKG shows a sinus rhythm with PACs. PRinterval is normal QRS duration is normalPast HistoryPast Medical History:Diagnosis Date Arthritis Atrial fibrillation Essential hypertension 01/10/2021 normally low bp Fuchs' corneal dystrophy 01/10/2021 GERD (gastroesophageal reflux disease) Heart murmur Hyperlipidemia Hypothyroidism Nonrheumatic aortic valve stenosis 01/10/2021 PAD (peripheral artery disease) Patient is Rastafari 01/10/2021 PONV (postoperative nausea and vomiting) x 1 with corneal transplane StrokePast Surgical History:Procedure Laterality Date CARDIAC CATHETERIZATION N/A 01/10/2021 Procedure: Left heart cath; Surgeon: Terry Luna MD; Laterality: N/A; CARDIAC CATHETERIZATION N/A 01/10/2021 Procedure: Right heart cath; Surgeon: Terry Luna MD; Laterality: N/A; CARDIAC CATHETERIZATION N/A 01/10/2021 Procedure: Coronary angiography; Surgeon: Terry Luna MD; Laterality:N/A; CARDIAC CATHETERIZATION N/A 01/10/2021 Procedure: Left ventriculography; Surgeon: Terry Luna MD; Laterality:N/A; CATARACT EXTRACTION, BILATERAL Bilateral 2009 CORNEAL TRANSPLANT TONSILLECTOMYNo family history on file.Social HistorySocial History Narrative Not on fileSocial HistorySocioeconomic History Marital status: Spouse name: Not on file Number of children: Not on file Years of education: Not on file Highest education level: Not on fileOccupational History Not on fileTobacco Use Smoking status: Former Smoker Smokeless tobacco: Never UsedVaping Use Vaping Use: Never usedSubstance and Sexual Activity Alcohol use: Not Currently Drug use: Never Sexual activity: Not on fileOther Topics Concern Not on fileSocial History Narrative Not on fileSocial Determinants of HealthFinancial Resource Strain: Difficulty of Paying Living Expenses:Food Insecurity: Worried About Running Out of Food in the Last Year: Ran Out of Food in the Last Year:Transportation Needs: Lack of Transportation (Medical): Lack of Transportation (Non-Medical):Physical Activity: Days of Exercise per Week: Minutes of Exercise per Session:Stress: Feeling of Stress :Social Connections: Frequency of Communication with Friends and Family: Frequency of Social Gatherings with Friends and Family: Attends Jewish Services: Active Member of Clubs or Organizations: Attends Club or Organization Meetings: Marital Status:Intimate Partner Violence: Fear of Current or Ex-Partner: Emotionally Abused: Physically Abused: Sexually Abused:Medications and AllergiesALLERGIES/SENSITIVITIES: Bee pollen , Meloxicam, Statins, and TerazosinMedications Prior to AdmissionMedication Sig ascorbic acid (VITAMIN C) 1000 MG tablet Take 1,000 mg by mouth daily aspirin (ASPIRIN LOW DOSE) 81 MG tablet Take 81 mg by mouth daily Carbonyl Iron 15 MG CHEW Chew 30 mg daily cholecalciferol (VITAMIN D3) 25 MCG (1000 UT) capsule Take 1,000 Units bymouth daily famotidine (PEPCID) 20 MG tablet Take 10 mg by mouth daily levothyroxine (SYNTHROID) 112 MCG tablet Take 112 mcg by mouth daily Magnesium Oxide (MAG-CAPS PO) Take 133 mg by mouth daily 2 tabs Multiple Vitamins-Minerals (PRESERVISION AREDS 2) CAPS Take 1 capsule by mouth2 (two) times a day [place]-3 Fatty Acids (Fish Oil) 1200 MG CAPS Take 1,200 mg by mouth daily polyvinyl alcohol (ARTIFICIAL TEARS) 1.4 % ophthalmic solution Administer 1drop to both eyes daily prednisoLONE acetate (PRED FORTE) 1 % ophthalmic suspension Administer 1 dropinto the left eye every other day predniSONE (DELTASONE) 10 MG tablet Take 12.5 mg by mouth daily sodium chloride 5 % ophthalmic ointment Administer 1 drop to the right eye 2(two) times a day Apixaban (ELIQUIS) 5 MG TABS tablet 5 mg 2 (two) times a dayCurrent Inpatient Medications:Scheduled Meds: famotidine 10 mg Oral Daily levothyroxine 112 mcg Oral Daily normal saline flush 3 mL Intravenous Q8H CHAVO normal saline flush 3 mL Intravenous Q8H CHAVO normal saline flush 3 mL Intravenous Q8H CHAVO polyvinyl alcohol 1 drop Both Eyes Daily prednisoLONE acetate 1 drop Left Eye Q48H predniSONE 12.5 mg Oral Daily sodium chloride Right Eye BIDContinuous Infusions: electrolyte-R 100 mL/hr at 01/19/21 1000PRN Meds: albuterol, atropine sulfate, atropine sulfate, fentaNYL Citrate (PF),hydrALAZINE, iopamidol, labetalol, nbsoxxaf-hdjtrefckn-zithodnhj, ondansetron,[START ON 01/21/2021] polyethylene glycol (MIRALAX) powderPhysicalBlood Pressure: BP: 127/61 Pulse: Heart Rate: 79Temperature: Temp: 97.6 F Respirations: Resp: 12Admission Weight: Weight: 61.6 kg (135 lb 12.9 oz) O2 Saturation: SpO2: 98 %Today's Weight: Weight: 61.6 kg (135 lb 12.9 oz) BMI: Body mass index is 21.92kg/m .DiagnosticsLabBMP:Lab ResultsComponent Value Date NA 138 01/12/2021 K 4.3 01/12/2021 CL 109 (H) 01/12/2021 CO2 24 01/12/2021 ANIONGAP 5 (L) 01/12/2021 CALCIUM 8.0 (L) 01/12/2021 GLU 75 01/12/2021 BUN 12 01/12/2021 CREATININE 0.53 (L) 01/12/2021 GFRAA >60 01/12/2021 GFRNONAA >60 01/12/2021BC Brief:Lab ResultsComponent Value Date WBC 7.3 01/12/2021 HGB 11.0 (L) 01/12/2021 HCT 32 (L) 01/19/2021 HCT 33.0 (L) 01/12/2021 PLT 235 01/12/2021Telemetry: Sinus rhythm with left bundle branch blockAssessment & PlanPrincipal Problem: Nonrheumatic aortic valve stenosis: This is an 80-year-old gentleman withaortic stenosis status post TAVR today who during the procedure and deploymentof the valve developed asystole and complete heart block. He is now conductingalbeit with a left bundle branch block. There is certainly an increasedincidence of heart block seen post TAVR. At this time I would monitor thepatient overnight. I had a discussion with the patient regarding the possibleneed for pacemaker insertion. He is agreeable to proceed with pacemakerinsertion if it is required. I will follow along with you and reevaluate him inthe morning.Signature: Murphy Alvarenga MD, [facility], [facility]ITALCardiac Electrophysiology and Arrhythmia ServiceDate: January 19, 2021Time: 2:36 PMThis document or parts of this document, were dictated using [employer]. A reasonable attempt at proofreading has been made to minimize errors.Please call with any questions or corrections. Name Value Range Interpretation Code Description Data Dariela rce(s) Supporting Document(s) ID Date Data Source [id number] 01/19/2021 01:53:29 PM EDT [address] [address]Lclpdql Name: YOUNG Eleuterio MAYERACEDOB: 1940Sex: MOrdering Provider: TERRY Smith Prov: TERRY Hare Provider: Procedure Performed: / XR CHEST PORTABLEExam Date: 01/19/2021 13:48MRN: [id number] Number: [id number] Class: InpatientAccount #: [id number] for Exam: Post TAVR procedureTechnique: AP portable view obtained.Comparison: Portable chest x- ray January 10, 2021Findings: There is no pneumothorax. There are bilateral pleural effusions. The heart is mildly enlarged. There is a new aortic valve cage prosthesis. There is a right jugular temporary pacemaker extending to the expected region of the apex of the right ventricle. The vessels are larger. The minor fissure looks thicker. There is no free air beneath the diaphragms. There is no pneumothorax. Acute fracture is not seen in the ribs or other visualized skeletal structures.IMPRESSION: Cardiomegaly with aortic valve cage prosthesis. Findings of mild congestive heart failure. Single lead pacemaker good position. Continued follow-up recommended.Report electronically signed by: HERMINIA WASSERMAN On 01/19/2021 1:53 PMWorkstation ID: [id number] Name Value Range Interpretation Code Description Data Dariela rce(s) Supporting Document(s) ID Date Data Source [id number] 01/19/2021 01:52:55 PM EDT [facility] Name Value Range Interpretation Code Description Data Dariela rce(s) Supporting Document(s) EKG [facility] HYOKMb8bHfRADqPyl6OyLgJqMTWfND6vhen7E6F7iYJrP4AkhOHnj2abN7YlG6PgORRlGHONIN1CaHCd jb2 [file] t7BayuAyrdf/IvbYK3U9qo+ONe9av1RYl698WkY58rZWFMMIf1jfl37wD5ui4Y8miliqdyksnRS/hotbed transfer operator+ hC3+G6bFyRAPU5XTjkVmr/0ID5IPMUzK2VHUaIGRZWw25TREsUACQPI0xyjPASAPmf1fyBRPDEKVCW6d PvupU8o5ntgmJSqrMrFKaCLFk+MswLJ/zsOMEu4Xfa DK/IZgiuRL8JpyyJ1xggk/ftOnGfrQN1rXKuId6F+QnQm2+AtGhBRud5IWJ95KZ/yNxlT9BXbl5uKRgb Lp6rexHvh9nGhpLikGm8A4Vdb5y6YZImcvN2SVt7hyefbuD5Mpt5XAnInI7rO7TI+sR/tRhqoVuRNd3R jQjfEq0dZNXTFsKCgicEfpy+q8zL2mRrv0+BeIRoIt /eBXgjuqrW1t1FZYdvkOIYshOihyTIdY37wRY04lR1326YxqnAUM7mCWwJLMVzQx4c08DktjmW/mXYKq QzRxc4nDCDnkBczW5QCHP3tgJI59uR8SYz1KyzSXtWKKyYTyLHbDGdYL6GKSouBVcxoW0MXadko/1ib7 YjoaB5YaBhMywQkdnG12+PcjvS5PluE6tkmoCLAZgp ioWACjEPT75FS5tDV9ugLbFJgDxTNmQiRRYVasqk86KuoobZA3R2Yp/pbcVF1hZduWsDTZYfJc/I/STACY [file] m/MONTESSORI TODDLER TEACHER+d2tAo88Vi5Fbi0BQ5hA5mc9YwwiG5Sfhy8PaH9ZEzk2vxyZwSAsB3YHH50JRo3kVpmx8ecxpmk [file] VHbm6F2yIvxG5qlI+NqXRTGsLyiV6wNkCuOP67dFNZyN/subsurface augmentee elint operator/ZHOA52YKtFO+qut59KiaYX+4vqp3ThG [file] Y= ID Date Data Source [id number] 01/19/2021 03:32:05 PM EDT [facility] Name Value Range Interpretation Code Description Data Dariela rce(s) Supporting Document(s) MAGNESIUM 2.5 mg/dL (1.7-2.4) H [facility] ID Date Data Source [id number] 01/19/2021 03:32:05 PM EDT [facility] Name Value Range Interpretation Code Description Data Dariela rce(s) Supporting Document(s) SODIUM 140 mmol/L (136-145) [facility] POTASSIUM 4.3 mmol/L (3.6-5.2) [facility] CHLORIDE 108 mmol/L (100-108) [facility] CO2 26 mmol/L (22-31) [facility] ANION GAP 6 mmol/L (7-16) L [facility] UREA NITROGEN 15 mg/dL (7-24) [facility] CREATININE 0.59 mg/dL (0.80-1.30) L [facility] BUN/CREAT RATIO 25.4 RATIO (10.0-20.0) H [facility] GLUCOSE 86 mg/dL (70-99) [facility] CALCIUM 7.3 mg/dL (8.4-10.2) L [facility] GFR >60 ml/min/1.73m2 (>59) [facility] GFR ( AMER) >60 ml/min/1.73m2 (>59) [facility] GFR INTERPRETATION [facility] --NORMAL KIDNEY FUNCTION OR MILD DISEASE - GFR >OR= 60CHRONIC KIDNEY DISEASE - GFR 15 - 59RENAL FAILURE - GFR <15 Est. GFR calculation based on the MDRDstudy equation, which assumes a steadystate for creatinine. Est. GFR should notbe used for medication dosing. ID Date Data Source [id number] 01/19/2021 03:29:51 PM EDT [facility] Name Value Range Interpretation Code Description Data Dariela rce(s) Supporting Document(s) PT 11.5 s (9.2-11.9) [facility] INR 1.10 [facility] SUGGESTED THERAPEUTIC RANGES USING INR F ORSTABILIZED ANTICOAGULATED PATIENTS:STANDARD DOSE THERAPY INR 2.0-3.0 DVT, PE, PREVENT DVT OR EMBOLISMHIGH DOSE THERAPY INR 2.5-3.5 PREVENT EMBOLISM FROM MECHANICAL HEART VALVE ID Date Data Source [id number] 01/19/2021 03:13:46 PM EDT [facility] Name Value Range Interpretation Code Description Data Dariela rce(s) Supporting Document(s) WBC 10.7 10*3/uL (4.1-11.0) [facility] RBC 4.13 10*6/uL (4.60-6.10) L [facility] HGB 11.2 g/dL (13.5-18.0) L [facility] HCT 34.6 % (41.0-53.0) L [facility] MCV 83.9 fL (80.0-95.0) [facility] MCH 27.2 pg (27.0-32.0) [facility] MCHC 32.4 g/dL (32.0-36.0) [facility] RDW 15.4 % (10.5-14.5) H [facility] PLT 278 10*3/uL (150-450) [facility] MPV 7.8 fL (7.1-10.7) [facility] ID Date Data Source [id number] 01/19/2021 01:23:02 PM EDT [facility] Name Value Range Interpretation Code Description Data Dariela rce(s) Supporting Document(s) &PDF [facility] NFZDGe7bHxXVSoDh63/MDSowLFZpt5MyQMtyDGl6LHpzMCXoW9UzlZepEMoILKvYR7UzIpgLPATUIJJJ 0b3 [file] o= ID Date Data Source [id number] 01/19/2021 01:20:50 PM EDT [facility] NT INFORMATIONPatient MRN Name Date of Age Gend*PT [id number] Young Martinez 1940 80 years M IPPT Location Admission Date/Time Visit ID [facility] --- Terry Luna MD([id number]) EPI ID [facility] Admitting Provider [id number] Terry Luna MD([id number])TRANSCATHETER AORTIC VALVE REPLACEMENTCardiovascular and Thoracic Surgery Operative ReportDate of Procedure: 01/19/2021 [facility] Name[facility] Martinez 80 years maleDate of :1940MRN: [id number]: [id number]: [facility] Note Date and Time: 01/19/2021 1:17 PMDate of Admission: 01/19/2021 9:14 AMPreoperative diagnoses:1. Aortic stenosis, severe.Postoperative diagnoses:1. Aortic stenosis, severe.Procedure:1. Percutaneous access bilateral common femoral artery with 6 Greenlandic sheath.2. Perclose placement 2 right common femoral artery.3. Placement of right common femoral artery 14 Greenlandic E sheath.4. Aortic root angiogram.5. Aortic valve balloon valvuloplasty with Beka balloon.6. Placement of 26 mm Nomi 3 aortic valve.Waiter/Waitress First Class:Terry Luna [facility] CITYardiac Surgeon:Stevie Sanderson MDAnesthesia:General AnesthesiaAnesthesia Provider(s):Anesthesiologist: BETTY OlivasRNA: Amari Marquez CRNAPerfusionist: Kelechi Galloway CCPEstimated Blood Loss:100 mL.Implants:Implants Implant Valve,Thv,Sapien3,Ultra,26mm - [id number] - Implanted Valve Aortic Inventory item: VALVE,THV,SAPIEN3,ULTRA,26MM Model/Cat number: [id number] Serial number: [id number] Auto Self Service Station Attendant: [employer] Lot number: [id number]:Post deployment valve well seated with no PVL. Pt did have complete AV blockrequiring pacing.Fluoroscopy Time / Contrast Volume:Please see scanned [employer] Report.Description of Procedure:After informed consent was obtained and the surgical site was confirmed, thepatient was brought into the operating room and placed supine on the operatingtable. The patient was then given preoperative antibiotics. A temporary pacingwire was then placed through the Right IJ venous sheath and floated into theright ventricle. The patient was prepped with surgical prep and sterile drapeswere applied.Both common Femoral Arteries were accessed and 6 Greenlandic sheaths placed. Theright sheath was then removed over a guidewire, and two separate Perclosedevices were then placed. An 8 Greenlandic sheath was then placed. The patient washeparinized with 100 units/kg of heparin.Capture was confirmed with the pacemaker. A pigtail catheter was placed throughthe left arterial sheath. It was placed up into the non coronary sinus. Theaortic root arteriogram was obtained. The deployment angle for the imagingsystem was confirmed.A Lunderquist stiff wire was placed through the right arterial sheath. The 8French sheath was removed and a 14 Greenlandic E sheath was placed over the stiffwire.Then JR4 catheter was then placed from the right side. A straight wire was thenused to cross the valve. JR4 was then advanced into the ventricle and Safariwire was then advanced to the apex.A Beka balloon was placed across the aortic valve. The heart was then paced at170 bpm. An aortic valvuloplasty was performed.The balloon was removed. A timeout was performed confirming the appropriatevalve and the orientation of the Valve in the delivery device. The deliverydevice was then placed over the Super Stiff wire. Once the delivery device wasin the descending aorta the valve was positioned over the balloon. The valve anddelivery device were then advanced mónica und the aortic arch into position.The heart was paced at 170 bpm. The valve was fully deployed. The balloon wasinflated for 4 seconds. Once the ballon was deflated, the delivery system wasremoved.Transesophageal echocardiogram showed good position of the valve. An aortogramshowed no aortic regurgitation and good flow into the coronaries.The delivery system was completely removed from the patient. The 2 Perclose weredeployed with good hemostasis. The patient was given protamine to reverse theheparin.Sheaths and catheters were then removed from the left groin and femoral arteryclosed with one Starclose.All sponge and needle counts were correct. The patient tolerated the procedurewell and was transferred to PACU in stable condition.Stevie Sanderson MD [facility] FACSCardiovascular Thoracic Surgery01/19/2021, 1:17 PM Name Value Range Interpretation Code Description Data Dariela rce(s) Supporting Document(s) ID Date Data Source [id number] 01/19/2021 01:16:43 PM EDT [facility]FORMATIONPatient MRN Name Date of Age Gend*PT [id number] Young Martinez 1940 80 years M IPPT Location Admission Date/Time Visit ID [facility]21 0914 --- Terry Luna MD([id number]) EPI ID CSN Admitting Provider [id number] Terry Luna MD([id number])TAVR (Transcatheter Aortic Valve Replacement)Patient Name: Young Mcclellan WallaceMedical Record No: [id number] of : 1940 Age 80 yearsPrimary Physician: [facility] P[facility] Jyya of Surgery: 01/19/2021Interventional Flight Steward: Vivienne Portillo Valve Team: Dr. Sanderson and Dr. Tia WeinbergProcedure: Transcatheter aortic valve replacement with a 26 mm Nomi 3 ul traPre-procedure Diagnosis: Severe symptomatic aortic stenosisPost-procedure Diagnosis: Severe symptomatic aortic stenosisSymptoms/Indication: 80-year-old man Jehovah's WitnessAnd paroxysmal atrial fibrillation on Eliquis who recently was admitted withnon-STEMI and found to have critical aortic stenosis and single-vesselborderline coronary artery disease. An echocardiogram showed mild to moderatemitral stenosis and critical aortic stenosis with a peak gradient of 125.Physical exam: Blood pressure 136/68 heart rate 80 respiratory rate 16.EKG: Sinus rhythm with PACs and nonspecific repolarization abnormalitiesCreatinine: 0.5Procedure descriptionAccess: Right femoralValve type: 26 mm Nomi 3 ultraRight and left femoral arterial access were obtained. On the right we preclosedwith 2 Perclose devices and upsized over a Lunderquist to a 14 Greenlandic Edwardssheath. On the left we placed a pigtail into the right coronary cusp and aorticroot angiogram was obtained. A left femoral venous access was also ob tained.The valve was then crossed and a safari wire was placed into the left ventricleand balloon valvuloplasty 20 mm balloon with rapid pacing at 180 bpm.Subsequently we advanced the valve across the annulus and it was deployed withrapid pacing at 180 bpm with removing 2 cc of nominal inflation volume. Thefinal angiogram showed no AI and there was no aortic insufficiency or stenosison CASIMIRO and no effusion. There was complete AV block requiring transvenouspacing. The Perclose devices were tied on the right and final angiogram showedhemostasis with no compromise. We deployed a Star close on the left femoralartery and the Perclose into the left femoral vein.Estimated Blood Loss: MinimalComplications: NoneSedation: General anesthesiaSpecimens: NoneContrast used: See scanned cath report document under the media tab.Implants: 26 mm Nomi 3 ultraConclusion1. Severe symptomatic aortic stenosis with successful TAVR using a 26 mm Sapien3 ultra -2 cc of nominal inflation volume.2. Mild to moderate mitral stenosis.3. Normal systolic function.4. Single-vessel borderline coronary artery disease.5. Paroxysmal atrial fibrillation on Eliquis.6. Appearance of complete AV block at the end of the procedure.Electrophysiology consult was obtained. Plan1. Admit to telemetry2. Telemetry class I3. Access: Closed4. Pacemaker: Backup alto permanent pacemaker is inserted5. Anticoagulation: Aspirin for now and resume Eliquis prior to discharge.Signature: Terry Luna, MDDate: 01/19/2021Time: 1:10 [facility]: Dr. Neely document or parts of this document, were dictated using [employer]. A reasonable attempt at proofreading has been made to minimize errors.Please call with any questions or corrections. Name Value Range Interpretation Code Description Data Dariela rce(s) Supporting Document(s) ID Date Data Source [id number] 01/19/2021 12:51:38 PM EDT [facility] Name Value Range Interpretation Code Description Data Dariela rce(s) Supporting Document(s) POC SOURCE [facility] CP BYPASS [facility] POC PH 7.42 pH (7.35-7.45) [facility] POC PCO2 47.9 MMHG (32.0-48.0) [facility] POC PO2 564 MMHG (83-108) H [facility] POC SAT O2 100 % (95-99) H [facility] POC BASE EXCESS 6 MMOL/L (0-3) H [facility] POC HCO3 31.0 MMOL/L (21.0-29.0) H [facility] POC TOTAL CO2 32 MMOL/L (23.0-32.0) [facility]MED [facility] ST[facility] POC HCT 32 % (41.0-53.0) L [facility] POC SODIUM 135 MMOL/L (136-145) L [facility] POC POTASSIUM 4.2 MMOL/L (3.6-5.2) [facility] POC IONIZED CALCIUM 4.3 MG/DL (4.6-5.3) L [facility] POC GLU 105 MG/DL (70-99) H [facility] PERFORM LAB [facility] ID Date Data Source [id number] 01/19/2021 03:00:40 PM EDT [facility] Name Value Range Interpretation Code Description Data Dariela rce(s) Supporting Document(s) POC ACT 219 s (80-140) H [facility] PERFORMED BY [facility] STAFF ID Date Data Source [id number] 01/19/2021 12:40:39 PM EDT [facility] NT INFORMATIONPatient MRN Name Date of Age Gend*PT [id number] Young Martinez 1940 80 years M IPPT Location Admission Date/Time Visit ID Attending Provider --- --- --- --- EPI ID CSN Admitting Provider [id number] ---Introducer AdditionsPatient location during procedure: CV hybrid roomIndications for introducer addition: Temporary pacingStaffingPerformed by: Amari Marquez CRNAApproved by: BETTY Olivasompleted: patient identified, risks and benefits discussed, surgical consentobtained, anesthesia consent obtained, monitors and equipment checked, pre-opevaluation completed, timeout performed, patient was prepped and draped in usualsterile fashion,Introducer AdditionsIntroducer addition: Transvenous PacerInsertion depth (cm): 35Introducer placed: At time of introducer additionPacing wires procedure: Pacing wire was introduced, Pacing box set at VOO andWire was advanced using balloon flow directed method until ventricular capturewas notedT ype of pacing wires: VentricularPacing box rate: 100Pacing threshold obtained at: 1AssessmentSecurement method: suturedPlacement verification: fluoroscopyAssessment: tolerated well, no changes to vital signs and catheter flushed nejd14cy NS Name Value Range Interpretation Code Description Data Dariela rce(s) Supporting Document(s) ID Date Data Source [id number] 01/19/2021 12:40:18 PM EDT [facility] NT INFORMATIONPatient MRN Name Date of Age Gend*PT [id number] Young Martinez 1940 80 years M IPPT Location Admission Date/Time Visit ID Attending Provider --- --- --- --- EPI ID CSN Admitting Provider [id number] ---Central Line InsertionPatient location during procedure: CV hybrid roomIndications for central line: temporary pacingStaffingPerformed by: Amari Marquez CRNAApproved by: BETTY Olivasompleted: patient identified, risks and benefits discussed, surgical consentobtained, anesthesia consent obtained, monitors and equipment checked, pre-opevaluation completed, timeout performed, patient was prepped and draped in usualsterile fashion,Central LineCatheter type: IntroducerCVC type: non-tunnelledNeedle gauge: 18 GCatheter size: 5 FrSite prep: chlorhexidine gluconateLaterality: rightLocation: internal jugularTechnique: CVC inserted using ultrasound guidanceProcedure: Catheter inserted and manometry was performed, Guidewire passedthrough the catheter, No arrythmias and Catheter was withdrawnAssessmentSecurement method: SuturedPlacement verification: UltrasoundAssessment: tolerated well, no changes to vital signs and catheter flushed [id number] NS Name Value Range Interpretation Code Description Data Dariela rce(s) Supporting Document(s) ID Date Data Source [id number] 01/19/2021 12:40:02 PM EDT [facility] INFORMATIONPatient MRN Name Date of Age Gend*PT [id number] Young Martinez 1940 80 years M IPPT Location Admission Date/Time Visit ID Attending Provider --- --- --- --- EPI ID CSN Admitting Provider [id number] ---Arterial Line PlacementPatient location during procedure: CV hybrid roomIndications for arterial line: hemodynamic monitoringStaffingPerformed by: Amari Marquez CRNAApproved by: BETTY Olivasompleted: patient identified, risks and benefits discussed, surgical consentobtained, anesthesia consent obtained, monitors and equipment checked, pre-opevaluation completed, timeout performed, patient was prepped and draped in usualsterile fashion,Arterial Line InsertionSite prep: chlorhexidineAnesthesia: local infiltrationLocal anesthetic: lidocaine 1% without epinephrineLaterality: rightLocation: radial arteryNeedle gauge: 18 GTechnique: ultrasound guidedNumber of attempts: 1AssessmentSutured: noDressing: dressing appliedPatient tolerance: tolerated well Name Value Range Interpretation Code Description Data Dariela rce(s) Supporting Document(s) ID Date Data Source [id number] 01/19/2021 12:39:42 PM EDT [facility] INFORMATIONPatient MRN Name Date of Age Gend*PT [id number] MartinezYoung lenz Eleuterio 1940 80 years M IPPT Location Admission Date/Time Visit ID Attending Provider --- --- --- --- EPI ID CSN Admitting Provider [id number] ---AirwayPatient location during procedure: CV hybrid roomUrgency: electiveDifficult airway: noAdvanced airway equipment used: noStaffingPerf ormed by: John Davis MDIndications and Patient ConditionIndications for airway management: anesthesiaPreoxygenated: yesPatient position: sniffingIn- line stabilization: noMask ventilation: 0 - not attemptedFinal Airway/ApproachesFinal airway type: ETTNumber of attempts at final approach: 1Number of other approaches attempted: 0Final Airway DetailsFinal ETT airway: ETT - singleCuffed: yesTechnique used for successful ETT placement: direct laryngoscopyCricoid pressure: noRSI: noInsertion site: oralBlade type/size: Salazar 2ETT size: 7.5 mmMeasured from: lipsETT to lips: 22 cmPlacement verified by: chest auscultation and + [id number]: CTA and equal breath sounds bilateralGrade view: grade I - full view of glottis Name Value Range Interpretation Code Description Data Dariela rce(s) Supporting Document(s) ID Date Data Source [id number] 01/19/2021 12:16:04 PM EDT [facility] Name Value Range Interpretation Code Description Data Dariela rce(s) Supporting Document(s) POC SOURCE [facility] CP BYPASS [facility] POC PH 7.33 pH (7.35-7.45) L [facility] POC PCO2 54.0 MMHG (32.0-48.0) H [facility] POC PO2 452 MMHG (83-108) H [facility] POC SAT O2 100 % (95-99) H [facility] POC BASE EXCESS 1 MMOL/L (0-3) [facility] POC HCO3 28.2 MMOL/L (21.0-29.0) [facility] POC TOTAL CO2 30 MMOL/L (23.0-32.0) [facility] POC HCT 35 % (41.0-53.0) L [facility] POC SODIUM 139 MMOL/L (136-145) [facility] POC POTASSIUM 4.4 MMOL/L (3.6-5.2) [facility] POC IONIZED CALCIUM 4.4 MG/DL (4.6-5.3) L [facility] POC GLU 92 MG/DL (70-99) [facility] ID Date Data Source [id number] 01/19/2021 12:13:37 PM EDT [facility] Name Value Range Interpretation Code Description Data Dariela rce(s) Supporting Document(s) POC ACT 131 s (80-140) [facility] ID Date Data Source [id number] 01/19/2021 12:45:06 PM EDT [facility] Name Value Range Interpretation Code Description Data Dariela rce(s) Supporting Document(s) ROOM TEMP AB SCREEN [facility] ROOM TEMP AB SCREEN NEGATIVE ID Date Data Source [id number] 01/19/2021 10:29:42 AM EDT [facility]FORMATIONPatient MRN Name Date of Age Gend*PT [id number] Young Martinez 1940 80 years M IPPT Location Admission Date/Time Visit ID Attending Provider-01/19/2114 --- Terry Luna MD([id number]) EPI ID CSN Admitting Provider [id number] Terry Luna MD([id number])Catheterization Laboratory History and physicalPatient Name: Young Martinez of : 1940 Age 80 yearsPrimary [facility]ician[facility] K[facility] Surgery: 01/19/2021 Waiter/Waitress First Class: Terry Luna MD Tnt Powder Worker(s): NoneReason for admission: Referred for TAVRPre-procedure Diagnosis: Severe aortic stenosisCCS Functional Classification: IIIHistory of present illness:80-year-old man with paroxysmal atrial fibrillation on Eliquis was Jehovah'sWitness and was admitted with rapid pulse and was in atrial fibrillation. Hecomplained of chest pain and had mild troponin elevation. He is known to havecritical aortic stenosis with a mean gradient of 59 in August of this year.Coronary angiography showed the following.1. Borderline single-vessel coronary artery disease in the left anteriordescending.2. Low normal systolic function.3. Moderate pulmonary hypertension with high filling pressure.4. Aortic with a mean gradient of 40. The diastolic aortic pressure is lowsuggestive of significant aortic insufficiency.5. Mitral stenosis with a mean gradient around 10 when the heart rate is [id number]. When accounting only for the heartbeats with longer diastole the meangradient was 8. There is a large V wave in the wedge pressure suggestive ofpossible significant mitral insufficiency.6. Atrial fibrillation paroxysmal.7. Right radial and antecubital venous access.A repeat echocardiogram showed mild mitral (with a mean gradient of 6) stenosisand critical aortic stenosis with a mean gradient around 80Physical Exam:BP 135/72 (BP Location: Right upper arm) | Pulse 63 | Temp 97.6 F (Oral) |Resp 16 | Ht 1.676 m (5' 6") | Wt 61.6 kg (135 lb 12.9 oz) | SpO2 100% | BMI21.92 kg/m Alert and oriented. Absent S2 and late peak systolic ejection murmur.Lab resultsCreatinine 0.53CBC hemoglobin of 11 and hematocrit of 33Assessment and [id number] man with borderline coronary artery disease and mild mitral stenosisand has critical aortic stenosis with a gradient of 80 referred for TAVR. He isJehovah's Witness and would not accept blood transfusions. CTA was reviewed andhe is fit for a 26 mm valve which we will start with 2 cc less of inflationcontrast. That would make it around 24 mm in diameter.The procedure risks and benefits were explained to the patient who agrees toproceed. Risks include but are not limited to heart attack, stroke, kidneyfailure, major bleeding, and infection and access site complications. Results were explained to the patient and family. All their questions wereanswered to their satisfaction.Signature: Terry Luna, MDDate: 01/19/2021Time: 10:26 AMThis document or parts of this document, were dictated using [employer] software. A reasonable attempt at proofreading has been made tominimize errors. Please call with any questions or corrections. Name Value Range Interpretation Code Description Data Dariela rce(s) Supporting Document(s) ID Date Data Source [id number] 01/19/2021 09:43:00 AM EDT [facility] Name Value Range Interpretation Code Description Data Dariela rce(s) Supporting Document(s) POC NOVA GLU 103 mg/dL (70-99) H [facility] ID Date Data Source [id number] 01/12/2021 02:28:31 PM EDT [facility] NT INFORMATIONPatient MRN Name Date of Age Gend*PT [id number] MartinezYoung 1940 80 years M IPPT Location Admission Date/Time Visit ID Attending [id number] 01/10/21 1134 --- --- EPI ID CSN Admitting Provider [id number] Terry Luna MD([id number]) Attestation signed by Terry Luna MD at 01/12/2021 2:28 [id number] man Rastafari with atrial fibrillation and aortic stenosiswho had refused any intervention in the past but got admitted with acutecoronary syndrome complicating atrial fibrillation episode with rapidventricular response. Coronary angiography was done and showed borderlinecoronary artery disease. His gradient by catheter was 40 but an echocardiogramshowed critical aortic stenosis with a mean gradient up to 80. He had mildmitral stenosis by echo. He had moderate pulmonary hypertension. He completedhis work-up for TAVR. Today his blood pressure is low in the 90s. He isasymptomatic. He will be discharged to be brought back next week for TAVR. Heis agreeable to proceeding but would not agree to blood transfusions. Afterreview of his CAT scan we will decide about the safest access for him.Signature: Terry Luna MDDate: January 12, 2021Time: 2:26 PM Cardiology Discharge Summary Young Mcclellan NahumyoannaJEROME: [id number] date: 01/10/2021ttending Physician: Yocasta Portilloission Diagnosis: <principal problem not specified>Secondary Diagnoses: Active Problems: Paroxysmal atrial fibrillation Hyperlipidemia Hypothyroidism Peripheral vascular disease Essential hypertension Nonrheumatic aortic valve stenosis Patient is Jehovah's WitnessPrinciple Procedures:Cardiac Catheterization (01/10/2021)80-year-old man with paroxysmal atrial fibrillation on Eliquis was Jehovah'sWitness and was admitted with rapid pulse and was in atrial fibrillation. Hecomplained of chest pain and had mild troponin elevation. He is known to havecritical aortic stenosis with a mean gradient of 59 in August of this year.An echocardiogram showed severe aortic stenosis and mild mitral stenosis andinsufficiency.1. Borderline single-vessel coronary artery disease.2. Low normal systolic function.3. Moderate pulmonary hypertension with high filling pressure.4. Aortic with a mean gradient of 40. The diastolic aortic pressure is lowsuggestive of significant aortic insufficiency.5. Mitral stenosis with a mean gradient around 10 when the heart rate is . When accounting only for the heartbeats with longer diastole the meangradient was 8. There is a large V wave in the wedge pressure suggestive ofpossible significant mitral insufficiency.6. Atrial fibrillation paroxysmal.7. Right radial and antecubital venous access.At this time there is many confusing factors. Aortic stenosis assessment showedcritical stenosis in August without a gradient is lower. There is however lowdiastolic pressure. Also the mitral stenosis which was reportedly mild by echoshows a gradient of 8- 10 and he had depending on the cardiac cycle. I am goingto request a repeat transthoracic echo for tomorrow for further assessment ofthe valvular disease prior to committing to any future intervention. Meanwhilewe will continue with heparin drip.No complications, estimated blood loss minimal.Echocardiogram (01/11/2021)Left Ventricle The left ventricular cavity is normal. Normal (55-65%) ejectionfraction. Unable to assess the diastolic function. Elevated left atrialpressure. mild concentric left ventricular hypertrophy observed.Right Ventricle The right ventricle is normal.Left Atrium The left atrium is mildly dilated.Right Atrium The right atrium is normal in size.IVC/SVC Inferior vena cava is dilated with less than 50% collapse. RA pressure6-10mmHg. IVC diameter >17 mm and decreases >50% during inspiration.Mitral Valve There is mild valve leaflet thickening. There is moderate mitralannular calcification. Moderate stenosis. Mean gradient: 6 mmHg Mildregurgitation.Tricuspid Valve Tricuspid valve not well visualized. No stenosis. Mild tomoderate regurgitation. Mild to moderate pulmonary hypertension present.Aortic Valve There is severe global calcification of the aortic valve present.Critical stenosis. Peak AV velocity: 5.59 m/s. Max P mmHg and mean PmmHg. Estimated CORRY: 0.49~0.55 cm2 Mild to moderate aortic insufficiency is present.Pulmonic Valve The pulmonic valve was not well visualized. No stenosis. Noregurgitation.Ascending Aorta Normal aortic root, size and contour. no aneurysm is present.Pericardium Pericardium is normal. No pericardial effusion. Chest Xray (01/10/2021)IMPRESSION: Diffuse interstitial disease. Edema is most likelyCardiomegaly. Possible small bilateral pleural effusions. CTA Chest (01/11/2021)Findings: CT angiogram: The thoracic aorta is well-opacified. Shows no aneurysmor dissection. The aortic branching pattern the arch is normal.LUNGS and pleura: There is right apical mild to moderate diffuse disease. Thereis moderate alveolar disease at the lung bases. There is patchy alveolar diseasebilaterally elsewhereThere is diffuse interstitial lung disease.There are small bilateral pleural effusions.Mediastinum: There is adenopathy in the precarinal region with the lymph nodeshort axis diameter of 1.8 cm. There is mild adenopathy in the aorticopulmonarywindow. No hilar adenopathy is revealed.Upper abdomen: There is hepatomegaly. There is a small hiatal hernia.IMPRESSION: Bilateral pleural effusionsBilateral interstitial disease. Edema is most likely. Associated chronicinterstitial disease is also possible.Bilateral alveolar disease. Atelectasis and/or pneumonia most likely. Neoplasticprocess cannot be excluded. Suggest follow-up in at most 6 weeks.Small hiatal hernia CTA Abdomen/Pelvis (01/11/2021)Findings: CT angiogram: The abdominal aorta and pelvic arterial system arewell-opacified. The vessels show no aneurysm or dissection. Each kidney issupplied by its own single renal artery without significant stenosisdemonstrated.Celiac axis and superior mesenteric artery are widely patent. Inferiormesenteric artery is widely patent.Lung bases:Bilateral pleural effusions are present. Small hiatal hernia ispresent. Bilateral interstitial and alveolar disease is present at the bases.Liver:Mild hepatomegaly. Decreased density diffusely without focal abnormalitytypical of diffuse hepatic fatty infiltration.Gallbladder and biliary tree:UnremarkablePancreas:UnremarkableSpleen:UnremarkableAdrenal glands:UnremarkableKidneys and ureters:Bilateral renal well-defined water density lesionsconsistent with cysts. Largest is at the right kidney posterior laterallymeasuring 5.1 cm.Bladder:UnremarkableReproductive organs:UnremarkableBowel:UnremarkableAppendix:No findings to suggest acute appendicitis.Lymph nodes:UnremarkableVessels:UnremarkableOsseous structures:UnremarkablePeritoneum:UnremarkableSoft tissues:UnremarkableImpression:Bilateral pleural effusions. Bilateral basilar alveolar and interstitialdisease.Bilateral renal cystsHepatomegaly.Diffuse hepatic fatty infiltration. Bilateral Carotid Ultrasound (01/11/2021)IMPRESSION: Less than 50% bilateral ICA stenoses.Antegrade bilateral vertebral artery flow.Indication for Admission and Hospital Course:Young Martinez is a 80 years male with a significant past medical history ofparoxysmal A. fib on El iquis, rheumatoid arthritis, GERD, hypertensionlipidemia, hypothyroidism, CVA (2017), Fuch's dystrophy. Patient reports for the last few weeks he has been experiencing exertionalshortness of breath. He reports that he usually attempts to walk at least 2miles per day however for the last 2 weeks he has been having shortness ofbreath with minimal activity. Also he has been having tachycardia noted on hiswatch and over the last week has been consistently elevated with rates [id number]. He does report he has intermittent palpitations. Otherwise deniesassociated chest discomforts, nausea or vomiting, dizziness or lightheadedness.On 01/08/2021 he developed constant left sided chest wall pressure that lastedless than 24 hours, causing him to [facility] at [facility]. Thepressure did not change in characteristics or intensity, and did resolvespontaneously. He was admitted to [facility] for further work up where he was found tyree in and out of atrial fibrillation with RVR - treated with IV meto prolol. ECGshowed NSR with PACs and NS ST and T wave abnormality in the lateral leads.Troponins were mildly elevated with a max of 0.23. Echocardiogram showed lownormal LVEF, 50%, with critical . The critical is not new. He had nofurther chest discomfort. The decision was made to transfer to [facility] for cardiaccatheterization with Dr. Luna.He underwent LHC with Dr. Luna showing borderline single vessel CAD - nointervention was performed. He was started on high-intensity statin therapy -However he reports he would not like to continue any statin due to intolerance,will not continue on discharge. He had a repeat echocardiogram showing NormalLVEF and critical and mild to moderate AI, also showing moderate mitralstenosis and mild MR. The patient qualifies for TAVR and underwent TAVR work upprior to [place]. CTA chest/abdomen/pelvis as above - Dr. Luna to review films.Bilateral carotid dopplers showing less than 50% ICA stenosis bilaterally. Thisam his BP is soft in the upper 80s. He usually runs soft in the 90s. He isasymptomatic and not on any antihypertensive medications. He will Be dischargedand follow up with Dr. BERNAL in 1-2 weeks with plans to return for TAVR in thenear future.Telemetry reviewed, without arrhythmias. Patient seen and examine, casediscussed with Dr. Luna, deemed stable for DC to home. Currently deniesangina, palpitations, shortness of breath, nausea, vomiting, dizziness, andlightheadedness. Discussed plan of care, results of cardiac catheterization,results of echocardiogram, results of TAVR work up, importance of cardiacfollow-up, importance of medication compliance, risk factor modification, andlifestyle modification. Patient is agreeable to current plan and all questionswere answered.Past Medical History:Past Medical History:Diagnosis Date Arthritis Atrial fibrillation Essential hypertension 01/10/2021 normally low bp Fuchs' corneal dystrophy 01/10/2021 GERD (gastroesophageal reflux disease) Heart murmur Hyperlipidemia Hypothyroidism Nonrheumatic aortic valve stenosis 01/10/2021 PAD (peripheral artery disease) Patient is Rastafari 01/10/2021 PONV (postoperative nausea and vomiting) StrokeMost Recent Labs:BMP:Lab ResultsComponent Value Date NA 138 01/12/2021 K 4.3 01/12/2021 CL 109 (H) 01/12/2021 CO2 24 01/12/2021 ANIONGAP 5 (L) 01/12/2021 CALCIUM 8.0 (L) 01/12/2021 GLU 75 01/12/2021 BUN 12 01/12/2021 CREATININE 0.53 (L) 01/12/2021 GFRAA >60 01/12/2021 GFRNONAA >60 01/12/2021ardiac:Lab ResultsComponent Value Date TROPONINI 0.15 (H) 01/10/2021 PROBNP 7,387 (H) 01/10/2021BC without Diff:Lab ResultsComponent Value Date WBC 7.3 01/12/2021 RBC 3.94 (L) 01/12/2021 HGB 11.0 (L) 01/12/2021 HCT 33.0 (L) 01/12/2021 MCV 83.9 01/12/2021 MCH 27.9 01/12/2021 MCHC 33.2 01/12/2021 RDW 15.6 (H) 01/12/2021 PLT 235 01/12/2021 MPV 7.4 01/12/2021oags:Lab ResultsComponent Value Date APTT 57.2 (H) 01/12/2021HgbA1c:Lab ResultsComponent Value Date HGBA1C 4.9 01/10/2021Hyperlipidemia:Lab ResultsComponent Value Date CHOL 176 01/11/2021 TRIG 91 01/11/2021 HDL 42 01/11/2021 CHOLHDL 4.2 01/11/2021 LDL 134.4 02/12/2019 LDLCALC 116 01/11/2021Medications:Your medication listCONTINUE taking these medications Instructions Last Dose Given Morning Afternoon Evening Bedtime As NeededArtificial Tears 1.4 % ophthalmic solutionGeneric drug: polyvinyl alcohol Administer 1 drop to both eyes daily01/13ascorbic acid 1000 MG tabletCommonly known as: VITAMIN C Take 1,000 mg by mouth daily01/13Aspirin Low Dose 81 MG tabletGeneric drug: aspirin Take 81 mg by mouth daily01/13Carbonyl Iron 15 MG [place]yenne w Chew 30 mg daily01/13cholecalciferol 25 MCG (1000 UT) capsuleCommonly known as: VITAMIN D3 Take 1,000 Units by mouth daily01/13Eliquis 5 MG Tabs tabletGeneric drug: Apixaban 5 mg 2 (two) times a dayfamotidine 20 MG tabletCommonly known as: PEPCID Take 10 mg by mouth daily01/13Fish Oil 1200 MG Caps Take 1,200 mg by mouth daily01/13prednisoLONE acetate 1 % ophthalmic suspensionCommonly known as: PRED FORTE Administer 1 drop into the left eye every other day01/13predniSONE 10 MG tabletCommonly known as: DELTASONE Take 12.5 mg by mouth daily01/13PreserVision AREDS 2 Caps Take 1 capsule by mouth 2 (two) times a daysodium chloride 5 % ophthalmic ointment Administer 1 drop to the right eye 2 (two) times a daySynthroid 112 MCG tabletGeneric drug: levothyroxine Take 112 mcg by mouth daily01/13Discharge Exam:Vitals: Temp: [97.1 F-98.4 F] 98.4 FHeart Rate: [66-90] 75Resp: [16-20] 20BP: (80-102)/(50-57) 87/54Pleasant, comfortable, not in acute distress.Awake, alert, oriented times 3.Moves all extremities.General appearance: alert, appears stated age and cooperativeNeck: no carotid bruit and no JVDLungs: Rales bilaterally.Heart: irregular rate and rhythm, S1, S2 normal, + murmur. No click, rub orgallopAbdomen: Soft, nontender, bowel sounds present.Extremities: Trace BLE edema.Pulses: 2+ and symmetricSkin: No rash or lumps.Wound: Right radial and brachial site with dry sterile dressing, soft, nohematoma, edema, erythema, ecchymosis or bleeding noted. Healing asanticipated.Discharged Condition:stableDisposition: Home or Self CareFollow Up: Dr. Bernal in 1-2 weeks.Signature: Shaila Quijano NPDate: January 12, 2021Time: 9:43 AM Name Value Range Interpretation Code Description Data Dariela rce(s) Supporting Document(s) ID Date Data Source [id number] 01/12/2021 08:03:06 AM EDT [place], [place] [address]Patient Name: YOUNG MAYERACEDOB: 1940Sex: MOrdering Provider: KELSIE Cortes Prov: KELSIE Hansen Provider: Procedure Performed: CT ANGIOGRAM ABDOMEN PELVISExam Date: 01/11/2021 19:49MRN: [id number] Number: [id number] Class: InpatientAccount #: [id number] for Exam: TAVR, pre intervention planningTechnique: The TAVR protocol was utilized. This consisted of contrast enhanced, retrospectively cardiac gated images through the heart followed by helically acquired, non-gated CTA imaging of the chest, abdomen.One or more of the following dose reduction techniqueswere utilized; automated exposure control, dose modulation, technique adjustment based on patient size and iterativereconstruction algorithms. Maximum Intensity Projections (MIP) and/or other multiplanar images images were created and reviewed.Comparison: NoneFindings: CT angiogram: The abdominal aorta and pelvic arterial system are well-opacified. The vessels show no aneurysm or dissection. Each kidney is supplied by its own single renal artery without significant stenosis demonstrated.Celiac axis and superior mesenteric artery are widely patent. Inferior mesenteric artery is widely patent.:Lung bases:Bilateral pleural effusions are present. Small hiatal hernia is present. Bilateral interstitial and alveolar disease is present at the bases.Liver:Mild hepatomegaly. Decreased density diffusely without focal abnormality typical of diffuse hepatic fatty infiltration.Gallbladder and biliary tree:UnremarkablePancreas:UnremarkableSpleen:UnremarkableAdrenal glands:UnremarkableKidneys and ureters:Bilateral renal well-defined water density lesions consistent with cysts. Largest is at the right kidney posterior laterally measuring 5.1 cm.Bladder:UnremarkableReproductive organs:UnremarkableBowel:UnremarkableAppendix:No findings to suggest acute appendicitis.Lymph nodes:UnremarkableVessels:UnremarkableOsseous structures:UnremarkablePeritoneum:UnremarkableSoft tissues:UnremarkableImpression:Bilateral pleural effusions. Bilateral basilar alveolar and interstitial disease.Bilateral renal cystsHepatomegaly.Diffuse hepatic fatty infiltration.Report electronically signed by: FRANCESCO NAVA On 01/12/2021 8:03 AMWorkstation ID: [id number] Name Value Range Interpretation Code Description Data Dariela rce(s) Supporting Document(s) ID Date Data Source [id number] 01/12/2021 07:54:26 AM EDT [address] [address]R[place] Name: YOUNG MAYERACEDOB: 1940Sex: MOrdering Provider: KELSIE ALEXANDERuthoj Prov: KELSIE SOTELOReframandeep Provider: Procedure Performed: CT ANGIOGRAM CHESTExam Date: 01/11/2021 19:49MRN: [id number] Number: [id number] Class: InpatientAccount #: [id number] for Exam: TAVR, pre intervention planningTechnique: The TAVR protocol was utilized. This consisted of contrast enhanced, retrospectively cardiac gated images through the heart followed by helically acquired, non-gated CTA imaging of the chest, abdomen.One or more of the following dose reduction techniqueswere utilized; automated exposure control, dose modulation, technique adjustment based on patient size and iterativereconstruction algorithms. Maximum Intensity Projections (MIP) and/or other multiplanar images images were created and reviewed.Comparison: January 10, 2021Findings: CT angiogram: The thoracic aorta is well-opacified. Shows no aneurysm or dissection. The aortic branching pattern the arch is normal.LUNGS and pleura: There is right apical mild to moderate diffuse disease. There is moderate alveolar disease at the lung bases. There is patchy alveolar disease bilaterally elsewhereThere is diffuse interstitial lung disease.There are small bilateral pleural effusions.Mediastinum: There is adenopathy in the precarinal region with the lymph node short axis diameter of 1.8 cm. There is mild adenopathy in the aorticopulmonary window. No hilar adenopathy is revealed.Upper abdomen: There is hepatomegaly. There is a small hiatal hernia.IMPRESSION: Bilateral pleural effusionsBilateral interstitial disease. Edema is most likely. Associated chronic interstitial disease is also possible..Bilateral alveolar disease. Atelectasis and/or pneumonia most likely. Neoplastic process cannot be excluded. Suggest follow-up in at most 6 weeks.Small hiatal herniaReport electronically signed by: FRANCESCO NAVA On 01/12/2021 7:54 AMWorkstation ID: [id number] - [id number] Name Value Range Interpretation Code Description Data Dariela rce(s) Supporting Document(s) ID Date Data Source [id number] 01/12/2021 03:28:37 AM EDT [facility] Name Value Range Interpretation Code Description Data Dariela rce(s) Supporting Document(s) SODIUM 138 mmol/L (136-145) [facility] POTASSIUM 4.3 mmol/L (3.6-5.2) [facility] CHLORIDE 109 mmol/L (100-108) H [facility] CO2 24 mmol/L (22-31) [facility] ANION GAP 5 mmol/L (7-16) L [facility] UREA NITROGEN 12 mg/dL (7-24) [facility] CREATININE 0.53 mg/dL (0.80-1.30) L [facility] BUN/CREAT RATIO 22.6 RATIO (10.0-20.0) H [facility] GLUCOSE 75 mg/dL (70-99) [facility] CALCIUM 8.0 mg/dL (8.4-10.2) L [facility] GFR >60 ml/min/1.73m2 (>59) [facility] GFR ( AMER) >60 ml/min/1.73m2 (>59) [facility] GFR INTERPRETATION [facility] --NORMAL KIDNEY FUNCTION OR MILD DISEASE - GFR >OR= 60CHRONIC KIDNEY DISEASE - GFR 15 - 59RENAL FAILURE - GFR <15 Est. GFR calculation based on the MDRDstudy equation, which assumes a steadystate for creatinine. Est. GFR should notbe used for medication dosing. ID Date Data Source [id number] 01/12/2021 02:56:56 AM EDT [facility] Name Value Range Interpretation Code Description Data Dariela rce(s) Supporting Document(s) APTT 57.2 s (22.0-34.3) H [facility] ID Date Data Source [id number] 01/12/2021 02:50:00 AM EDT [facility] Name Value Range Interpretation Code Description Data Dariela rce(s) Supporting Document(s) WBC 7.3 10*3/uL (4.1-11.0) [facility] RBC 3.94 10*6/uL (4.60-6.10) L [facility] HGB 11.0 g/dL (13.5-18.0) L [facility] HCT 33.0 % (41.0-53.0) L [facility] MCV 83.9 fL (80.0-95.0) [facility] MCH 27.9 pg (27.0-32.0) [facility] MCHC 33.2 g/dL (32.0-36.0) [facility] RDW 15.6 % (10.5-14.5) H [facility] PLT 235 10*3/uL (150-450) [facility] MPV 7.4 fL (7.1-10.7) [facility] ID Date Data Source [id number] 01/11/2021 09:29:17 PM EDT [facility] Name Value Range Interpretation Code Description Data Dariela rce(s) Supporting Document(s) APTT 58.3 s (22.0-34.3) H [facility] ID Date Data Source [id number] 01/11/2021 04:42:16 PM EDT [address] [address]Xalcrzy Name: YOUNG MAYERACEDOB: 1940Sex: MOrdering Provider: KELSIE ALEXANDERuthoj Prov: KELSIE SOTELOReferrruthy Provider: Procedure Performed: US CAROTID BILATERALExam Date: 01/11/2021 15:40MRN: [id number] Number: [id number] Class: InpatientAccount #: [id number] for Exam: TAVR protocolTechnique: Duplex sonography was performed.Comparison: NoneFindings: The right and left carotid systems were examined by Doppler sonography. Carotid stenosis measurements were performed using the NASCET method.RIGHT CAROTID SYSTEM:Common Systolic Velocity 93 cm/s End-Diastolic Velocity 27 cm/sInternal Systolic Velocity 106 cm/s End-Diastolic Velocity 18 cm/sExternal Systolic Velocity 77 cm/s End-Diastolic Velocity 5 cm/sVertebral Artery 70 cm/s Antegrade flowICA/CCA Systolic Ratio = 1.1 Internal Carotid Artery Stenosis: Less than 50%LEFT CAROTID SYSTEM:Common Systolic Velocity 102 cm/s End-Diastolic Velocity 7 cm/sInternal Systolic Velocity 77 cm/s End-Diastolic Velocity 23 cm/sExternal Systolic Velocity 82 cm/s End-Diastolic Velocity 4 cm/sVertebral Artery 55 cm/s Antegrade f lowICA/CCA Systolic Ratio = 0.8 Internal Carotid Artery Stenosis: Less than 50%IMPRESSION: Less than 50% bilateral ICA stenoses.Antegrade bilateral vertebral artery flow.Report electronically signed by: ELIUD GILL On 01/11/2021 4:42 PMWorkstation ID: [id number] - [id number] Name Value Range Interpretation Code Description Data Dariela rce(s) Supporting Document(s) ID Date Data Source [id number] 01/11/2021 02:09:06 PM EDT [facility] INFORMATIONPatient MRN Name Date of Age Gend*PT [id number] Young Martinez 1940 80 years M IPPT Location Admission Date/Time Visit ID Attending [id number] 01/10/21 1134 --- Terry Luna MD([id number]) EPI ID CSN Admitting Provider [id number] Terry Luna MD([id number])Cardiovascular and Thoracic Surgery HISTORY & PHYSICAL01/11/2021hief Compliant / Reason for consultation:Young Martinez is a 80 years old gentleman presenting with fatigue, shortnessof breath, palpitations. He has a bout of chest pain three days ago. Echo issignificant for severe Valvular Aortic Stenosis.Past Medical History:Diagnosis Date Arthritis Atrial fibrillation Essential hypertension 01/10/2021 normally low bp Fuchs' corneal dystrophy 01/10/2021 GERD (gastroesophageal reflux disease) Heart murmur Hyperlipidemia Hypothyroidism Nonrheumatic aortic valve stenosis 01/10/2021 PAD (peripheral artery disease) Patient is Rastafari 01/10/2021 PONV (postoperative nausea and vomiting) StrokePast Surgical History:Procedure Laterality Date CARDIAC CATHETERIZATION N/A 01/10/2021 Procedure: Left heart cath; Surgeon: Terry Luna MD; Laterality: N/A; CARDIAC CATHETERIZATION N/A 01/10/2021 Procedure: Right heart cath; Surgeon: Terry Luna MD; Laterality: N/A; CARDIAC CATHETERIZATION N/A 01/10/2021 Procedure: Coronary angiography; Surgeon: Terry Luna MD; Laterality:N/A; CARDIAC CATHETERIZATION N/A 01/10/2021 Procedure: Left ventriculography; Surgeon: Terry Luna MD; Laterality:N/A; CATARACT EXTRACTION, BILATERAL Bilateral 2009 CORNEAL TRANSPLANT TONSILLECTOMYNo family history on file.Social History:Social HistorySocioeconomic History Marital status: Spouse name: Not on file Number of children: Not on file Years of education: Not on file Highest education level: Not on fileOccupational History Not on fileTobacco Use Smoking status: Former Smoker Smokeless tobacco: Never UsedVaping Use Vaping Use: Never usedSubstance and Sexual Activity Alcohol use: Not Currently Drug use: Never Sexual activity: Not on fileOther Topics Concern Not on fileSocial History Narrative Not on fileSocial Determinants of HealthFinancial Resource Strain: Difficulty of Paying Living Expenses:Food Insecurity: Worried About Running Out of Food in the Last Year: Ran Out of Food in the Last Year:Transportation Needs: Lack of Transportation (Medical): Lack of Transportation (Non-Medical):Physical Activity: Days of Exercise per Week: Minutes of Exercise per Session:Stress: F eeling of Stress :Social Connections: Frequency of Communication with Friends and Family: Frequency of Social Gatherings with Friends and Family: Attends Jewish Services: Active Member of Clubs or Organizations: Attends Club or Organization Meetings: Marital Status:Intimate Partner Violence: Fear of Current or Ex-Partner: Emotionally Abused: Physically Abused: Sexually Abused:Allergies:Bee pollen, Meloxicam, and TerazosinMedications:Current Facility-Administered Medications: acetaminophen (TYLENOL) 325 MG tablet 650 mg, 650 mg, Oral, Q4H PRN, JAYDEN Pratt atorvastatin (LIPITOR) tablet 40 mg, 40 mg, Oral, Nightly, Terry Luna MD,40 mg at 01/10/212024 beta carotene w/ C and E mineral (OCUVITE) 1 tablet, 1 tablet, Oral, BID,Shaila Quijano NP, 1 tablet at 01/11/21901 famotidine (PEPCID) tablet 10 mg, 10 mg, Oral, Daily, Shaila Quijano NP, 10mg at 01/11/21901 heparin (porcine) injection 100- 5,000 Units, 100-5,000 Units, Intravenous,PRN, JAYDEN Hubbard, 2,000 Units at 01/11/214 heparin infusion 25,000 units in 500 mL 0.45% NaCl, 14 Units/kg/hr,Intravenous, Continuous, Terry Luna MD, Last Rate: 18.4 mL/hr at 4, 14 Units/kg/hr at 01/11/21 0314 levothyroxine (SYNTHROID, LEVOTHROID) tablet 112 mcg, 112 mcg, Oral, Daily,Shaila Quijano NP, 112 mcg at 01/11/21 0539 normal saline flush 0.9 % injection 3 mL, 3 mL, Intravenous, Q8H CHAVO, Parrish Quijano NP ondansetron (ZOFRAN) injection 4 mg, 4 mg, Intravenous, Q4H PRN, JAYDEN Hubbard polyvinyl alcohol (LIQUIFILM TEARS) 1.4 % ophthalmic solution 1 drop, 1 drop,Both Eyes, PRN, Shaila Quijano NP prednisoLONE acetate (PRED FORTE) 1 % ophthalmic suspension 1 drop, 1 drop,Left Eye, Q48H, Shaila Quijano NP, 1 drop at 01/11/21 0902 predniSONE (DELTASONE) tablet 12.5 mg, 12.5 mg, Oral, Daily, Shaila Quijano NP, 12.5 mg at 01/11/21 0902 sodium chloride 5 % ophthalmic ointment, , Right Eye, BID, Shaila Quijano NP, Given at 01/11/21 0907Review of SystemsReview of Systems - History obtained from chart review and the patientGeneral ROS: positive for - fatigueOphthalmic ROS: negativeHematological and Lymphatic ROS: negativeRespiratory ROS: positive for - shortness of breathCardiovascular ROS: positive for - chest pain, dyspnea on exertion, andirregular heartbeatGastrointestinal ROS: no abdominal pain, change in bowel habits, or black orbloody stoolsGenito-Urinary ROS: no dysuria, trouble voiding, or hematuriaMusculoskeletal ROS: negativeNeurological ROS: no TIA or stroke symptomsDermatological ROS: negativeObjective:Physicial Exam:Vitals: 01/11/21 1050BP: 94/50Pulse: 85Resp: 20Temp: 97.1 FSpO2: 97%Cardio: Normal rate/ irregular rhythmRespiratory: Breath sounds equal bilaterallyGI: Abdo Soft, non tenderSkin: No rashes or lesionsEyes: PERLE, EOM intactMSK: No joint deformity/swellingNeuro: Grossly NormalPsych: Alert/oriented, Normal affectPREVIOUS WEIGHTS:Wt Readings from Last 10 Encounters:01/11/21 66 kg (145 lb 9.6 oz)08/17/20 62.6 kg (138 lb)08/17/20 62.6 kg (138 lb)02/19/20 68.5 kg (151 lb)09/16/19 67.1 kg (148 lb)01/07/19 70.8 kg (156 lb)10/03/18 75.3 kg (166 lb)05/21/18 74.4 kg (164 lb)01/17/18 73.5 kg (162 lb)12/04/17 73.5 kg (162 lb)Lab ResultsComponent Value Date WBC 9.0 01/11/2021 HGB 11.4 (L) 01/11/2021 HCT 35.5 (L) 01/11/2021 MCV 84.5 01/11/2021 PLT 254 01/11/2021ab ResultsComponent Value Date NA 140 01/11/2021 K 4.4 01/11/2021 CL 111 (H) 01/11/2021 CO2 22 01/11/2021ab ResultsComponent Value Date BUN 16 01/11/2021ab ResultsComponent Value Date CREATININE 0.52 (L) 01/11/2021IOBRIEFIntake/Output Summary (Last 24 hours) at 01/11/2021 1333Last data filed at 01/11/2021 1206Gross per 24 hourIntake 1021.77 mlOutput 600 mlNet 421.77 mlRADIOLOGY RESULTS:LATEST RADIOLOGY RESULTS:Echo Transthoracic (TTE)Result Date: 01/11/2021eft Ventricle: The left ventricular cavity is normal. Normal (55-65%) ejectionfraction. Unable to assess the diastolic function. Elevated left atrialpressure. mild concentric left ventricular hypertrophy observed. Wall Scoring:Resting The left ventricular wall motion is normal. Left Atrium: The leftatrium is mildly dilated. Mitral Valve: There is mild valve leafletthickening. There is moderate mitral annular calcification. Moderate stenosis.Mean gradient: 6 mmHg Mild regurgitation. Tricuspid Valve: Tricuspid valve notwell visualized. No stenosis. Mild to moderate regurgitation. Mild to moderatepulmonary hypertension present. Aortic Valve: There is severe globalcalcification of the aortic valve present. Critical stenosis. Peak AV velocity:5.59 m/s. Max P mmHg and mean P mmHg. Estimated CORRY: 0.49~0.55 nd2Bzdy to moderate aortic insufficiency is present.Cardiac catheterizationResult Date: [id number] man with paroxysmal atrial fibrillation on Eliquis was Jehovah'sWitness and was admitted with rapid pulse and was in atrial fibrillation. Hecomplained of chest pain and had mild troponin elevation. He is known to havecritical aortic stenosis with a mean gradient of 59 in August of this year.An echocardiogram showed severe aortic stenosis and mild mitral stenosis andinsufficiency. 1. Borderline single-vessel coronary artery disease. 2. Lownormal systolic function. 3. Moderate pulmonary hypertension with high fillingpressure. 4. Aortic with a mean gradient of 40. The diastolic aortic pressureis low suggestive of significant aortic insufficiency. 5. Mitral stenosis witha mean gradient around 10 when the heart rate is above 100. When accountingonly for the heartbeats with longer diastole the mean gradient was 8. There kriss large V wave in the wedge pressure suggestive of possible significant mitralinsufficiency. 6. Atrial fibrillation paroxysmal. 7. Right radial andantecubital venous access. At this time there is many confusing factors. Aorticstenosis assessment showed critical stenosis in August without a gradient islower. There is however low diastolic pressure. Also the mitral stenosis whichwas reportedly mild by echo shows a gradient of 8-10 and he had depending on thecardiac cycle. I am going to request a repeat transthoracic echo for tomorrowfor further assessment of the valvular disease prior to committing to anyfutureintervention. Meanwhile we will continue with heparin drip. Nocomplications, estimated blood loss minimal.Chest X-Ray PortableResult Date: 01/10/2021t. [place] [address] Patient Name: MILTON MARTINEZ : 1940 Sex: M Ordering Provider: SHAILA QUIJANO AuthorizingProv: SHAILA QUIJANO Referring Provider: Procedure Performed: XR CHESTPORTABLE Exam Date: 01/10/2021 13:11 Patient Class: Inpatient Reason for Exam:chest pain/shortness of breath Technique: Single AP view obtained. Comparison:None Findings: There is diffuse interstitial disease most consistent with edema.There is cardiomegaly. There are probable small bilateral pleural effusions. Noadenopathy is revealed.IMPRESSION: Diffuse interstitial disease. Edema is most likely Cardiomegaly.Possible small bilateral pleural effusions. Report electronically signed by:FRANCESCO NAVA On 01/10/2021 1:56 PM Workstation ID: [id number] / Impression / Plan:Young Martinez presents with severe symptomatic Valvular Aortic Stenosis. NYHAClass III. I've gone over this diagnosis with him. We've discussed treatmentoptions including surgical Aortic Valve Replacement and Transcatheter AorticValve Replacement (TAVR).We've gone over TAVR procedure, including risks of bleeding, infection, stroke,kidney failure, lung complications including pneumonia and prolonged supportwith breathing machine, possibility of needing a pacemaker and possibility ofdying. He understands this and would like to go ahead with TAVR procedure. Thiscase will be reviewed at the TAVR/Structural Heart Conference.This medical record reflects the history of present illness as obtained bymyself in discussion with the patient.Stevie Sanderson MD [facility] FACSCardiovascular Thoracic Surgery01/11/2021, 1:36 PM Name Value Range Interpretation Code Description Data Dariela rce(s) Supporting Document(s) ID Date Data Source [id number] 01/11/2021 01:23:25 PM EDT [facility] Name Value Range Interpretation Code Description Data Dariela rce(s) Supporting Document(s) APTT 38.6 s (22.0-34.3) H [facility] ID Date Data Source [id number] 01/11/2021 09:29:30 AM EDT [facility] Name Value Range Interpretation Code Description Data Dariela rce(s) Supporting Document(s) &PDF [facility] HXXEGs8vRfQFJsEx72/EAGcnNSAig0NeCDbpUBu7DWeqBEXbW1RalMxiGRpOEAoIY5CgXufOAFBVFIQW 0b3 [file] ICAgICAgICAgICAgICAgICAgICAgICAgICAgICAgIC AgICAgICAgICAgICAgICAgICAgICAgICAgICAgICAgICAgICAgICAgICAgICAgICAgICAgICAgICAgIC AgICAgICANCiAgICAgICAgICAgICAgICAgICAgICAgICAgICAgICAgICAgICAgICAgICAgICAgICAgIC AgICAgICAgICAgICAgICAgICAgICAgICAgICAgICAg ICAgICAgICAgICAgICAgICANCiAgICAgICAgICAgICAgICAgICAgICAgICAgICAgICAgICAgICAgICAg ICAgICAgICAgICAgICAgICAgICAgICAgICAgICAgICAgICAgICAgICAgICAgICAgICAgICAgICAgICAN CiAgICAgICAgICAgICAgICAgICAgICAgICAgICAgIC AgICAgICAgICAgICAgICAgICAgICAgICAgICAgICAgICAgICAgICAgICAgICAgICAgICAgICAgICAgIC AgICAgICAgICANCiAgICAgICAgICAgICAgICAgICAgICAgICAgICAgICAgICAgICAgICAgICAgICAgIC AgICAgICAgICAgICAgICAgICAgICAgICAgICAgICAg ICAgICAgICAgICAgICAgICAgICANCiAgICAgICAgICAgICAgICAgICAgICAgICAgICAgICAgICAgICAg ICAgICAgICAgICAgICAgICAgICAgICAgICAgICAgICAgICAgICAgICAgICAgICAgICAgICAgICAgICAg ICANCiAgICAgICAgICAgICAgICAgICAgICAgICAgIC AgICAgICAgICAgICAgICAgICAgICAgICAgICAgICAgICAgICAgICAgICAgICAgICAgICAgICAgICAgIC AgICAgICAgICAgICANCiAgICAgICAgICAgICAgICAgICAgICAgICAgICAgICAgICAgICAgICAgICAgIC AgICAgICAgICAgICAgICAgICAgICAgICAgICAgICAg ICAgICAgICAgICAgICAgICAgICAgICANCiAgICAgICAgICAgICAgICAgICAgICAgICAgICAgICAgICAg ICAgICAgICAgICAgICAgICAgICAgICAgICAgICAgICAgICAgICAgICAgICAgICAgICAgICAgICAgICAg ICAgICANCiAgICAgICAgICAgICAgICAgICAgICAgIC AgICAgICAgICAgICAgICAgICAgICAgICAgICAgICAgICAgICAgICAgICAgICAgICAgICAgICAgICAgIC AgICAgICAgICAgICAgICANCjw/fUUeR5oyuEYdepJ7Q8tdPg9QUq3BSK0of8DoIDZyAYpyeqZqIxeYGm DwWQUtIfbEIui7TRecWJ6PuLAjM9AmN4OfDAnwRT1T YRJeKQBszJIgFFOkIZJtBnA3QMXnTRstIA9GfWXzJQfwSQBzIBPcJrUnYJPgHYIxXAHqRN5VAONeM465 pyXpRr6IOo7BTlLsND2yma8ATXMcWAKhIdaKJpz1PKguXS8LoHZiV4BfsXNen5tHDiLpI3KSXUNvQXWp Ck0RCXWvNsRbFGOjBXumHY0uPOSrYIBZkZaaeuC1BK 1FTV5wzvNcRP6HZcLqLh4tNy6GZlVdA5LrJ8YzOGCeLBZEQHjtGP0OCOOiMBJ5IQU0YJFgNLVPOzAdR6 3hJR4PU1Sob46yUfG5RRImLhTdTHpbHA26mZhnrrVgjPScmAlzFW8MIb9+DQplbmRvYmoNCnhyZWYNCj WgDILXXfXgBLIsOCZmOOTzHxS3DbQrRz0MUJXsAQHh FYAxTfDoUCWuLTToJSbzQLKdGOX5BqO4NAGiNFErZH6WRfPaODAtOaO3YayuEGYyVHXotb9LGSTsEDAw UBW5QWZeZFLgTTYwIYybYSPgFEKlJvQ5LHQoDINfQN8BLxTcKNMrQZC8ZXgjXUVkLNSbyf8ONRTdPDLc WoVuZHGtVUHzFDAqGXdhLMQaJCA9PkFyPPRzXMIdBM 8QAdFtTHLnAZs4WYStVCWpTZVvwi2NUFMjHQHfZZk4WDDsSRYhOZBrEGzaWYLdSON0MCT8NMRoONSwKT 5GCkVxQJZcZIViQHCtSKHiCNUcrj7QKAVkJFCpBSBmLOJjKCArKIWqPQwhWXSrDKLcYUu1KZQwEYFpOF 7VBnSgRDSxHNBoDWbpUAMoYJFczh6JKCXaGYZoXBC7 HeSiECWaPWLpXAnwOPZmLBT4XNTgLYRbNJZfUH9BTlIgLJHmPOU4KVHtHLZfLFZgnd6OUKQqTJEdGqz7 JyGuYHXuEVIcZKmyXBLlWPK8OjIlYPGfLGJmYS0QCsEaFIXpXJkhSTqiIPJlPIActp4EITPcZVQgFGA7 ZURhGVUlPXNaRBibFAThHTF4NQg5ZSSaMYQcEI0QEt DiBJSyZIz7ULjsZENnFHDttt9QEHEwQJNdCcteQPCgDYSoGRFiQGtnNJLyVCQ0WMbeGFYhKSQiIN9NAn EoUBKoPrlwYEEzSDKgBIIxyo5HRGPmFANeFJd1SOCwUEJjFESiYHruFVDlYBZ0MET5GXXmFKXjMF2MDd LtASVsRpN9VhwrFQJyAYXtow3DQTSdKPD4FCV5BDMh PYSaHTPuZOirFEEjEXMtLRh0FIUgTAVqGZ9VBnWeAFLzOYW7SoUgEDBqJBUgrn5CMDKlBBJ7WcB4FoKb WEWwVCKpCTgdBFVlELLrQaD8AEDfPBZdVW3HNuGiOANmMID4KHIsMREzXJPtsy7BHPBsHGX8UTR3KVCn HJAkHPSvIPcmFALnCSBpRAL2NLPeAFIyHW1DKyOdJQ LeKhF7DDLsUXPyTOVgmo8ZELJdGYF3GEgkSQRvOHVpNWGaDWrbYAIdVInpBYZ6IJOsDXPhNO6PXaBuIS KzIwM6HGfiWXUyJRPxfz7TiESlhYkzeb5UZEmMPo7YtBouCIVjMHluVv3tsWZ8CnXkKRYKRm3YqgMoSE YoZQDCZPnkZPOnNOSvVOPjSKufDlOcJjRiHsJ1Seda DKGsFVe5JOzqMEA0BhA0ZBA9VEZ2SKG9VeDlS3JbYyobJNL0HZL8GVb0TeDqRbe+ZY2hLEt+Om0Bc2Tr fiI6jqNrAVx4IpV3Pa4YVYPXK9DHXv== ID Date Data Source [id number] 01/11/2021 08:40:00 AM EDT [facility] Name Value Range Interpretation Code Description Data Dariela rce(s) Supporting Document(s) CHOLESTEROL @ 176 mg/dL (0-200) [facility] TRIGLYCERIDE @ 91 mg/dL (30-200) [facility] HDL CHOLESTEROL @ 42 mg/dL (>40) [facility] PER NCEP ATP III GUIDELINES:RESULTS LOWE R THAN 40 MG/DL ARE SUGGESTIVEOF INCREASED RISK FOR CORONARY ARTERYDISEASE. RESULTS > OR = TO 60 MG/DL ARECONSIDERED A NEGATIVE RISK FACTOR. CHOL/HDL RATIO 4.2 RATIO [facility] INTERPRETATION OF CHOL-HDL RATIO CHD RISK FEMALE MALEVERY HIGH >8.3 >14.3HIGH 5.6- 8.3 6.7- 14.3AVERAGE 3.7- 5.6 4.0- 6.7BELOW AVERAGE 2.5- 3.7 2.7- 4.0PROTECTED <2.5 <2.7 LDL CHOL (CALC) 116 mg/dL (<130) [facility] PER NCEP ATP III GUIDELINES: OPTIMAL < 100 NEAR OPTIMAL 100 - 129BORDERLINE HIGH 130 - 159 HIGH 160 - 189 VERY HIGH > 189 ID Date Data Source [id number] 01/11/2021 03:09:13 AM EDT [facility] Name Value Range Interpretation Code Description Data Dariela rce(s) Supporting Document(s) SODIUM 140 mmol/L (136-145) [facility] POTASSIUM 4.4 mmol/L (3.6-5.2) [facility] CHLORIDE 111 mmol/L (100-108) H [facility] CO2 22 mmol/L (22-31) [facility] ANION GAP 7 mmol/L (7-16) [facility] UREA NITROGEN 16 mg/dL (7-24) [facility] CREATININE 0.52 mg/dL (0.80-1.30) L [facility] BUN/CREAT RATIO 30.8 RATIO (10.0-20.0) H [facility] GLUCOSE 74 mg/dL (70-99) [facility] CALCIUM 7.5 mg/dL (8.4-10.2) L [facility] GFR >60 ml/min/1.73m2 (>59) [facility] GFR ( AMER) >60 ml/min/1.73m2 (>59) [facility] GFR INTERPRETATION [facility] --NORMAL KIDNEY FUNCTION OR MILD DISEASE - GFR >OR= 60CHRONIC KIDNEY DISEASE - GFR 15 - 59RENAL FAILURE - GFR <15 Est. GFR calculation based on the MDRDstudy equation, which assumes a steadystate for creatinine. Est. GFR should notbe used for medication dosing. ID Date Data Source [id number] 01/11/2021 02:57:12 AM EDT [facility] Name Value Range Interpretation Code Description Data Dariela rce(s) Supporting Document(s) APTT 36.3 s (22.0-34.3) H [facility] ID Date Data Source [id number] 01/11/2021 02:40:34 AM EDT [facility] Name Value Range Interpretation Code Description Data Dariela rce(s) Supporting Document(s) WBC 9.0 10*3/uL (4.1-11.0) [facility] RBC 4.20 10*6/uL (4.60-6.10) L [facility] HGB 11.4 g/dL (13.5-18.0) L [facility] HCT 35.5 % (41.0-53.0) L [facility] MCV 84.5 fL (80.0-95.0) [facility] MCH 27.1 pg (27.0-32.0) [facility] MCHC 32.1 g/dL (32.0-36.0) [facility] RDW 15.6 % (10.5-14.5) H [facility] PLT 254 10*3/uL (150-450) [facility] MPV 7.4 fL (7.1-10.7) [facility] ID Date Data Source [id number] 01/10/2021 09:49:17 PM EDT [facility] Name Value Range Interpretation Code Description Data Dariela rce(s) Supporting Document(s) APTT 55.0 s (22.0-34.3) H [facility] ID Date Data Source [id number] 01/10/2021 06:01:23 PM EDT [facility] Name Value Range Interpretation Code Description Data Dariela rce(s) Supporting Document(s) &PDF [facility] CSQCXg9hQqLVLkDk58/THYatZXIdf9JjZXvfZDi7GYspEGMeC5JkhAnsZLhUZZcFY3ZsNtxQAAVIVYEP 0b3 [file] ZyQUv4R4LE4huT0CLArk+5T/LOgcjUNfVcX+YT62dDi3hLbz5oHBbF2m0jvWz6I1fdPmxGXmGGWG+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 [file] AgICAgICAgICAgICAgICAgICAgICAgICAgICAgICAg ICAgICAgICAgICAgICAgICAgICAgICAgICAgICAgICAgICAgDQogICAgICAgICAgICAgICAgICAgICAg ICAgICAgICAgICAgICAgICAgICAgICAgICAgICAgICAgICAgICAgICAgICAgICAgICAgICAgICAgICAg ICAgICAgICAgICAgICAgICAgDQogICAgICAgICAgIC AgICAgICAgICAgICAgICAgICAgICAgICAgICAgICAgICAgICAgICAgICAgICAgICAgICAgICAgICAgIC AgICAgICAgICAgICAgICAgICAgICAgICAgICAgDQogICAgICAgICAgICAgICAgICAgICAgICAgICAgIC AgICAgICAgICAgICAgICAgICAgICAgICAgICAgICAg ICAgICAgICAgICAgICAgICAgICAgICAgICAgICAgICAgICAgICAgDQogICAgICAgICAgICAgICAgICAg ICAgICAgICAgICAgICAgICAgICAgICAgICAgICAgICAgICAgICAgICAgICAgICAgICAgICAgICAgICAg ICAgICAgICAgICAgICAgICAgICAgDQogICAgICAgIC AgICAgICAgICAgICAgICAgICAgICAgICAgICAgICAgICAgICAgICAgICAgICAgICAgICAgICAgICAgIC AgICAgICAgICAgICAgICAgICAgICAgICAgICAgICAgDQogICAgICAgICAgICAgICAgICAgICAgICAgIC AgICAgICAgICAgICAgICAgICAgICAgICAgICAgICAg ICAgICAgICAgICAgICAgICAgICAgICAgICAgICAgICAgICAgICAgICAgDQogICAgICAgICAgICAgICAg ICAgICAgICAgICAgICAgICAgICAgICAgICAgICAgICAgICAgICAgICAgICAgICAgICAgICAgICAgICAg ICAgICAgICAgICAgICAgICAgICAgICAgDQogICAgIC AgICAgICAgICAgICAgICAgICAgICAgICAgICAgICAgICAgICAgICAgICAgICAgICAgICAgICAgICAgIC AgICAgICAgICAgICAgICAgICAgICAgICAgICAgICAgICAgDQogICAgICAgICAgICAgICAgICAgICAgIC AgICAgICAgICAgICAgICAgICAgICAgICAgICAgICAg DWBfZAUkMWAeHUBxXDIlBBStPTEfVTBxDLLxLOCpZVBoGRTxRVXyYYTdCLBiMBq5H7unLVLhIOCzWS8y QVq4Hm2+CIyRIxZrZIP1aoYafP1IPM2az5KbDKdvQUMez9TbJYb0VJ4VQLWeXDuvPF1LYYytdq4YGPNj DTHulFEDw8aqIjKpDVC2LYQlBmzvIF7HDTJpW8qxfb MoPBEuOLVLWGydLZJXYJjxVCYOQAKeMLRgMbEaQaEvIZKuSN4RPSNrJ533qaGfWD2JUp9LSmYhFF3mhc 2HKdHbFKJsPdkMSsk6BDlyFU4HdOAehKXsDOAcVBUVSnZaQ9xyk2WpHtEuGPENGMixYT1Cv6HxyQHuAY o+Eb7VUS2cf5GtPRtoTTTwJT6npb3TQOfMCsDpH4En eFitNWjukQrugeJnCE5YLPBtQQWxrXNbFWvmVHIHQD6ADPhgXUO5XHVvnfMbcKShAZazYF3VHNVphsVj MzAgMCBSDQo+Xj3REI5hx0GvTNxeXtBuIA6ljj8JVDpTQnAsQ2S4iUXkC3T1KAnuRa7TARHtADErSyao EGYKEQhyRN2JCW5ninJ6UQ8VvDJzFMVuAEBasQCjXO f5J43wrLGqNNcmFN9CCWM+Himanshu+Wh8SNNZaCBGeXJObAaCiPEWMYbCaN3EpE2WOp8UbZ0TyLO82dSbzab GmEEfcFD2HYT8tNOLuHDGOLS9NaPNolM4hceAwPJJpUYVNTzDeA44qqLEwMLArLWM4TATnXr2OQOKrQ2 FwbaKrpVzygaVdXEAhWHYQQD4FUBwfofZjuXPtdIft EP24wJttOS0HMa7AGpEsYZ2xyv2KpPXaJd7FEIImZx9CMSMiIETyEJYgTTQ2OYOwDxPcSNjoLPOtVJYq NMY6MAQvSSXcNX5IWzKzSFOjNiV5RXFfOQCrOOSopv4VLGDyYLS9SYImSpOvITDuJBYgNKlqYYLzEILb EGi9SLNaORHyWB5ZRhPbLNLvVIExVDdlGQQwBRJzxj 3FMWBfOXVlMaDxYLUiFAHsBYQuYDmmZCZyZSO5INJ5PGQyTICoWW4PXfHxKMSrLZY0RDTaDVVnMJBwxd 2IBTVdMRZsTzvyHTQrUCWpBKZzTMfsWCHgRAD5BYXeUZZcYTGyLV1HUrNjJTQlLNh2IjJhQMWwYEJjts 6GIBWbKTHiKUM6LREdWFRoGLKbDLejSQEdLGW5Vffv USZoWWXfRM1MBuVpOXMsNYt1RZwrIFDiCZNwjo1APVFuMESsSSv7XVApVGEqXYLfCPxqHIFvELOlWJN4 FLMnMUNsRZ0FJpLwDIPqGTNmSokxNZOmVFJjhc8JZDOhIJYxJfI9CCPpIWWwDPLxUVhlDHWhHBPzWUxj SDHjGGTiXC8QBpApWLCmBST3GdusKMFiXHVefg5IYM GfRJNxUsM4TRUrVQBlSRPlALmwGKVaTIR6XfjsVWShJSAqVD6OOpRxQLFpSie3XtCxIQKiWOXcus9QEL AbIIUjYHZ5JaPoFKLuOUNpGFkcQFOsXEQ6PqotNHMtCVBuNZ2XGtUaAPYkUWBsQMUjUVKpFPMwkt1IDK FiGWU9KVX3OwZiIAPuDGIrBPplMQLdVEKmJfj7YAHh ACEpPC4INxShUSNbNpTqTEfzZANdJLZilm8SRZZwLUQ4ZGF3EYYsLRWdZDAuKMfzHZFhTGI5OmSyANEc ZGAtGL6DAsBaVZQzJxZ3WaTsZOIkQFIyne0HpPIrbMhcyw5WYMfXAd9PiLybJIYpGEwjVv5guLZcVpDy MJTAFo7CxgDcVZSyDFKBSLpxGTCgATGyEtSuXZJ8Xx h6KEAzUMo7JPB8RPw1WFe6NqE6LQh0VoC4JzZtQ0VrTdVdMCn6EsOhFWB8IMB3Njr7IDi0MNX8MJW+IF 0gDQo+Jz7Cr0ZemiM7ieNpTCn5BnT2RG4KEOHNS1XBGh== ID Date Data Source [id number] 01/10/2021 04:13:38 PM EDT [facility] INFORMATIONPatient MRN Name Date of Age Gend*PT [id number] Young Martinez 1940 80 years M IPPT Location Admission Date/Time Visit ID Attending [id number] 01/10/21 1134 --- Terry Luna MD([id number]) EPI ID CSN Admitting Provider [id number] Terry Luna MD([id number]) Attestation signed by Terry Luna MD at 01/10/2021 4:13 PMSignature: COURT Portilloate: January 10, 2021Time: 4:13 PM --Cardiology History and PhysicalName: Young Martinez Gender: maleDate of : 1940 Age: 80 yearsDate/Time of Admit: 01/10/2021 11:34 AM Code Status: No OrderPrimary Care ProviderReferring Physician: [facility]Baltazar Duff Complaint: Exertional Shortness of BreathHPI: Young Martinez is a 80 years male with a significant past medicalhistory of paroxysmal A. fib on Eliquis, rheumatoid arthritis, GERD,hypertension lipidemia, hypothyroidism, CVA (2017), Fuch's dystrophy.Patient reports for the last few weeks he has been experiencing exertionalshortness of breath. He reports that he usually attempts to walk at least 2miles per day however for the last 2 weeks he has been having shortness ofbreath with minimal activity. Also he has been having tachycardia noted on hiswatch and over the last week has been consistently elevated with rates [id number]. He does report he has intermittent palpitations. Otherwise deniesassociated chest discomforts, nausea or vomiting, dizziness or lightheadedness.On 01/08/2021 he developed constant left sided chest wall pressure that lastedless than 24 hours, causing him to seek care at [facility]. Thepressure did not change in characteristics or intensity, and did resolvespontaneously. He was admitted to [facility] for further work up where he w as found tyree in and out of atrial fibrillation with RVR - treated with IV metoprolol. ECGshowed NSR with PACs and NS ST and T wave abnormality in the lateral leads.Troponins were mildly elevated with a max of 0.23. Echocardiogram showed lownormal LVEF, 50%, with critical . The critical is not new. He had nofurther chest discomfort. The decision was made to transfer to [facility] for cardiaccatheterization with Dr. Luna. On arrival to [facility] he is without angina,shortness of breath, palpitations, or dizziness. He will be admitted and labsand CXR will be updated.Denies history of CAD, previous GA, CHF, valvular heart disease, arrhythmias,COPD, asthma, VENANCIO, diabetes, hypertension, hyperlipidemia, TIA, bleeding orclotting disorders, kidney or liver disease, cancer. Denies strong familyhistory of heart disease. Reports he is a former smoker, quit smoking in 1969.Denies current alcohol or illicit drug use.Of note, patient is a Rastafari and refuses blood and blood products.Flight Steward: Dr. Bernal.Review of Systems:Negative for review of all 10 systems, except as noted above.HistoryPast Medical History:Diagnosis Date Arthritis Atrial fibrillation GERD (gastroesophageal reflux disease) Heart murmur Hyperlipidemia Hypothyroidism PAD (peripheral artery disease) StrokePast Surgical History:Procedure Laterality Date CATARACT EXTRACTION, BILATERAL Bilateral 2009 TONSILLECTOMYSocial HistorySocioeconomic History Marital status: Spouse name: Not on file Number of children: Not on file Years of education: Not on file Highest education level: Not on fileOccupational History Not on fileTobacco Use Smoking status: Former Smoker Smokeless tobacco: Never UsedSubstance and Sexual Activity Alcohol use: Not Currently Drug use: Not on file Sexual activity: Not on fileOther Topics Concern Not on fileSocial History Narrative Not on fileSocial Determinants of HealthFinancial Resource Strain: Difficulty of Paying Living Expenses:Food Insecurity: Worried About Running Out of Food in the Last Year: Ran Out of Food in the Last Year:Transportation Needs: Lack of Transportation (Medical): Lack of Transportation (Non-Medical):Physical Activity: Days of Exercise per Week: Minutes of Exercise per Session:Stress: Feeling of Stress :Social Connections: Frequency of Communication with Friends and Family: Frequency of Social Gatherings with Friends and Family: Attends Jewish Services: Active Member of Clubs or Organizations: Attends Club or Organization Meetings: Marital Status:Intimate Partner Violence: Fear of Current or Ex-Partner: Emotionally Abused: Physically Abused: Sexually Abused:No family history on file.Medications & AllergiesAllergies:AllergiesAllergen Reactions Bee Pollen Meloxicam TerazosinMedications:Medications Prior to AdmissionMedication Sig Apixaban (ELIQUIS) 5 MG TABS tablet 5 mg 2 (two) times a day aspirin (ASPIRIN LOW DOSE) 81 MG tablet Take 81 mg by mouth daily calcium carbonate (CALCIUM 600) 600 MG tablet CALCIUM 600 600 MG TABS Flaxseed, Linseed, (FLAXSEED OIL) 1000 MG CAPS FLAXSEED OIL 1000 MG CAPS levothyroxine (SYNTHROID) 112 MCG tablet Take 112 mcg by mouth daily Magnesium 125 MG CAPS Take by mouth daily Multiple Vitamin (MULTIVITAMIN) capsule MULTIVITAMINS CAPS Multiple Vitamins-Minerals (PRESERVISION AREDS 2) CAPS PRESERVISION AREDS 2CAPS [place]-3 Fatty Acids (FISH OIL) 1200 MG CAPS daily polyvinyl alcohol (ARTIFICIAL TEARS) 1.4 % ophthalmic solution ARTIFICIALTEARS 1.4 % SOLN prednisoLONE acetate (PRED FORTE) 1 % ophthalmic suspension PREDNISOLONEACETATE 1 % SUSP predniSONE (DELTASONE) 10 MG tablet Take 5 mg by mouth 2 (two) times a day Scheduled Meds:Continuous Infusions:PRN Meds:.PhysicalNo data recorded.Blood Pressure: Pulse:Temperature: Respirations:Admission Weight: O2 Saturation:Today's Weight: BMI: There is no height or weight on file to calculate BMI.No intake or output data in the 24 hours ending 01/10/21 1135Physical ExamPleasant, comfortable, not in acute distress.Awake, alert, oriented times 3.Moves all extremities.General appearance: alert, appears stated age and cooperativeNeck: no carotid bruit and no JVDLungs: Clear to auscultation bilaterally.Heart: regular rhythm, tachycardic, S1, S2 normal, no murmur, click, rub orgallopAbdomen: Soft, nontender, bowel sounds present.Extremities: Trace BLE edema.Pulses: 2+ and symmetricSkin: No rash or lumps.DiagnosticsLabs from outside facility: 01/10/2021odium 139Potassium 4.6Calcium 8.2Glucose 97BUN 19Creatinine 0.71Magnesium 2.4Troponin 0.10, 0.12, 0.23, 0.23NT proBNP 7146TSH 1.99Free T4 1.70WBC 8.8Hgb 11.6HCT 38.6PLT 299COVID-19: NegativeEchocardiogram (01/09/2021)1. Study is of acceptable technical quality, underlying atrial fibrillationalternating with sinus rhythm and atrial ectopy.2. Normal LV size with normal LV systolic function and estimated LVEF 50 to55%.3. Help with ca lcified aortic valve with mild to moderate insufficiency andprobable severe critical stenosis (mean gradient 35 mmHg, calculated CORRY 0.5cm/m2).4. 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 Very high central venous pressure at least moderate pulmonary hypertension.6. Severe biatrial enlargement.CXR (01/08/2021)Advanced chronic changes. Cannot exclude superimposed acute process.ECG: SR with PACs and NS ST and T wave abnormality in the lateral leads.Assessment and PlanActive Problems:1. Non- exertional Chest Pain- Presented to [facility] with . ECG showing SR with PACs and NSST and T wave abnormality in the lateral leads.- Denies angina and other cardiac symptoms at this time.- Troponin 0.10, 0.12, 0.23, 0.23. Repeat pending.- Echocardiogram obtained at [facility] showing low normal LVEF, 50-55%, withcritical , further as above.- NT-pro BNP, Lipid Panel and HgA1c pending.- Will repeat CXR as [facility] CXR cannot exclude superimposed acute process.- Plan to continue Heparin gtt.- Continue telemetry monitoring. Patient is not to travel off telemetry.- Continue Aspirin and SL Nitro PRN.- Plan for cardiac catheterization today with Dr. Luna.- Further plan pending outcome of cardiac catheterization.2. Paroxysmal Atrial Fibrillation- Currently tachycardic and regular, ECG is pending.- Not currently on rate control agents.- Patient denies palpitations and other cardiac symptoms.- Anticoagulated on Eliquis outpatient, will hold. Last dose 7/12 am.- Plan to continue Heparin gtt.- Continue telemetry monitoring.3. Critical Aortic Stenosis- Noted on echocardiogram at [facility].- Mean gradient of 35 mmHg and CORRY 0.5 cm/m2.- Compensated on exam with trace BLE edema.- Plan for LHC to rule out ischemia, possible TAVR vs SAVR work up.4. Hypothyroid- Does have hypothyroid and on thyroid replacement therapy.- TSH 1.99 and FT4 mildly elevated at 1.70.- Followed as an OP, to be rechecked by PCP.- Continue synthroid dosing.5. History of CVA (2016)- No resid ual deficits.- Continue Aspirin.6. RA- On daily prednisone, continue.7. Fuch's Dystrophy- S/p Left cornea transplant x3.- Continue eye drops.8. Rastafari- Patient refuses blood and blood products.COVID-19: Negative at [facility].Code Status: FULL CODEFurther plan per Dr. Luna.Patient follows with Dr. BERNAL for outpatient cardiac care.Signature: Shaila Quijano, JUAN PABLODate: January 10, 2021Time: 11:35 AM Name Value Range Interpretation Code Description Data Dariela rce(s) Supporting Document(s) ID Date Data Source [id number] 01/10/2021 01:56:23 PM EDT [address] [id number] Name: YOUNG MAYERACEDOB: 1940Sex: MOrdering Provider: SHAILA QUIJANOAuthorizing Prov: SHAILA Nuno Provider: Procedure Performed: XR CHEST PORTABLEExam Date: 01/10/2021 13:11MRN: [id number] Number: [id number] Class: InpatientAccount #: [id number] for Exam: chest pain/shortness of breathTechnique: Single AP view obtained.Comparison: NoneFindings: There is diffuse interstitial disease most consistent with edema. There is cardiomegaly. There are probable small bilateral pleural effusions. No adenopathy is revealed.IMPRESSION: Diffuse interstitial disease. Edema is most likelyCardiomegaly. Possible small bilateral pleural effusions.Report electronically signed by: FRANCESCO NAVA On 01/10/2021 1:56 PMWorkstation ID: [id number] Name Value Range Interpretation Code Description Data Dariela rce(s) Supporting Document(s) ID Date Data Source [id number] 01/10/2021 01:13:50 PM EDT [facility] Name Value Range Interpretation Code Description Data Dariela rce(s) Supporting Document(s) EKG [facility] RBDGKd3pFmYRFqLih6ZcPxPrIFGuIA7jkgc0P6V5rJNvD5IxqXZtg7pnA3IrZ0KjFLJrEEKJDZ5IxHLt jb2 [file] dG/s/AKHJFwgMa206/3H5rvzy+ZqnTD0tH05wfU6BbRKDw1/PP/j46uNf/6Hm3j+sales force developer///4//hkzp2h2 5//3r78Hf//753++if/3v/6n//jX/+U//td/mj///Mf/61//1//4l/25bNLt0r/Ox7//97/9z/8a4/nH 4u8///SGST50051///O//rdcO0SjjPjNIA/W+2CVB/ y0HkF9IaE5yngO6nyoy6HSaV7FmanCxENtu1VxIOprwOdHinvhJ7d4oqlTSk/zueQBx0dc1zUgHmn3dJ fQTO5f8RPHm0l4VJOmFt3JiuObwmByfJbbwyD8Mm6FhjEhniOcyZrqxfU9Ec1QtjNtyhNmtQxmmqF5Vo 5FcrMgwu4a2EpnmhK7Tz5OaaTjbc3e5XdcboF0Vq4F dkAtzgNwqSntsFVFMk1Huz1ijlAboWxoSKVEcDRavIlajJEPMw3Epe0qqeA6wzYvAR4m9QiBN2i2EwHY Md1KqwYYJ1LI4aFKbyB3SNOtZI0CAYfzQrnSfQYa06L0Kd0JRTsjFsaLsVHh09C23o+Fx2Pk5Uam36cq ZvzRccIrTAhs3Cef34boHuoVtyKmRLio7Oma50ymXb jX+dx3JK4Fgo7Mn4jnjSJf09WznEnGns4Kf0iknUVg48YdhNeGvw1Ku8bpmBSm/87LZWL+sUneSy3Co0 z8cHJ+zzsls2Nt2hE/S8dwi98T+uEU/alA6R1z5ttbbj76RZ8/6FbBpR4mhAWK1QrptJa8xSHVCnVxai SN1XxEWghGpr9UaHZrg3YHQz/2iNEgsR+LxGiSmP/a WsXY+hnrzWE2jIkIvgy4TPZX78Y+bBOjcWI/1onRPLEf+8QaxTxWbWO2IolNWdJjCkV+fsyiCt2Ul6sN /XseRwKFwjmLw7HdD7pS3UkrG8jXyTHYu2MfTCrqk9TrLd35T1ZZoOz1tBpLejj5DK4Q97U+zOps7FD/ 1ovRfLEf+6BppHcTABU2XyjBrjAyBtQesGoMRJb/3T qBD3/RUBNPmwbHdoKdI2vZ0JulL2qFuDSTh4YcAHzqe8StNyU1R7CCzCa0dFwIwf5L12yM0izdmJeOxq 7JD0egji8vU7AOLl6TxiBMbV8lv6rh5N+VDbEc8PrLBGw31pThBW8v+1U8oHnE/Gm2GhAVkvwpl9MpBv oP2oBpT5nQcYYCm8XiSAnqi+3vYe20B/kYTR/7sX2M xo/5HH1Q41g+7B+jAWQ/LrNKANKkF4deBMkLBJE9z+qWGaGmOxJdTMwGOlxraUlBbQ1ZU8XcfO9gKki8 5D/8gVXw7a49fJpZ+Q833KZG/McectpD/uBRSb3j/7GHnPaQ/9hDTnvIf+yrjs8xF/lG8c8dG5eKpR/5 ik4ukRm5di7k8pC+Mg694OO/bUan4vI/7ULWg4q/92 vGJj2aVt0Mvmqb6piPZl0WWio5qu0+Tdmo+v6uYKy2h3w4FgNsy5zbwCd34CMYb5j/7CGnPeQ/9pDTHv Ojt6flX/nYFgL2l/zHHnLaQ/5jDzntIf+iv0i7hE/ZV948qK/iDun99Y/6lWIm5i41jTyU+S885GVP/M cectpD/bDVYd2j/7GHnPaQ/9hDTnvIf+fsnd1hG/aQ 8f6uJ8cSpZ/3kz9oqZk9ot1c9fJ+Ef303BD/rDub2yL/7AEBn7c/7CGnPeQ/0dXWOjDpv4eqG/mPPeS0 h/zHHnLaQ/5jDzntIf+bb6a4jV/XU932uE/vCcz98T/2UP/Q1CO/8H2y+ZUndiwJsKsDC91qE54AhA+c KjmuWF6jhHJ6LUUD3TKGw7fcO0cb7DPPp0pobzG8bw atAT7ayBtBI7ddg8LPduzkZWrtiXvA0NgbH5E2LudJVL1C3eWIz2W4zfUsEN6asBaB35ixjiJ8zacpOB 8k0YsJM6f5p8GBkwRvZDEkdDbH5Thwd0R7MdjdOO7C2hoVS0O7NZCSzbugCYFiDMvWtYrC2oJKDhuNrM oK1sUAYczVnElS2sWBDoiSrTzX4qFSGftKYBhgjbNZ wojnQYEcyrxW9Gvzh0N5SzwmLD9T1rcYG8U3g+SOSL9lbEkOq9zulkWdrnugMCkoQHaARgfZq6JFtoUt WEYriSlT2Xlir3P8WmuiVO1D4ltDR3P9a+TGQU8cmCeRx4qyvgYgxjxyUUrm0SuBlcY/p6bnKc+8PPPy jDSvtDtz4Prik2C0DewrBjW+WV07mgO9uIm8GuTyE7 vmeWsIetnjfCnQX5W3InknwUtKymnlsCqJC63IoypY59QkV9K0RMtHXGSTfkJnaJToRfHMHOFdEYUPuZ foqyRZE6ZCUHWQhYDsX7ppIukDE1aHSHm9uTVDrhmRZfAnyFKITOGhmXmTOcoLY9sRHwULuvKkqyBhDs vQDJ6oKViUhThm0kOBZ0YBrWEUsNBgZ0jxPurVRNyD JWy6mwATp4waIaMDpPZsBVU4aEquOxmCX/tRZRNSjhKlyzPkLqVBKLgePM4MlF9hgelCb3E+locPXroZ ykal7TXPxXEe/vzGLfl+H+vfiKUI2UeBT5l6r/BI81uie0v6p+PkSl8yjThZxflGUl/qeKvXtwbeGvWt iewIfEjiXyB3Jz6VuDorbWsjjfov3yyK7go7bGB3Tf 1i856132Aj6W4PmrvPh047J2sv8+fN0kF+y3pqEj75cRqB7CnUPCcI/kEIR4pwd33n0MhTjgsb9u7/b7 K72E9/MXYY++zeoa8nO68P3Ovmd0hYc6519Yzav8IsldTyKyaXi0xms497m9B62I//MXYg++dSzp0jV7 9F2Lo6op18+5D/9CFnH/KfPuTsQ/6rZ4qi+fO1KwG7 9CFnH/KfPuTsQ/9Tg8b5hQ/6kLMP+T6dyuIy/+pUie3pC14E8Et9sv43+5D/9CG+654a5Vnk5/m7vWF8 irzh5iH+0/dK4hvC78J+0/aZ4veb0kb+M/iK8SvU5eNpUw7CmHg9feD8s+6MapE5tdG7i+5woqF3tbX6 m+3hjxB1Fi4/eQ1+P46Zpo5xKDpmEEtuyttFO0w2AV c2ljbMsCZogPVPH55ZGmjd7u+dmQnhQtTK79FQP7t5Jiw8g6w2mI//aM//JlXsOGC1fBjS/TedP/r//l yIvmbk+ue//tXjpv/0yu4FSloySt5jHxLYB2RXpHG5Fr1ESfEl3ohr/aYD+OijLhZxeSvRrmGzXD6TkP C8MdFxeKdz06g5A/TqjNid88v1V/XkpDov42B0J/Renae [file] AvgbN5dpGsSkUpBkE8ArDrEN5B ID Date Data Source [id number] 01/10/2021 04:10:48 PM EDT [facility] Name Value Range Interpretation Code Description Data Dariela rce(s) Supporting Document(s) HEMOGLOBIN A1C @ 4.9 % (4.0-6.0) [facility] Performed using Siemens Blackburn immunoassa y.Care must be taken when interpreting KnS1yyechrtn in patients with a hemoglobin variantor decreased erythrocyte lifespan. Values 5.7 - 6.4% suggest prediabetes.Values >=6.5% are diagnostic for diabetes.REFERENCE: DIABETES CARE 2018: 41(S13-S27).PERFORMED AT [address] [place] [id number] EST AVERAGE GLUCOSE 94 mg/dL [facility] ID Date Data Source [id number] 01/10/2021 03:35:44 PM EDT [facility] Name Value Range Interpretation Code Description Data Dariela rce(s) Supporting Document(s) APTT 28.1 s (22.0-34.3) [facility] ID Date Data Source [id number] 01/10/2021 03:31:32 PM EDT [facility] Name Value Range Interpretation Code Description Data Dariela rce(s) Supporting Document(s) NT PRO BNP 7387 pg/mL (0-450) H [facility] ID Date Data Source [id number] 01/10/2021 03:31:32 PM EDT [facility] Name Value Range Interpretation Code Description Data Dariela rce(s) Supporting Document(s) SODIUM 138 mmol/L (136-145) [facility] POTASSIUM 4.1 mmol/L (3.6-5.2) [facility] CHLORIDE 106 mmol/L (100-108) [facility] CO2 27 mmol/L (22-31) [facility] ANION GAP 5 mmol/L (7-16) L [facility] UREA NITROGEN 18 mg/dL (7-24) [facility] CREATININE 0.67 mg/dL (0.80-1.30) L [facility] BUN/CREAT RATIO 26.9 RATIO (10.0-20.0) H [facility] GLUCOSE 74 mg/dL (70-99) [facility] CALCIUM 8.1 mg/dL (8.4-10.2) L [facility] TOTAL PROTEIN 5.9 g/dL (6.4-8.2) L [facility] ALBUMIN 2.6 g/dL (3.2-4.5) L [facility] GLOBULIN 3.3 g/dL (2.7-4.3) [facility] ALB/GLOB RATIO 0.8 RATIO [facility] ALKALINE PHOSPHATASE 80 U/L (45-117) [facility] BILIRUBIN,TOTAL 0.5 mg/dL (0.0-1.0) [facility] PLEASE NOTE:Total bilirubin results may be falselyelevated in patients taking Eltrombopag. AST (SGOT) 32 U/L (11-39) [facility] ALT (SGPT) 57 U/L (12-78) [facility] GFR >60 ml/min/1.73m2 (>59) [facility] GFR ( AMER) >60 ml/min/1.73m2 (>59) [facility] GFR INTERPRETATION [facility] --NORMAL KIDNEY FUNCTION OR MILD DISEASE - GFR >OR= 60CHRONIC KIDNEY DISEASE - GFR 15 - 59RENAL FAILURE - GFR <15 Est. GFR calculation based on the MDRDstudy equation, which assumes a steadystate for creatinine. Est. GFR should notbe used for medication dosing. ID Date Data Source [id number] 01/10/2021 03:31:32 PM EDT [facility] Name Value Range Interpretation Code Description Data Dariela rce(s) Supporting Document(s) TROPONIN I 0.15 ng/mL (<0.05) H [facility] Less than 0.05: Myocardial injury unlike lyGreater than or equal to 0.05: Highly suggestive of myocardial injuryCorrelation with rise and/or fall ofserial troponins, clinical symptomsand ECG changes is necessary. ID Date Data Source [id number] 01/10/2021 03:29:13 PM EDT [facility] Name Value Range Interpretation Code Description Data Dariela rce(s) Supporting Document(s) MAGNESIUM 2.2 mg/dL (1.7-2.4) [facility] ID Date Data Source [id number] 01/10/2021 02:52:20 PM EDT [facility] Name Value Range Interpretation Code Description Data Dariela rce(s) Supporting Document(s) WBC 8.6 10*3/uL (4.1-11.0) [facility] [place] RBC 4.52 10*6/uL (4.60-6.10) L [facility] HGB 12.2 g/dL (13.5-18.0) L [facility] HCT 38.4 % (41.0-53.0) L [facility] MCV 84.9 fL (80.0-95.0) [facility] MCH 27.1 pg (27.0-32.0) [facility] MCHC 31.9 g/dL (32.0-36.0) L [facility] RDW 15.3 % (10.5-14.5) H [facility] PLT 280 10*3/uL (150-450) [facility] MPV 8.0 fL (7.1-10.7) [facility] ID Date Data Source [id number] 01/10/2021 11:50:00 AM EDT [facility] Name Value Range Interpretation Code Description Data Dariela rce(s) Supporting Document(s) SARS coronavirus 2 RNA [Presence] in Res piratory specimen by ELENA with probe detection NOT DETECTED [facility] This lab was reported by [facility]. ID Date Data Source [id number] 01/10/2021 01:01:10 PM EDT [facility] Name Value Range Interpretation Code Description Data Dariela rce(s) Supporting Document(s) SPECIMEN DESCRIPTION [facility] INFLUENZA A (NEG) [facility] INFLUENZA B (NEG) [facility] RSV (NEG) [facility] COMMENT [facility] THE [place] FDA HAS MADE THIS TEST AVAILABL EUNDER AN EMERGENCY USE AUTHORIZATION(EUA) FOR THE DETECTION AND/OR DIAGNOSISOF THE VIRUS THAT CAUSES COVID-19.PERFORMED AT [address] [place] [id number] COVID19 RESULT (NDET) [facility] THIS ASSAY AMPLIFIES AND DETECTSTHE TARG ET RNA USING REAL-TIME PCR.TESTING PERFORMED ON [employer] GENEXPERTNEGATIVE 2019_NCOV RT-PCR RESULTS DONOT PRECLUDE 2019_NCOV INFECTION ANDSHOULD NOT BE USED THE SOLE BASISFOR PATIENT MANAGEMENT DECISIONS. FIRST TEST [facility] IN [facility] SYMPTOMATIC [facility] DATE OF SYMPT ONSET [facility] H[facility] [place] [facility]REG[facility] C[facility] SET [facility] ID Date Data Source [id number] 01/08/2021 07:13:00 PM EDT [facility] Name Value Range Interpretation Code Description Data Dariela rce(s) Supporting Document(s) SARS coronavirus 2 RNA [Presence] in Res piratory specimen by ELENA with probe detection NEGATIVE [facility] This lab was ordered by [facility] a nd reported by [facility]. ID Date Data Source [id number] 08/21/2020 12:10:16 AM EST [facility] Name Value Range Interpretation Code Description Data Dariela rce(s) Supporting Document(s) &PDF [facility] HKLCEv1qGiQPCpWw16/TYNmjYGHur3XbFIgxKFj2CDkfGEEgI7YzxPebPOsSRYfAO9EwEkmSMKULPORE 0b3 AnDZAbCjUYvAB7ST9pRBVhlwEwttF8aR4pSM1ZSJM+Mp1OMG3nh0AiNCe7QTWru3AlSQguNVu9Y1WfnD RcegQtYirgfQWXKKNbRUBnU0oqmgs2gXMsDFH0Wh1CKbYqq3QtCVKxMNxLtb4qP24dNkA+X6D/gUBRbA vD1eJSqFXAmGD5Etrs6mkgrMl7E2ey88bngZVGFvhq 37la+c5yS0bNumCa0xbpkUG6z+eHUogUrrc9b2rKxrFAEOK18aDFYgRhoi34l2f2W+BOp9qZ9Zf+e46r 7GLjTGUmUFuxzor+iiJeeTp7O/No9VsVXqRU/vyr0X/F/8NpJy8QGEpR1r0vlGuMSWGnJnVCt9j8y3+/ Z55nkqVMvpgnQjQjXphOWKIC9Aqh9UWZxbxSgG0KeS IIYTYaijxFegj9knpxoBDCJvXQ/YStAtM+KJaUjhd8JHd+rY1KV5YOZOgT1d9ZdMGejvhVp0pYZsh+xF d7lLTkf7zwDWeHAn2U9JgFGoGuDi195tzdznbYLjkyS5EzLQACMp//IsrktqgOCAtuL74LbQJLM5V5/s /HoC6Y3X2ng0evWLnADZhObOtxGLwk+6p1AYd0owAx t2V1Gt+7Qh4DadoHSuiwKl4SNTefQJHghf9DMXWoHINZlRKVAvm/ONBIt8DoLz10OPRHPP3CKa0WBhhP ZspZQE5GeZxGYyg7xRCFk6sE8ArdhzICyzMGf1LS24HrJomm797niuimWtyOvahlcN7waweGaMW1WFDa Wt8phSOPkVhpBNUbgumIVlvR6cjtzoy39CsVvQenfM WBim2e+Lorrie+d8qumFOlfTYVymBSYoMByaTuvK4fTHzrZA+byakOSlsOwzLHmv7aB1fwQZfLRDUHRuln7 [file] ICAgICAgICAgICAgICAgICAgICAgICAgICAgICAgICAgICAgICAgICAgICAgICAgICAgICAgICAgICAg ICAgICAgICAgICAgICAgICAgICAgICANCiAgICAgIC AgICAgICAgICAgICAgICAgICAgICAgICAgICAgICAgICAgICAgICAgICAgICAgICAgICAgICAgICAgIC AgICAgICAgICAgICAgICAgICAgICAgICAgICAgICAgICANCiAgICAgICAgICAgICAgICAgICAgICAgIC AgICAgICAgICAgICAgICAgICAgICAgICAgICAgICAg ICAgICAgICAgICAgICAgICAgICAgICAgICAgICAgICAgICAgICAgICAgICANCiAgICAgICAgICAgICAg ICAgICAgICAgICAgICAgICAgICAgICAgICAgICAgICAgICAgICAgICAgICAgICAgICAgICAgICAgICAg ICAgICAgICAgICAgICAgICAgICAgICAgICANCiAgIC AgICAgICAgICAgICAgICAgICAgICAgICAgICAgICAgICAgICAgICAgICAgICAgICAgICAgICAgICAgIC AgICAgICAgICAgICAgICAgICAgICAgICAgICAgICAgICAgICANCiAgICAgICAgICAgICAgICAgICAgIC AgICAgICAgICAgICAgICAgICAgICAgICAgICAgICAg ICAgICAgICAgICAgICAgICAgICAgICAgICAgICAgICAgICAgICAgICAgICAgICANCiAgICAgICAgICAg ICAgICAgICAgICAgICAgICAgICAgICAgICAgICAgICAgICAgICAgICAgICAgICAgICAgICAgICAgICAg ICAgICAgICAgICAgICAgICAgICAgICAgICAgICANCi AgICAgICAgICAgICAgICAgICAgICAgICAgICAgICAgICAgICAgICAgICAgICAgICAgICAgICAgICAgIC AgICAgICAgICAgICAgICAgICAgICAgICAgICAgICAgICAgICAgICANCiAgICAgICAgICAgICAgICAgIC AgICAgICAgICAgICAgICAgICAgICAgICAgICAgICAg ICAgICAgICAgICAgICAgICAgICAgICAgICAgICAgICAgICAgICAgICAgICAgICAgICANCiAgICAgICAg ICAgICAgICAgICAgICAgICAgICAgICAgICAgICAgICAgICAgICAgICAgICAgICAgICAgICAgICAgICAg ICAgICAgICAgICAgICAgICAgICAgICAgICAgICAgIC ANCjw/lJLoC2uxyEZjsxJ2T6ziHp6ZCb8WBX5yp7KrLCOtJCnqqbIvDpxCLpLiAWKmUmhYUnd3SAiwVJ 8ChOJtY8EzC2GbTIkaPY7KVSUzDPBfcNIiYXBmUKRsIlN6QGJtSWczPJ3VdZLqXYuuMWPfAPMuEqYlFG EkZYTxCDCqLSZcYBODKL3AKdQpX6YriN43ELHEJl8+ XTjprxPpKpuODdC2CAAqj7EhCVw2XF1RBVNrZBtxCR8VVBMcmV4pYMstGD8PBdU9FvIbJJRWXzSyJ27x uECvLCw5Z1AzYpIlRYGvBekpWDUsZFhgGsSfNIFbPvJdHHlbDH9+ID4+IOibRV5JJJkuzeZuBOHfGe4T JJPmEYB6AVCakOMwZCVwQPAGVLwrCI6BzVMmHTO7wG 4dLOfzOVAhCDNeE3dQMsIxdYggTG71vMlsoxXrmXPpEAn+Js9BUE4hq8ThNTd9loIdLPmmYYX6ZJmyOM BiBEQeKZRoFQO5WMV7NBKAEzJvOLOqJAWtBKlrCYLcNJEqhh1EMSDnDKQ4WCU7UUUaMXRpIEAxIFjnBF CfCJjdByN4KITjEDJhGY8WFoFoYXHeAPMyBQYyWJPr EYJuji5ERZLpULVoDfD5TJGiMADhCBCyHPelZWCiLPUyEIp7BEMpYUMsPO1CPlGuDBNrUZN5EdhqWWOg NIUhhe9WNHDoZKVyGAS2ILKxMNNtFGGxFLizFJRcRHE6DhW3LGUuMMRiYG6ZXlIyDKYfEOa3DigzVSPm CIXpxl3DMVRlMMYlMYM1TFEgKYEdHWBdVSgaUGHnUD X8WqtyTHUtWSQlKP5LYpHeDTZkWNo5VETgLIJhRUXmzo4FMQIyRBWyVGg2QtMfPTBiCNKgQYdrRLWpEC YbGDTzSHPzGXLnGL1BUaEpYVYgPWDxFAamVHNyAOXruw8TSKXrFHGiSCV9KJOpAPIkRYZwCAdoFONiCZ UrKMx5WRYpXBEiIH1IKkIpOISmRUGdDcUuCGTmGFMh ag6AXENlVETvShX7KzGkBEBmMSJyNPvmMUPyNLD5GBG5YKTaNTErCQ8HEcCaGKOoNYwyYQLbOZPgMUHw zn9ZQUSyGMVmBiH1GBBpCKViLFLaHMeiCDFpARW7VXmtODCnIBAxLZ6DRaEjMWKzNBbsJdiyMJYqLBCl aq8RMIJbWVHoMIA2WOVyFQKpDIQpQMixGBQnWCV0Ie K0ITEyNPYrZG8ZWrOyAAHeXcyoQCVxQJHsAIKjoc3DDSIpOHLhNSAgIVPrQHVfEARkYEvwRFWjPSPvEh DjRURrNMJkED8WGmLxMKJtIsX9SxjnHGYwVQGmin9WPRYwCJVuNrC8QRKuVBMtOLWtJRxuWEEmNSN7Fc AhKHEfMJRdIH2AZiCiSWCyCZGoXierYOJrYGHdhz2S YKUmFZF7VOAhNKCvDKLtIWNoPHofKSBbSKN5RyquVFAdHACvPF9BZmNuTPKjGKZfIdHaAMCkQBJdcd2O QLXfOZR1UPL7YtKtXLXpCJSfZBvkTUSnMSO6Bqz9HDXgDPIhAZ8ZYjKbTTNtXqOyKaZnYCTjAVWhda3T NIEzDVI6TvF7EyNrHBTmNBYsRBvaYFMmXLN2UwY6DP ByUNMpFU5XHoUeJOSrBrAxVdXhPOBnGKHmlw1MKZRtFTB4YPkjCFLmARAgNMZdNCx6ygYjbEQwFKz4JU 8IJ4GwhrPmADNLMn4Xr720JAY0WJSzMg3WU4wkIr2fGUHhBDOTEr9ODWb1OLB6KIn6TXC2MRL8PuRlPC NkULVwGiEeWVd5FrDxPfM+IDxlMzZhODhhYThkMDhm FcJ5SoSbSGD4YlSpRNZ0U2KwJF5kUMIUIk0+[id number] Procedure Social History Code Duration Value Status Description Data Source(s ) Alcohol intake 04/12/2021 12:00:00 AM EDT Ex-drinker (finding) comp leted Ex- drinker (finding) [facility] Alcohol intake 02/22/2021 12:00:00 AM EDT Ex-drinker (finding) comp leted Ex- drinker (finding) [facility] Alcohol intake 01/25/2021 12:00:00 AM EDT Ex-drinker (finding) comp leted Ex- drinker (finding) [facility] Alcohol intake 01/20/2021 12:00:00 AM EDT Ex-drinker (finding) comp leted Ex- drinker (finding) [facility] Alcohol intake 01/11/2021 12:00:00 AM EDT Ex-drinker (finding) comp leted Ex- drinker (finding) [facility] Alcohol intake 08/17/2020 12:00:00 AM EST Not Currently completed [facility] Smoking 08/17/2020 12:00:00 AM EST Former smoker completed Former smoker [facility] Vital Signs ID Date Data Source UNK Name Value Range Interpretation Code Description Data Source(s) Body weight 139.00 [lb_av] 139.00 [lb_av] BIRDIE Serrano ([facility]) Systolic blood pressure 135 mm[Hg] 135 mm[Hg] [facility] Diastolic blood pressure 75 mm[Hg] 75 mm[Hg] JAYA ([facility]) Heart rate 60 /min 60 /min JAYA [facility] Systolic blood pressure 100 mm[Hg] 100 mm[Hg] [facility] Diastolic blood pressure 0 mm[Hg] 0 mm[Hg] [facility] Heart rate 60 /min 60 /min [facility] Body height 167.6 cm 167.6 cm [facility] Body weight 63.504 kg 63.504 kg [facility] Body mass index (BMI) [Ratio] 22.60 kg/m2 22.60 kg/m2 [facility] Oxygen saturation in Arterial blood by Pulse oximetry 96 % 96 % [facility] Systolic blood pressure 130 mm[Hg] 130 mm[Hg] [facility] Diastolic blood pressure 70 mm[Hg] 70 mm[Hg] [facility] Heart rate 74 /min 74 /min [facility] Body height 167.6 cm 167.6 cm [facility] Body weight 62.143 kg 62.143 kg [facility] Body mass index (BMI) [Ratio] 22.11 kg/m2 22.11 kg/m2 [facility] Oxygen saturation in Arterial blood by Pulse oximetry 95 % 95 % [facility] Systolic blood pressure 128 mm[Hg] 128 mm[Hg] [facility] Diastolic blood pressure 68 mm[Hg] 68 mm[Hg] [facility] Heart rate 65 /min 65 /min [facility] Body height 167.6 cm 167.6 cm [facility] Body weight 61.961 kg 61.961 kg [facility] Body mass index (BMI) [Ratio] 22.05 kg/m2 22.05 kg/m2 [facility] Oxygen saturation in Arterial blood by Pulse oximetry 99 % 99 % [facility] Systolic blood pressure 123 mm[Hg] 123 mm[Hg] [facility] Diastolic blood pressure 56 mm[Hg] 56 mm[Hg] [facility] Heart rate 63 /min 63 /min [facility] Oxygen saturation in Arterial blood by Pulse oximetry 100 % 100 % [facility] Body temperature 36.5 Jany 36.5 Jany [facility] Respiratory rate 18 /min 18 /min [facility] Body height 167.6 cm 167.6 cm [facility] Body weight 61.6 kg 61.6 kg [facility] Body mass index (BMI) [Ratio] 21.92 kg/m2 21.92 kg/m2 [facility] Systolic blood pressure 90 mm[Hg] 90 mm[Hg] [facility] Diastolic blood pressure 58 mm[Hg] 58 mm[Hg] [facility] Body temperature 36.5 Jany 36.5 Jany [facility] Respiratory rate 20 /min 20 /min [facility] Oxygen saturation in Arterial blood by Pulse oximetry 97 % 97 % [facility] Heart rate 75 /min 75 /min [facility] Body weight 64.683 kg 64.683 kg [facility] Body mass index (BMI) [Ratio] 23.02 kg/m2 23.02 kg/m2 [facility] Body height 167.6 cm 167.6 cm [facility] Systolic blood pressure 120 mm[Hg] 120 mm[Hg] [facility] Diastolic blood pressure 68 mm[Hg] 68 mm[Hg] [facility] Heart rate 67 /min 67 /min [facility] Body height 167.6 cm 167.6 cm [facility] Body weight 62.596 kg 62.596 kg [facility] Body mass index (BMI) [Ratio] 22.27 kg/m2 22.27 kg/m2 [facility] Oxygen saturation in Arterial blood by Pulse oximetry 93 % 93 % [facility] Body weight 145.00 [lb_av] 145.00 [lb_av] MEDEN T ([facility] Body temperature 98.8 [degF] 98.8 [degF] MEDENT ([facility]) Respiratory rate 16 /min 16 /min MEDENT ( [facility]) Patient Treatment Plan of Care Planned Activity Planned Date Details Description Data Source (s) Metoprolol Tartrate 25 MG Oral Tablet 04/07/2021 12:00:00 AM EDT [facility] 24 HR metoprolol succinate 25 MG Extended Release Oral Tablet 02/22/2021 12:00:00 AM EDT [facility] Prednisone 2.5 MG Oral Tablet 02/22/2021 12:00:00 AM EDT [facility] Prednisone 10 MG Oral Tablet 02/22/2021 12:00:00 AM EDT [facility] Bisacodyl 10 MG Rectal Suppository 01/22/2021 09:00:00 AM EDT [facility] prednisolone acetate 10 MG/ML Ophthalmic Suspension 01/22/20 09:00:00 AM EDT [facility] POLYETHYLENE GLYCOL 3350 142 MG/ML Oral Solution 01/21/2021 07:00:0 0 AM EDT [facility] 24 HR metoprolol succinate 25 MG Extended Release Oral Tablet 01/20/2021 12:00:00 AM EDT [facility] normal saline flush 0.9 % injection 3 mL 01/20/2021 12:00:00 AM EDT [facility] Amoxicillin 500 MG Oral Capsule 01/20/2021 12:00:00 AM EDT [facility] Amoxicillin 500 MG Oral Capsule 01/20/2021 12:00:00 AM EDT [facility] ondansetron (ZOFRAN) injection 4 mg 01/19/2021 11:12:10 PM EDT [facility] acetaminophen (TYLENOL) 325 MG tablet 650 mg 01/19/2021 11:12:10 PM EDT [facility] 10 ML Atropine Sulfate 0.1 MG/ML Prefilled Syringe 01/19/2021 11 :12:09 PM EDT [facility] 2 ML Metoclopramide 5 MG/ML Prefilled Syringe 01/19/2021 11:12:09 P M EDT [facility] normal saline flush 0.9 % injection 3 mL 01/10/2021 02:00:00 PM EDT [facility] Polyvinyl Alcohol 0.014 ML/ML Ophthalmic Solution 01/10/2021 12: 29:10 PM EDT [facility] ondansetron (ZOFRAN) injection 4 mg 01/10/2021 12:02:46 PM EDT [facility] Acetaminophen 325 MG Oral Tablet 01/10/2021 12:02:44 PM EDT [facility] Prednisone 10 MG Oral Tablet [facility] Ascorbic Acid 1000 MG Oral Tablet [facility] Aspirin 81 MG Oral Tablet [facility] Magnesium 125 MG CAPS [facility] Multiple Vitamin (MULTIVITAMIN) capsule [facility] Linseed Oil 1000 MG Oral Capsule [facility] Calcium Carbonate 1500 MG Oral Tablet [facility]
[2021-05-16] MEDS ORDERED: NS 500 ML IV ONE (14:55)
--- NOTE | 2021-05-16 15:08 | REP ---
INDICATION: fall, back pain. COMPARISON: None TECHNIQUE: Axial contrast-enhanced images from the lung bases to the pubic symphysis using 100 cc Isovue 370 intravenous contrast material. Coronal and sagittal reformations obtained. This CT examination was performed using the following dose reduction techniques: Automated exposure control, adjustment of mA and/or kv according to the patient's size, and the use of iterative reconstruction technique. FINDINGS: Liver demonstrates fatty infiltration without focal hepatic lesion. Spleen, pancreas, gallbladder, and bilateral adrenal glands are essentially normal. Kidneys demonstrate age-related cortical thinning and bilateral cysts without acute perinephric stranding or hydroureteronephrosis. Solitary right cyst measures roughly 5.3 cm diameter and solitary left cyst measures roughly 2.0 cm diameter. The enteric system demonstrates moderate hiatal hernia. No bowel obstruction or acute inflammatory process is appreciated. Colonic and sigmoid diverticulosis noted without acute diverticulitis. Pelvis demonstrates normal bladder and age-appropriate prostate/seminal vesicles. No ascites. No free air. No intraperitoneal or retroperitoneal adenopathy. Atherosclerotic changes to the aorta and vasculature noted without aneurysm or dissection. Sagittal views demonstrate a very subtle compression fracture involving the superior endplate of L1 with very minimal loss of vertebral body height and no evidence for retropulsed fracture fragment or associated canal stenosis. IMPRESSION: 1. Subtle acute compression deformity involving L1 without associated retropulsed fragment or canal stenosis. 2. Chronic changes to the abdomen and pelvis. <Electronically signed by Kelechi Can > 05/16/21 [id number]
[2021-05-16] MEDS ORDERED: AMIODARONE HCL 150 MG in IV 1 EA IV ONE (16:00)
[2021-05-16] MEDS ORDERED: APIXABAN 5 MG TAB (ELIQUIS) PO ONE (17:30)
[2021-05-16] MEDS ORDERED: AMIODARONE 200 MG TAB (PACERONE) PO ONE (17:30)
--- OUTSIDE RECORDS SUMMARY | 2021-05-16 17:42 | CCD ---
Author Author [facility] Organization [facility] Address Unknown Phone Unavailable Care Team Providers Care Braille Coder Name Role Phone RAMÓN BERNAL MD Unavailable Unavailable RAMÓN BERNAL MD Unavailable Unavailable GABERAMÓN MD Unavailable Unavailable GABERMAÓN MD Unavailable Unavailable RAMÓN BERNAL MD Unavailable [...] Unavailable Unavailable RAMÓN BERNAL MD Unavailable Unavailable ARMÓN BERNAL MD Unavailable Unavailable RAMÓN BERNAL MD [...] A Ziad MD Unavailable Unavailable Hegard, Nicole [facility]ICAL CARE CNS Unavailable Unavailable Hegard, Nicole [facility] CNS Unavailable Unavailable Hegard, Nicole [facility] CNS Unavailable Unavailable Hegard, Nicole [facility] CNS Unavailable Unavailable Hegard, Nicole CRITICAL C[facility] CNS Unavailable Unavailable Hegard, Nicole CRITICAL CARE CNS Unavailable Unavailable Hegard, Nicole CRITICAL CARE CNS Unavailable Unavailable Hegard, Nicole CRITICAL CARE CNS Unavailable Unavailable Hegard, Nicole CRITICAL CARE CNS Unavailable Unavailable Hegard, Nicole CRITICAL CARE CNS Unavailable Unavailable Hegard, Nicole CRITICAL CARE CNS Unavailable Unavailable Hegard, Nicloe CRITICAL CARE CNS Unavailable Unavailable Hegard, Nicole CRITICAL CARE CNS Unavailable Unavailable Hegard, Nicole CRITICAL CARE CNS Unavailable Unavailable Hegard, Nicole CRITICAL CARE CNS Unavailable Unavailable Hegard, Nicole CRITICAL CARE CNS Unavailable Unavailable Hegard, Nicole CRITICAL CARE CNS Unavailable Unavailable Re-disclosure Warning The records that [...] is protected by Article 27-F of the [facility] Public Health law. If you continue you may have access to information: Regarding HIV / AIDS; Provided by facilities licensed or operated by the [facility] Office of Mental Health; or Provided by the [facility] Office for People With Developmental Disabilities. If such information is present, then the following [facility] mandated warning applies: This information has been [...] law may result in a fine or long-term sentence or both. A general authorization for the release of medical or other information is NOT sufficient authorization for further disc losure. Allergies and Adverse Reactions Type Description Substance Reaction Status Data Source(s ) Propensity to adverse reactions BEE VENOM Honey bee venom Active [facility] Propensity to adverse reactions STATINS Statins Acti ve [facility] Family History Family Member Name Family Member Gender Family Member Status Date o f Status Description Data Source(s) Unknown Female Problem [facility] ([facility] Unknown Female Problem [facility] Encounters Encounter Providers Location Date Indications Data Source(s ) Outpatient Attender: Nicole Faulkner [facility] Main Office 1 08:45:00 AM EDT [facility] ([facility]) Outpatient Attender: RAMÓN FREDERICKKAREN-SJP.KAREN 03:23:42 PM EDT - 04/13/2021 08:19:[address] [facility] Outpatient Referrer: RAMÓN FREDERICKPUL-SJP.PUL 04/11/2021 10:05:37 AM EDT [facility] Outpatient CAIO.CT-SJP 02/23/2021 12:00:29 AM EDT [facility] Outpatient Referrer: Terry FREDERICKKAREN-ROSAP.KAREN 01/30 03:21:18 PM EDT - 02/22/2021 04:30:09 PM EDT [facility] Outpatient Attender: RAMÓN FREDERICKKAREN-SJP.KAREN 02/22/2021 03:19:12 PM EDT [facility] Outpatient Attender: RAMÓN RASHIDSJP.KAREN 12:00:00 AM EDT - 01/25/2021 02:40:[address] [facility] Outpatient [id number] 01/20/2021 01:47:52 PM EDT [facility] ES1-PC 01/19/2021 06:19:06 PM EDT [facility] Inpatient Admitter: Terry Luna MDReferrer: Terry holland MD ES1-SJ.ANES 01/19/2021 11:50:[address] [facility] Inpatient Attender: Terry Luna MDAdmitter: Terry holland MD ES1-D5TEL 01/19/2021 09:14:00 AM EDT - 01/20/2021 07:23:00 PM EDT [facility] Patient discharged. Inpatient Attender: Terry Luna MDAdmitter: Terry holland MD ES1-D5TEL 01/10/2021 11:34:00 AM EDT - 01/12/2021 01:14:00 PM EDT [facility] Patient discharged. Outpatient Attender: RAMÓN BERNAL MDReferrer: RAMÓN MARY-SJP.KAREN 08/17/2020 03:10:05 PM EST - 08/17/2020 04:36:06 PM EST [facility] Outpatient Attender: RAMÓN BERNAL MDReferrer: RAMÓN VOSJP.KAREN 08/17/2020 12:00:[address] [facility] Immunizations Vaccine Date Status Description Data Source(s) COVID-19 VACCINE Moderna 04/18/2021 12:00:00 AM EDT completed [facility] Vaccine Series Complete: YESThis Data wa s Submitted to [facility] [employer]. COVID-19 VACCINE Moderna 09/30/2020 12:00:00 AM EDT completed [facility] Vaccine Series Complete: YESThis Data wa s Submitted to [facility] [employer]. COVID-19 VACCINE Moderna 09/02/2020 12:00:00 AM EST completed [facility] Vaccine Series Complete: NOThis Data was Submitted to [facility] [employer]. Medications Medication Brand Name Start Date Product Form Dose Route Admi nistrative Instructions Pharmacy Instructions Status Indications Reaction Description Data Source(s) 100 mcg/0.5 mL 04/18/2021 12:00:00 AM EDT suspension 0 INJECT DIRECTED PER STANDING ORDER INJECT DIRECTED PER STANDING ORDER SOLD: 04/18/2021 [employer] Fluorouracil 50 MG/ML Topical Cream Fluorouracil 04/17/2021 12:00:00 AM EDT active [facility] (No [facility]thern Nurse Practitioners) Metoprolol Tartrate 25 MG Oral Tablet me toprolol tartrate (LOPRESSOR) 25 MG tablet metoprolol tartrate (LOPRESSOR) 25 MG tablet 04/07/2021 12:0 0:00 AM EDT aborted [facility] Prednisone 10 MG Oral Tablet predniSONE (DELTASONE) 10 MG tablet predniSONE (DELTASONE) 10 MG tablet 02/22/2021 12:00:00 AM EDT 10 mg Oral active Take 1 tablet (10 mg total) by mouth daily [facility] Prednisone 2.5 MG Oral Tablet predniSONE (DELTASONE) 2 .5 MG tablet predniSONE (DELTASONE) 2.5 MG tablet 02/22/2021 12:00:00 AM EDT 2.5 mg Oral active Arthritis Take 1 tablet (2.5 mg total) by mouth da alexsandra [facility] Arthritis 24 HR metoprolol succinate 25 MG Extende d Release Oral Tablet metoprolol succinate (TOPROL-XL) 25 MG 24 hr tablet metoprolol succinate (TOPROL-XL) 25 MG 24 hr tablet 02/22/2021 12:00:00 AM EDT 12.5 mg Oral acti ve Take 0.5 tablets (12.5 mg total) by mouth every other day [facility] Bisacodyl 10 MG Rectal Suppository bisacodyl (DULCOLAX ) suppository 10 mg bisacodyl (DULCOLAX) suppository 10 mg 01/22/2021 09:00:00 AM EDT 10 mg Rectal active 10 mg, Rectal, Daily PRN, constipation, Starting on 01/22/21 at 0900, Post-op
If lactulose not effective, give bisacodyl suppository x 1 per rectum prn starting POD #3.
[facility] Medication administered onsite prednisolone acetate 10 MG/ML Ophthalmic Suspension prednisoLONE acetate (PRED FORTE) 1 % ophthalmic suspension 1 drop prednisoLONE acetate (PRED FORTE) 1 % ophthalmic suspension 1 drop 01/21/2021 09:00:00 AM EDT 1 [drp] active 1 drop, Left Eye, Every 48 hours, First dose on 01/21/21 at 0900 [facility] Medication administered onsite POLYETHYLENE GLYCOL 3350 142 MG/ML Oral Solution polyethylene glycol (GLYCOLAX) packet 17 g polyethylene glycol (GLYCOLAX) packet 17 g 01/21/2021 07:00:00 AM EDT 17 g Oral active 17 g, Or al, Daily PRN, For constipation, Starting on Sat01/21/21 at 0700, PACU & Post-op
hold for loose stools
[facility] Medication administered onsite iodixanol (VISIPAQUE) 320 MG/ML injection [id number] 01/20/2021 12:57 :53 PM EDT active As needed, Starting on Sat01/20/21 at 1257, Intra-Procedure [facility] Medication administered onsite lidocaine 1 % injection [id number] 01/20/2021 12:53:00 PM EDT active As needed, Starting on Sat at 1253, Intra-Procedure [facility] Medication administered onsite 2 ML Midazolam 1 MG/ML Injection midazolam (VERSED) in jection midazolam (VERSED) injection 01/20/2021 12:45:26 PM EDT active As needed, Starting on Sat01/20/21 at 1245, Intra-Procedure [facility] Medication administered onsite fentaNYL Citrate (PF) (SUBLIMAZE) injection [id number] 01/20/2021 12:45:20 PM EDT active As neede d, Starting on Sat01/20/21 at 1245, Intra-Procedure [facility] Medication administered onsite Cefazolin 1000 MG Injection ceFAZolin (ANCEF) injectio n ceFAZolin (ANCEF) injection 01/20/2021 12:45:13 PM EDT active As needed, Starting on Sat01/20/21 at 1245, Intra-Procedure [facility] Medication administered onsite furosemide (LASIX) injection 20 mg [id number] 01/20/2021 11:00:00 AM EDT 20 mg Intravenous completed 20 mg, I ntravenous, Once, On Sat01/20/21 at 1100, For 1 dose [facility] Medication administered onsite Aspirin 81 MG Delayed Release Oral Tablet aspirin EC t ablet 81 mg aspirin EC tablet 81 mg 01/20/2021 09:00:00 AM EDT 81 mg Oral activ e 81 mg, Oral, Daily, First dose on Sat01/20/21 at 0900, Post-op
Starting POD # 1 for TANYA patient. Hold for platelet count less than 90,000. If OG tube in place, give non-enteric aspirin.
[facility] Medication administered onsite Docusate Sodium 100 MG Oral Capsule docusate sodium (C OLACE) capsule 100 mg docusate sodium (COLACE) capsule 100 mg 01/20/2021 09:00:00 AM EDT 100 mg Oral active 100 mg, Oral, 2 times daily, First dose on Sat01/20/21 at 0900, Post-op
Start first POD.
[facility] Medication administered onsite normal saline flush 0.9 % injection 3 mL [id number] 01/20/2021 09:00:00 AM EDT 3 mL Intravenous active 3 mL , Intravenous, PROTOCOL, First dose on Sat01/20/21 at 0900, Post-op
flush per protocol, D/C Main IV fluid if appropriate
[facility] Medication administered onsite normal saline flush 0.9 % injection 3 mL [id number] 01/20/2021 12:00:00 AM EDT 3 mL Intravenous active 3 mL , Intravenous, Every 8 hours (scheduled), First dose on Sat01/20/21 at 0000, Pre-op
Rapid push positive pressure flushing shall be performed with a 10 cc normal saline syringe to check the PATENCY of a PIV site prior to any infusion therapy initiation unless resistance is met.
[facility] Medication administered onsite Cefazolin 1000 MG Injection [...] minutes. Use within 1 hour of reconstitution
[facility] Perioperative Pharmacoprophylaxis Medication administered onsite Amoxicillin 500 MG Oral Capsule amoxicillin (AMOXIL) 5 00 MG capsule amoxicillin (AMOXIL) 500 MG capsule 01/20/2021 12:00:00 AM EDT 2000 mg Oral active Take 4 capsules (2,000 mg total) by mout h once for 1 dose Take 4 tabs before dental visits [facility] normal saline flush 0.9 % injection 3 mL [id number] 01/20/2021 12:00:00 AM EDT 3 mL Intravenous active 3 mL , Intravenous, Every 8 hours (scheduled), First dose on Sat01/20/21 at 0000, Pre-op
Rapid push positive pressure flushing shall be performed with a 10 cc normal saline syringe to check the PATENCY of a PIV site prior to any infusion therapy initiation unless resistance is met.
[facility] Medication administered onsite 24 HR metoprolol succinate 25 MG Extende d Release Oral Tablet metoprolol succinate (TOPROL-XL) 25 MG 24 hr tablet metoprolol succinate (TOPROL-XL) 25 MG 24 hr tablet 01/20/2021 12:00:00 AM EDT 25 mg Oral abort ed Take 1 tablet (25 mg total) by mouth daily [facility] Amoxicillin 500 MG Oral Capsule amoxicillin (AMOXIL) 5 00 MG capsule amoxicillin (AMOXIL) 500 MG capsule 01/20/2021 12:00:00 AM EDT 2000 mg Oral aborted Take 4 capsules (2,000 mg total) by mouth once for 1 d ose [facility] acetaminophen (TYLENOL) 325 MG tablet 650 mg [...] 01/19/21 at 2312, Post-op [Order 2 End] [facility] Medication administered onsite ondansetron (ZOFRAN) injection 4 mg [id number] 01/19/2021 11:12:1 0 PM EDT 4 mg Intravenous active 4 mg, In travenous, Every 6 hours PRN, nausea, vomiting, Starting on Araceli 01/19/21 at 2312, Post-op
If no response in 15-30 minutes then give metoclopramide 10 mg IV x 1 then q6h prn N/V.
[facility] Medication administered onsite 10 ML Atropine Sulfate [...] total of 3 mg or 0.04 mg/kg.
[facility] Medication administered onsite 2 ML Metoclopramide 5 MG/ML Prefilled Sy ringe metoclopramide (REGLAN) injection 10 mg metoclopramide (REGLAN) injection 10 mg 01/19/2021 11:12:09 PM E DT 10 mg Intravenous active 10 mg, I ntravenous, Every 6 hours PRN, nausea, vomiting, Starting on Araceli 01/19/21 at 2312, Post-op
Give once if no response to Zofran after 15-30 minutes, then q6h prn N/V.
[facility] Medication administered onsite Sodium Chloride 0.484401 MEQ/MG Ophthalm ic Ointment sodium chloride 5 % ophthalmic ointment sodium chloride 5 % ophthalmic ointment 01/19/2021 09: 00:00 PM EDT active Right Ey e, 2 times daily, First dose on Araceli 01/19/21 at 2100, Until Discontinued [facility] Medication administered onsite predniSONE (DELTASONE) tablet 12.5 mg 01/19/2021 04:00:00 PM EDT 12.5 mg Oral active 12.5 mg, Oral, Daily , First dose on Araceli 01/19/21 at 1600 [facility] Medication administered onsite Levothyroxine Sodium 0.112 MG Oral Table t levothyroxine (SYNTHROID, LEVOTHROID) tablet 112 mcg levothyroxine (SYNTHROID, LEVOTHROID) tablet 112 mcg 0 01/19/2021 04:00:00 PM EDT 112 ug Oral active 112 mcg, Oral, Daily, First dose on Araceli 01/19/21 at 1600 [facility] Medication administered onsite Famotidine 20 MG Oral Tablet famotidine (PEPCID) table t 10 mg famotidine (PEPCID) tablet 10 mg 01/19/2021 04:00:00 PM EDT 10 mg Oral active 10 mg, Oral, Daily, First dose on Araceli 01/19/21 at 1600 [facility] Medication administered onsite sodium chloride 0.9% (NS) infusion [id number] 01/19/2021 04:00:00 P M EDT Intravenous completed at 100 mL/hr, Intravenous, Continuous, Starting on Sat01/19/21 at 1600, For 4 hours, Post-op [facility] Medication administered onsite Polyvinyl Alcohol 0.014 ML/ML Ophthalmic Solution polyvinyl alcohol (LIQUIFILM TEARS) 1.4 % ophthalmic solution 1 drop polyvinyl alcohol (LIQUIFILM TEARS) 1.4 % ophthalmic solution 1 drop 01/19/2021 02:00:00 PM EDT 1 [drp] active 1 drop, Both Eyes, Daily, First dose on Sat01/19/21 at 1400 [facility] Medication administered onsite Magnesium Chloride 0.40588 MEQ/ML / Pota ssium Chloride 0.0497 MEQ/ML / Sodium Acetate 0.0163 MEQ/ML / Sodium Chloride 0.0899 MEQ/ML / Sodium gluconate 5.02 MG/ML Injectable Solution [Normosol-R] electrolyte-R (NORMOSOL-R/PLASMALYTE-R) solution electrolyte-R (NORMOSOL-R/PLASMALYTE-R) solution 01/19 10:00:00 AM EDT Intravenous active at 1 00 mL/hr, Intravenous, Continuous, Starting on Sat01/19/21 at 1000 [facility] Medication administered onsite apixaban 5 MG Oral [...] or p-Gp inhibitors (ketoconazole, itraconazole, ritonavir, clarithromycin)
[facility] Medication administered onsite iopamidol (ISOVUE-370) 76 % 120 mL [id number] 01/11/2021 07:50:16 PM EDT 120 mL Intravenous completed 120 mL, Intra venous, Once in imaging, contrast, Starting on Sat01/11/21 at 1950, For 1 dose [facility] Medication administered onsite prednisolone acetate 10 MG/ML Ophthalmic Suspension prednisoLONE acetate (PRED FORTE) 1 % ophthalmic suspension 1 drop prednisoLONE acetate (PRED FORTE) 1 % ophthalmic suspension 1 drop 01/11/2021 09:00:00 AM EDT 1 [drp] active 1 drop, Left Eye, Every 48 hours, First dose on Sat01/11/21 at 0900 [facility] Medication administered onsite predniSONE (DELTASONE) tablet 12.5 mg 01/11/2021 09:00:00 AM EDT 12.5 mg Oral active 12.5 mg, Oral, Daily , First dose on Sat01/11/21 at 0900 [facility] Medication administered onsite Famotidine 20 MG Oral Tablet famotidine (PEPCID) table t 10 mg famotidine (PEPCID) tablet 10 mg 01/11/2021 09:00:00 AM EDT 10 mg Oral active 10 mg, Oral, Daily, First dose on Sat01/11/21 at 0900 [facility] Medication administered onsite Levothyroxine Sodium 0.112 MG Oral Table t levothyroxine (SYNTHROID, LEVOTHROID) tablet 112 mcg levothyroxine (SYNTHROID, LEVOTHROID) tablet 112 mcg 0 01/11/2021 06:00:00 AM EDT 112 ug Oral active 112 mcg, Oral, Daily (06), First dose on Sat01/11/21 at 0600 [facility] Medication administered onsite atorvastatin 40 MG Oral Tablet atorvastatin (LIPITOR) tablet 40 mg atorvastatin (LIPITOR) tablet 40 mg 01/10/2021 09:00:00 PM EDT 40 mg Oral aborted 40 mg, Oral, Nightly, First dose on Sat01/10/21 at 2100 [facility] Medication administered onsite Sodium Chloride 0.874009 MEQ/MG Ophthalm ic Ointment sodium chloride 5 % ophthalmic ointment sodium chloride 5 % ophthalmic ointment 01/10/2021 09: 00:00 PM EDT active Right Ey e, 2 times daily, First dose on Sat01/10/21 at 2100, Until Discontinued [facility] Medication administered onsite Ascorbic Acid 200 MG [...] daily, First dose on Sat01/10/21 at 2100 [facility] Medication administered onsite 500 ML heparin sodium, [...] 1 unit/kg/hr IV58.1 - 87 Therapeutic, No Exdzug83.1 - 97 Decrease infusion 1 unit/kg/hr IV [...] single port tubing (SmartSite Infusion Set ref [id number]). Medication and tubing is to be discarded if infusion off for 4 hours.
[facility] Medication administered onsite normal saline flush 0.9 % injection 3 mL [id number] 01/10/2021 02:00:00 PM EDT 3 mL Intravenous active 3 mL , Intravenous, Every 8 hours (scheduled), First dose on Sat01/10/21 at 1400
flush per protocol, D/C Main IV fluid if appropriate
[facility] Medication administered onsite clopidogrel 300 MG Oral Tablet clopidogrel (PLAVIX) ta blet 300 mg clopidogrel (PLAVIX) tablet 300 mg 01/10/2021 02:00:00 PM EDT 300 mg Oral completed 300 mg, Oral, Daily, First dose on Sat01/10/21 at 1400 , For 1 dose [facility] Medication administered onsite 1 ML heparin sodium, porcine 1000 UNT/ML Injection heparin (porcine) injection 60 Units/kg heparin (porcine) injection 60 Units/kg 01/10/2021 01:00:00 PM EDT 60 U/kg Intravenous completed 60 Units/k g, Intravenous, Once, On Sat01/10/21 at 1300, For 1 dose
Do not exceed 5,000 units or 60 units/kg (whichever is less)
[facility] Medication administered onsite 500 ML heparin sodium, [...] single port tubing (SmartSite Infusion Set ref [id number]). Medication and tubing is to be discarded if infusion off for 4 hours.
[facility] Medication administered onsite Polyvinyl Alcohol 0.014 ML/ML Ophthalmic Solution polyvinyl alcohol (LIQUIFILM TEARS) 1.4 % ophthalmic solution 1 drop polyvinyl alcohol (LIQUIFILM TEARS) 1.4 % ophthalmic solution 1 drop 01/10/2021 12:29:10 PM EDT 1 [drp] active 1 drop, Both Eyes, As needed, dry eyes, Starting on Sat01/10/21 at 1229 [facility] Medication administered onsite 1 ML heparin sodium, [...] 30 units/kg IV (Maximum bolus: 5,000 units)
[facility] Medication administered onsite ondansetron (ZOFRAN) injection 4 mg [id number] 01/10/2021 12:02:4 6 PM EDT 4 mg Intravenous active 4 mg, In travenous, Every 4 hours PRN, nausea, vomiting, Starting on Sat01/10/21 at 1202 [facility] Medication administered onsite Acetaminophen 325 MG Oral Tablet acetaminophen (TYLENO L) 325 MG tablet 650 mg acetaminophen (TYLENOL) 325 MG tablet 650 mg 01/10/2021 12:02:44 PM EDT 650 mg Oral active 650 mg, Or al, Every 4 hours PRN, mild pain (1-3), headaches, Starting on Sat01/10/21 at 1202
"Maximum dose of acetaminophen is 4,000 mg from all sources in 24 hours."
[facility] Medication administered onsite Aspirin 81 MG Oral Tablet aspirin (ASPIRIN LOW DOSE) 8 1 MG tablet aspirin (ASPIRIN LOW DOSE) 81 MG tablet 81 mg Oral aborte d Take 81 mg by mouth daily [facility] Prednisone 10 MG Oral Tablet predniSONE (DELTASONE) 10 MG tablet predniSONE (DELTASONE) 10 MG tablet 12.5 mg Oral aborted Take 12.5 mg by mouth daily [facility] Multiple Vitamin (MULTIVITAMIN) capsule [id number] aborted MULTIVITAMINS CAPS [facility] Linseed Oil 1000 MG Oral Capsule Flaxseed, Linseed, (F LAXSEED OIL) 1000 MG CAPS Flaxseed, Linseed, (FLAXSEED OIL) 1000 MG CAPS aborted FLAXSEED OIL 1000 MG CAPS [facility] Calcium Carbonate 1500 MG Oral Tablet ca lcium carbonate (CALCIUM 600) 600 MG tablet calcium carbonate (CALCIUM 600) 600 MG tablet aborted CALCIUM 600 600 MG TABS [facility] Magnesium 125 MG CAPS 89707 Oral aborted Take by mouth daily [facility] Ascorbic Acid 1000 MG Oral Tablet ascorbic acid (VITAM IN C) 1000 MG tablet ascorbic acid (VITAMIN C) 1000 MG tablet 1000 mg Oral aborted Take 1,000 mg by mouth daily [facility] Insurance Providers Payer name Policy type / Coverage type Policy ID Covered green party ID Covered green party's relationship to starr Policy Starr Plan Information MEDICARE [id number] SP [id number] MEDICARE [id number] SP [id number] [place] [id number] Self [id number] Medicare [place] Primary [id number] Self [id number] MEDICARE [id number] Zahra [id number] MEDICARE [id number] xxxxxxxxxxx [id number] A [employer] OPTIONS [id number] SP [id number] [employer] Options Medigap Part B [id number] Self [id number] [employer] Medigap Part B [id number] Self [id number] [facility] [id number] xxxxxxxxxxx [id number] INSURANCE COVID-19 COVID Zahra C OVID [facility] [id number] Zahra [id number] INSURANCE COVID-19 COVID Zahra C OVID INSURANCE COVID-19 COVID Zahra C OVID INSURANCE COVID-19 [id number] [id number] [place] MEDICARE PART B C [id number] S [id number] Aarp Medigap Part B [id number] Self Medicare [facility] Medicare Primary [id number] Self [facility] P [id number] S [id number] AARP O [id number] S [id number] MEDICARE C [id number] S [id number] A [employer] Medigap Part B [id number] Self [id number] Medicare [place] Medicare Primary [id number] Self [id number] [employer]ar Medigap Part B [id number] 2764.0 Self [id number] Medicare [place] Medicare Primary [id number] Self [id number] [facility] Medigap Part B [id number] 2764.0 Self [id number] Medicare [place] Medicare Primary [id number] Self [id number] [id number] 2764.0 Self [id number] Medicare [place] Medicare Primary [id number] Self [id number] [place] MEDICARE PART B C [id number] S [id number] [employer]ar Medigap Part B [id number] 2764.0 Self [id number] Medicare [place] Medicare Primary [id number] Self [id number] [facility] [id number] 2764.0 Self [id number] Medicare [place] Medicare Primary [id number] Self [id number] Problems, Conditions, and Diagnoses Code Display Name Description Problem Type Effective Dates Data Source(s) I73.9 Peripheral vascular disease, unspecified Peripheral vascular disease, unspecified Diagnosis 04/12/2021 03:23:42 PM EDT [facility] Z78.9 Other specified health status Other specified health s tatus Diagnosis 04/12/2021 03:23:42 PM EDT [facility] E03.9 Hypothyroidism, unspecified Hypothyroidism, unspecifie d Diagnosis 04/12/2021 03:23:42 PM EDT [facility] K21.9 Gastro-esophageal reflux disease without esophagitis Gastro-esophageal reflux disease without Diagnosis 04/12/2021 03:23:42 PM EDT [facility] I10 Essential (primary) hypertension Essential (primary) h ypertension Diagnosis 04/12/2021 03:23:42 PM EDT [facility] I63.9 Cerebral infarction, unspecified Cerebral infarc tion, unspecified Diagnosis 04/12/2021 03:23:[address] [facility] Z95.0 Presence of cardiac pacemaker Presence of cardiac pace maker Diagnosis 04/12/2021 03:23:42 PM EDT [facility] M19.90 Unspecified osteoarthritis, unspecified site Unspecified osteoarthritis, unspecified Diagnosis 04/12/2021 03:23:42 PM EDT [facility] I48.0 Paroxysmal atrial fibrillation Paroxysmal atrial fibri llation Diagnosis 04/12/2021 03:23:42 PM EDT [facility] I35.0 Nonrheumatic aortic (valve) stenosis Nonrheumati c aortic (valve) stenosis Diagnosis 04/12/2021 03:23:[address] 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 Atherosclerotic heart disease of squaxin Diagnosis 04/12/2021 03:23:42 PM EDT [facility] I21.4 Non-ST elevation (NSTEMI) myocardial inf arction Non-ST elevation (NSTEMI) myocardial inf Diagnosis 01/10/2021 11:34:00 AM EDT [facility] R01.1 Cardiac murmur, unspecified Cardiac murmur, unspecifie d Diagnosis 08/17/2020 03:10:05 PM EST [facility] Z95.0 Artificial cardiac pacemaker Artificial cardiac pacema ker [id number] 01/25/2021 12:00:00 AM EDT [facility] I25.10 CAD (coronary artery disease) CAD (coronary artery dis ease) [id number] 01/25/2021 12:00:00 AM EDT [facility] H18.519 Fuchs' corneal dystrophy Fuchs' corneal dystrophy 6457 200001/10/2021 12:00:00 AM EDT [facility] Z78.9 Patient is Cheondoism Patient is Jehovah's Witn ess [id number] 01/10/2021 12:00:00 AM EDT [facility] I35.0 Nonrheumatic aortic valve stenosis Nonrheumatic aortic valve stenosis [id number] 01/10/2021 12:00:[address] [facility] I10 Essential hypertension Essential hypertension [id number] 01/10/2021 12:00:00 AM EDT [facility] Surgeries/Procedures Procedure Description Date Indications Data Source(s) Shave Biopsy Of Skin, Single Lesion 04/17/2021 12:00:0 0 AM EDT [facility] ([facility]) Each Separate/Additional Lesion 04/17/2021 12:00:00 AM EDT [facility] ([facility]) OFFICE OUTPATIENT VISIT 25 MINUTES 04/17/2021 12:00:00 AM EDT [facility] ([facility]) ECG ROUTINE ECG W/LEAST 12 LDS W/I&R <td>POCT AMB EKG</td><td>Routine</td><td>04/12/2021 5:36 PM EDT</td><td> Coronary artery disease involving squaxin heart without angina pectoris, unspecified vessel or lesion type Paroxysmal atrial fibrillation Artificial cardiac pacemaker</td><td> </td> 04/12/2021 05:36:00 PM EDT Artificial cardiac pacemakerParoxysmal a trial fibrillationCoronary artery disease involving squaxin heart without angina pectoris, unspecified vessel or lesion type [facility] Artificial cardiac pacemaker Paroxysmal atrial fibrillation Coronary artery disease involving squaxin heart without angina pectoris, unspecified vessel or lesion type BASIC METABOLIC PANEL CALCIUM TOTAL <td>BASIC METABOLI C PANEL</td><td>Routine</td><td>04/07/2021</td><td></td><td> </td> 04/07/2021 12:00:00 AM EDT [facility] TROPONIN QUANTITATIVE <td>TROPONIN I</td><td>Routine</td><td>04/05/2021</td><td></td><td> </td> 04/05/2021 12:00:00 AM EDT [facility] BLOOD COUNT COMPLETE AUTO&AUTO DIFRNTL WBC COUNT <td>C BC AND DIFFERENTIAL</td><td>Routine</td><td>04/05/2021</td><td></td><td> </td> 04/05/2021 12:00:00 AM EDT [facility] THYROID STIMULATING HORMONE TSH <td>TSH</td><td>Routine</td><td>04/05/2021</td><td></td><td> </td> 04/05/2021 12:00:00 AM EDT [facility] BASIC METABOLIC PANEL CALCIUM TOTAL <td>BASIC METABOLI C PANEL</td><td>Routine</td><td>04/05/2021</td><td></td><td> </td> 04/05/2021 12:00:00 AM EDT [facility] ECG ROUTINE ECG W/LEAST 12 LDS W/I&R <td>POCT AMB EKG</td><td>Routine</td><td>01/25/2021 3:44 PM EDT</td><td> Paroxysmal atrial fibrillation Essential hypertension</td><td> </td> 01/25/2021 03:44:00 PM EDT Essential hypertensionParoxysmal atrial fibrillation [facility] Essential hypertension Paroxysmal atrial fibrillation XR CHEST PORTABLE <td>XR CHEST PORTABLE</td><t d>STAT</td><td>01/20/2021 2:41 PM EDT</td><td></td><td> </td> 01/20/2021 02:41:42 PM EDT [facility] EP STUDY <td>EP STUDY</td><td>Routine </td><td>01/20/2021 1:14 PM EDT</td><td> Nonrheumatic aortic valve stenosis</td><td> </td> 01/20/2021 01:14:50 PM EDT Nonrheumatic aortic valve stenosis [facility] Nonrheumatic aortic valve stenosis COVID/FLU AB/RSV PCR <td>COVID/FLU AB/RSV PCR</td ><td>STAT</td><td>01/20/2021 11:30 AM EDT</td><td></td><td> </td> 01/20/2021 11:30:00 AM EDT [facility] ECHO TTHRC R-T 2D W/WOM-MODE COMPL SPEC&COLR DOP <td>E CHOCARDIOGRAM TRANSTHORACIC</td><td>Routine</td><td>01/20/2021 8:45 AM EDT</td><td></td><td> </td> 01/20/2021 08:45:05 AM EDT [facility] BLOOD COUNT COMPLETE AUTOMATED <td>CBC</td><td>Timed</ td><td>01/20/2021 4:41 AM EDT</td><td></td><td> </td> 01/20/2021 04:41:00 AM EDT [facility] BASIC METABOLIC PANEL CALCIUM TOTAL <td>BASIC METABOLI C PANEL</td><td>Timed</td><td>01/20/2021 4:41 AM EDT</td><td></td><td> </td> 01/20/2021 04:41:00 AM EDT [facility] PROTHROMBIN TIME <td>PROTIME-INR</td><td>Rout ine</td><td>01/20/2021 12:21 AM EDT</td><td></td><td> </td> 01/20/2021 12:21:00 AM EDT [facility] MAGNESIUM <td>MAGNESIUM</td><td>Routin e</td><td>01/20/2021 12:21 AM EDT</td><td></td><td> </td> 01/20/2021 12:21:00 AM EDT [facility] XR CHEST PORTABLE <td>XR CHEST PORTABLE</td><t d>STAT</td><td>01/19/2021 1:48 PM EDT</td><td></td><td> </td> 01/19/2021 01:48:40 PM EDT [facility] PROTHROMBIN TIME <td>PROTIME-INR</td><td>STAT </td><td>01/19/2021 1:34 PM EDT</td><td></td><td> </td> 01/19/2021 01:34:00 PM EDT [facility] BLOOD COUNT COMPLETE AUTOMATED <td>CBC</td><td>STAT</t d><td>01/19/2021 1:34 PM EDT</td><td></td><td> </td> 01/19/2021 01:34:00 PM EDT [facility] MAGNESIUM <td>MAGNESIUM</td><td>STAT</ td><td>01/19/2021 1:34 PM EDT</td><td></td><td> </td> 01/19/2021 01:34:00 PM EDT [facility] BASIC METABOLIC PANEL CALCIUM TOTAL <td>BASIC METABOLI C PANEL</td><td>STAT</td><td>01/19/2021 1:34 PM EDT</td><td></td><td> </td> 01/19/2021 01:34:00 PM EDT [facility] ECG ROUTINE ECG W/LEAST 12 LDS TRCG ONLY W/O I&R <td>E CG 12- LEAD</td><td>Routine</td><td>01/19/2021 1:27 PM EDT</td><td></td><td></td> 01/19/2021 01:27:[address] [facility] TRANSCATHETER AORTIC VALVE IMPLANT FEMORAL <td>TRANSCA THETER AORTIC VALVE IMPLANT FEMORAL</td><td>Routine</td><td>01/19/2021 1:01 PM EDT</td><td> Nonrheumatic aortic valve stenosis</td><td> </td> 01/19/2021 01:01:00 PM EDT Nonrheumatic aortic valve stenosis [facility] Nonrheumatic aortic valve stenosis POC ARTERIAL BLOOD GAS W LYTES <td>POC ARTERIAL BLOOD GAS W LYTES</td><td>Routine</td><td>01/19/2021 12:48 PM EDT</td><td></td><td> </td> 01/19/2021 12:48:00 PM EDT [facility] POC ACT <td>POC ACT</td><td>Routine< /td><td>01/19/2021 12:47 PM EDT</td><td></td><td> </td> 01/19/2021 12:47:00 PM EDT [facility] POC ARTERIAL BLOOD GAS W LYTES <td>POC ARTERIAL BLOOD GAS W LYTES</td><td>Routine</td><td>01/19/2021 12:08 PM EDT</td><td></td><td> </td> 01/19/2021 12:08:00 PM EDT [facility] POC ACT <td>POC ACT</td><td>Routine< /td><td>01/19/2021 12:07 PM EDT</td><td></td><td> </td> 01/19/2021 12:07:00 PM EDT [facility] ECG TRANSESOPHAG R-T 2D W/PRB IMG ACQUISJ I&R <td>ECHO CARDIOGRAM TRANSESOPHAGEAL</td><td>Routine</td><td>01/19/2021 11:50 AM EDT</td><td></td><td> </td> 01/19/2021 11:50:45 AM EDT [facility] ROOM TEMP AB SCREEN <td>ROOM TEMP AB SCREEN</td> <td>Routine</td><td>01/19/2021 11:30 AM EDT</td><td></td><td> </td> 01/19/2021 11:30:00 AM EDT [facility] GLUC BLD GLUC MNTR DEV CLEARED FDA SPEC HOME USE <td>P OCT GLUCOSE</td><td>Routine</td><td>01/19/2021 9:41 AM EDT</td><td></td><td> </td> 01/19/2021 09:41:00 AM EDT [facility] THROMBOPLASTIN TIME PARTIAL PLASMA/WHOLE BLOOD <td>APTT</td><td>Routine</td><td>01/12/2021 2:20 AM EDT</td><td></td><td> </td> 01/12/2021 02:20:00 AM EDT [facility] BLOOD COUNT COMPLETE AUTOMATED <td>CBC</td><td>Routine </td><td>01/12/2021 2:20 AM EDT</td><td></td><td> </td> 01/12/2021 02:20:00 AM EDT [facility] BASIC METABOLIC PANEL CALCIUM TOTAL <td>BASIC METABOLI C PANEL</td><td>Routine</td><td>01/12/2021 2:20 AM EDT</td><td></td><td> </td> 01/12/2021 02:20:00 AM EDT [facility] THROMBOPLASTIN TIME PARTIAL PLASMA/WHOLE BLOOD <td>APTT</td><td>STAT</td><td>01/11/2021 8:29 PM EDT</td><td></td><td> </td> 01/11/2021 08:29:00 PM EDT [facility] CT ANGIO ABD&PLVIS CNTRST MTRL W/WO CNTRST IMGES <td>C T ANGIOGRAM ABDOMEN PELVIS</td><td>Pending Discharge</td><td>01/11/2021 7:49 PM EDT</td><td></td><td> </td> 01/11/2021 07:49:57 PM EDT [facility] CT ANGIOGRAPHY CHEST W/CONTRAST/NONCONTRAST <td>CT ANG IOGRAM CHEST</td><td>Pending Discharge</td><td>01/11/2021 7:49 PM EDT</td><td></td><td> </td> 01/11/2021 07:49:57 PM EDT [facility] DUPLEX SCAN EXTRACRANIAL ART COMPL BI STUDY <td>US CAR OTID BILATERAL</td><td>Pending Discharge</td><td>01/11/2021 3:40 PM EDT</td><td></td><td> </td> 01/11/2021 03:40:41 PM EDT [facility] BEDSIDE PULMONARY FUNCTION TEST <td>BEDSIDE PULMONARY FUNCTION TEST</td><td>Routine</td><td>01/11/2021 12:39 PM EDT</td><td></td><td></td> 01/11/2021 12:39:[address] [facility] THROMBOPLASTIN TIME PARTIAL PLASMA/WHOLE BLOOD <td>APTT</td><td>STAT</td><td>01/11/2021 11:26 AM EDT</td><td></td><td> </td> 01/11/2021 11:26:00 AM EDT [facility] ECHO TTHRC R-T 2D W/WOM-MODE COMPL SPEC&COLR DOP <td>E CHOCARDIOGRAM TRANSTHORACIC</td><td>Routine</td><td>01/11/2021 9:13 AM EDT</td><td></td><td> </td> 01/11/2021 09:13:42 AM EDT [facility] THROMBOPLASTIN TIME PARTIAL PLASMA/WHOLE BLOOD <td>APTT</td><td>STAT</td><td>01/11/2021 2:11 AM EDT</td><td></td><td> </td> 01/11/2021 02:11:00 AM EDT [facility] BLOOD COUNT COMPLETE AUTOMATED <td>CBC</td><td>Routine </td><td>01/11/2021 2:11 AM EDT</td><td></td><td> </td> 01/11/2021 02:11:00 AM EDT [facility] LIPID PANEL <td>LIPID PANEL</td><td>Rout ine</td><td>01/11/2021 2:11 AM EDT</td><td></td><td> </td> 01/11/2021 02:11:00 AM EDT [facility] BASIC METABOLIC PANEL CALCIUM TOTAL <td>BASIC METABOLI C PANEL</td><td>Routine</td><td>01/11/2021 2:11 AM EDT</td><td></td><td> </td> 01/11/2021 02:11:00 AM EDT [facility] THROMBOPLASTIN TIME PARTIAL PLASMA/WHOLE BLOOD <td>APTT</td><td>STAT</td><td>01/10/2021 7:25 PM EDT</td><td></td><td> </td> 01/10/2021 07:25:00 PM EDT [facility] CARDIAC CATHETERIZATION <td>CARDIAC CATHETERIZATION</td><td>Routine</td><td>01/10/2021 5:29 PM EDT</td><td> Nonrheumatic aortic valve stenosis</td><td> </td> 01/10/2021 05:29:04 PM EDT Nonrheumatic aortic valve stenosis [facility] Nonrheumatic aortic valve stenosis XR CHEST PORTABLE <td>XR CHEST PORTABLE</td><t d>Routine</td><td>01/10/2021 1:11 PM EDT</td><td></td><td> </td> 01/10/2021 01:11:53 PM EDT [facility] ECG ROUTINE ECG W/LEAST 12 LDS TRCG ONLY W/O I&R <td>E CG 12- LEAD</td><td>Routine</td><td>01/10/2021 12:40 PM EDT</td><td></td><td></td> 01/10/2021 12:40:[address] [facility] NT PRO BNP <td>NT PRO BNP</td><td>Routi ne</td><td>01/10/2021 12:33 PM EDT</td><td></td><td> </td> 01/10/2021 12:33:00 PM EDT [facility] TROPONIN QUANTITATIVE <td>TROPONIN I</td><td>Routi ne</td><td>01/10/2021 12:33 PM EDT</td><td></td><td> </td> 01/10/2021 12:33:00 PM EDT [facility] THROMBOPLASTIN TIME PARTIAL PLASMA/WHOLE BLOOD <td>APTT</td><td>Routine</td><td>01/10/2021 12:33 PM EDT</td><td></td><td> </td> 01/10/2021 12:33:00 PM EDT [facility] BLOOD COUNT COMPLETE AUTOMATED <td>CBC</td><td>Routine </td><td>01/10/2021 12:33 PM EDT</td><td></td><td> </td> 01/10/2021 12:33:00 PM EDT [facility] MAGNESIUM <td>MAGNESIUM</td><td>Routin e</td><td>01/10/2021 12:33 PM EDT</td><td></td><td> </td> 01/10/2021 12:33:00 PM EDT [facility] HEMOGLOBIN GLYCOSYLATED A1C <td>HEMOGLOBIN A1C</td><td>Routine</td><td>01/10/2021 12:33 PM EDT</td><td></td><td> </td> 01/10/2021 12:33:00 PM EDT [facility] COMPREHENSIVE METABOLIC PANEL <td>COMPREHENSIVE METABO LIC PANEL</td><td>Routine</td><td>01/10/2021 12:33 PM EDT</td><td></td><td> </td> 01/10/2021 12:33:00 PM EDT [facility] COVID/FLU AB/RSV PCR <td>COVID/FLU AB/RSV PCR</td ><td>STAT</td><td>01/10/2021 11:50 AM EDT</td><td></td><td> </td> 01/10/2021 11:50:00 AM EDT [facility] Results ID Date Data Source [id number] 04/17/2021 09:04:00 AM EDT [facility] ([facility]) Name Value Range Interpretation Code Description Data Dariela rce(s) Supporting Document(s) Laboratory test finding (navigational concept) Laboratory test result [facility] ([facility]) Will be doing Efudex. Has not received from pharmacy yet. [facility] Laboratory test finding (navigational concept) Laboratory test result [facility] ([facility]) Will be doing Efudex. Has not received from pharmacy yet. [facility] with the [facility] ID Date Data Source [id number] 04/05/2021 11:09:00 AM EDT [facility] Name Value Range Interpretation Code Description Data Dariela rce(s) Supporting Document(s) SARS-CoV-2 (COVID 19) NEGATIVE - SARS-CoV-2 (COVID19) [facility] This lab was ordered by [facility] a nd reported by [facility]. ID Date Data Source [id number] 02/22/2021 11:48:28 PM EDT [facility] Name Value Range Interpretation Code Description Data Dariela rce(s) Supporting Document(s) &PDF [facility] XTBEGd9eVrQDSlLn28/CUOliEBTgj0XsAYsmYXw9LPqhZAZuE9RdwNcpVBgWDOdBH1WwVxgKDORDXPYJ 0b3 SgMBRiPdFGuBU0JH5vWYLszeSkkuG3xL6jML8QIMN+Gm9PBI8bn7OoISq1BWTwp1BaTHkyJLu8A5QwxB HiesTvRuikkZJUHOJcWABhV2ijphw5sUQzUMYnJk1NOrBri6BlKKCxOFpXdl4omJ0csiY+XqD/gUDR1g GiE1+CGyOLQJj63mNiIZqxkTdy2PdspJak4rjJxMk1 68slubccZsXcC+fqpnGMSGNy5+E8M+TwbZcQ/+dfZKQVpZS0/21+2SoY6Ey7+U+wkpv7ptw/i4FJVPVp TbV/sB0n0T3reEDmi11nkwpE+XjOQwE4lzDS3UgRHj927ysT/7NDcAiJNBfoRYfHK59IsulJka124Izi xQaWfupEVXmJAOnCV+73xjPIcrJBEXe0CkTKAqtnYn GF8EDFFdd/xIWQCua2U/Ei9+hfcqASFlIoVtlSBkWVFWso/fLKrWfKgDrw9LjkzDICZr2X+DFpsIHiKa kHzpBu4bZ1yXXfl3wj83K5wAR1hv8ckWrF2pWdjE6R5Vhtih8Szk40pZ018hgoUOHiMrjc4mqyyZcmz5 uaEztMrBpyVVa/2c4JXWhui7d/FVLLVbTO2q0kQmP0 j6GEEGTNCU0UGoeMeCMxed1ErA4M5VbmL+dyUNIPklIPYifJMrfUK72X3p8OsCkS/nJsoRJe6omJx4QJ 2UHU3OoGIVqe+GoZwOS8pqqTAsC5srIDCxpu0GaiCumojKy1y6ALvyRwNgNMcGzy02iTGsB8yZkUcL6T EETCiGoDgX4UfJ3AP1OZ9lTpGw5OS71nDaFlrE+Lili [file] KC6hOmxAgcFSHT2b0ari6OxWrQEdeHK9UAo9Qc/Jose Roberto [file] RmxhdGVEZWNvZGVdDQo+Os5Fl9UjXKBdYXzYlBDpHSQaHnKNPDQo/5+HxBV++f//pattern drafter+219mAULpE3D8 [file] ICAgICAgICAgICAgICAgICAgICAgICAgICAgICAgICAgICAgICAgICAgICAgICAgICAgICAgICAgICAg ICAgICAgICAgICAgICAgICAgICAgICAgICAgICAgIC AgICANCiAgICAgICAgICAgICAgICAgICAgICAgICAgICAgICAgICAgICAgICAgICAgICAgICAgICAgIC AgICAgICAgICAgICAgICAgICAgICAgICAgICAgICAgICAgICAgICAgICAgICANCiAgICAgICAgICAgIC AgICAgICAgICAgICAgICAgICAgICAgICAgICAgICAg ICAgICAgICAgICAgICAgICAgICAgICAgICAgICAgICAgICAgICAgICAgICAgICAgICAgICAgICANCiAg ICAgICAgICAgICAgICAgICAgICAgICAgICAgICAgICAgICAgICAgICAgICAgICAgICAgICAgICAgICAg ICAgICAgICAgICAgICAgICAgICAgICAgICAgICAgIC AgICAgICANCiAgICAgICAgICAgICAgICAgICAgICAgICAgICAgICAgICAgICAgICAgICAgICAgICAgIC AgICAgICAgICAgICAgICAgICAgICAgICAgICAgICAgICAgICAgICAgICAgICAgICANCiAgICAgICAgIC AgICAgICAgICAgICAgICAgICAgICAgICAgICAgICAg ICAgICAgICAgICAgICAgICAgICAgICAgICAgICAgICAgICAgICAgICAgICAgICAgICAgICAgICAgICAN CiAgICAgICAgICAgICAgICAgICAgICAgICAgICAgICAgICAgICAgICAgICAgICAgICAgICAgICAgICAg ICAgICAgICAgICAgICAgICAgICAgICAgICAgICAgIC AgICAgICAgICANCiAgICAgICAgICAgICAgICAgICAgICAgICAgICAgICAgICAgICAgICAgICAgICAgIC AgICAgICAgICAgICAgICAgICAgICAgICAgICAgICAgICAgICAgICAgICAgICAgICAgICANCiAgICAgIC AgICAgICAgICAgICAgICAgICAgICAgICAgICAgICAg ICAgICAgICAgICAgICAgICAgICAgICAgICAgICAgICAgICAgICAgICAgICAgICAgICAgICAgICAgICAg ICANCiAgICAgICAgICAgICAgICAgICAgICAgICAgICAgICAgICAgICAgICAgICAgICAgICAgICAgICAg ICAgICAgICAgICAgICAgICAgICAgICAgICAgICAgIC AgICAgICAgICAgICANCjw/tQOwQ6punGCiwqJ4Q5wmJb2YBw9VSI3zk7KeMILoOAugnqPcFdpEHqYgFX KeHtrZEfv7JYjhWY0EaDNbF5PsG9HbRGbcJX0MRCLbBEDreFKsSRTrMHDaVsR0VWKeCSdwVZ7KzDYhKS viUWAzXCNbDtVcKXPjZVXcFDCaQJ7UDQHqJ966knFj Ir3SSf0IJjEcKV0bzj0JVuNnLNIdLheTDdc2MVznDG1YhJDiQ5JscRHue2oNBhJxU4RTDQLlCQOiPy9L IKKgVhOjOWToRDrsVP3uCYZfOBHOjVflrkX8AC6KIZ4wdnIkRE9RPnReJz2zFv2MXaDyQ1PkB9BeVWMp QHRSOPysVP3EDCBzMYS2FXKaVUZiQBXLAwVjU67hCI 0KP3Zvf37cSqO1TROtVkCxYRwoBW50gJeixmVarUTgpRluOS5MYx9+DQplbmRvYmoNCnhyZWYNCjAgMz YVBpGsRHTsSBDgQRCfEvB1KiSeWf8PIXHeHYDsZVRsQcWpZRGxFTPjYFgmQZUqHGAfVJz9EDFzQEUcSU 4LVaEoGXHnXeT9FNykSVNdZFPsiy4AWGMiNSJqDDO4 UGApTNIaKSTlGZlyXEDyFYIxQPH0XMLiFOGsKS7YXbLgCLSqUEFcFBWeJELdWHJbix0BKGQaRIBiQhQ4 BtLgXVWpCNBdGZxxFBZiODN3KKK5IKPyUBUfSH9THeYgYXNkXUw1MmVdJLDdKWFshe7YIHHqGKJmWKa9 ZEUeTPKdBSPnPSeyWSSeURPfDzL6ZAZrREIvCK9EWj KeDQFkLPL2YvNgGMNcTCNmer1XKSTeUZRmMHNbYDZqZYRwUABoXPrcRZBbMKCyDDT1VZElFJImGD5CRi YeEDZpMXGlWhQvYOLdSXPhyz5JBYWuWSVqOaQ3DXSlWLNcERSsAVxgTOYxKDD9GaC9LUWdFPPtNC0SGo AeNTZdSZl0HrNeSDGtGZRqjg6YIXTaOYDcTbk9NyNo XXReIOUzPDfsRXVgKVP8ZIpqGWEqVETiZM6VVgMzXAUcCThhLkPbLCCjXQQulb5WZCPuDSOuAYY0GgUp GPRuCDGrSEvpEKZcHJI4KpE9BQNaMCKoGQ7FVkWmMLYfJRh2LkWhHUEfMLTtmb2RDKOxHWWyKIZ5ClQg RNDvZLYrPIgxHPIfSZLwIqD4EEGjRTDcPH3NEsYbVG VtCyI3PvPpYIMfRPCrue7YIYLsZFKpXHT3LlPaVGEdGZEdXFfhCFGvMFSsOFC7OTLaPKEvHN3GAbWmBV MyBtL6PDelMQEiZIEgkl7OLWTrEJVbImO2FAQnUPDbJDOkZRxkOZWxKHCoTeV7LXXnYIUyGZ2CZoUhMY XqTeS7EoJlGXIiVNEtdw4WLCTaWDHsUfKwRZBbIKSo AGUhFMbmTKEkTZC7EAC5COImZOOiTQ1BRhMoEZfiSMXVXle5HRcqB0a3CSIqJs5HO4Tva1WoDtMzIIPM EMvxRP3fjwMxVKBdRr2FY8yVFqoxYvJ0LlIlJLs6BCX7MqOaOmt2OlApYtB9JzBaLEBtNd1uUXCmUnny B4F5PSo1SQNxIHItThRkN3H7GICpFDQ7RWWfBbBy HK0CQc5OClK7FDX5pDKoNt9OFfZ5GWLCFuFsDV4CQHx= ID Date Data Source [id number] 01/20/2021 07:07:15 PM EDT [facility] NT INFORMATIONPatient MRN Name Date of Age Gend*PT [id number] Young Martinez 1940 80 years M IPPT Location Admission Date/Time Visit ID Attending [id number] 01/19/2114 --- Terry Luna MD([id number]) EPI ID CSN Admitting Provider [id number] Terry Luna MD([id number])DISCHARGE SUMMARYAdmission Date: 01/19/2021ischarge date: 01/20/21PRINCIPAL DIAGNOSIS: Severe aortic stenosis post successful TAVRCURRENT [id number]-fydc-fru man Cheondoism And paroxysmal atrial fibrillation on Eliquiswho recently [...] Get Your MedicationsThese medications were sent to [facility] [address] [place] [address] - [facility] [address] [address] amoxicillin 500 MG capsule metoprolol succinate 25 MG 24 hr tabletSignature: Terry Luna, MDDate: January 20, 2021Time: 7:04 [facility]: Dr. Neely document or parts of this document, were dictated using Dropbox software. A reasonable attempt at proofreading has been made tominimize errors. Please call with any questions or corrections. Name Value Range Interpretation Code Description Data Dariela rce(s) Supporting Document(s) ID Date Data Source [id number] 01/20/2021 02:48:20 PM EDT [address] [address]Bwvotti Name: YOUNG WELLEROB: 1940Sex: MOrdering Provider: MURPHY MCKENZIEuthoj Prov: MURPHY Mofermatthew Provider: Procedure Performed: / XR CHEST PORTABLEExam Date: 01/20/2021 14:41MRN: [id number] Number: [id number] Class: InpatientAccount #: [id number] for Exam: ppmTechnique: AP portable view obtained.Comparison: [...] HERMINIA WASSERMAN On 01/20/2021 2:48 PMWorkstation ID: [id number] Name Value Range Interpretation Code Description Data Dariela rce(s) Supporting Document(s) ID Date Data Source [id number] 01/20/2021 01:25:15 PM EDT [facility] Name Value Range Interpretation Code Description Data [facility] rce(s) Supporting Document(s) &PDF [facility] LJMPOy2hUfVUKaJs88/AKBrjXSEsi4McPRotAFd4CUgxIMUhQ8ZnsEpfIHvFQGhOM2DuKtyOFOVKEAKG 0b3 [file] [id number] ID Date Data Source [id number] 01/20/2021 11:30:00 AM EDT [facility] Name Value Range Interpretation Code Description Data Dariela rce(s) Supporting Document(s) SARS coronavirus 2 RNA [Presence] in Res piratory specimen by ELENA with probe detection NOT DETECTED [facility] This lab was reported by [facility]. ID Date Data Source [id number] 01/20/2021 01:08:17 PM EDT [facility] Name Value Range Interpretation Code Description Data Dariela rce(s) Supporting Document(s) SPECIMEN DESCRIPTION [facility] INFLUENZA A (NEG) [facility] INFLUENZA B (NEG) [facility] RSV (NEG) [facility] COMMENT [facility] THE [place] FDA HAS MADE THIS TEST AVAILABL EUNDER AN EMERGENCY USE AUTHORIZATION(EUA) FOR THE DETECTION AND/OR DIAGNOSISOF THE VIRUS THAT CAUSES COVID-19.PERFORMED AT [address] [place] [phone] COVID19 RESULT (NDET) [facility] THIS ASSAY AMPLIFIES AND DETECTSTHE TARG ET RNA USING REAL-TIME PCR.TESTING PERFORMED ON CEPFrictionless CommerceID GENEXPERTNEGATIVE 2019_NCOV RT-PCR RESULTS DONOT PRECLUDE 2019_NCOV INFECTION ANDSHOULD NOT BE USED THE SOLE BASISFOR PATIENT MANAGEMENT DECISIONS. FIRST TEST [facility] EMPLOYED IN HLTHCARE Lab [facility] SYMPTOMATIC [facility] DATE OF SYMPT ONSET Lab [facility] HOSPITALIZED [facility] ICU [facility] CONGREGATE CARE SET [facility] ID Date Data Source [id number] 01/20/2021 10:26:43 AM EDT [facility] Name Value Range Interpretation Code Description Data Dariela rce(s) Supporting Document(s) &PDF [facility] BEDZJb6wRtGFMxTe30/FVKuhJKGzn3OtEBscATu4GZogDPKkT0FwjYtrKFlGPFoFT4PrWwiWLXCNLJAU 0b3 [file] 3CdJ7HcKVvRVwNTwR+MWkOmYRwfNLHdiCMRDsN7FD44x3pyWGiNql19NJ6qyu7Ntl8Vphd6MyELE+[place] [file] m7JQ6RI9qldR4ZLIF/Angela/e1rrqNjAueT4XDqIKZrwcV/Vv7tr1ubyCXo5An/XmFLI1r7miqEa3JIySY /WWy3e6WpFpLo8gs556pSbDXgPK5gQVBvNjbGNHC/Jt1dr1zlGyUhgNAVtFWmBvI19iXCsFdNFHMe5Qg tjTL6WZiS0kGiU8l7arVL90rRIGyWHvROlGkxrkU7w h3npNr2SnO6rkOZRvzkzhP1a+ZV5jHMiOuX7Jv/uQJj2vwYyaOcwrs6bGCYMSFSw/HZ2yddvOZ0sYLpy oO/5HH9/5icQeIq/hY5yhXw0I4Id6j0tqCL8NvqkmSHkV0a3147RuU3xAIlejxQh8SE5w0FrsaJ4rQbd cCRJTP0scjoZYOQT39agz8lOQKoVuXhr7M28ObeuBR 9pxcZbZ/qyb1NLhZof+9RdU/SA5+x6hkpsR0i6o+qPUquRlP6xnATpWp+WCN7/7tSTrVb5vKaORhc7rr QwT1AcPmYhFeWf7zKeX/+8MOLQsqHzu50YuXN7IfIiFH6oWlhw012lu7ImeDofL5PIDIZqVN0uiN3CVf B+media associate+OO2d1uwADV15Imyt3d+h3Lny4fGOkHqz1P47 [file] ICAgICAgICAgICAgICAgICAgICAgICAgICAgICAgICAgICAgICAgICAgICAgICAgICAgICAgICAgICAg ICANCiAgICAgICAgICAgICAgICAgICAgICAgICAgIC AgICAgICAgICAgICAgICAgICAgICAgICAgICAgICAgICAgICAgICAgICAgICAgICAgICAgICAgICAgIC AgICAgICAgICAgICANCiAgICAgICAgICAgICAgICAgICAgICAgICAgICAgICAgICAgICAgICAgICAgIC AgICAgICAgICAgICAgICAgICAgICAgICAgICAgICAg ICAgICAgICAgICAgICAgICAgICAgICANCiAgICAgICAgICAgICAgICAgICAgICAgICAgICAgICAgICAg ICAgICAgICAgICAgICAgICAgICAgICAgICAgICAgICAgICAgICAgICAgICAgICAgICAgICAgICAgICAg ICAgICANCiAgICAgICAgICAgICAgICAgICAgICAgIC AgICAgICAgICAgICAgICAgICAgICAgICAgICAgICAgICAgICAgICAgICAgICAgICAgICAgICAgICAgIC AgICAgICAgICAgICAgICANCiAgICAgICAgICAgICAgICAgICAgICAgICAgICAgICAgICAgICAgICAgIC AgICAgICAgICAgICAgICAgICAgICAgICAgICAgICAg ICAgICAgICAgICAgICAgICAgICAgICAgICANCiAgICAgICAgICAgICAgICAgICAgICAgICAgICAgICAg ICAgICAgICAgICAgICAgICAgICAgICAgICAgICAgICAgICAgICAgICAgICAgICAgICAgICAgICAgICAg ICAgICAgICANCiAgICAgICAgICAgICAgICAgICAgIC AgICAgICAgICAgICAgICAgICAgICAgICAgICAgICAgICAgICAgICAgICAgICAgICAgICAgICAgICAgIC AgICAgICAgICAgICAgICAgICANCiAgICAgICAgICAgICAgICAgICAgICAgICAgICAgICAgICAgICAgIC AgICAgICAgICAgICAgICAgICAgICAgICAgICAgICAg ICAgICAgICAgICAgICAgICAgICAgICAgICAgICANCiAgICAgICAgICAgICAgICAgICAgICAgICAgICAg ICAgICAgICAgICAgICAgICAgICAgICAgICAgICAgICAgICAgICAgICAgICAgICAgICAgICAgICAgICAg ICAgICAgICAgICANCjw/oINzO1uomHZwopZ1T2alWe 3NQf0AHU4bw9OoCTElLIbcqqJkJflJRwCtEAJvKciLUfr1WWywVA8BiZCiH5YyA1EpCXesIZ0KPPJcHI YpvAQpWNMcAXZjUzE0UVEkIDpnAT5OqRVaQTtwPWCdYAXlCsCqALBeQPOxIEExNCVnKICKIB9OKuWgJ9 GtvG49JJMXKu9+KLzmcyQvSnaTAyRsGWUdz0FmMKv2 US1TMRXoPZllRC8VMKBbnN1kVSfeFW4SDjW5WEVgLRUVGxHxJ30qaKYoNOl5B5MrHpDnQQGcJxywTFSp PDwvTmFtZXMgWyBdDQogID4+ID4+AYvrLS6BPUhjfrRcMGCwSm3RJJCmOJA2CSYkjGYqBALhIILEIXrq BE5NdQMxEWN2tT0zYUonBQDsSTVxC1nYIhNhcDavYI 51bGwgbnVsbCBdDQo+Hf1TWM9ll6InROl2ypKlGGcuNPUkNLaqNCDkAXMxUOViWRW0WAH9YJKTJrSnYG TcTDXhTKflUDXwFOPwjy3VIROqNIK6LQt6VgSuSNElWZLbULduFMUrMCtuOPv7DFCcFLOeYO4QXhVwZV OyHMLaEWXgMSRsCDJjae5MDOFmDEAfZxX1JIFoGQPr KNKkHYibTZNlZGAmCBa8USNkUBJeOU8OUoWnYKCrMXZ4DLvcQSJzIUFxbe5PWYDaVSNgUGW0ZnOfZYYe TVVsRLidMASxYQJ9GSTqHHJfQXHwBY9FAdOwPFUfWCc7XHMnOPKcQAXnqz9CNJToTJRjPKgtOALqXSHr WOGfBUrjRXYiINL5WGA5MXVnBTHiDP2CLcMpCMBbYS l2FiEcOTPhQGGunw3LLMBuDNNrAFJ8NzAhXOMlHHZkPJrdNEHjPIGzRsV4JOAkDGWoFJ0NMkTxAEDcTD FnQAHkJCNuULKwwz7ZSDVaAWVeFWHfUdOuHYMyLGNnVKvbZZIjRLZiRpB6RYQyOVBaGP0MUyBsISOvGA Q3DdOeRYWrSTTlpx5CMPSfYWVgNcw3CHRxAFLxXFLg FVrjPFZzQOUbNIH7NTNwFXPkBN7HAfUkCUTlPLHfSVMlHOPwYZOfrn7ADNKaESGyZAVkCvOuXIPsPUDc XIlbBWMrHUV1Uwm8WZAeCKFcJD5NReYaOAGpTGw9EFVlVMCuSGUgfq7VOMKyFHLrXxhpBnWrZVRkAVDj MXkzODLpPYL0LZK5QBTeLSDyQW2TPfGiYYTkZwG9UR UoVPIePVWpuc2QVHXgPFCkLQCbZWTbVVXdVHEeQRcsLWQxKMTtAvloHFDmQAKhSM3VEkSqLTJjZyT0Gx UaKVKnECVbgv4JJAEqNQE2ZIQaWiRuKWJtADNxGHfhZXDtWCAjSuE0QMFiBXJiLD3YVmUmQXWdNEIuEH BmYHBoIYOozp1XTYGjXJG2FYtfMGKxFUPdIMSjOSpy UKRpCYY8RIKlBBJzAELdLM9VTaLwGVEwZPofCKfqYBJxKRZjsh7JCCEmQPR4PwhhVVTkMUZoUSIzUDyr PFJyVSE0QIh1PPSgBWZdME8DUdKqZEBvPuZ3FEDhKVJrJOWznz6PPGGrCIH5VRM1IEMwLYEdDLQqPKuo QEYqBOuuMLKmJVIbOCXiOA2WBmWrMMakWXAKXjd2LQ uyN7t1JQJ0Bj8YQ1Sfy3GcANKeGFVPRHafPF6fxzAqOWKiGy9CE2fNNmp8XHM8TUU6DnT4WzGtGMS1Yd gzZaZgGlS3FqA2VyYtFk5fMPoyJzf8LYYbReCtQmK1YTQqRZCnR6VjXax0IPk3BQRbYnMwAZ6RIs4CBa U9YUX6wTWpYr9XSeHvHHlIRiPgMJ8JHPe= ID Date Data Source [id number] 01/20/2021 05:43:10 AM EDT [facility] Name Value Range Interpretation Code Description Data Dariela rce(s) Supporting Document(s) SODIUM 141 mmol/L (136-145) [facility] POTASSIUM 4.8 mmol/L (3.6-5.2) [facility] CHLORIDE 109 mmol/L (100-108) H [facility] CO2 27 mmol/L (22-31) [facility] ANION GAP 5 mmol/L (7-16) L [facility] UREA NITROGEN 16 mg/dL (7-24) [facility] CREATININE 0.53 mg/dL (0.80-1.30) L [facility] BUN/CREAT RATIO 30.2 RATIO (10.0-20.0) H [facility] GLUCOSE 97 mg/dL (70-99) [facility] CALCIUM 7.4 mg/dL (8.4-10.2) L [facility] GFR >60 ml/min/1.73m2 (>59) [facility] GFR ( AMER) >60 ml/min/1.73m2 (>59) [facility] GFR INTERPRETATION [facility] --NORMAL KIDNEY FUNCTION OR MILD DISEASE - GFR >OR= 60CHRONIC KIDNEY DISEASE - GFR 15 - 59RENAL FAILURE - GFR <15 Est. GFR calculation based on the MDRDstudy equation, which assumes a steadystate for creatinine. Est. GFR should notbe used for medication dosing. ID Date Data Source [id number] 01/20/2021 05:21:33 AM EDT [facility] Name Value Range Interpretation Code Description Data Dariela rce(s) Supporting Document(s) WBC 10.0 10*3/uL (4.1-11.0) [facility] RBC 3.95 10*6/uL (4.60-6.10) L [facility] HGB 11.0 g/dL (13.5-18.0) L [facility] HCT 33.1 % (41.0-53.0) L [facility] MCV 83.8 fL (80.0-95.0) [facility] MCH 27.9 pg (27.0-32.0) [facility] MCHC 33.3 g/dL (32.0-36.0) [facility] RDW 15.3 % (10.5-14.5) H [facility] PLT 274 10*3/uL (150-450) [facility] MPV 7.5 fL (7.1-10.7) [facility] ID Date Data Source [id number] 01/20/2021 01:27:57 AM EDT [facility] Name Value Range Interpretation Code Description Data Dariela rce(s) Supporting Document(s) MAGNESIUM 2.5 mg/dL (1.7-2.4) H [facility] ID Date Data Source [id number] 01/20/2021 01:19:17 AM EDT [facility] Name Value Range Interpretation Code Description Data Dariela rce(s) Supporting Document(s) PT 11.5 s (9.2-11.9) [facility] INR 1.10 [facility] SUGGESTED THERAPEUTIC RANGES USING INR F ORSTABILIZED ANTICOAGULATED PATIENTS:STANDARD DOSE THERAPY INR 2.0-3.0 DVT, PE, PREVENT DVT OR EMBOLISMHIGH DOSE THERAPY INR 2.5-3.5 PREVENT EMBOLISM FROM MECHANICAL HEART VALVE ID Date Data Source [id number] 01/19/2021 06:19:06 PM EDT [facility] NT INFORMATIONPatient MRN Name Date of Age Gend*PT [id number] Young Martinez 1940 80 years M ---PT Location Admission Date/Time Visit ID Attending Provider --- --- --- --- EPI ID CSN Admitting Provider [id number] ---STRUCTURAL HEART TEAM RECOMMENDATIONSPatient Name: Young MayeraceDate of Conference: January 18, 2021Team Members Present: Dr. Kalia Hyde, Dr. Nile Brandt, Dr. Arian Post,Dr. Jesus Walden, Dr. Christine Lopez, Dr. Santi March and Dr. Stevie Yang Risk ScoreSTS Score: 4.1%TAVR Risk ScoreTAVR Score: 1.8%Co-Morbidities:Past Medical History:Diagnosis Date Arthritis Atrial fibrillation Essential hypertension 01/10/2021 normally low bp Fuchs' corneal dystrophy 01/10/2021 GERD (gastroesophageal reflux disease) Heart murmur Hyperlipidemia Hypothyroidism Nonrheumatic aortic valve stenosis 01/10/2021 PAD (peripheral artery disease) Patient is Cheondoism 01/10/2021 PONV (postoperative nausea and vomiting) x 1 with corneal transplane StrokePast Surgical History:Procedure Laterality Date CARDIAC CATHETERIZATION N/A 01/10/2021 Procedure: Left heart cath; Surgeon: eTrry Luna MD; Laterality: N/A; CARDIAC CATHETERIZATION N/A [...] rce(s) Supporting Document(s) ID Date Data Source [id number] 01/19/2021 03:03:14 PM EDT [facility] Name Value Range Interpretation Code Description Data Dariela rce(s) Supporting Document(s) &PDF [facility] OFTIPd0zJuFTLvOg48/EIXmkMYUra2CyLDzwGWh1TOvrZMWsJ3GcsFexGFcLNSlNC1IoUbvJDOWBRGOE 0b3 [file] ICAgICAgICAgICAgICAgICAgICAgICAgICAgICAgICAgICAgICAgICAgICAgICAgICAgICAgICAgICAg EWNtCQNxXQChSENiKMFkPN4LNYTgVUHeCEFoHGCbCH AgICAgICAgICAgICAgICAgICAgICAgICAgICAgICAgICAgICAgICAgICAgICAgICAgICAgICAgICAgIC NaPKYhRELiAVQfQOGzQFKbUSTvSJVpKRSnRC3DJCMxNKBwWABoAQPyGFFdFCRlDFKhDZMfOLDnNNNeQJ AgICAgICAgICAgICAgICAgICAgICAgICAgICAgICAg LBEvBNDpBCWuVGNpLLHsTGOqQWOnWOLzSBHwJQNhRNLcXTDhZM8TRHLqVIDgTRNrINJxFCYsNKIyAJIt ICAgICAgICAgICAgICAgICAgICAgICAgICAgICAgICAgICAgICAgICAgICAgICAgICAgICAgICAgICAg NHRtIEGiTXPyEGImRFDaFQTaAJ0TGMOzPOQsDKJaYX AgICAgICAgICAgICAgICAgICAgICAgICAgICAgICAgICAgICAgICAgICAgICAgICAgICAgICAgICAgIC BqAAEcXUMtUDInRYRhPXSdJSCySAGzJWFkDVIaPV1CJBVcDLOeNDYiMCYiTTIwJKRrIKTnJLYpNBQbNZ AgICAgICAgICAgICAgICAgICAgICAgICAgICAgICAg GBLgTMUfRRMxTETrPWJfEFBtQHBePBQiDFLiFREhJWUrGTDwTAPwAU0AAPTqJOJcUSZbRNTpDLFmYDOi ICAgICAgICAgICAgICAgICAgICAgICAgICAgICAgICAgICAgICAgICAgICAgICAgICAgICAgICAgICAg URCaNHRdDTGdEGDpGVJhHQPkJFJzBI0SYMFmNBFvTC AgICAgICAgICAgICAgICAgICAgICAgICAgICAgICAgICAgICAgICAgICAgICAgICAgICAgICAgICAgIC MkYYYiEXReTFYlZIWhFPCgHLUgMMJrOAPgPUIyIIFzWW9MKRWiXBIrQJAxBIAdKXYqFRVgBWDuUQPmAT AgICAgICAgICAgICAgICAgICAgICAgICAgICAgICAg WHJgAMFnXKFqJWUkIRWmLWInIOLqTETxQUUhRDCsEKIwTURxLRNlTUDiZX6UOVAqKVBvMBYpZFUdBZGa ICAgICAgICAgICAgICAgICAgICAgICAgICAgICAgICAgICAgICAgICAgICAgICAgICAgICAgICAgICAg RDElQVQjCBIjMVLkBASgQWCzTRWfVXUfVJ2AYF12bE Gub8D5QJVbZP5klgg/Xr2TCGbzxgXtgSDfSO7DNjGoJK9bvu7CZrXlAA8rkc0MIGgAFeBrW9Z4rHWtKL AbRKBOGsUfO75rMThtVf32SKvkTAAwKrXnPJg4Dg8ZDvZgO0vwNHAhHsK0GWEzYoUbPJlcKA3Au6SubZ AxDQo+Hr4IRI2ow1ZtZHlpTMZrIM5iyo5NPHfWEbUg S1F6kLZrA8I6YXrmBe8FOZWrFLKdVOdpSIXLKKdrIS8FSZ8epaD5LO0XwDXcCGOhUOQlxUOxROb0M76s nZAsJHijSX3BLOH+Himanshu+Ji0IQMWcOZXfVNHtXhEbBFWKTxYbM84jhATaGMGlZDT6FEEnUw2WDAKxH3Tg ugTxoGmswlCqYLKeQPXCBR7ARXpcecTjgNQwpHgpTL 09wXmwEU5YEo9DEvUrPD6tqy8YcEPcJw6UOPDcHU7YTIWeVMAbVZVfXVG8GACtAgAdKAhqNSVaPYUqUF M9AMAxIXZxKP8NMtCtSOUrRGHhHJKkMTNmBKJkvl8JWEGgBHZoWao5ZsSlBWYiORSrIDrwNWRtGVHaTQ g7RBIuZSOpML0OZnNcLWZvGPXeNkFqYATrYFZwnj8B MUJuNOMpAjJiKbMiCQWfUEVuMLmnXIRlCKWiDFs6GJXvTEEgHJ8RLlLkOMTyUVB7TPVkVMSyOZEzbw2W VZDfHJEtQwu9LlVwPOPbHPQsTSvpOXYzFOV3YTUsEWAnZXEkKM0WEiZeJCOeKHAtGiWzHBYkIRQqxn4C KMJfHEGwJZPuTOUkOZQvKUVjXSkxKVExHEZ8MSX5HY KaJJTvUX7FRoFsWTUzLKGnQqmpEISdHWYjll1VDSLzDBLvHbT6UxPdGSUyXMTkHYkvGOXtAJXfDqX9MW LrRFDaMQ9QIoAuLDTzGRM4AFKtLKLsIPPkpv4AOWUmAWHtRpMlOsMlUGUgBXZnGLqsHXLpUBP7NVCzLT VcHHEsFA7NNwYgWUxyLDRDMob1JArsG8q6VNBgUJ0C C1Phd2UdTNhoBKJXTKlkGJ8dxgEoBYEnXa8LR9eOFljbNZD5VSAnMrGiSXJ2GQE6FpGyQSInSpG4PTE8 H2K1YA3wZYY8NVEiIHQfXSJxZTOfHeH3QmShVHPjHREhBSjlIpRaVsEoXY0RMa5TBmC8EXN0bFVhAq4Z TJttQZkRHtTjIO2RTKn= ID Date Data Source [id number] 01/19/2021 02:38:29 PM EDT [facility] NT INFORMATIONPatient MRN Name Date of Age Gend*PT [id number] Young Martinez 1940 80 years M IPPT Location Admission Date/Time Visit ID Attending [id number] 01/19/21 0914 --- Terry Luna MD([id number]) EPI ID CSN Admitting Provider [id number] Terry Luna MD([id number])Cardiac Electrophysiology Consult NoteName: Young Martinez Gender: maleDate of : 1940 Age: 80 yearsDate/Time of Admit: 01/19/2021 9:14 AM Code Status: Full CodePrimary Care Provider:Referring Physician: [place] Radha Middleton for consultation: Complete heart blockHPI: [...] 01/10/2021 PAD (peripheral artery disease) Patient is Cheondoism 01/10/2021 PONV (postoperative nausea and vomiting) x [...] Social Gatherings with Friends and Family: Attends Scientologist Services: Active Member of Clubs or Organizations: [...] capsule by mouth2 (two) times a day Ceresco-3 Fatty Acids (Fish Oil) 1200 MG CAPS [...] atropine sulfate, fentaNYL Citrate (PF),hydrALAZINE, iopamidol, labetalol, dkgltwwt-ggfimfpbzn-llypamiho, ondansetron,[START ON 01/21/2021] polyethylene glycol (MIRALAX) powderPhysicalBlood [...] reevaluate him inthe morning.Signature: Murphy Alvarenga MD, [facility], [facility] CORPORATIONCardiac Electrophysiology and Arrhythmia ServiceDate: January 19, 2021Time: 2:36 PMThis document or parts of this document, were dictated using Inter[employer]udes[employer]. A reasonable attempt at proofreading has been made to minimize errors.Please call with any questions or corrections. Name Value Range Interpretation Code Description Data Dariela rce(s) Supporting Document(s) ID Date Data Source [id number] 01/19/2021 01:53:29 PM EDT [address] [address]Atobxgn Name: YOUNG Eleuterio MAYERACEDOB: 1940Sex: MOrdering Provider: TERRY Smith Prov: TERRY Hare Provider: Procedure Performed: / XR CHEST PORTABLEExam Date: 01/19/2021 13:48MRN: [id number] Number: [id number] Class: InpatientAccount #: [id number] for Exam: Post TAVR procedureTechnique: AP portable [...] HERMINIA WASSERMAN On 01/19/2021 1:53 PMWorkstation ID: [id number] Name Value Range Interpretation Code Description Data Dariela rce(s) Supporting Document(s) ID Date Data Source [id number] 01/19/2021 01:52:55 PM EDT [facility] Name Value Range Interpretation Code Description Data Dariela rce(s) Supporting Document(s) EKG [facility] YEYJWx2sHgZOFhBia3FpTrCiMVWaBP4oqyf5U5H7sARnM7HpjEYxr1wsI9GcY7WaYWTmBAQKVE5VqYUb jb2 [file] p9CuwlVmtwb/CmnFZ7U4wm+PRp9qh7GMi235NvM22rRNPSLWt5qbl94vS3tr5G0sqtgyyuipfIQ/women's studies professor+ hC3+F0cSyBANR1ITdxQos/7BS4SRNOqE4PQVmSXJYPg42ASVeVQUDZQ6nuhMSDYXwo6txDQLWDENMI3b BtqfE9n3crnlNZvxTzPCeDJIj+MswLJ/usECSl1Gfp DK/QWpvsDL1OozpQ0gobx/tqDmHtwPV5tOYsBg9U+QnQm2+PfFoBJam8EZN82LH/gGoeG2XHmr7xBPnm Ud0cwlIeh8oSirTauHn0Z5Sgk8n0TTCiayM3CEn5madjplJ3Our7LQuMhE7zE9ZH+sR/uXxcqZwXIr1N nRevPy7aODEPJpQWoutSidj+v1aK8oOdi6+BeIRoIt /nRNyfkoqF6b7NTHdnrNJAgsUrrhLVjN06kYW78dG7590HuitIDC7hIWfSIBQnXd5d58OaxlgB/mXYKq CbAmg5tHGLlpZzfO6QXRZ0yeKA09mR0XPi9QtdBQzCUUjENiSZtISzPC8TKXlwRSapfC6RTebdc/1ib7 XeoyZ6LhCzXdqHjtkF27+NuctD1VdmZ3exhzKDSWjo qxEZRuVYO18SR0wPI9xoCqETrDkZKcVvARLRxkko37XfufdRT5O5Dk/iefWN6nKieFqTLYZqKr/I/STACY [file] m/AMERICAN SIGN LANGUAGE INTERPRETER+j5vNz81Lk3Egh6ST2iP8ej8QrxkW5Japo2QrQ9KLrp7ervAvMEoN2OOL59XNp8pZemp3vidkfz [file] NYma0T4mQjdC2ciL+RfPWAQuShyQ5eZpPcYJ66sFRGwQ/spray booth operator/XQZG42PTvSQ+vjf06FgbGK+7jnr2WrK [file] Y= ID Date Data Source [id number] 01/19/2021 03:32:05 PM EDT [facility] Name Value Range Interpretation Code Description Data Dariela rce(s) Supporting Document(s) MAGNESIUM 2.5 mg/dL (1.7-2.4) H [facility] ID Date Data Source [id number] 01/19/2021 03:32:05 PM EDT [facility] Name Value Range Interpretation Code Description Data Dariela rce(s) Supporting Document(s) SODIUM 140 mmol/L (136-145) [facility] POTASSIUM 4.3 mmol/L (3.6-5.2) [facility] CHLORIDE 108 mmol/L (100-108) [facility] CO2 26 mmol/L (22-31) [facility] ANION GAP 6 mmol/L (7-16) L [facility] UREA NITROGEN 15 mg/dL (7-24) [facility] CREATININE 0.59 mg/dL (0.80-1.30) L [facility] BUN/CREAT RATIO 25.4 RATIO (10.0-20.0) H [facility] GLUCOSE 86 mg/dL (70-99) [facility] CALCIUM 7.3 mg/dL (8.4-10.2) L [facility] GFR >60 ml/min/1.73m2 (>59) [facility] GFR ( AMER) >60 ml/min/1.73m2 (>59) [facility] GFR INTERPRETATION [facility] --NORMAL KIDNEY FUNCTION OR MILD DISEASE - GFR >OR= 60CHRONIC KIDNEY DISEASE - GFR 15 - 59RENAL FAILURE - GFR <15 Est. GFR calculation based on the MDRDstudy equation, which assumes a steadystate for creatinine. Est. GFR should notbe used for medication dosing. ID Date Data Source [id number] 01/19/2021 03:29:51 PM EDT [facility] Name Value Range Interpretation Code Description Data Dariela rce(s) Supporting Document(s) PT 11.5 s (9.2-11.9) [facility] INR 1.10 [facility] SUGGESTED THERAPEUTIC RANGES USING INR F ORSTABILIZED ANTICOAGULATED PATIENTS:STANDARD DOSE THERAPY INR 2.0-3.0 DVT, PE, PREVENT DVT OR EMBOLISMHIGH DOSE THERAPY INR 2.5-3.5 PREVENT EMBOLISM FROM MECHANICAL HEART VALVE ID Date Data Source [id number] 01/19/2021 03:13:46 PM EDT [facility] Name Value Range Interpretation Code Description Data Dariela rce(s) Supporting Document(s) WBC 10.7 10*3/uL (4.1-11.0) [facility] RBC 4.13 10*6/uL (4.60-6.10) L [facility] HGB 11.2 g/dL (13.5-18.0) L [facility] HCT 34.6 % (41.0-53.0) L [facility] MCV 83.9 fL (80.0-95.0) [facility] MCH 27.2 pg (27.0-32.0) [facility] MCHC 32.4 g/dL (32.0-36.0) [facility] RDW 15.4 % (10.5-14.5) H [facility] PLT 278 10*3/uL (150-450) [facility] MPV 7.8 fL (7.1-10.7) [facility] ID Date Data Source [id number] 01/19/2021 01:23:02 PM EDT [facility] Name Value Range Interpretation Code Description Data Dariela rce(s) Supporting Document(s) &PDF [facility] ZJUOCs9uEcLHCkVe47/IGKxhBLBcl2GmPUzkLZz0KJipPIDmV6UlnEifRPwFBJhIP9ErPeqOCGHQMXCB 0b3 [file] o= ID Date Data Source [id number] 01/19/2021 01:20:50 PM EDT [facility] NT INFORMATIONPatient MRN Name Date of Age Gend*PT [id number] Young Martinez 1940 80 years M IPPT Location Admission Date/Time Visit ID [facility]19[facility]219[facility] --- Terry Luna MD([id number]) EPI ID [facility] Admitting Provider [id number] Terry Luna MD([id number])TRANSCATHETER AORTIC VALVE REPLACEMENTCardiovascular and Thoracic Surgery Operative ReportDate of Procedure: 01/19/2021 [facility]Patient Name: Young Martinez 80 years maleDate of :1940MRN: [id number]: [id number]: [facility] Note Date and Time: 01/19/2021 1:17 PMDate of Admission: 01/19/2021 9:14 AMPreoperative diagnoses:1. Aortic stenosis, severe.Postoperative diagnoses:1. Aortic stenosis, severe.Procedure:1. Percutaneous access bilateral common femoral artery with 6 [place] Lucian sheath.2. Perclose placement 2 right common femoral artery.3. Placement of right common femoral artery 14 St Lucian E sheath.4. Aortic root angiogram.5. Aortic valve balloon valvuloplasty with Beka balloon.6. Placement of 26 mm Nomi 3 aortic valve.Screening Tech:Terry Luna [facility]ard[facility] Surgeon:Stevie Sanderson MDAnesthesia:General AnesthesiaAnesthesia Provider(s):Anesthesiologist: BETTY OlivasRNA: Amari Marquez CRNAPerfusionist: Kelechi Galloway CCPEstimated Blood Loss:100 mL.Implants:Implants Implant Valve,Thv,Sapien3,Ultra,26mm - [id number] - Implanted Valve Aortic Inventory item: VALVE,THV,SAPIEN3,ULTRA,26MM Model/Cat number: [id number] Serial number: [id number] Door Tender: eyesFinder Lot number: [id number]:Post deployment valve well seated with no PVL. Pt did have complete AV blockrequiring pacing.Fluoroscopy Time / Contrast Volume:Please see scanned Upholstery Restorer Report.Description of Procedure:After informed consent was obtained [...] common Femoral Arteries were accessed and 6 [address] Lucian sheaths placed. Theright sheath was then removed over a guidewire, and two separate Perclosedevices were then placed. An 8 [place] Lucian sheath was then placed. The patient washeparinized [...] 8French sheath was removed and a 14 [address] Lucian E sheath was placed over the stiffwire.Then [...] to PACU in stable condition.Stevie Sanderson MD [facility] FACSCardiovascular Thoracic Surgery01/19/2021, 1:17 PM Name Value Range Interpretation Code Description Data Dariela rce(s) Supporting Document(s) ID Date Data Source [id number] 01/19/2021 01:16:43 PM EDT [facility] NT INFORMATIONPatient MRN Name Date of Age Gend*PT [id number] Young Martinez 1940 80 years M IPPT Location Admission Date/Time Visit ID [facility] 01/19/21 0914 --- Terry Luna MD([id number]) EPI ID CSN Admitting Provider [id number] Terry Luna MD([id number])TAVR (Transcatheter Aortic Valve Replacement)Patient Name: Young Mcclellan WallaceMedical Record No: [id number] of : 1940 Age 80 yearsPrimary Physician: [facility] PCP Xntq of Surgery: 01/19/2021Interventional Box Loader: Vivienne Portillo Valve Team: Dr. Sanderson and [...] upsized over a Lunderquist to a 14 [address] Edwardssheath. On the left we placed a [...] to discharge.Signature: Terry Luna, MDDate: 01/19/2021Time: 1:10 [facility]: Dr. Neely document or parts of this document, were dictated using Cureatr. A reasonable attempt at proofreading has been made to minimize errors.Please call with any questions or corrections. Name Value Range Interpretation Code Description Data Dariela rce(s) Supporting Document(s) ID Date Data Source [id number] 01/19/2021 12:51:38 PM EDT [facility] Name Value Range Interpretation Code Description Data Dariela rce(s) Supporting Document(s) POC SOURCE [facility] CP BYPASS [facility] POC PH 7.42 pH (7.35-7.45) [facility] POC PCO2 47.9 MMHG (32.0-48.0) [facility] POC PO2 564 MMHG (83-108) H [facility] POC SAT O2 100 % (95-99) H [facility] POC BASE EXCESS 6 MMOL/L (0-3) H [facility] POC HCO3 31.0 MMOL/L (21.0-29.0) H [facility] POC TOTAL CO2 32 MMOL/L (23.0-32.0) [facility]FORMED BY [facility] POC HCT 32 % (41.0-53.0) L [facility] POC SODIUM 135 MMOL/L (136-145) L [facility] POC POTASSIUM 4.2 MMOL/L (3.6-5.2) [facility] POC IONIZED CALCIUM 4.3 MG/DL (4.6-5.3) L [facility] POC GLU 105 MG/DL (70-99) H [facility] ID Date Data Source [id number] 01/19/2021 03:00:40 PM EDT [facility] Name Value Range Interpretation Code Description Data Dariela rce(s) Supporting Document(s) POC ACT 219 s (80-140) H [facility]FOR[facility] BY [facility] ID Date Data Source [id number] 01/19/2021 12:40:39 PM EDT [facility] NT INFORMATIONPatient MRN Name Date of Age Gend*PT [id number] Young Martinez 1940 80 years M IPPT Location Admission Date/Time Visit ID Attending Provider --- --- --- --- EPI ID CSN Admitting Provider [id number] ---Introducer AdditionsPatient location during procedure: CV hybrid [...] changes to vital signs and catheter flushed [id number] NS Name Value Range Interpretation Code Description Data Dariela rce(s) Supporting Document(s) ID Date Data Source [id number] 01/19/2021 12:40:18 PM EDT [facility] NT INFORMATIONPatient MRN Name Date of Age Gend*PT [id number] Young Martinez 1940 80 years M IPPT Location Admission Date/Time Visit ID Attending Provider --- --- --- --- EPI ID CSN Admitting Provider [id number] ---Central Line InsertionPatient location during procedure: CV [...] changes to vital signs and catheter flushed [id number] NS Name Value Range Interpretation Code Description Data Dariela rce(s) Supporting Document(s) ID Date Data Source [id number] 01/19/2021 12:40:02 [facility] Name Date of Age Gend*PT [id number] Young Martinez 1940 80 years M IPPT Location Admission Date/Time Visit ID Attending Provider --- --- --- --- EPI ID CSN Admitting Provider [id number] ---Arterial Line PlacementPatient location during procedure: CV [...] rce(s) Supporting Document(s) ID Date Data Source [id number] 01/19/2021 12:39:42 PM [facility]FORMATIONPatient MRN Name Date of Age Gend*PT [id number] MartinezYoung lenz Eleuterio 1940 80 years M IPPT Location Admission Date/Time Visit ID Attending Provider --- --- --- --- EPI ID CSN Admitting Provider [id number] ---AirwayPatient location during procedure: CV hybrid roomUrgency: [...] cmPlacement verified by: chest auscultation and + [id number]: CTA and equal breath sounds bilateralGrade view: grade I - full view of glottis Name Value Range Interpretation Code Description Data Darieal rce(s) Supporting Document(s) ID Date Data Source [id number] 01/19/2021 12:16:04 PM EDT [facility] Name Value Range Interpretation Code Description Data Dariela rce(s) Supporting Document(s) POC SOURCE [facility] CP BYPASS [facility] POC PH 7.33 pH (7.35-7.45) L [facility] POC PCO2 54.0 MMHG (32.0-48.0) H [facility] POC PO2 452 MMHG (83-108) H [facility] POC SAT O2 100 % (95-99) H [facility] POC BASE EXCESS 1 MMOL/L (0-3) [facility] POC HCO3 28.2 MMOL/L (21.0-29.0) [facility] POC TOTAL CO2 30 MMOL/L (23.0-32.0) [facility] POC HCT 35 % (41.0-53.0) L [facility] POC SODIUM 139 MMOL/L (136-145) [facility] POC POTASSIUM 4.4 MMOL/L (3.6-5.2) [facility] POC IONIZED CALCIUM 4.4 MG/DL (4.6-5.3) L [facility] POC GLU 92 MG/DL (70-99) [facility] ID Date Data Source [id number] 01/19/2021 12:13:37 PM EDT Lab [facility] Name Value Range Interpretation Code Description Data Dariela rce(s) Supporting Document(s) POC ACT 131 s (80-140) [facility] PERFORMED BY [facility] CLINICAL STAFF ID Date Data Source [id number] 01/19/2021 12:45:06 PM EDT [facility] Name Value Range Interpretation Code Description Data Dariela rce(s) Supporting Document(s) ROOM TEMP AB SCREEN [facility] ROOM TEMP AB SCREEN NEGATIVE ID Date Data Source [id number] 01/19/2021 10:29:42 AM EDT [facility] NT INFORMATIONPatient MRN Name Date of Age Gend*PT [id number] Young Martinez 1940 80 years M IPPT Location Admission Date/Time Visit ID Attending Provider-01/19/2114 --- Terry Luna MD([id number]) EPI ID CSN Admitting Provider [id number] Terry Luna MD([id number])Catheterization Laboratory History and physicalPatient Name: Young Martinez of : 1940 Age 80 yearsPrimary Physician: [facility] Qfws of Surgery: 01/19/2021 Screening Tech: Terry Luna MD Leadership Development Instructor(s): NoneReason for admission: Referred for TAVRPre-procedure Diagnosis: [...] around 10 when the heart rate is [id number]. When accounting only for the heartbeats with [...] of 11 and hematocrit of 33Assessment and [id number]-fmrp-ash man with borderline coronary artery disease and [...] parts of this document, were dictated using Dropbox software. A reasonable attempt at proofreading has been made tominimize errors. Please call with any questions or corrections. Name Value Range Interpretation Code Description Data Dariela rce(s) Supporting Document(s) ID Date Data Source [id number] 01/19/2021 09:43:00 AM EDT [facility] Name Value Range Interpretation Code Description Data Dariela rce(s) Supporting Document(s) POC NOVA GLU 103 mg/dL (70-99) H [facility]FORMED BY [facility] CLINICAL STAFF ID Date Data Source [id number] 01/12/2021 02:28:31 PM EDT [facility] NT INFORMATIONPatient MRN Name Date of Age Gend*PT [id number] MartinezYoung 1940 80 years M IPPT Location Admission Date/Time Visit ID Attending ProviderD-[id number] 01/10/21 1134 --- --- EPI ID CSN Admitting Provider [id number] Terry Luna MD([id number]) Attestation signed by Terry Luna MD at 01/12/2021 2:28 [id number] man Cheondoism with atrial fibrillation and aortic stenosiswho had [...] PM Cardiology Discharge Summary Young Mcclellan NahumyoannaJEROME: [id number] date: 01/10/2021ttending Physician: Yocasta Portilloission Diagnosis: <principal [...] around 10 when the heart rate is [id number]. When accounting only for the heartbeats with [...] week has been consistently elevated with rates [id number]. He does report he has intermittent palpitations. Otherwise deniesassociated chest discomforts, nausea or vomiting, dizziness or lightheadedness.On 01/08/2021 he developed constant left sided chest wall pressure that lastedless than 24 hours, causing him to seek care at [facility]. Thepressure did not change in characteristics or intensity, and did resolvespontaneously. He was admitted to [facility] for further work up where he was [...] The decision was made to transfer to [facility] for cardiaccatheterization with Dr. Luna.He underwent LHC [...] TAVR and underwent TAVR work upprior to [place]. CTA chest/abdomen/pelvis as above - Dr. Luna [...] 01/10/2021 PAD (peripheral artery disease) Patient is Cheondoism 01/10/2021 PONV (postoperative nausea and vomiting) StrokeMost [...] rce(s) Supporting Document(s) ID Date Data Source [id number] 01/12/2021 08:03:06 AM EDT [place], [place] [address]Patient Name: YOUNG MAYERACEDOB: 1940Sex: MOrdering Provider: KELSIE Cortes Prov: KELSIE Hansen Provider: Procedure Performed: CT ANGIOGRAM ABDOMEN PELVISExam Date: 01/11/2021 19:49MRN: [id number] Number: [id number] Class: InpatientAccount #: [id number] Exam: TAVR, pre intervention planningTechnique: The [...] FRANCESCO NAVA On 01/12/2021 8:03 AMWorkstation ID: [id number] - [id number] Name Value Range Interpretation Code Description Data Dariela rce(s) Supporting Document(s) ID Date Data Source [id number] 01/12/2021 07:54:26 AM EDT [address] [id number] Name: YOUNG MAYERACEDOB: 1940Sex: MOrdering Provider: KELSIE ALEXANDERuthoj Prov: KELSIE SOTELOReframandeep Provider: Procedure Performed: CT ANGIOGRAM CHESTExam Date: 01/11/2021 19:49MRN: [id number] Number: [id number] Class: InpatientAccount #: [id number] for Exam: TAVR, pre intervention planningTechnique: The [...] FRANCESCO NAVA On 01/12/2021 7:54 AMWorkstation ID: [id number] - [id number] Name Value Range Interpretation Code Description Data Dariela rce(s) Supporting Document(s) ID Date Data Source [id number] 01/12/2021 03:28:37 AM EDT [facility] Name Value Range Interpretation Code Description Data Dariela rce(s) Supporting Document(s) SODIUM 138 mmol/L (136-145) [facility] POTASSIUM 4.3 mmol/L (3.6-5.2) [facility] CHLORIDE 109 mmol/L (100-108) H [facility] CO2 24 mmol/L (22-31) [facility] ANION GAP 5 mmol/L (7-16) L [facility] UREA NITROGEN 12 mg/dL (7-24) [facility] CREATININE 0.53 mg/dL (0.80-1.30) L [facility] BUN/CREAT RATIO 22.6 RATIO (10.0-20.0) H [facility] GLUCOSE 75 mg/dL (70-99) [facility] CALCIUM 8.0 mg/dL (8.4-10.2) L [facility] GFR >60 ml/min/1.73m2 (>59) [facility] GFR ( AMER) >60 ml/min/1.73m2 (>59) [facility] GFR INTERPRETATION [facility] --NORMAL KIDNEY FUNCTION OR MILD DISEASE - GFR >OR= 60CHRONIC KIDNEY DISEASE - GFR 15 - 59RENAL FAILURE - GFR <15 Est. GFR calculation based on the MDRDstudy equation, which assumes a steadystate for creatinine. Est. GFR should notbe used for medication dosing. ID Date Data Source [id number] 01/12/2021 02:56:56 AM EDT [facility] Name Value Range Interpretation Code Description Data Dariela rce(s) Supporting Document(s) APTT 57.2 s (22.0-34.3) H [facility] ID Date Data Source [id number] 01/12/2021 02:50:00 AM EDT [facility] Name Value Range Interpretation Code Description Data Dariela rce(s) Supporting Document(s) WBC 7.3 10*3/uL (4.1-11.0) [facility] RBC 3.94 10*6/uL (4.60-6.10) L [facility] HGB 11.0 g/dL (13.5-18.0) L [facility] HCT 33.0 % (41.0-53.0) L [facility] MCV 83.9 fL (80.0-95.0) [facility] MCH 27.9 pg (27.0-32.0) [facility] MCHC 33.2 g/dL (32.0-36.0) [facility] RDW 15.6 % (10.5-14.5) H [facility] PLT 235 10*3/uL (150-450) [facility] MPV 7.4 fL (7.1-10.7) [facility] ID Date Data Source [id number] 01/11/2021 09:29:17 PM EDT [facility] Name Value Range Interpretation Code Description Data Dariela rce(s) Supporting Document(s) APTT 58.3 s (22.0-34.3) H [facility] ID Date Data Source [id number] 01/11/2021 04:42:16 PM EDT [address] [id number] Name: YOUNG MAYERACEDOB: 1940Sex: MOrdering Provider: KELSIE ALEXANDERuthoj Prov: KELSIE SOTELOReferrruthy Provider: Procedure Performed: US CAROTID BILATERALExam Date: 01/11/2021 15:40MRN: [id number] Number: [id number] Class: InpatientAccount #: [id number] for Exam: TAVR protocolTechnique: Duplex sonography was [...] ELIUD GILL On 01/11/2021 4:42 PMWorkstation ID: [id number] - [id number] Name Value Range Interpretation Code Description Data Dariela rce(s) Supporting Document(s) ID Date Data Source [id number] 01/11/2021 02:09:06 PM EDT [facility] NT INFORMATIONPatient MRN Name Date of Age Gend*PT [id number] Young Martinez 1940 80 years M IPPT Location Admission Date/Time Visit ID Attending ProviderD-[id number] 01/10/21 1134 --- Terry Luna MD([id number]) EPI ID CSN Admitting Provider [id number] Terry Luna MD([id number])Cardiovascular and Thoracic Surgery HISTORY & PHYSICAL01/11/2021hief Compliant [...] 01/10/2021 PAD (peripheral artery disease) Patient is Cheondoism 01/10/2021 PONV (postoperative nausea and vomiting) StrokePast [...] Social Gatherings with Friends and Family: Attends Scientologist Services: Active Member of Clubs or Organizations: [...] and mean P mmHg. Estimated CORRY: 0.49~0.55 li8Qhhm to moderate aortic insufficiency is present.Cardiac catheterizationResult Date: [id number] man with paroxysmal atrial fibrillation on Eliquis [...] blood loss minimal.Chest X-Ray PortableResult Date: 01/10/2021[place]. [place] [address] Patient Name: MILTON MARTINEZ : 1940 Sex: [...] NAVA On 01/10/2021 1:56 PM Workstation ID: [id number] - [id number] / Impression / Plan:Young Martinez presents with [...] in discussion with the patient.Stevie Sanderson MD [facility] FACSCardiovascular Thoracic Surgery01/11/2021, 1:36 PM Name Value Range Interpretation Code Description Data Dariela rce(s) Supporting Document(s) ID Date Data Source [id number] 01/11/2021 01:23:25 PM EDT [facility] Name Value Range Interpretation Code Description Data Dariela rce(s) Supporting Document(s) APTT 38.6 s (22.0-34.3) H [facility] ID Date Data Source [id number] 01/11/2021 09:29:30 AM EDT [facility] Name Value Range Interpretation Code Description Data Dariela rce(s) Supporting Document(s) &PDF [facility] WCFRCw0zLaAKArXk14/ENPacNCBod0IsTPjdZMx2IFleKBCtN5AkqOxuUJoMOVkFW8WnZgbHJNRWORRT 0b3 [file] ICAgICAgICAgICAgICAgICAgICAgICAgICAgICAgIC AgICAgICAgICAgICAgICAgICAgICAgICAgICAgICAgICAgICAgICAgICAgICAgICAgICAgICAgICAgIC AgICAgICANCiAgICAgICAgICAgICAgICAgICAgICAgICAgICAgICAgICAgICAgICAgICAgICAgICAgIC AgICAgICAgICAgICAgICAgICAgICAgICAgICAgICAg ICAgICAgICAgICAgICAgICANCiAgICAgICAgICAgICAgICAgICAgICAgICAgICAgICAgICAgICAgICAg ICAgICAgICAgICAgICAgICAgICAgICAgICAgICAgICAgICAgICAgICAgICAgICAgICAgICAgICAgICAN CiAgICAgICAgICAgICAgICAgICAgICAgICAgICAgIC AgICAgICAgICAgICAgICAgICAgICAgICAgICAgICAgICAgICAgICAgICAgICAgICAgICAgICAgICAgIC AgICAgICAgICANCiAgICAgICAgICAgICAgICAgICAgICAgICAgICAgICAgICAgICAgICAgICAgICAgIC AgICAgICAgICAgICAgICAgICAgICAgICAgICAgICAg ICAgICAgICAgICAgICAgICAgICANCiAgICAgICAgICAgICAgICAgICAgICAgICAgICAgICAgICAgICAg ICAgICAgICAgICAgICAgICAgICAgICAgICAgICAgICAgICAgICAgICAgICAgICAgICAgICAgICAgICAg ICANCiAgICAgICAgICAgICAgICAgICAgICAgICAgIC AgICAgICAgICAgICAgICAgICAgICAgICAgICAgICAgICAgICAgICAgICAgICAgICAgICAgICAgICAgIC AgICAgICAgICAgICANCiAgICAgICAgICAgICAgICAgICAgICAgICAgICAgICAgICAgICAgICAgICAgIC AgICAgICAgICAgICAgICAgICAgICAgICAgICAgICAg ICAgICAgICAgICAgICAgICAgICAgICANCiAgICAgICAgICAgICAgICAgICAgICAgICAgICAgICAgICAg ICAgICAgICAgICAgICAgICAgICAgICAgICAgICAgICAgICAgICAgICAgICAgICAgICAgICAgICAgICAg ICAgICANCiAgICAgICAgICAgICAgICAgICAgICAgIC AgICAgICAgICAgICAgICAgICAgICAgICAgICAgICAgICAgICAgICAgICAgICAgICAgICAgICAgICAgIC AgICAgICAgICAgICAgICANCjw/cJInR2ivgXVgqaA6I1fqHz8YDl5ZNR3tm7NwIYDqHBlmtrPjPalVVq QlPXPyEmkTKgo3RFqlHA6LoYYeJ3SxW5ZzXFqqRL8W GVQmDLJxzXSrFLIkVPTnYvF9YNUeYJyaWG5LaCHjIYnfGHSzYCXoJbZpXQPrBTRhLRUvQB4OBFXtO573 wlEgHd3DYs7TPnIvLV3ykd8FPJPlDRJpBowVVtn2OJaeUP3NpNQxO1RwaZPko9zCRnMdJ2YQQOHcKUCa Kp1UKNRsOwDlCGEkEEoaXH3dYVJrQKXWhOqgcsJ8UV 5KEZ7gvhAvHJ5ZYkCiBt1vTc1OHrIhG2AmW7ZrDWLmVOLBLUvkGQ0NVDVxZXK2VRV6RWLsJIGWQwChX6 6cSN6RZ6Usb63wFqQ6EDGsDpDaGAksHN42oPjfqiGozBDlsQrpCZ3TCr7+DQplbmRvYmoNCnhyZWYNCj CpIYUZBeQgTGJkHLJyTLUvSsZ7BxWbNa1GQJFoDKQs BLQaVjKtGGFkYHDkYAriQMIwACG5EkY2KYZrAIDxQE6IAlSmDWKmHuJ6VxekEXElPARwlu6FPJPoFWZp YOI8FHRjYBVqVOTlUIgvZHIwFFBcLyP8ELKoAPHdIB1CRsLtGELuAZO4VTwaQTFrWCZsle1AQUNhUCRv WbDhUHWmGYBnIQGfSObiXVSkJDZ3QwBhZSSjZVOrTR 4DJcDjGLSuJJi9MAOwCZMqSXGhvi6LOBEpXTEqWWs6SMPjQTZvXJFcBVfyJLUyWAF7IIK1QAJmCJDvCK 7HDhPrMNViTPRqUFHwDSJwMYNxpy5TNZCcXIJnUOBvIKYtYMSzMCBdZVaiOKOgIDNaZFt5YSMcWHItIS 8ELtHoHUSnGYMjFCtqDOQjNFVgou1IJGZtWBShTEL3 KiPcUXFgIBNwLTjfCHEfISJ2OXXjAJWyLSAvTB6XIaKySLZzXKB7GSZqLKIyDVJtxa8NVMMuLLRuBuf0 RsWgBCOtLLHqDAsfKQEuLMV9RzCcVQOnVXNnGC5NJfRfZGAmYSlcAHjiRPPwQYZxfo4SYPQxSSIwPWP1 IURqXWUgROQjEVkjELUlZHK4UCk2ZNZwJKMuXR9FOd GtCAVwXSf5BTtfBITbRVFuit2THTTaYCWkNxlwBESjAFNbVEJxIDsvJXByHOZ1JOppOEEeOREcXY5ZLb JySSYoQqopQQEgGSDxDBTdiv3RUUEcHCFoCFt7MEEkPNPjGHTxIKdrQXOcZHR5IAJ0XKNhDCPmKJ5POu EhPFAjWaI3GehvXKViGHXtyd6CVXCgTRJ3ZNZ3DUGk LZLpOADlUXnmVYBtWIZqWKv7NDSvUEOlUK1CRbZgDCPlDUC8ZhMeFDOyEJYchi0MUKBgTAR2EoK4BfIf YHEpWDHaHDwwAHOaFOZlHiR4UUAdQGItXO3KBjSrYYKtYVC7JBMvNNLnEVUeju4MTFHjBDR1BCP9XEZz GPOyZTOsKGlkASTlPLLfUQN9IMIoYMOnWB1ERdMgED EfSgE6KTFyALLyGNWwwr4SYBOnPEB6FHqrGJCpBLUnOGDmSKhwOEQmXVrcQQG6RGHvJREyQK6MJnAhUR ItQxI2GQpnRGOiVGVqsl2RaSWpiSutxz0PAIxWYf2FaQeyXQCeQWhaXr0gkAB3DdFbARLZBm8XzpWbMD JbZSXCWGzeXAJeLFChMWAeGYbbOePnVeSpMgE5Shfs COJxOIo0SOqjKNC5DyU5KLF4QRH1DJM4YnShF8XkAthmKDY7XWU7RMv6MqUhWec+EC9wVSn+Ev6Co0Iv bmB4lyXlVEl9BmU8Ws0UYTTNU4DNMj== ID Date Data Source [id number] 01/11/2021 08:40:00 AM EDT [facility] Name Value Range Interpretation Code Description Data Dariela rce(s) Supporting Document(s) CHOLESTEROL @ 176 mg/dL (0-200) [facility] TRIGLYCERIDE @ 91 mg/dL (30-200) [facility] HDL CHOLESTEROL @ 42 mg/dL (>40) [facility] PER NCEP ATP III GUIDELINES:RESULTS LOWE R THAN 40 MG/DL ARE SUGGESTIVEOF INCREASED RISK FOR CORONARY ARTERYDISEASE. RESULTS > OR = TO 60 MG/DL ARECONSIDERED A NEGATIVE RISK FACTOR. CHOL/HDL RATIO 4.2 RATIO [facility] INTERPRETATION OF CHOL-HDL RATIO CHD RISK FEMALE MALEVERY HIGH >8.3 >14.3HIGH 5.6- 8.3 6.7- 14.3AVERAGE 3.7- 5.6 4.0- 6.7BELOW AVERAGE 2.5- 3.7 2.7- 4.0PROTECTED <2.5 <2.7 LDL CHOL (CALC) 116 mg/dL (<130) [facility] PER NCEP ATP III GUIDELINES: OPTIMAL < 100 NEAR OPTIMAL 100 - 129BORDERLINE HIGH 130 - 159 HIGH 160 - 189 VERY HIGH > 189 ID Date Data Source [id number] 01/11/2021 03:09:13 AM EDT [facility] Name Value Range Interpretation Code Description Data Dariela rce(s) Supporting Document(s) SODIUM 140 mmol/L (136-145) [facility] POTASSIUM 4.4 mmol/L (3.6-5.2) [facility] CHLORIDE 111 mmol/L (100-108) H [facility] CO2 22 mmol/L (22-31) [facility] ANION GAP 7 mmol/L (7-16) [facility] UREA NITROGEN 16 mg/dL (7-24) [facility] CREATININE 0.52 mg/dL (0.80-1.30) L [facility] BUN/CREAT RATIO 30.8 RATIO (10.0-20.0) H [facility] GLUCOSE 74 mg/dL (70-99) [facility] CALCIUM 7.5 mg/dL (8.4-10.2) L [facility] GFR >60 ml/min/1.73m2 (>59) [facility] GFR ( AMER) >60 ml/min/1.73m2 (>59) [facility] GFR INTERPRETATION [facility] --NORMAL KIDNEY FUNCTION OR MILD DISEASE - GFR >OR= 60CHRONIC KIDNEY DISEASE - GFR 15 - 59RENAL FAILURE - GFR <15 Est. GFR calculation based on the MDRDstudy equation, which assumes a steadystate for creatinine. Est. GFR should notbe used for medication dosing. ID Date Data Source [id number] 01/11/2021 02:57:12 AM EDT [facility] Name Value Range Interpretation Code Description Data Dariela rce(s) Supporting Document(s) APTT 36.3 s (22.0-34.3) H [facility] ID Date Data Source [id number] 01/11/2021 02:40:34 AM EDT [facility] Name Value Range Interpretation Code Description Data Dariela rce(s) Supporting Document(s) WBC 9.0 10*3/uL (4.1-11.0) [facility] RBC 4.20 10*6/uL (4.60-6.10) L [facility] HGB 11.4 g/dL (13.5-18.0) L [facility] HCT 35.5 % (41.0-53.0) L [facility] MCV 84.5 fL (80.0-95.0) [facility] MCH 27.1 pg (27.0-32.0) [facility] MCHC 32.1 g/dL (32.0-36.0) [facility] RDW 15.6 % (10.5-14.5) H [facility] PLT 254 10*3/uL (150-450) [facility] MPV 7.4 fL (7.1-10.7) [facility] ID Date Data Source [id number] 01/10/2021 09:49:17 PM EDT [facility] Name Value Range Interpretation Code Description Data Dariela rce(s) Supporting Document(s) APTT 55.0 s (22.0-34.3) H [facility] ID Date Data Source [id number] 01/10/2021 06:01:23 PM EDT [facility] Name Value Range Interpretation Code Description Data Dariela rce(s) Supporting Document(s) &PDF [facility] AYDTCs6kRjVHVdJs99/HOSxdYMExv3LgUQhhEOm1GCdfBGYzY6TfcAxqMGgSEPyKF0MnYoyFIGFCLBNK 0b3 [file] ZuKMg7I4IE2fmZ3XZTti+5T/LOgcjUNfVcX+LK90nOs6sNla4wQAbA0s7mqGu7N5tbEmoYJhUPVV+irrigation flume layer [file] AgICAgICAgICAgICAgICAgICAgICAgICAgICAgICAg ICAgICAgICAgICAgICAgICAgICAgICAgICAgICAgICAgICAgDQogICAgICAgICAgICAgICAgICAgICAg ICAgICAgICAgICAgICAgICAgICAgICAgICAgICAgICAgICAgICAgICAgICAgICAgICAgICAgICAgICAg ICAgICAgICAgICAgICAgICAgDQogICAgICAgICAgIC AgICAgICAgICAgICAgICAgICAgICAgICAgICAgICAgICAgICAgICAgICAgICAgICAgICAgICAgICAgIC AgICAgICAgICAgICAgICAgICAgICAgICAgICAgDQogICAgICAgICAgICAgICAgICAgICAgICAgICAgIC AgICAgICAgICAgICAgICAgICAgICAgICAgICAgICAg ICAgICAgICAgICAgICAgICAgICAgICAgICAgICAgICAgICAgICAgDQogICAgICAgICAgICAgICAgICAg ICAgICAgICAgICAgICAgICAgICAgICAgICAgICAgICAgICAgICAgICAgICAgICAgICAgICAgICAgICAg ICAgICAgICAgICAgICAgICAgICAgDQogICAgICAgIC AgICAgICAgICAgICAgICAgICAgICAgICAgICAgICAgICAgICAgICAgICAgICAgICAgICAgICAgICAgIC AgICAgICAgICAgICAgICAgICAgICAgICAgICAgICAgDQogICAgICAgICAgICAgICAgICAgICAgICAgIC AgICAgICAgICAgICAgICAgICAgICAgICAgICAgICAg ICAgICAgICAgICAgICAgICAgICAgICAgICAgICAgICAgICAgICAgICAgDQogICAgICAgICAgICAgICAg ICAgICAgICAgICAgICAgICAgICAgICAgICAgICAgICAgICAgICAgICAgICAgICAgICAgICAgICAgICAg ICAgICAgICAgICAgICAgICAgICAgICAgDQogICAgIC AgICAgICAgICAgICAgICAgICAgICAgICAgICAgICAgICAgICAgICAgICAgICAgICAgICAgICAgICAgIC AgICAgICAgICAgICAgICAgICAgICAgICAgICAgICAgICAgDQogICAgICAgICAgICAgICAgICAgICAgIC AgICAgICAgICAgICAgICAgICAgICAgICAgICAgICAg AAYnYVBbDEQuCYKvVCRqWHCtQPUjSHIfDWMtUVYqFQKwMUQcEKYoLSHnWQPaYEm1P9dlBLYlAHRfCU4t PGa1Mc7+AYwHKfTgGDN0ioWizB6QHH7kb0WtYHkvEHJnm8LtYUz6PN1FSOEgSVioEJ9VZWhpzj7JFBXf BGNjfTIDw6whRdZzZIA0LICeGojeGR1RFXAgW2dphq OrISZwIZJWZRipBUXOANxgPTSCPMJpWKNiMdSkNsJxRPJfWD4SPJUoD036opBdJW7GKg6RQoHbMN4rrg 3PBvIwKHXzAkjQBxq6NDbfHJ9IuSJhoPIdGVGoRRRVVyGhY4nfd4PqGfUsHYDDOUulMU0Hu1YnvCLgJZ o+Mf2FYQ3cb5GkYQotYQEuEG8gwa4MNHyRQjIwX6Tl vUucAIfejMwivuRgAW7THBCvBOZcwVZiWImkADSGSR2PYEcqYFW9CRJzniPwwTYbRFxtGY8SFSXsmyUd MzAgMCBSDQo+Nf7PYJ1uj0LmPRrsFeMgHN2sft6WSAdIUoBwH9A9mSPhE8N4WGtiNc2JXKMbYPOlJcov KZJWAKyrUT0AFG2blyM2EH3ZmKUfSUFoHTRokQIyMO i8G36ojQVoAFdoMD5KPXL+Himanshu+Ca4MZYPlECPxCMJaGdNdHYOHMtAfD6RzU2QQf7RgG6QwCJ64gEivtd UfWVxjKR4PGH0dBYGiBFJRLW3BqDOaiI5ipwLrQFTkOZEKWnLyU42gnQIkAVRmVJL1TXXsOl1JPDWcG4 YjejNxdDzhmyHpUGTmUZAUZM6YRKkkpyCwdQEnrBhw QC01lHxaBR3XVa9DIgShVN6mzx0WrXSvDe3VUEYbGl1DDTRwZWFhGDSvBTK7KZPkNkWgGJwdXULiMTTd ZZO9UAHtCHVhLB6UYgZmQKEcIpK0ZKAcIVItJFHzze4KVLXrDAW9LCOhYcVgZCLyLWSmMYzqQBIbJFSh CGa2LTGgRYJcME2RJgGpHCSgEALeCYrrSTXcUJGiil 3SUALdHVVeLmAwJECtFHNeSVYgHErpDAAlPCH6WSA8FBFlXFXmSL0TYdZyCROmSPH2AVXvWYMtOBWppx 7HAHIbILWaNxvgOZQdHJPpMPAwXDjkKVLaQLS4RCMsGTKaEIXiWV5GYmMnWOSuFOb4CfPkTDPsIOEsor 3VOBDiJEXaFXS2JOTnYAPbFVTvGRhdWMXpPMR4Qxev SZRkNMXcGK6RUmKmGPUwJIz4INrvQDBdWCRaim7VTCEeBOVfYKz3OBKiSWZiFPPtESviHWOyRQVbUQZ8 JJPpRENcXE6CYaYlJHNiMWDiIusuZBSsZCIazb9YLYTjPYDrFeP0HEEpAQMcPHJtRUfwLAZoOUYbDUga DHVmXOApOW5AFoSuHLVsOYE3HorjIYGbGHKwyw9IZP CjNPHwHgW1VSWhWJWrVVQmXGfgEITkYJA5TbdiEFOyBDYnMI9RYxNoWFAyCdv2McObVNJwMBTqat0YLA OtGTXrTQW2WhEeZQSqUDVaJQywCWJtERI2OjzaWWQuPFOnWT1HInRuCGYvKVHyZALpPSPyYXIauv8PTF PyDCG8MGC9EbYdOANdMJUzJJmzUWXuOGPiDwo1BWNb KANeUW1YGnNwUBWsHxDiOXtxNRWwGNHlbl4PVSSsWNX9FCX0JCZgTTQmHDWlOQfgISSrXXW3NdKwPLJz MZJlDN2KEiTxYAYgOaU3NaGgLHVnNHEvuu6IvLLwzCczim1DGXdQSl2YaOqoOCJtDEthEt0xsKWdZjSt PPDYBm9ZbgPyDIMuVKNDAFexMSMrANOuZsTwOIC6Kp u8XFWpFLr0SQT7RMo7BPg7ZqM2TEp5WrL8DjMoP7MdKeQtCLo8RcMjKIQ7DHV7Cih2FUa3DAX7HTK+IF 0gDQo+Pa5Ih7XxomC6clPxMMc3IfC9TF5GXZUUS7EOOw== ID Date Data Source [id number] 01/10/2021 04:13:38 PM EDT [facility] NT INFORMATIONPatient MRN Name Date of Age Gend*PT [id number] Young Martinez 1940 80 years M IPPT Location Admission Date/Time Visit ID Attending [id number] 01/10/21 1134 --- Terry Luna MD([id number]) EPI ID CSN Admitting Provider [id number] Terry Luna MD([id number]) Attestation signed by Terry Luna MD at 01/10/2021 4:13 PMSignature: COURT Portilloate: January 10, 2021Time: 4:13 PM --Cardiology History and PhysicalName: Young Martinez Gender: maleDate of : 1940 Age: 80 yearsDate/Time of Admit: 01/10/2021 11:34 AM Code Status: No OrderPrimary Care ProviderReferring Physician: [facility]Baltazar Duff Complaint: Exertional Shortness of BreathHPI: Young [...] week has been consistently elevated with rates [id number]. He does report he has intermittent palpitations. Otherwise deniesassociated chest discomforts, nausea or vomiting, dizziness or lightheadedness.On 01/08/2021 he developed constant left sided chest wall pressure that lastedless than 24 hours, causing him to seek care at [facility]. Thepressure did not change in characteristics or intensity, and did resolvespontaneously. He was admitted to [facility] for further work up where he w [...] The decision was made to transfer to [facility] for cardiaccatheterization with Dr. Luna. On arrival to [facility] he is without angina,shortness of breath, palpitations, or dizziness. He will be admitted and labsand CXR will be updated.Denies history of CAD, previous DE, CHF, valvular heart disease, arrhythmias,COPD, asthma, VENANCIO, diabetes, hypertension, hyperlipidemia, TIA, bleeding orclotting disorders, kidney or liver disease, cancer. Denies strong familyhistory of heart disease. Reports he is a former smoker, quit smoking in 1969.Denies current alcohol or illicit drug use.Of note, patient is a Cheondoism and refuses blood and blood products.Box Loader: Dr. Bernal.Review of Systems:Negative for review of [...] Social Gatherings with Friends and Family: Attends [employer] Services: Active Member of Clubs or Organizations: [...] (PRESERVISION AREDS 2) CAPS PRESERVISION AREDS 2CAPS [place]-3 Fatty Acids (FISH OIL) 1200 MG CAPS [...] Problems:1. Non- exertional Chest Pain- Presented to [facility] with . ECG showing SR with PACs and NSST and T wave abnormality in the lateral leads.- Denies angina and other cardiac symptoms at this time.- Troponin 0.10, 0.12, 0.23, 0.23. 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 Luna.Patient follows with Dr. BERNAL for outpatient cardiac care.Signature: Shaila Quijano, JUAN PABLODate: January 10, 2021Time: 11:35 AM Name Value Range Interpretation Code Description Data Dariela rce(s) Supporting Document(s) ID Date Data Source [id number] 01/10/2021 01:56:23 PM EDT [address] [id number] Name: YOUNG MAYERACEDOB: 1940Sex: MOrdering Provider: SHAILA QUIJANOAuthorizing Prov: SHAILA Nuno Provider: Procedure Performed: XR CHEST PORTABLEExam Date: 01/10/2021 13:11MRN: [id number] Number: [id number] Class: InpatientAccount #: [id number] for Exam: chest pain/shortness of breathTechnique: Single AP view obtained.Comparison: NoneFindings: There is diffuse interstitial disease most consistent with edema. There is cardiomegaly. There are probable small bilateral pleural effusions. No adenopathy is revealed.IMPRESSION: Diffuse interstitial disease. Edema is most likelyCardiomegaly. Possible small bilateral pleural effusions.Report electronically signed by: FRANCESCO NAVA On 01/10/2021 1:56 PMWorkstation ID: [id number] Name Value Range Interpretation Code Description Data Dariela rce(s) Supporting Document(s) ID Date Data Source [id number] 01/10/2021 01:13:50 PM EDT [facility] Name Value Range Interpretation Code Description Data Dariela rce(s) Supporting Document(s) EKG [facility] BXTRZz7xAqKWGdHpi3MzAgApRQBqAG1hkul2G9Q0mOKmB7LanCHnk5wzY1FcD4JgSQLzOEBWLQ3ZnVPf jb2 [file] dG/s/BVYOJnlUs731/7N5bajz+OwtMR6nF16bqI6GjFFAc9/PP/j46uNf/6Hm3j+chief orthoptist///4//bylx7t2 5//3r78Hf//753++if/3v/6n//jX/+U//td/mj///Mf/61//1//4l/57mDXh1f/Ox7//97/9z/8a4/nH 4u8///IPFF25174///O//ifwJ6EwiIiYTO/W+2CVB/ n8XrD3RdH3cfzR1eqiq6HUlR1IoavGmGSwa9DcEGxkrXqUvikmQ8n6rwxVKw/pwvZEz5qo0hPdNdh5uX cZIG8a7BNMf6a4NUMbZa7JwrGuwmJvxOrvcaV2Ug7WraTcoyJfeSexqlL4Mc1EpvHkcgKaiGgfppQ3Ua 2TbcRtmg4r6VnbmaE0Rs5BpqIuvq2p8XqucfP3Cg9T veCaqyMlnFfzsDWVSg8Kss7cixSauOwtAMGTfNIllQlpuKBDIq7Jwi3fmtV3crCyRA8i6NeKO5z0VjAK Ic2ZfpWWH4PX6bCBiqW7FZQbUA7OVGrhLdlIaHAc41Q0Av7NPCyxFfzKcTIc63T71o+Re3Tz2Yjq71uv WzyVwySvLIhc1Usn79dlAlzGmeNhUPba0Ziz87apNg jX+bu8VI0Jel3Lc8utjBCr97GwcDgAta6Pw7dqqEYi04SvkWhUwx0Qc0rgoYJb/87LZWL+lBikMn1Jl4 z8cHJ+nyqvu3Mc4qD/V4twp13E+uEU/twF2F6e6hcixc50NP2/8UiUlB1jmZJY5OtaxTa4hYHBWdUzyg IS6YzDLlhZex1YeKXqe2ARQx/2iNEgsR+LxGiSmP/a WsXY+firpFB1oGwTvhp3LXSF23A+bBOjcWI/1onRPLEf+6NzeSxVwCR5HniEHaJdXxA+zblrPn5Dr6zC /FvhEuRMkcvUy5SdX8wV6XiaO2nTrLLIy2GkLSove7WdBq87V9KVrSe3jOzRmtu9MF0R58N+dUsl5CX/ 1ovRfLEf+3EwmWwYWPC5KznMjmFjPjUccEhNPPw/3T qBD3/LNPTGviuGohJyO1tL9DhhA4jAaSGRg8GgOKkuk4EbCnH5V4JAxAf4nFtLmn9P68qA2unwhOhBxt 0OD5bugr6gB9HOCb6LonJTfZ5gv0dt8R+EBeRk8KoKTXx84uVtZJ6a+5V5gPgC/Qp8KoSRxwvlw3OiEe fE4kBvU8zQmVBFh8VrZJwss+0tSf56B/kYTR/7sX2M xo/9PF7P01x+7B+jAWQ/OeWMAEYvN2ggIPiDQJF5y+cWAtLzCgKaPLtCRjcauKcKjT6CQ2SckZ3hIlu1 5D/3gTGv4d33nZbG+K335VAZ/McectpD/gVNPg9h/7GHnPaQ/9hDTnvIf+evud9hR/tN4m9eQ2cUxN/5 oj7sqVo5pa1f9mT+Cv110YZ/tWkp3hF/8JYXv3e/92 xNQt9wTg5Fpavj9dwSKz8KWcx5wm6+Tdmo+f1yAVx7t6a0AkMhm0jaxSo47VBXe0c/7CGnPeQ/9pDTHv Wfu4qzR/jGErH2c/zHHnLaQ/5jDzntIf+th2u4dJ/NY098yE/sFww99I/4dTZj5i78yReT+D851WUC/M cectpD/bNNAm7y/7GHnPaQ/9hDTnvIf+shiw4aF/aQ 9g6tR0gQpI/1cb4zzCb9pd0w6vL+Kw248TJ/jHkm3eY/8WCMm1n/7CGnPeQ/5uUMNdInl1coN/mPPeS0 h/zHHnLaQ/5jDzntIf+pb7a1bM/ZZ487fC/aKsj50E/2UP/Q1CO/8H2y+RYtbmdVtNgAD27nC65TqH+c ToteAO9mwLJ1FAQI0RSHs8qdD7vx1GLPh3ojiwQ2eu tsDO2hsFvBP8gkq9JVywviYLksaHsL5EsoA3Y6KpcRVE2W8uIXm2E8ccTeDH9ttEcJ65aoykK9hyhdFX 5a4YyWJ0k1a0LOjqAgPUWkpEvZ3Gxbo4O6AxvrQM0J3sePN7L3LGPRqkviVHNgNSyJvGmF8dCUJmxHeU oN6tQXGehIqWjB4qRBAmmPfEsW4dMHMriRUFxhnxAV xbeoAZMjnplF9Heph4O9GxodMY6D9yaOK7X2w+LVQU6dbQrMw9klutDjdvgnAJgrYNkOQxtUd1ZXpsFe RPYxgDoC4Wetr9T2FkerIH4R8hxUZ5I8q+UEFX4amUvMk9qxfaIvraprJFlk3WsZavB/p6bnKc+8PPPy lKAowYes7Udti6D9QrqzUwW+AG34fqD5aSd0CcPeK6 ekwZfFlllqbVyTI6Y3SxwozZkExvykcEyWC46DirxT95HvW5C4ZZbQVLCEzvMurJOzRzNEAGLpKBFWtM idsrOSK6WFQUVKjGGhP1hdPyaLJ2qHPNf0qUSYcisDCqBnrREOVIBlhXtONjdCF3eTAaVIagGnfpIvMy wTIC7zZRkPgWdn0lIFZ0OObDHNqDEsZ0ilXqnATFpW WTa4cvDDi7aoSlYOqYIvGEV7aPrdSdqQZ/gXFOHTmsCeolPrDmMTAHeqHW4JrO0gllnAs1I+locPXroZ hqha7ZBHiOHp/vzGLfl+H+aewEPJ8ChVC3k3v/AI61lwk2y2v+ZrRo4jzKrGfdrPSa/qeKvXtwbeGvWt kmbAbXtgVvL3Yx8IwFsyyLzsobom2emL8fa6oYY1Iq 1q254313Yo9E9MkyqAq287U9me5+fN0kF+f8mhIt75eMbN4NlHNWyS/gENE1rts59j4WlZaxku2w8/b7 K72E9/MXYY++ldwl1cS50V6Wbki8kOl2317Iinr5OfouVcVcmFl8pvc864v4H59J//MXYg++lUwv7cE9 7Z8Kw1yr32+5D/9CFnH/KfPuTsQ/6rZ4qi+zO4DhP0 9CFnH/KfPuTsQ/0Kz5r2nU/6kLMP+F0fyzXu/+gVnr9qF45E7Nu4hx67+5D/9CG+850n8Maa2/m7vWF8 wydi1uV+0/jI9aqF04I+0/hH6xfn3bb+M/cR3AmS4kQxHe2IiGt8feN8v+2IfdM6yaP4a+6tuaV1yjR7 m+7btjB2Cw9/eQ1+L46Mhm7sEBxeFPabhlhDA6t5CB t9cxsHkBDxtPERF81VYhox1y+suCleNxHM58MAY8w6Kjt1h2v1cJ//aM//PyNvCTH3aNjJ/TedP/r//l yIvmbk+ue//tXjpv/4vq8WLfrbUn7hHzWEF5GVeSP5Hj2ODgTk0qfy/aYD+AdyAyCwlDbYfdBeHF1IjL Y8KeKhpUnd49a1G/ZouFou65m8S/BtnVvd26H2M/Renae [file] YrsqO0lyOyFnZuVtO3LpUzFL5L ID Date Data Source [id number] 01/10/2021 04:10:48 PM EDT [facility] Name Value Range Interpretation Code Description Data Dariela rce(s) Supporting Document(s) HEMOGLOBIN A1C @ 4.9 % (4.0-6.0) [facility] Performed using Siemens Valier immunoassa y.Care must be taken when interpreting PaP9nwdwnwqw in patients with a hemoglobin variantor decreased erythrocyte lifespan. Values 5.7 - 6.4% suggest prediabetes.Values >=6.5% are diagnostic for diabetes.REFERENCE: DIABETES CARE 2018: 41(S13-S27).PERFORMED AT [address] [place] [address] [id number] EST AVERAGE GLUCOSE 94 mg/dL [facility] ID Date Data Source [id number] 01/10/2021 03:35:44 PM EDT [facility] Name Value Range Interpretation Code Description Data Dariela rce(s) Supporting Document(s) APTT 28.1 s (22.0-34.3) [facility] ID Date Data Source [id number] 01/10/2021 03:31:32 PM EDT [facility] Name Value Range Interpretation Code Description Data Dariela rce(s) Supporting Document(s) NT PRO BNP 7387 pg/mL (0-450) H [facility] ID Date Data Source [id number] 01/10/2021 03:31:32 PM EDT [facility] Name Value Range Interpretation Code Description Data Dariela rce(s) Supporting Document(s) SODIUM 138 mmol/L (136-145) [facility] POTASSIUM 4.1 mmol/L (3.6-5.2) [facility] CHLORIDE 106 mmol/L (100-108) [facility] CO2 27 mmol/L (22-31) [facility] ANION GAP 5 mmol/L (7-16) L [facility] UREA NITROGEN 18 mg/dL (7-24) [facility] CREATININE 0.67 mg/dL (0.80-1.30) L [facility] BUN/CREAT RATIO 26.9 RATIO (10.0-20.0) H [facility] GLUCOSE 74 mg/dL (70-99) [facility] CALCIUM 8.1 mg/dL (8.4-10.2) L [facility] TOTAL PROTEIN 5.9 g/dL (6.4-8.2) L [facility] ALBUMIN 2.6 g/dL (3.2-4.5) L [facility] GLOBULIN 3.3 g/dL (2.7-4.3) [facility] ALB/GLOB RATIO 0.8 RATIO [facility] ALKALINE PHOSPHATASE 80 U/L (45-117) [facility] BILIRUBIN,TOTAL 0.5 mg/dL (0.0-1.0) [facility] PLEASE NOTE:Total bilirubin results may be falselyelevated in patients taking Eltrombopag. AST (SGOT) 32 U/L (11-39) [facility] ALT (SGPT) 57 U/L (12-78) [facility] GFR >60 ml/min/1.73m2 (>59) [facility] GFR ( AMER) >60 ml/min/1.73m2 (>59) [facility] GFR INTERPRETATION [facility] --NORMAL KIDNEY FUNCTION OR MILD DISEASE - GFR >OR= 60CHRONIC KIDNEY DISEASE - GFR 15 - 59RENAL FAILURE - GFR <15 Est. GFR calculation based on the MDRDstudy equation, which assumes a steadystate for creatinine. Est. GFR should notbe used for medication dosing. ID Date Data Source [id number] 01/10/2021 03:31:32 PM EDT [facility] Name Value Range Interpretation Code Description Data Dariela rce(s) Supporting Document(s) TROPONIN I 0.15 ng/mL (<0.05) H [facility] Less than 0.05: Myocardial injury unlike lyGreater than or equal to 0.05: Highly suggestive of myocardial injuryCorrelation with rise and/or fall ofserial troponins, clinical symptomsand ECG changes is necessary. ID Date Data Source [id number] 01/10/2021 03:29:13 PM EDT [facility] Name Value Range Interpretation Code Description Data Dariela rce(s) Supporting Document(s) MAGNESIUM 2.2 mg/dL (1.7-2.4) [facility] ID Date Data Source [id number] 01/10/2021 02:52:20 PM EDT [facility] Name Value Range Interpretation Code Description Data Dariela rce(s) Supporting Document(s) WBC 8.6 10*3/uL (4.1-11.0) [facility] [place] RBC 4.52 10*6/uL (4.60-6.10) L [facility] HGB 12.2 g/dL (13.5-18.0) L [facility] HCT 38.4 % (41.0-53.0) L [facility] MCV 84.9 fL (80.0-95.0) [facility] MCH 27.1 pg (27.0-32.0) [facility] MCHC 31.9 g/dL (32.0-36.0) L [facility] RDW 15.3 % (10.5-14.5) H [facility] PLT 280 10*3/uL (150-450) [facility] MPV 8.0 fL (7.1-10.7) [facility] ID Date Data Source [id number] 01/10/2021 11:50:00 AM EDT [facility] Name Value Range Interpretation Code Description Data Dariela rce(s) Supporting Document(s) SARS coronavirus 2 RNA [Presence] in Res piratory specimen by ELENA with probe detection NOT DETECTED [facility] This lab was reported by [facility]. ID Date Data Source [id number] 01/10/2021 01:01:10 PM EDT [facility] Name Value Range Interpretation Code Description Data Dariela rce(s) Supporting Document(s) SPECIMEN DESCRIPTION [facility] INFLUENZA A (NEG) [facility] INFLUENZA B (NEG) [facility] RSV (NEG) [facility] COMMENT [facility] THE [place] FDA HAS MADE THIS TEST AVAILABL EUNDER AN EMERGENCY USE AUTHORIZATION(EUA) FOR THE DETECTION AND/OR DIAGNOSISOF THE VIRUS THAT CAUSES COVID-19.PERFORMED AT [address] [place] [id number] COVID19 RESULT (NDET) [facility] THIS ASSAY AMPLIFIES AND DETECTSTHE TARG ET RNA USING REAL-TIME PCR.TESTING PERFORMED ON [email or web address] GENEXPERTNEGATIVE 2019_NCOV RT-PCR RESULTS DONOT PRECLUDE 2019_NCOV INFECTION ANDSHOULD NOT BE USED THE SOLE BASISFOR PATIENT MANAGEMENT DECISIONS. FIRST TEST [facility] EMPLOYED IN HLTHCARE [facility] SYMPTOMATIC [facility] DATE OF SYMPT ONSET [facility] HOSPITALIZED [facility] [place] [facility] CONGREGATE CARE SET [facility] ID Date Data Source [id number] 01/08/2021 07:13:00 PM EDT [facility] Name Value Range Interpretation Code Description Data Dariela rce(s) Supporting Document(s) SARS coronavirus 2 RNA [Presence] in Res piratory specimen by ELENA with probe detection NEGATIVE [facility] This lab was ordered by [facility] a nd reported by [facility]. ID Date Data Source [id number] 08/21/2020 12:10:16 AM EST [facility] Name Value Range Interpretation Code Description Data Dariela rce(s) Supporting Document(s) &PDF [facility] QMBCOr6uDtOJRiEx11/OYKfbZBPrf2FdZDyuOVg3QHjbCCDqY8FocLkyQSkOHVqYT6ZtJyzQFHAPXHVV 0b3 TcTDSkOaQLlKX7LQ3yYOKitdSgdgG1gL2eIN0HTLR+Vn0NRZ8xc2WoZNk4LOJsq1VjUVcmOLj2Q3OgpG JcjbKeUnwjzUJJJBHhFZOqS6bomhx0tIEjPYE9Up1QKqWuq2FvMYJjNVhSow4iM39wDlW+X6D/gUBRbA rK9uHOaUCDcAT2Asjn4nhxeDy4L5as37nfvRYKRclv 37la+s8yI0gSviWm6cgwhNP1k+lGAphFjhk5p7sAujASXMD99tOGZoNqpa72y4z9I+EBq8gR2Vi+e46r 7GLjTGUmUFuxzor+moOnxJm6V/Ls3OrHQvPE/vyr0X/F/0WxDk3HSMkY1c8nzYvPYZRgQlEJj0d0b4+/ M55wleZLlzttFqPjSvpXAVMD7Sgf0XDXshqNnM0UtC VSIAVidxeXfyu8hhvzzBKXKzWO/YStAtM+FDkHleb9ORo+gD7FD2MKLRvA9n8FiSAqvmqEs1tYWld+xF p6xMOyz4khCOsHZj2J6SnSDsQtKj198xjtcqbXUyjwF3AyEWLXPp//DjzouexGVQatB29MuUBXL4Y5/s /PdW8U6K9hp7alBRfDYTrUeHmxQNza+3w4WMc6oeEp t2V1Gt+6Ht0EsbdMBbunIq3MWVpiYTVrnq9GDQJzQKFOuCRWLae/JKJEd1QhCt52TJEZFO5TOg7PEpvI UmcXAB3XkLoOQgn5dJFBn6jQ4BpgifHDtsFNw6PB46NlCpmg433ecnmbBmgRpxvhtN7hdvuIrBO5OGVd Wg3uiUUOgIhuYWYwvvcKLnjU0aqzogb81XjQiQalfB WBim2e+Lorrie+r9hezGYpkBLFfeKFMnSBxkRykY8zMMjkBR+tehxJRkhSnmMRpd6fO3ekLCgWIMJPXybr4 [file] ICAgICAgICAgICAgICAgICAgICAgICAgICAgICAgICAgICAgICAgICAgICAgICAgICAgICAgICAgICAg ICAgICAgICAgICAgICAgICAgICAgICANCiAgICAgIC AgICAgICAgICAgICAgICAgICAgICAgICAgICAgICAgICAgICAgICAgICAgICAgICAgICAgICAgICAgIC AgICAgICAgICAgICAgICAgICAgICAgICAgICAgICAgICANCiAgICAgICAgICAgICAgICAgICAgICAgIC AgICAgICAgICAgICAgICAgICAgICAgICAgICAgICAg ICAgICAgICAgICAgICAgICAgICAgICAgICAgICAgICAgICAgICAgICAgICANCiAgICAgICAgICAgICAg ICAgICAgICAgICAgICAgICAgICAgICAgICAgICAgICAgICAgICAgICAgICAgICAgICAgICAgICAgICAg ICAgICAgICAgICAgICAgICAgICAgICAgICANCiAgIC AgICAgICAgICAgICAgICAgICAgICAgICAgICAgICAgICAgICAgICAgICAgICAgICAgICAgICAgICAgIC AgICAgICAgICAgICAgICAgICAgICAgICAgICAgICAgICAgICANCiAgICAgICAgICAgICAgICAgICAgIC AgICAgICAgICAgICAgICAgICAgICAgICAgICAgICAg ICAgICAgICAgICAgICAgICAgICAgICAgICAgICAgICAgICAgICAgICAgICAgICANCiAgICAgICAgICAg ICAgICAgICAgICAgICAgICAgICAgICAgICAgICAgICAgICAgICAgICAgICAgICAgICAgICAgICAgICAg ICAgICAgICAgICAgICAgICAgICAgICAgICAgICANCi AgICAgICAgICAgICAgICAgICAgICAgICAgICAgICAgICAgICAgICAgICAgICAgICAgICAgICAgICAgIC AgICAgICAgICAgICAgICAgICAgICAgICAgICAgICAgICAgICAgICANCiAgICAgICAgICAgICAgICAgIC AgICAgICAgICAgICAgICAgICAgICAgICAgICAgICAg ICAgICAgICAgICAgICAgICAgICAgICAgICAgICAgICAgICAgICAgICAgICAgICAgICANCiAgICAgICAg ICAgICAgICAgICAgICAgICAgICAgICAgICAgICAgICAgICAgICAgICAgICAgICAgICAgICAgICAgICAg ICAgICAgICAgICAgICAgICAgICAgICAgICAgICAgIC ANCjw/nZPbY2vdhUZahnN2T5avKt6PVo2IBK5mt2GbLHQsEJljzsWhDbfPNdYfSAOvIrtBIbf7PHpfBE 3AkNFiH2ZuD7HuKUtxEY7GMAMyNNVpkLBmIJItLFPdAwI3FYEdLHzgWA0FpIVeZCkzKAZsGCAwEqMeRS MzKDBqHKRjHYDnLIKZMO7QFmRfL7VjoU23EELBIr7+ BWcgdxGxGmePNtV1BMEyb2UkEPr6GD6DKEBoDOkiZS0GLXPpiE6oPIhhMB2TXfC4XiSaIYKVDgTsQ44q cNMkAZd8C5BgUvGtWKUiQawkHZHeSZxeItXpPGIsLoLdZKkdDU3+ID4+KQpsOB3QYLxwzxRyTQGmRa4C EYMwMWV4CUIevYMsXSGiVPGMLAdiFB6TaRAkFTY1gE 5oNMxtXSNpPKAsH9hOKiVwwNyuFJ42qBylstZydHEuZPh+Io6XPD6mm7ZzEDn2mdHcFDhlNWI8FLezED ZmJOCdTUJmDWH1EFN7CRJZJoPqQICrZDPgLSeoKHDlTZNhks4DJUFkTPO4CJD7WDEdNUKqTVEvCRpuEM NbFIjpJiP1GDGrTDRaBX4LVtTzTRPyPWBbJLTaBLYe TRRjhx0OPVPjPBYcDgM1BRWyKVMuQUDzLIloJJMkXERzVUc5PDMqIBVaFD9RIyYiIYCxMIN2ZffdULEy WPSxpg8IPUNcLSVnSIL3QOLhLKVlUNXoYPgsDRLhNBH8JaG3ZAAoAOSyYD4GEaEjJHMhTUo8VtgxKGYg QZAbzk1DXSNiEJRrNLU3GCVhJFNvCQMtIYvkPUCkWH P4XhslDZDlSOGuYU9POgZdDJYxILc6NOCaCFAiVTLomp7JLFGaXKRmVLt6IiXvOAAsAOBlOJemYCYiAD XdAVNnRNAiRUTbPE2GUzZqJPPnEYCnYWooVZEpDAAtau0GPNEyLGUxXAS5OYUpPCLiNXRqYVakWIJsKR DjBMp9OXWkNMNjWA3GDtWzQAQlYYQrCsJbSUQlFRIe fy8PXEFhMWCqSzI1XrAkTYUlAWZtVPyiSCAjYSX7FII7ZZKnCNNvKS8RCuFfNITrDEhjCMIkAXQmOETk es8VBLGdFTLeToQ4RGQtLHDjCHZcUGbyAIFaHUY9QCqdWQDwBSMgLT5POhMzYHHuZZocAgjbBWYuYSBq xx3KTLXcWTMwRUB9AUTlFYMqXRTtVJiuTGIyQCZ4Qg R0XAMaIBJuVN5HHfRiPENrGjknBDSjFSXjZZTqff8REMTgBJVuRLShMZXpXKYfPRPgIYmbDWWlXXDwZu AxFDEtHVXpIZ6QCjIcLADeKrP9MiwbSJXpCWHuye7RHWZcHCRoBuN6KBNgZWLfHNYiYSkzSSWuFUL6Yg XgQHAgXISzTF6LMiCvMTWnUXJdRnkwFUKtEPVlrq4R GRSdOBL1JZRlMWJmSPIcNAPyMKgdOBGaJFX5UzoaQZWrINWyUH5VSwHzOQPjSBOnDvXsLTTuPZYuub5D RTAsTEK1PXJ8TzWeEWMtDRJtEKczPPIkLTX3Wjq7ISHdNZHjBX7LNwYzPIInUwSfKlXfLGRqZDJtab1A GBLvATU8JqK3GjLgISQtBETsIHhwCWAjSXK4ZdZ3QU WxIUGyGH5TTqBeJMCyGvScSiPhGMRyELAofm6CHYLwELN1YYonXFIgOJZlOGJeVOe5wcJwhZPoPAm6DH 0XB7MuffIvNVJSFp3Lv617NIW3TJNrVs2AQ5mfOj8vRVAoGHJTAb6CDYs7PMT7QXz6MVT7RRU0JgUvUP FqKMZjCqPxZJs2PsGxJuE+IDxlMzZhODhhYThkMDhm AxV1MmOpCEV0IcSrHNJ7Z4SfWV8mSQZSTv6+QXvawISxwKdoDCYFMxpfYGT2RVlpFYGSAz6G Procedure Social History Code Duration Value Status Description Data Source(s ) Alcohol intake 04/12/2021 12:00:00 AM EDT Ex-drinker (finding) comp leted Ex- drinker (finding) [facility] Alcohol intake 02/22/2021 12:00:00 AM EDT Ex-drinker (finding) comp leted Ex- drinker (finding) [facility] Alcohol intake 01/25/2021 12:00:00 AM EDT Ex-drinker (finding) comp leted Ex- drinker (finding) [facility] Alcohol intake 01/20/2021 12:00:00 AM EDT Ex-drinker (finding) comp leted Ex- drinker (finding) [facility] Alcohol intake 01/11/2021 12:00:00 AM EDT Ex-drinker (finding) comp leted Ex- drinker (finding) [facility] Alcohol intake 08/17/2020 12:00:00 AM EST Not Currently completed [facility] Smoking 08/17/2020 12:00:00 AM EST Former smoker completed Former smoker [facility] Vital Signs ID Date Data Source UNK Name Value Range Interpretation Code Description Data Source(s) Body weight 139.00 [lb_av] 139.00 [lb_av] BIRDIE Serrano ([facility]) Systolic blood pressure 135 mm[Hg] 135 mm[Hg] [facility] Diastolic blood pressure 75 mm[Hg] 75 mm[Hg] JAYA ([facility]) Heart rate 60 /min 60 /min JAYA [facility] Systolic blood pressure 100 mm[Hg] 100 mm[Hg] [facility] Diastolic blood pressure 0 mm[Hg] 0 mm[Hg] [facility] Heart rate 60 /min 60 /min [facility] Body height 167.6 cm 167.6 cm [facility] Body weight 63.504 kg 63.504 kg [facility] Body mass index (BMI) [Ratio] 22.60 kg/m2 22.60 kg/m2 [facility] Oxygen saturation in Arterial blood by Pulse oximetry 96 % 96 % [facility] Systolic blood pressure 130 mm[Hg] 130 mm[Hg] [facility] Diastolic blood pressure 70 mm[Hg] 70 mm[Hg] [facility] Heart rate 74 /min 74 /min [facility] Body height 167.6 cm 167.6 cm [facility] Body weight 62.143 kg 62.143 kg [facility] Body mass index (BMI) [Ratio] 22.11 kg/m2 22.11 kg/m2 [facility] Oxygen saturation in Arterial blood by Pulse oximetry 95 % 95 % [facility] Systolic blood pressure 128 mm[Hg] 128 mm[Hg] [facility] Diastolic blood pressure 68 mm[Hg] 68 mm[Hg] [facility] Heart rate 65 /min 65 /min [facility] Body height 167.6 cm 167.6 cm [facility] Body weight 61.961 kg 61.961 kg [facility] Body mass index (BMI) [Ratio] 22.05 kg/m2 22.05 kg/m2 [facility] Oxygen saturation in Arterial blood by Pulse oximetry 99 % 99 % [facility] Systolic blood pressure 123 mm[Hg] 123 mm[Hg] [facility] Diastolic blood pressure 56 mm[Hg] 56 mm[Hg] [facility] Heart rate 63 /min 63 /min [facility] Oxygen saturation in Arterial blood by Pulse oximetry 100 % 100 % [facility] Body temperature 36.5 Jany 36.5 Jany [facility] Respiratory rate 18 /min 18 /min [facility] Body height 167.6 cm 167.6 cm [facility] Body weight 61.6 kg 61.6 kg [facility] Body mass index (BMI) [Ratio] 21.92 kg/m2 21.92 kg/m2 [facility] Systolic blood pressure 90 mm[Hg] 90 mm[Hg] [facility] Diastolic blood pressure 58 mm[Hg] 58 mm[Hg] [facility] Body temperature 36.5 Jany 36.5 Jany [facility] Respiratory rate 20 /min 20 /min [facility] Oxygen saturation in Arterial blood by Pulse oximetry 97 % 97 % [facility] Heart rate 75 /min 75 /min [facility] Body weight 64.683 kg 64.683 kg [facility] Body mass index (BMI) [Ratio] 23.02 kg/m2 23.02 kg/m2 [facility] Body height 167.6 cm 167.6 cm [facility] Systolic blood pressure 120 mm[Hg] 120 mm[Hg] [facility] Diastolic blood pressure 68 mm[Hg] 68 mm[Hg] [facility] Heart rate 67 /min 67 /min [facility] Body height 167.6 cm 167.6 cm [facility] Body weight 62.596 kg 62.596 kg [facility] Body mass index (BMI) [Ratio] 22.27 kg/m2 22.27 kg/m2 [facility] Oxygen saturation in Arterial blood by Pulse oximetry 93 % 93 % [facility] Body weight 145.00 [lb_av] 145.00 [lb_av] [facility] Body temperature 98.8 [degF] 98.8 [degF] [facility] ([facility]) Respiratory rate 16 /min 16 /min [facility] ( [facility]) Patient Treatment Plan of Care Planned Activity Planned Date Details Description Data Source (s) Metoprolol Tartrate 25 MG Oral Tablet 04/07/2021 12:00:00 AM EDT [facility] 24 HR metoprolol succinate 25 MG Extended Release Oral Tablet 02/22/2021 12:00:00 AM EDT [facility] Prednisone 2.5 MG Oral Tablet 02/22/2021 12:00:00 AM EDT [facility] Prednisone 10 MG Oral Tablet 02/22/2021 12:00:00 AM EDT [facility] Bisacodyl 10 MG Rectal Suppository 01/22/2021 09:00:00 AM EDT [facility] prednisolone acetate 10 MG/ML Ophthalmic Suspension 01/22/20 09:00:00 AM EDT [facility] POLYETHYLENE GLYCOL 3350 142 MG/ML Oral Solution 01/21/2021 07:00:0 0 AM EDT [facility] 24 HR metoprolol succinate 25 MG Extended Release Oral Tablet 01/20/2021 12:00:00 AM EDT [facility] normal saline flush 0.9 % injection 3 mL 01/20/2021 12:00:00 AM EDT [facility] Amoxicillin 500 MG Oral Capsule 01/20/2021 12:00:00 AM EDT [facility] Amoxicillin 500 MG Oral Capsule 01/20/2021 12:00:00 AM EDT [facility] ondansetron (ZOFRAN) injection 4 mg 01/19/2021 11:12:10 PM EDT [facility] acetaminophen (TYLENOL) 325 MG tablet 650 mg 01/19/2021 11:12:10 PM EDT [facility] 10 ML Atropine Sulfate 0.1 MG/ML Prefilled Syringe 01/19/2021 11 :12:09 PM EDT [facility] 2 ML Metoclopramide 5 MG/ML Prefilled Syringe 01/19/2021 11:12:09 P M EDT [facility] normal saline flush 0.9 % injection 3 mL 01/10/2021 02:00:00 PM EDT [facility] Polyvinyl Alcohol 0.014 ML/ML Ophthalmic Solution 01/10/2021 12: 29:10 PM EDT [facility] ondansetron (ZOFRAN) injection 4 mg 01/10/2021 12:02:46 PM EDT [facility] Acetaminophen 325 MG Oral Tablet 01/10/2021 12:02:44 PM EDT [facility] Prednisone 10 MG Oral Tablet [facility] Ascorbic Acid 1000 MG Oral Tablet [facility] Aspirin 81 MG Oral Tablet [facility] Magnesium 125 MG CAPS [facility] Multiple Vitamin (MULTIVITAMIN) capsule [facility] Linseed Oil 1000 MG Oral Capsule [facility] Calcium Carbonate 1500 MG Oral Tablet [facility]
--- NOTE | 2021-05-16 18:13 | ECGEPIP ---
[facility] - ED Test Date: 2021-05-16 Pat Name: YOUNG MARTINEZ Department: Room: - Gender: Male [employer]: chris : 1940 Requested By: ALXE Sanon Order Number: [id number] Reading MD: Andrew Francis Measurements Intervals [place] Rate: 165 P: [place]: QRS: -15 QRSD: 122 T: 135 QT: 306 QTc: 506 Interpretive Statements Atrial fibrillation with rapid ventricular response Left bundle branch block RHYTHM/RATE CHANGE COMPARED TO 04/05/21 Electronically Signed on 05-16-2021 18:13:21 EST by Andrew Francis
[2021-05-16] MEDS ORDERED: PERCOCET 5MG/325MG TAB PO ONE (18:20)
[2021-05-16] MEDS: ACETAMINOPHEN 500 MG TAB PO SCH (18:22)
--- NOTE | 2021-05-16 19:03 | HPEPDOC ---
[facility] Medical History & Physical Date of Admission May 16, 2021 Date of Service: May 16, 2021 History and Physical CHIEF COMPLAINT: fell at home HISTORY OF PRESENT ILLNESS: 81y/o M BIBA after fall at home while on eliquis for chronic afib. Pt got up from his chair, walked to the library towards the copy machine. Then, he felt lightheaded and fell on the floor hitting his head landing on his right side. He doesn't remember if he lost consciousness,and thinks he was on hte gorund for about 20-25minutes. He then crawled to the bedroom where he was able to call his daughter, who then called the ambulance. He has noticed his heart rate 174 bpm 2 days ago, and 161 this morning when he got up. He denies sob, cp, pressure, tightness,n/v/epigastric pain. EMS noted hr 160-170. In the ER, pt was given iv amiodarone, po amiodarone, 1liter ns bolus. Per Dr. Casey Deluna, [employer] utilization engineer Dr. Rubin recommended digoxin and amiodarone if blood pressure is low. CT Head: neg ICH. Ct cervical spine: no acute fracture. CT abd: acute l1 deformity. Dr. Deluna discussed the acute L1 deformity with ortho utilization engineer Dr. Guan who recommends activity as tolerated, pain meds, pt/ot, and outpt fu at [facility] after discharge. Hospital[facility] was called to admit the pt for afib / aflutter w rvr, fall,and acute L1 deformity for pain control. Past Medical History 1. Atrial fibrillation, has episodes of bradycardia, status post Medtronic pacemaker placement on January 20, 2021 2. History of CVA on December 2016 3. Aortic stenosis status post bovine transcatheter heart valve on January 19, 2021 4. Hypothyroidism 5. GERD 6. Fuchs' disease of the eye bilaterally 7. Rheumatoid arthritis, on chronic prednisone 8. Dyslipidemia 9. BPH 10. Latent TB Surgical History 1. Bovine transcatheter aortic heart valve placed on January 19, 2021 2. Medtronic pacemaker placed in January 202020 3. Bilateral cataract surgery 4. Corneal transplant Family History Father: History of heart disease Mother: Patient reports mother is in good health Social History * Smoker: former Smoker (Quit smoking in 1969) Alcohol: sober (Quit drinking in 1976) Drugs: denies ROS: 10 POINT ROS NEGATIVE ASIDE FROM POSITIVE FINDINGS ON HPI PE: VITALS: SEE BELOW GEN: No distress aaox3 no conversational dyspnea HEENT: face is symmetric no jvd, thyromegaly or cervical LAD Lungs; CTAB Heart: irregularly irregular tachycardic abd: soft nt nd +bs ext: no cyanosis, edema, or clubbing skin: bruises on bl elbows, b/l ue. EKG, labs, imaging, microbiology: see below Assessment and plan: 81y/o M BIBA after fall at home while on eliquis for chronic afib. Pt got up from his chair, walked to the library towards the copy machine. Then, he felt lightheaded and fell on the floor hitting his head landing on his right side. He doesn't remember if he lost consciousness,and thinks he was on hte gorund for about 20-25minutes. He then crawled to the bedroom where he was able to call his daughter, who then called the ambulance. He has noticed his heart rate 174 bpm 2 days ago, and 161 this morning when he got up. He denies sob, cp, pressure, ti ghtness,n/v/epigastric pain. EMS noted hr 160-170. In the ER, pt was given iv amiodarone, po amiodarone, 1liter ns bolus. Per Dr. Casey Deluna, [employer] utilization engineer Dr. Rubin recommended digoxin and amiodarone if blood pressure is low. CT Head: neg ICH. Ct cervical spine: no acute fracture. CT abd: acute l1 deformity. Dr. Deluna discussed the acute L1 deformity with ortho utilization engineer Dr. Guan who recommends activity as tolerated, pain meds, pt/ot, and outpt fu at [facility] orth[facility] clinic after discharge. Hospitalis[facility] was called to admit the pt for afib / aflutter w rvr, fall,and acute L1 deformity for pain control. AFib w RVR -due to hypotension, pt was given iv amiodarone 150mg x 1, po amiodarone 200 mg pox1, digoxin iv q6hrs x 3 doses with digoxin level in am. -pt was given 1liter ns iv bolus in ER. -if persistent rate>120bpm, amiodarone iv gtt should be given due to episodes of hypotension -continue on eliquis -CT head neg for ICH -check tsh at baseline due to amiodarone use -tele Fall -most likely due to afib/flutter w rvr causing hypotension -fall precautions -tele -assisted ambulation only -pt/ot consulted History of CVA on December 2016 -continue eliquis home meds Aortic stenosis status post bovine transcatheter heart valve on January 19, 2021 -continue home meds Hypothyroidism -synthroid GERD -ppi Fuchs' disease of the eye bilaterally Rheumatoid arthritis, on chronic prednisone -resumed meds Dyslipidemia chronic resumed meds BPH chronic resumed meds h/o Latent TB Vital Signs Vital Signs Date Time Temp Pulse Resp B/P (MAP) Pulse Ox O2 Delivery O2 Flow Rate FiO2 05/16/21 16:00 130 18 110/61 (77) 97 Room Air Laboratory Data Labs 24H Laboratory Tests 2 05/16/21 13:35: Immature Granulocyte % (Auto) 0.8, Neutrophils (%) (Auto) 83.3H, Lymphocytes (%) (Auto) 9.8L, Monocytes (%) (Auto) 4.9, Eosinophils (%) (Auto) 0.9, Basophils (%) (Auto) 0.3, Neutrophils # (Auto) 12.3H, Lymphocytes # (Auto) 1.5, Monocytes # (Auto) 0.7, Eosinophils # (Auto) 0.1, Basophils # (Auto) 0.0, Nucleated Red Blood Cells % (auto) 0.0, Prothrombin Time 15.6H, Prothromb Time International Ratio 1.19, Activated Partial Thromboplast Time 35.3, D-Dimer, Quantitative > 4000H, Anion Gap 7L, Glomerular Filtration Rate > 60.0, Calcium Level 8.4L, Total Creatine Kinase 57, Creatine Kinase MB 5.4H, Creatine Kinase MB Relative Index 9.47H, Troponin I 0.08, Thyroid Stimulating Hormone (TSH) 1.380 05/16/21 13:44: POC Glucose (Misc Panel) 94, POC Sodium (Misc Panel) 137, POC Potassium (Misc Panel) 4.7, POC Chloride (Misc Panel) 102, POC Total CO2 (Misc Panel) 28.0H, POC Blood Urea Nitrogen (Misc Panel 26, POC Ionized Calcium (Misc Panel) 4.4L, POC Creatinine (Misc Panel) 0.9, POC Hematocrit (Misc Panel) 40.0 CBC/BMP Laboratory Tests 05/16/21 13:35 Home Medications Scheduled Apixaban (Eliquis) 5 Mg Tab, 5 MG PO BID Ascorbic Acid (C-1000) 1,000 Mg Tablet, 1,000 MG PO QHS Aspirin (Aspirin EC) 81 Mg Tablet.dr, 81 MG PO QHS Calcium Carbonate/Vitamin D3 (Calcium 600 + Vit D 400 Softgl) 1 Each Capsule, 1 CAP PO DAILY Ferrous Gluconate (Ferrous Gluconate) 324 Mg Tablet, 324 MG PO DAILY Levothyroxine Sodium (Levothyroxine Sodium) 100 Mcg Tablet, 100 MCG PO DAILY Magnesium Oxide/Magnesium (fx-Jgty-Fqzgsqc Tablet) 133 Mg Tablet, 266 MG PO QHS Metoprolol Tartrate (Metoprolol Tartrate) 25 Mg Tablet, 12.5 MG PO Q48H Prednisone (Prednisone) 10 Mg Tablet, 10 MG PO DAILY TAKES WITH TWO 1 MG TABS FOR 12 MG TOTAL DOSE Prednisone (Prednisone) 1 Mg Tablet, 2 MG PO DAILY TAKES WITH 10 MG TAB FOR 12 MG TOTAL DOSE Sodium Chloride (Sodium Chloride 5% Opth Oint) 1 Dose/3.5 Gm Oint, 1 DOSE OD BID Vit C/E/Zn/Coppr/Lutein/Zeaxan (Preservision Areds 2 Softgel) 1 Each Capsule, 1 CAP PO BID Scheduled PRN Epinephrine (Epinephrine) 0.3 Mg/0.3 Ml Auto.injct, 0.3 MG IM ASDIRECTED PRN for ANAPHYLAXIS Famotidine (Pepcid AC) 10 Mg Tablet, 10 MG PO DAILY PRN for HEARTBURN Hypromellose (Isopto Tears) 15 Ml Drops, 1 DROP OU QID PRN for DRY EYES Allergies Coded Allergies: bee venom protein (honey bee) (Verified Allergy, Unknown, 10/10/18) meloxicam (Verified Allergy, Unknown, 10/10/18) terazosin (Verified Allergy, Unknown, 01/08/21) A-FIB/CHADSVASC A-FIB History Current/History of A-Fib/PAF?: Yes Current PO Anticoag Therapy: Yes Age/Risk Factor Scoring CHADSVASC: CHADSVASC Response (Comments) Value Age Risk Factor Age >/= 75 years old 2 Gender Risk Factor Male 0 Hx of CHF No 0 Hx of HTN Yes 1 Hx of Stroke/TIA/or VTE Yes 2 Hx of Diabetes No 0 Hx of Vascular Disease Yes 1 Total 6 Treatment Treatment ordered: Apixaban LULU CONDE MD May 16, 2021 17:46
[2021-05-16] MEDS: DIGOXIN INJ 0.5 MG/2 ML AMP (J1160) IV SCH (19:35)
[2021-05-16] MEDS ORDERED: METO1TAB87 PO (21:02)
[2021-05-16] MEDS ORDERED: PRED1SUS2 OS (21:02)
[2021-05-16] MEDS ORDERED: MIDO2.5T PO (21:02)
[2021-05-16] MEDS ORDERED: ASCO500T PO (21:02)
[2021-05-16] MEDS ORDERED: FISH1000 PO (21:02)
[2021-05-16] MEDS ORDERED: HOME MED LIST COMPLETE! XX SCH (21:05)
[2021-05-16 23:44] VITALS: BP 140/89
[2021-05-17] MEDS: DIGOXIN INJ 0.5 MG/2 ML AMP (J1160) IV SCH ×2 (01:04→06:23)
[2021-05-17] MEDS: ACETAMINOPHEN 500 MG TAB PO SCH ×4 (01:09→18:17)
[2021-05-17 04:00] VITALS: BP 117/58
[2021-05-17 05:02] LABS: HEMATOCRIT 38.9 % (42.0-52.0); HEMOGLOBIN 12.1 g/dl (13.5-17.5); MEAN CORPUSCULAR HEMOGLOBIN 26.5 pg (27.0-33.0); MEAN CORPUSCULAR HGB CONC 31.1 g/dl (32.0-36.5); MEAN CORPUSCULAR VOLUME 85.3 fl (80.0-96.0); PLATELET COUNT, AUTOMATED 170 10^3/uL (150-450); RED BLOOD COUNT 4.56 10^6/uL (4.30-6.10); WHITE BLOOD COUNT 9.5 10^3/uL (4.0-10.0)
[2021-05-17 05:40] LABS: BLOOD UREA NITROGEN 22 MG/DL (7-18); CALCIUM LEVEL 7.7 MG/DL (8.8-10.2); CARBON DIOXIDE LEVEL 27 MEQ/L (21-32); CHLORIDE LEVEL 105 MEQ/L (98-107); CREATININE FOR GFR 0.69 MG/DL (0.70-1.30); DIGOXIN LEVEL 0.9 NG/ML (0.5-2.0); GLOMERULAR FILTRATION RATE > 60.0 (>35); GLUCOSE, FASTING 89 MG/DL (70-100); POTASSIUM SERUM 4.3 MEQ/L (3.5-5.1); SODIUM LEVEL 138 MEQ/L (136-145)
[2021-05-17] MEDS: LEVOTHYROXINE 100MCG TABLET (0.1MG) PO SCH (06:10)
[2021-05-17] MEDS ORDERED: PERCOCET 5MG/325MG TAB PO ONE ×3 (06:35→13:00)
--- NOTE | 2021-05-17 07:30 | REP ---
INDICATION: fall, back pain COMPARISON: 04/05/2021 TECHNIQUE: Axial contrast enhanced images from the thoracic inlet to the upper abdomen using pulmonary embolus technique with multiplanar re-formations. 75 ml Isovue 370 intravenous contrast material administered without complication. This CT examination was performed using the following dose reduction techniques: Automated exposure control, adjustment of mA and/or kv according to the patient's size, and use of iterative reconstruction technique. FINDINGS: Satisfactory enhancement of the pulmonary vasculature is achieved and no filling defects are identified to suggest pulmonary embolus. Atherosclerotic changes to the thoracic aorta and coronary arteries noted without aortic aneurysm or dissection. Chronic cardiomegaly and evidence for aortic valve stent repair. No pericardial effusion. The lung mike demonstrate advanced COPD/emphysematous changes and fibrosis/scarring. Minimal amounts of basilar atelectasis are identified along with prominent pulmonary vasculature suggesting chronic pulmonary venous congestion. No significant effusion. No pneumothorax. Tracheobronchial tree is patent. No significant adenopathy. IMPRESSION: 1. No evidence for pulmonary embolus. 2. Findings suggest cardiomegaly with pulmonary vascular congestion/interstitial edema along with trace basilar atelectasis. No significant effusions. 3. Chronic emphysematous changes and advanced fibrosis/scarring. <Electronically signed by Kelechi Can > 05/16/21 [id number]
[2021-05-17] MEDS ORDERED: traMADol 50 MG TAB PO PRN (07:50)
[2021-05-17 08:04] VITALS: BP 128/60
--- NOTE | 2021-05-17 08:24 | IPN ---
PROGRESS NOTE DATE: 05/17/2021 SUBJECTIVE: The patient complains of lower back pain. He was found to have an L1 compression deformity on the CT yesterday status post fall. Telemetry overnight also showed atrial fibrillation with RVR, ventricular rate of 130 to 150 despite amiodarone and digoxin. Blood pressure remains at 97/54 to 117/58. The patient denies any chest pain, pressure, tightness, lightheadedness, or dizziness. He denies any shortness of breath, palpitations. The patient rates the pain as 10/10 in the lower back without any radiation. No lower extremity weakness, paresthesias. OBJECTIVE: VITAL SIGNS: A-fib rate of 123 on telemetry, temperature 97.6, pulse 88, respiratory rate 18, blood pressure 117/58, 92% on room air. GENERAL: Generally the patient is awake, alert and oriented. Face is symmetric. Tongue is midline. Dry mucous membranes. No jugular venous distention (JVD), thyromegaly or cervical lymphadenopathy. LUNGS: Clear to auscultation, no wheezing or rales. HEART: S1, S2, irregularly irregular and tachycardic. ABDOMEN: Soft, nontender, nondistended. EXTREMITIES: No cyanosis, clubbing, or pitting edema. SKIN: The patient has bruising bilateral elbows, upper extremities. Laboratory data, imaging studies, microbiology have been reviewed. ASSESSMENT AND PLAN: An 81-year-old male brought in by ambulance who fell at home while on Eliquis for chronic atrial fibrillation after getting up from his chair, walked to the library towards the copy machine and felt lightheaded and fell on the floor. CURRENT ISSUES: 1. Atrial fibrillation with RVR status post IV amiodarone, by mouth 200 mg, digoxin times three doses with persistent atrial fibrillation, rate of 122, 150 all night. The patient remains with blood pressure of 98. He is currently on anticoagulation with Eliquis. CT head was negative for intracranial hemorrhage. 2. He is currently on fall precautions. Assisted ambulation only due to hypotension. The patient has been given IV fluid boluses and midodrine. May resume the patient's metoprolol if blood pressure is maintained greater than 75. 3. L1 compression deformity status post fall. Per orthopedic surgeon Dr. Colby Wyatt conservative management with activities as tolerated, pain medications, PT/OT, fall precautions and assisted ambulation if needed. 4. History of CVA, on Eliquis. 5. Aortic stenosis status post bovine transcatheter heart valve January 19, 2021. Continued on home medications. 6. Hypothyroidism, on Synthroid. 7. GERD, on PPI. 8. Rheumatoid arthritis, on chronic Prednisone. 9. BPH, on chronic medications. 10. History of latent TB DISPOSITION: The patient requires PCU due to amiodarone IV drip for rate control. Dr. Rubin is available for consultation if the patient persists with RVR. JEFFD
[2021-05-17] MEDS ORDERED: AMIODARONE HCL 150 MG in IV 1 EA IV ONE (09:00)
[2021-05-17] MEDS ORDERED: AMIODARONE HCL 360 MG in IV 1 EA IV SCH (09:10)
[2021-05-17] MEDS: predniSONE 1 MG TAB PO SCH (09:47)
[2021-05-17] MEDS: predniSONE 10 MG TAB PO SCH (09:47)
[2021-05-17] MEDS: APIXABAN 5 MG TAB (ELIQUIS) PO SCH ×2 (09:47→22:05)
[2021-05-17] MEDS: SODIUM CHLORIDE 5% OPHTH OINT 3.5 GM OD SCH ×2 (09:48→22:04)
[2021-05-17 12:00] VITALS: BP 134/62
[2021-05-17] MEDS: FERROUS GLUCONATE 324 MG TAB PO SCH (12:14)
[2021-05-17] MEDS ORDERED: PERCOCET 5MG/325MG TAB PO PRN (12:45)
--- NOTE | 2021-05-17 13:07 | IPNPDOC ---
Date Seen The patient was seen on 05/17/21. Progress Note Per Nephrology Nurse Dr. Roderick andrews,re: afib w rvr plan: once iv gtt off, amiodarone 200mg po bid can also give digoxin to complete 1mg dose (received 0.125mg x 3 doses yesterday) or if blood pressure adequate, resume metoprolol VS, I&O, 24H, Fishbone Vital Signs/I&O Vital Signs Date Time Temp Pulse Resp B/P (MAP) Pulse Ox O2 Delivery O2 Flow Rate FiO2 05/17/21 11:20 16 05/17/21 08:04 97.8 58 128/60 (82) 97 Room Air I&O- Last 24 Hours up to 6 AM 05/17/21 06:00 Intake Total 950 ml Output Total 200 ml Balance 750 ml Laboratory Data 24H LABS Laboratory Tests 2 05/16/21 13:35: Immature Granulocyte % (Auto) 0.8, Neutrophils (%) (Auto) 83.3H, Lymphocytes (%) (Auto) 9.8L, Monocytes (%) (Auto) 4.9, Eosinophils (%) (Auto) 0.9, Basophils (%) (Auto) 0.3, Neutrophils # (Auto) 12.3H, Lymphocytes # (Auto) 1.5, Monocytes # (Auto) 0.7, Eosinophils # (Auto) 0.1, Basophils # (Auto) 0.0, Nucleated Red Blood Cells % (auto) 0.0, Prothrombin Time 15.6H, Prothromb Time International Ratio 1.19, Activated Partial Thromboplast Time 35.3, D-Dimer, Quantitative > 4000H, Anion Gap 7L, Glomerular Filtration Rate > 60.0, Calcium Level 8.4L, Total Creatine Kinase 57, Creatine Kinase MB 5.4H, Creatine Kinase MB Relative Index 9.47H, Troponin I 0.08, Thyroid Stimulating Hormone (TSH) 1.380 05/16/21 13:44: POC Glucose (Misc Panel) 94, POC Sodium (Misc Panel) 137, POC Potassium (Misc Panel) 4.7, POC Chloride (Misc Panel) 102, POC Total CO2 (Misc Panel) 28.0H, POC Blood Urea Nitrogen (Misc Panel 26, POC Ionized Calcium (Misc Panel) 4.4L, POC Creatinine (Misc Panel) 0.9, POC Hematocrit (Misc Panel) 40.0 05/17/21 04:31: Nucleated Red Blood Cells % (auto) 0.0, Anion Gap 6L, Glomerular Filtration Rate > 60.0, Calcium Level 7.7L, Digoxin Level 0.9 CBC/BMP Laboratory Tests 05/16/21 13:35 05/17/21 04:31 Microbiology Microbiology 05/16/21 Respiratory Virus Panel (PCR) ([facility]) - Final, Complete LULU CONDE MD May 17, 2021 13:07
[2021-05-17] MEDS: FAMOTIDINE 20 MG TAB PO PRN (13:21)
[2021-05-17] MEDS: AMIODARONE HCL 360 MG in IV 1 EA IV SCH (15:00)
[2021-05-17 17:15] VITALS: BP 123/77
[2021-05-17 20:00] VITALS: BP 132/73
[2021-05-17] MEDS: ASCORBIC ACID 500 MG TAB PO SCH (22:05)
[2021-05-18] VITALS (10 sets, daily range): BP systolic 113–168; BP diastolic 57–92
[2021-05-18] MEDS: ACETAMINOPHEN 500 MG TAB PO SCH ×4 (01:22→17:42)
[2021-05-18] MEDS: AMIODARONE HCL 360 MG in IV 1 EA IV SCH (04:47)
[2021-05-18] MEDS: LEVOTHYROXINE 100MCG TABLET (0.1MG) PO SCH (06:08)
[2021-05-18 06:59] LABS: HEMATOCRIT 36.7 % (42.0-52.0); HEMOGLOBIN 11.3 g/dl (13.5-17.5); MEAN CORPUSCULAR HEMOGLOBIN 26.1 pg (27.0-33.0); MEAN CORPUSCULAR HGB CONC 30.8 g/dl (32.0-36.5); MEAN CORPUSCULAR VOLUME 84.8 fl (80.0-96.0); PLATELET COUNT, AUTOMATED 171 10^3/uL (150-450); RED BLOOD COUNT 4.33 10^6/uL (4.30-6.10); WHITE BLOOD COUNT 14.6 10^3/uL (4.0-10.0)
[2021-05-18] MEDS ORDERED: DIGOXIN INJ 0.5 MG/2 ML AMP (J1160) IV STA (07:18)
[2021-05-18 07:26] LABS: BLOOD UREA NITROGEN 22 MG/DL (7-18); CALCIUM LEVEL 7.6 MG/DL (8.8-10.2); CARBON DIOXIDE LEVEL 25 MEQ/L (21-32); CHLORIDE LEVEL 99 MEQ/L (98-107); CREATININE FOR GFR 0.63 MG/DL (0.70-1.30); GLOMERULAR FILTRATION RATE > 60.0 (>35); GLUCOSE, FASTING 141 MG/DL (70-100); POTASSIUM SERUM 4.5 MEQ/L (3.5-5.1); SODIUM LEVEL 132 MEQ/L (136-145)
[2021-05-18] MEDS ORDERED: METOCLOPRAMIDE INJ 10MG/2ML VIAL (J2765 PER 1) IV ONE (08:15)
[2021-05-18] MEDS: APIXABAN 5 MG TAB (ELIQUIS) PO SCH ×2 (08:31→20:29)
[2021-05-18] MEDS: predniSONE 1 MG TAB PO SCH (08:31)
[2021-05-18] MEDS: predniSONE 10 MG TAB PO SCH (08:31)
[2021-05-18] MEDS: SODIUM CHLORIDE 5% OPHTH OINT 3.5 GM OD SCH ×2 (08:32→20:31)
[2021-05-18] MEDS: prednisoLONE ACET 1% OPHTH SUSP 5ML OS SCH (08:32)
[2021-05-18 08:53] LABS: DIGOXIN LEVEL 1.1 NG/ML (0.5-2.0)
[2021-05-18] MEDS ORDERED: GI COCKTAIL 50ML BTL(HYOSCYAMINE/MAALOX/LIDOCAINE VISCOUS)(1:3:1) PO ONE (09:00)
[2021-05-18] MEDS ORDERED: AMIODARONE 200 MG TAB (PACERONE) PO SCH (09:00)
[2021-05-18] MEDS: FERROUS GLUCONATE 324 MG TAB PO SCH (11:41)
[2021-05-18] MEDS ORDERED: METOPROLOL TART 25 MG TABLET PO SCH (12:00)
--- NOTE | 2021-05-18 13:01 | IPN ---
PROGRESS NOTE DATE: 05/18/2021 SUBJECTIVE: Patient has been delirious, confused yesterday and hallucinating. Heart rate has improved on an amiodarone drip with a pulse of 64 to about 119. Patient's heart rate over 100 is not sustained. Blood pressure is well maintained at 123-141 systolic. This morning he complains of epigastric discomfort after drinking his orange juice. He otherwise denies any chest pain, pressure or palpitations, lightheadedness, shortness of breath, fever, chills or cough. OBJECTIVE: Vital signs: Temperature 97.9, pulse 64 irregularly irregular, afib on telemetry, respiratory rate 18, blood pressure 141/72, 94% on room air. General: Awake, alert, oriented to himself and place, answering questions appropriately. HEENT: Face is symmetric. Tongue is midline. Moist mucous membranes. Neck: No JVD, no thyromegaly. Lungs: Diminished, but clear to auscultation, no wheezes, rhonchi or rales. Heart: S1 and S2 irregularly irregular, episodes of tachycardia, but not sustained. Abdomen: Soft, nontender, nondistended, positive bowel sounds. Extremities: No cyanosis, clubbing or any pitting edema LABORATORY DATA/IMAGING STUDIES/MICROBIOLOGY: Please see the chart. ASSESSMENT: 81-year-old male with history of chronic afib on Eliquis brought in by ambulance after a fall at home when he complained of lightheadedness and was found to have afib with RVR, ventricular rate of 165 on arrival to the Emergency Room. IMPRESSIONS/PLAN: 1. Afib with RVR status post I.V. amiodarone times 1 dose, amiodarone 200 mg and 3 doses of digoxin 0.125 mg q6h with persistent uncontrolled afib: Patient was placed on amiodarone drip due to persistent hypotension corrected with I.V. fluids. CT of the head was negative for intracranial hemorrhage in the setting of chronic anticoagulation and recent fall. 2. Fall most likely due to orthostatic hypotension due to afib with RVR: This has resolved. He has not had any recurrent falls here. 3. L1 compression deformity status post fall: Per orthopedic surgery Colby-Pack conservative management with activity as tolerated, pain medications as needed which has been increased to Percocet 1 tablet every 4 hours as needed for pain, tramadol as needed, fall precautions, assisted ambulation and PT/OT. 4. History of CVA in the setting of chronic afib: On Eliquis. Repeat CT head. Had no intracranial hemorrhage despite the fall. 5. Aortic stenosis status post Bovine transcatheter heart valve replacement January 19, 2021: Continue on current medications. 6. Hypothyroidism: On Synthroid. 7. Reflux: On PPI. 8. Rheumatoid arthritis: On chronic prednisone. 9. BPH: On chronic meds. 10. History of latent TB. 11. Debility: PT/OT. 12. Acute metabolic encephalopathy secondary to afib with RVR, chronic back pain and possible opioid induced with Percocet. CT of the head was negative for any acute CVA. 13. Dyspepsia: GI cocktail as needed. 14. Disposition: Patient will complete his amiodarone drip today at 9:[address] Vaughn, time study clerk on-call yesterday, 05/17/2021, he recommends amiodarone 200 mg twice a day and to continue with digoxin up to 1 full gram. Patient will be given digoxin 0.125 I.V. q6h with repeat digoxin level, PT/OT, assisted ambulation. MTDD
[2021-05-18] MEDS: DIGOXIN INJ 0.5 MG/2 ML AMP (J1160) IV SCH ×2 (14:44→20:31)
[2021-05-18] MEDS: MIDODRINE 5 MG TAB PO SCH (16:29)
[2021-05-18] MEDS ORDERED: LACRILUBE (AKWA TEARS) OPHTH OINT 3.5 GM OU ONE (17:40)
[2021-05-18] MEDS: METOPROLOL TART 25 MG TABLET PO SCH (17:42)
[2021-05-18] MEDS: FAMOTIDINE 20 MG TAB PO PRN (17:47)
[2021-05-18] MEDS: POLYVINYL ALCOHOL OPHTH SOLN 15 ML(LIQUITEARS) OU SCH (20:28)
[2021-05-18] MEDS: ASCORBIC ACID 500 MG TAB PO SCH (20:29)
[2021-05-19] VITALS (7 sets, daily range): BP systolic 129–161; BP diastolic 70–82
[2021-05-19] MEDS: ACETAMINOPHEN 500 MG TAB PO SCH ×2 (00:35→05:57)
[2021-05-19] MEDS: METOPROLOL TART 25 MG TABLET PO SCH ×4 (05:50→18:00)
[2021-05-19] MEDS: LEVOTHYROXINE 100MCG TABLET (0.1MG) PO SCH (05:53)
[2021-05-19 06:25] LABS: HEMATOCRIT 36.7 % (42.0-52.0); HEMOGLOBIN 11.7 g/dl (13.5-17.5); MEAN CORPUSCULAR HEMOGLOBIN 26.8 pg (27.0-33.0); MEAN CORPUSCULAR HGB CONC 31.9 g/dl (32.0-36.5); MEAN CORPUSCULAR VOLUME 84.2 fl (80.0-96.0); PLATELET COUNT, AUTOMATED 200 10^3/uL (150-450); RED BLOOD COUNT 4.36 10^6/uL (4.30-6.10); WHITE BLOOD COUNT 11.5 10^3/uL (4.0-10.0)
[2021-05-19 07:06] LABS: BLOOD UREA NITROGEN 19 MG/DL (7-18); CALCIUM LEVEL 7.9 MG/DL (8.8-10.2); CARBON DIOXIDE LEVEL 25 MEQ/L (21-32); CHLORIDE LEVEL 100 MEQ/L (98-107); DIGOXIN LEVEL 1.4 NG/ML (0.5-2.0); GLOMERULAR FILTRATION RATE > 60.0 (>35); GLUCOSE, FASTING 79 MG/DL (70-100); POTASSIUM SERUM 4.6 MEQ/L (3.5-5.1); SODIUM LEVEL 132 MEQ/L (136-145)
[2021-05-19] MEDS ORDERED: PERCOCET 5MG/325MG TAB PO PRN (07:20)
[2021-05-19] MEDS ORDERED: PERCOCET 5MG/325MG TAB PO ONE (07:20)
[2021-05-19] MEDS: MIDODRINE 5 MG TAB PO SCH ×2 (08:00→12:00)
[2021-05-19] MEDS: predniSONE 10 MG TAB PO SCH (08:41)
[2021-05-19] MEDS: APIXABAN 5 MG TAB (ELIQUIS) PO SCH ×2 (08:41→20:40)
[2021-05-19] MEDS: predniSONE 1 MG TAB PO SCH (10:15)
[2021-05-19] MEDS: POLYVINYL ALCOHOL OPHTH SOLN 15 ML(LIQUITEARS) OU SCH ×4 (10:15→20:40)
[2021-05-19] MEDS: SODIUM CHLORIDE 5% OPHTH OINT 3.5 GM OD SCH ×2 (10:16→20:40)
[2021-05-19] MEDS ORDERED: BISACODYL 5 MG TAB PO PRN (11:20)
[2021-05-19] MEDS ORDERED: SENOKOT S TAB PO PRN (11:20)
[2021-05-19] MEDS: FAMOTIDINE 20 MG TAB PO PRN (11:22)
[2021-05-19] MEDS ORDERED: PANTOPRAZOLE 40MG TAB (PROTONIX) PO ONE (13:00)
--- NOTE | 2021-05-19 13:06 | IPN ---
PROGRESS NOTE DATE: 05/19/2021 SUBJECTIVE: Patient was delirious and complained of back pain yesterday, but was reoriented. Patient does well with Percocet one tablet, but has noted worsening pain this morning of his lower back without radiation. He complains of generalized weakness. Atrial fibrillation is better controlled at 59 to 75. Heart rate on telemetry irregularly irregular. Patient's blood pressure is 130 to 139 systolic. He denies any palpitations, lightheadedness, dizziness or shortness of breath this morning, just complaints of 5/10 pain despite having one tablet of Percocet and requesting another tablet. PHYSICAL EXAMINATION: VITAL SIGNS: Temperature 97.5, pulse 75, respiratory rate 19, blood pressure 130/80, 97% on room air. GENERAL: Awake, alert and oriented to person and place this morning. Answering questions appropriately. HEENT: Face is symmetric. Tongue is midline. Moist mucous membranes. No use of respiratory accessory muscles. No carotid bruit, JVD or thyromegaly. No kyphosis or scoliosis. LUNGS: Diminished but clear to auscultation. No adventitious breath sounds. HEART: S1, S2, irregularly irregular, now tachycardic. ABDOMEN: Soft, nontender, non-distended. Positive bowel sounds. EXTREMITIES: No cyanosis, clubbing or pitting edema. BACK: Patient has L1 point tenderness. Straight leg test cannot be performed due to severe pain. LABORATORY DATA/IMAGING STUDIES/MICROBIOLOGY: Please see the chart. ASSESSMENT AND PLAN: An 81-year-old male with a history of chronic atrial fibrillation on Eliquis, brought in by ambulance after a fall at home and a complaint of lightheadedness and was found to have atrial fibrillation with RVR. Patient had bruises on his bilateral elbows, but no fractures. C-spine was negative. CT abdomen showed a L1 deformity, but no fracture seen, reviewed by orthopedic surgeon on-call Dr. Alves. IMPRESSION: 1. Atrial fibrillation with RVR: Patient did not respond to one dose of I.V. Amiodarone and one dose of Amiodarone 200 mg as well as three doses of I.V. Digoxin 0.125 mg, therefore patient was placed on I.V. Amiodarone drip due to persistent low blood pressure with systolic in the 90's to low 100's. Patient had rate control, but did not chemically cardiovert, remains in atrial fibrillation because Digoxin had been given. Patient developed nausea, vomiting, but Digoxin level was 1 and was not at risk for any Digoxin toxicity. Per his brush fabrication supervisor, Dr. Vaughn, we may use Amiodarone 200 b.i.d. and Digoxin for rate control if blood pressure does not allow us to use beta-blockers. Patient usually takes Metoprolol 12.5 every second day; we have resumed him on 25 every 6 hours with good rate control. Blood pressure is well maintained at 120 to 130. Amiodarone drip as well as Digoxin have been discontinued. 2. Fall: Most likely due to hypotension due to atrial fibrillation with RVR. Per the patient, his rate was ranging from 165 to 175 at home when he got up that morning. He has had no recurrent falls here. He is quite debilitated however, and will need physical therapy and occupational therapy before discharge. 3. L1 compression deformity; status post fall: Per orthopedic surgeon, Dr. Bowman-Montrell, conservative management with activity as tolerated, medications and physical therapy. Patient did not do well with one dose of Percocet, therefore it has been changed to one tablet every 4 hours as needed for pain. Tramadol has been discontinued. He is on fall precautions and assisted ambulation only. PT/OT have been consulted. 4. History of CVA in the setting of chronic atrial fibrillation: On chronic Eliquis. Due to the fall, CTA of the head was done to rule out intracranial hemorrhage which was negative. 5. History of aortic stenosis; status post bovine transcatheter heart valve replacement January 19, 2021: Resumed on home medications. 6. Hypothyroidism: On chronic Synthroid. 7. Reflux: On PPI. 8. RA: On chronic prednisone. 9. BPH: Stable on chronic medications. 10.Dyspepsia: Resolved after one episode of emesis yesterday. Digoxin level was normal and was not at risk of Digoxin toxicity. prn gi cocktail. trial of ppi despite increased risk of cdiff and carafate 11.Acute encephalopathy secondary to atrial fibrillation with RVR and chronic back pain and possible opiate induced with Percocet: Currently patient is back to his baseline. Will continue to monitor and try to minimize any sedatives. MTDD
[2021-05-19] MEDS: SUCRALFATE SUSP 1GM/10ML UD PO SCH ×3 (13:39→20:40)
[2021-05-19] MEDS: FERROUS GLUCONATE 324 MG TAB PO SCH (13:40)
[2021-05-19] MEDS ORDERED: GI COCKTAIL 50ML BTL(HYOSCYAMINE/MAALOX/LIDOCAINE VISCOUS)(1:3:1) PO ONE (15:00)
[2021-05-19] MEDS: ASCORBIC ACID 500 MG TAB PO SCH (20:40)
[2021-05-19] MEDS ORDERED: GI COCKTAIL 50ML BTL(HYOSCYAMINE/MAALOX/LIDOCAINE VISCOUS)(1:3:1) PO PRN (21:00)
[2021-05-20] MEDS: METOPROLOL TART 25 MG TABLET PO SCH ×4 (01:05→17:35)
[2021-05-20 01:23] VITALS: BP 168/81
--- NOTE | 2021-05-20 03:45 | REPVR ---
PROCEDURE INFORMATION: Exam: XR Chest Exam date and time: 05/20/2021 2:26 AM Age: 81 years old Clinical indication: Fall, complains R rib pain TECHNIQUE: Imaging protocol: XR of the chest. Views: 1 view. COMPARISON: 1. CR PORTABLE CHEST X-RAY 04/05/2021 10: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 Lungs: There are chronic interstitial opacities in both lungs without significant change compared to the prior chest x-ray on 04/05/2021. Pleural spaces: There is a trace right pleural effusion, which was also present in the CTA chest on 05/16/2021. No pneumothorax is noted. Heart/Mediastinum: The heart is enlarged and similar in size compared to the prior chest x-ray on 04/05/2021. An aortic valve prosthesis is noted. Bones/joints: No obvious fracture or dislocation is identified. However, this study was not dedicated for the evaluation of the ribs. IMPRESSION: 1. Chronic interstitial opacities in both lungs without significant change compared to the prior chest x-ray on 04/05/2021. 2. Cardiomegaly, which is similar in size compared to the prior chest x-ray on 04/05/2021. 3. Trace right pleural effusion, which was also present in the CTA chest on 05/16/2021. Electronically signed by: Alban Muse On 05/20/2021 03:44:30 AM
--- NOTE | 2021-05-20 04:06 | IPNPDOC ---
Text Note Date of Service The patient was seen on 05/20/21. NOTE Pt seen post fall; RN came into room with hearing bed alarm and pt reportedly on hand/knees on floor. He is seen back in bed in no acute distress. VS: Pt a/ox2-3. Pt has had encephalopathy thought to be hospital induced delirium vs per opioid use. Pt reports he had to go to bathroom (he has been constipated, started on bowel regimen) and because he knew "I can't stand" he decided to crawl to bathroom. He can purposefully move all four extremities. No overt deformity of joints, no bruising or abrasions. Pt does report r rib pain, he is somewhat vague describing this and he cannot say if this is brand new- he has known low back pain. He does demonstrate tenderness with palpation and endorses pain on r lower anterior ribs. No overt bruising or deformity, he sounds diminished. Plan for cxr, pain medication and consider further w/u. Given blood thinners will err on side of caution and plan for neuro checks tonight- he denies hitting head and atraumatic head [facility] and other sc fall risk safety precautions in effect. WCTM. VS,Fishbone, I+O VS, Fishbone, I+O Laboratory Tests 05/19/21 05:59 Vital Signs Date Time Temp Pulse Resp B/P (MAP) Pulse Ox O2 Delivery O2 Flow Rate FiO2 05/20/21 02:01 18 Room Air 05/20/21 01:05 82 147/67 05/19/21 20:00 98.5 97 I&O- Last 24 Hours up to 6 AM 05/20/21 06:00 Intake Total 1020 ml Output Total 1325 ml Balance -305 ml LINDA COLLIER NP May 20, 2021 02:11
[2021-05-20 05:30] LABS: HEMATOCRIT 36.3 % (42.0-52.0); HEMOGLOBIN 11.4 g/dl (13.5-17.5); MEAN CORPUSCULAR HEMOGLOBIN 26.3 pg (27.0-33.0); MEAN CORPUSCULAR HGB CONC 31.4 g/dl (32.0-36.5); MEAN CORPUSCULAR VOLUME 83.8 fl (80.0-96.0); PLATELET COUNT, AUTOMATED 202 10^3/uL (150-450); RED BLOOD COUNT 4.33 10^6/uL (4.30-6.10); WHITE BLOOD COUNT 9.8 10^3/uL (4.0-10.0)
[2021-05-20] MEDS ORDERED: D5W/0.9% SODIUM CHLORIDE 1,000 ML IV SCH (05:30)
[2021-05-20 05:58] LABS: BLOOD UREA NITROGEN 17 MG/DL (7-18); CALCIUM LEVEL 7.6 MG/DL (8.8-10.2); CARBON DIOXIDE LEVEL 26 MEQ/L (21-32); CHLORIDE LEVEL 99 MEQ/L (98-107); CREATININE FOR GFR 0.67 MG/DL (0.70-1.30); GLOMERULAR FILTRATION RATE > 60.0 (>35); GLUCOSE, FASTING 82 MG/DL (70-100); POTASSIUM SERUM 4.6 MEQ/L (3.5-5.1); SODIUM LEVEL 132 MEQ/L (136-145)
[2021-05-20 06:00] VITALS: BP 159/76
[2021-05-20] MEDS: LEVOTHYROXINE 100MCG TABLET (0.1MG) PO SCH (06:14)
[2021-05-20 08:00] VITALS: BP 148/72
[2021-05-20] MEDS: SUCRALFATE SUSP 1GM/10ML UD PO SCH ×4 (08:07→20:15)
[2021-05-20] MEDS: PANTOPRAZOLE 40MG TAB (PROTONIX) PO SCH (08:53)
[2021-05-20] MEDS: predniSONE 10 MG TAB PO SCH (08:53)
[2021-05-20] MEDS: predniSONE 1 MG TAB PO SCH (08:53)
[2021-05-20] MEDS: APIXABAN 5 MG TAB (ELIQUIS) PO SCH ×2 (08:53→20:15)
[2021-05-20] MEDS: POLYVINYL ALCOHOL OPHTH SOLN 15 ML(LIQUITEARS) OU SCH ×4 (08:54→20:16)
[2021-05-20] MEDS: prednisoLONE ACET 1% OPHTH SUSP 5ML OS SCH (08:54)
[2021-05-20] MEDS: SODIUM CHLORIDE 5% OPHTH OINT 3.5 GM OD SCH ×2 (08:55→20:18)
[2021-05-20] MEDS ORDERED: PERCOCET 5MG/325MG TAB PO PRN (10:50)
[2021-05-20] MEDS ORDERED: ACETAMINOPHEN TAB 650MG DOSE (2X325MG) PO PRN (10:50)
[2021-05-20] MEDS ORDERED: traMADol 50 MG TAB PO PRN (10:50)
--- NOTE | 2021-05-20 11:47 | REP ---
INDICATION: Low back pain. COMPARISON: None. TECHNIQUE: Axial noncontrast images of the thoracic spine with coronal and sagittal reformations. FINDINGS: Age-related osteopenia and moderate multilevel degenerative changes are appreciated. Alignment and kyphosis maintained. Thoracic vertebral bodies are intact and without acute fracture/compression injury or subluxation. Spinal canal is patent and normal. Posterior elements and spinous processes are intact. Paravertebral soft tissues are normal. Subtle acute compression deformity at L1 is again noted and unchanged as compared with abdominal CT findings dated 05/16/2021. IMPRESSION: Multilevel age-related degenerative changes. Subtle acute compression fracture at L1 again noted. <Electronically signed by Kelechi Can > 05/20/21 [id number]
--- NOTE | 2021-05-20 12:00 | REP ---
INDICATION: Right rib pain, fracture? COMPARISON: None. TECHNIQUE: Frontal view of the chest with multiple views of the right hemithorax. Five total views. FINDINGS: Frontal view of the chest demonstrates chronic changes with scattered superimposed infiltrates (left greater than right) and suspected small right pleural effusion. Multiple views of the right hemithorax demonstrates no acute rib fracture/injury or pathology. IMPRESSION: 1. No obvious rib fracture. 2. Diffuse bilateral pulmonary parenchymal infiltrates and small right pleural effusion. <Electronically signed by Kelechi Can > 05/20/21 [id number]
[2021-05-20] MEDS: FERROUS GLUCONATE 324 MG TAB PO SCH (12:10)
[2021-05-20] MEDS: LIDOCAINE 5% (LIDODERM) PATCH TD SCH (12:10)
--- NOTE | 2021-05-20 12:27 | REP ---
INDICATION: Low back pain. COMPARISON: None. TECHNIQUE: Axial noncontrast images of the lumbosacral spine from mid T12 through mid sacrum with coronal and sagittal reformations. This CT examination was performed using the following dose reduction techniques: Automated exposure control, adjustment of mA and/or kv according to the patient's size, and use of iterative reconstruction technique. FINDINGS: There is an acute mild compression fracture involving L1 with approximately 15% loss of anterior superior vertebral body height. No retropulsed fragment or canal stenosis. Posterior elements and spinous processes are intact. No significant focal paravertebral hematoma or soft tissue injury identified. Remainder of the lumbar spine demonstrates normal alignment and lordosis. Age-related osteopenia and moderate multilevel degenerative changes are also identified. Incidental stable right renal cyst and atherosclerotic changes to the aorta and vasculature noted. IMPRESSION: 1. Previously diagnosed acute L1 compression fracture with mild loss of superior vertebral body height and no evidence for retropulsion or canal stenosis. 2. Remainder of the examination demonstrates normal alignment, and age-related osteopenia/degenerative spondylosis. <Electronically signed by Kelechi Can > 05/20/21 [id number]
[2021-05-20] MEDS: DOCUSATE SODIUM 100MG CAPSULE PO SCH ×2 (13:44→20:15)
[2021-05-20] MEDS: MIRALAX *UNIT DOSE* 17GM PACKET PO SCH (13:44)
--- NOTE | 2021-05-20 13:58 | IPNPDOC ---
Subjective Date Seen The patient was seen on 05/20/21. Subjective Chief Complaint/HPI Mr. Duval is an 81 year old male with atrial fibrillation, CVA, and aortic stenosis status post bovine transcatheter heart valve who presents with fall secondary to A. fib with RVR. Overnight, patient had to go to the bathroom. He was sitting at the side of the bed and slid to the ground. He then crawled to the toilet. Patient did not have any head strike. Patient's blood glucose was checked and it was low at 78. Patient most likely had hypoglycemia because the weakness. Patient was put on a dextrose drip. This morning, he complained of right rib pain which happened after the fall. Also had low back pain. Denies any dyspnea. Repeated images with dedicated films. There is no fracture on the right side ribs. There is a mild compression fracture at L1. Objective Physical Examination General Exam: Positive: Alert, Cooperative Eye Exam: Negative: Sclera icteric ENT Exam: Positive: Atraumatic Neck Exam: Positive: Supple Chest Exam: Positive: Clear to auscultation Heart Exam: Positive: Rate Normal, Irregular Rhythm Abdomen Exam: Positive: Normal bowel sounds, Soft; Negative: Tenderness Extremity Exam: Negative: Edema Neuro Exam: Positive: Normal Speech Psych Exam: Positive: Mood NL; Negative: Memory Intact Assessment /Plan Assessment Mr. Duval is an 81 year old male with atrial fibrillation, CVA, and aortic stenosis status post bovine transcatheter heart valve who presents with fall secondary to A. fib with RVR. Patient's heart rate is better controlled and blood pressure is improved. Patient reports nausea which may be secondary to digoxin/amiodarone or constipation. Digoxin and amiodarone have been discontinued. Start patient on a bowel regimen. Due to patient's nausea, patient had a poor appetite and became hypoglycemic. He had weakness on evening of 05/19/2021. Patient was put on a dextrose drip. We'll follow glucose and wean off. Encourage oral intake. Plan/VTE VTE Prophylaxis Ordered?: Yes Plan 1. A. fib with RVR Resolved, now rate controlled. Still irregular Continue metoprolol 25 mg every 6 hours. Hold if HR less than 70 or SBP less t eckert 110 Continue apixaban 2. Fall/syncope/weakness Patient's fall on admission was likely secondary to syncope from hypotension from A. fib with RVR Patient's A. fib with RVR is now rate controlled Patient's fall on 05/19/2021 most likely secondary to hypoglycemia secondary to poor oral intake from nausea due to amiodarone and digoxin Patient on dextrose drip. Will monitor blood sugar and encourage oral intake. Will need to work on weaning off of dextrose 3. Acute L1 compression deformity Mild, grade 1 (15%) Orthopedic surgery saw patient. Recommended conservative management Fall risk added Pain control with Percocet and acetaminophen PT and OT ordered 4. History of CVA We will likely secondary to persistent atrial fibrillation Continue Eliquis 5. Aortic stenosis with status post bovine heart valve replacement in January 19, 2021 Continue Eliquis 6. Hypothyroidism Continue levothyroxine 7. GERD Continue pantoprazole Continue Carafate 8. Constipation May be secondary to opioids Added on Colace and MiraLAX 9. DVT prophylaxis Continue Eliquis Disposition: Pending weaning off dextrose drip and physical therapy VS, I&O, 24H, Fishbone Vital Signs/I&O Vital Signs Date Time Temp Pulse Resp B/P (MAP) Pulse Ox O2 Delivery O2 Flow Rate FiO2 05/20/21 12:00 74 143/68 05/20/21 08:00 98.3 18 98 Room Air I&O- Last 24 Hours up to 6 AM 05/20/21 06:00 Intake Total 1200 ml Output Total 2125 ml Balance -925 ml Laboratory Data 24H LABS Laboratory Tests 2 05/20/21 01:57: Bedside Glucose (Misc Panel) 78L 05/20/21 05:13: Nucleated Red Blood Cells % (auto) 0.0, Anion Gap 7L, Glomerular Filtration Rate > 60.0, Calcium Level 7.6L CBC/BMP Laboratory Tests 05/20/21 05:13 Microbiology Microbiology 05/16/21 Respiratory Virus Panel (PCR) ([facility]) - Final, Complete ADELE CHAN DO May 20, 2021 13:58
[2021-05-20 14:00] VITALS: BP 139/69
[2021-05-20] MEDS: MOM 30ML SUSPENSION UDC PO PRN (17:35)
[2021-05-20] MEDS: ASCORBIC ACID 500 MG TAB PO SCH (20:16)
[2021-05-20] MEDS ORDERED: **NOTE PATIENT COMMENT** MISC XX SCH (21:00)
[2021-05-20 22:00] VITALS: BP 118/61
[2021-05-20 23:40] VITALS: BP 119/61
[2021-05-21] MEDS: LEVOTHYROXINE 100MCG TABLET (0.1MG) PO SCH (05:57)
[2021-05-21 05:58] VITALS: BP 135/72
[2021-05-21] MEDS: METOPROLOL TART 25 MG TABLET PO SCH ×2 (05:58)
[2021-05-21 06:00] VITALS: BP 135/72
[2021-05-21] MEDS: MOM 30ML SUSPENSION UDC PO PRN (06:01)
[2021-05-21] MEDS: MIRALAX *UNIT DOSE* 17GM PACKET PO SCH (08:16)
[2021-05-21] MEDS: LIDOCAINE 5% (LIDODERM) PATCH TD SCH (08:16)
[2021-05-21] MEDS: SUCRALFATE SUSP 1GM/10ML UD PO SCH ×2 (08:16→12:27)
[2021-05-21] MEDS: PANTOPRAZOLE 40MG TAB (PROTONIX) PO SCH (08:17)
[2021-05-21] MEDS: predniSONE 10 MG TAB PO SCH (08:17)
[2021-05-21] MEDS: predniSONE 1 MG TAB PO SCH (08:17)
[2021-05-21] MEDS: DOCUSATE SODIUM 100MG CAPSULE PO SCH (08:17)
[2021-05-21] MEDS: APIXABAN 5 MG TAB (ELIQUIS) PO SCH (08:20)
[2021-05-21] MEDS: POLYVINYL ALCOHOL OPHTH SOLN 15 ML(LIQUITEARS) OU SCH ×2 (08:21→12:28)
[2021-05-21] MEDS: SODIUM CHLORIDE 5% OPHTH OINT 3.5 GM OD SCH (08:24)
[2021-05-21 08:27] LABS: HEMATOCRIT 40.5 % (42.0-52.0); HEMOGLOBIN 12.7 g/dl (13.5-17.5); MEAN CORPUSCULAR HEMOGLOBIN 26.2 pg (27.0-33.0); MEAN CORPUSCULAR HGB CONC 31.4 g/dl (32.0-36.5); MEAN CORPUSCULAR VOLUME 83.7 fl (80.0-96.0); PLATELET COUNT, AUTOMATED 230 10^3/uL (150-450); RED BLOOD COUNT 4.84 10^6/uL (4.30-6.10); WHITE BLOOD COUNT 8.2 10^3/uL (4.0-10.0)
[2021-05-21 08:50] LABS: BLOOD UREA NITROGEN 12 MG/DL (7-18); CARBON DIOXIDE LEVEL 29 MEQ/L (21-32); CHLORIDE LEVEL 104 MEQ/L (98-107); CREATININE FOR GFR 0.78 MG/DL (0.70-1.30); GLOMERULAR FILTRATION RATE > 60.0 (>35); GLUCOSE, FASTING 94 MG/DL (70-100); POTASSIUM SERUM 4.6 MEQ/L (3.5-5.1); SODIUM LEVEL 137 MEQ/L (136-145)
[2021-05-21] MEDS ORDERED: LIDO5TD TD (11:25)
[2021-05-21] MEDS ORDERED: METO1TAB87 PO (11:25)
[2021-05-21] MEDS: FERROUS GLUCONATE 324 MG TAB PO SCH (12:27)
--- NOTE | 2021-05-21 19:30 | DS.PDOC ---
Discharge Summary General Date of Admission May 16, 2021 at 17:33 Date of Discharge May 21, 2021 Discharge Summary PROCEDURES PERFORMED DURING STAY: None ADMITTING DIAGNOSES: 1. A. fib with RVR 2. Syncope secondary to A. fib with RVR 3. History of CVA 4. Aortic stenosis status post bovine transcatheter heart valve replacement in 01/19/2021 5. Hypothyroidism 6. GERD 7. Fuchs' disease of the eye bilaterally 8. Rheumatoid arthritis 9. Acute L1 compression deformity DISCHARGE DIAGNOSES: 1. A. fib with RVR 2. Syncope secondary to A. fib with RVR 3. History of CVA 4. Aortic stenosis status post bovine transcatheter heart valve replacement in 01/19/2021 5. Hypothyroidism 6. GERD 7. Fuchs' disease of the eye bilaterally 8. Rheumatoid arthritis 9. Acute L1 compression deformity COMPLICATIONS/CHIEF COMPLAINT: Atrial Flutter W/Rapid Ventruicular Response. HISTORY OF PRESENT ILLNESS: Copied from admitting providers H&P " 81y/o M BIBA after fall at home while on eliquis for chronic afib. Pt got up from his chair, walked to the library towards the copy machine. Then, he felt lightheaded and fell on the floor hitting his head landing on his right side. He doesn't remember if he lost consciousness,and thinks he was on hte gorund for about 20-25minutes. He then crawled to the bedroom where he was able to call his daughter, who then called the ambulance. He has noticed his heart rate 174 bpm 2 days ago, and 161 this morning when he got up. He denies sob, cp, pressure, tightness,n/v/epigastric pain. EMS noted hr 160-170. In the ER, pt was given iv amiodarone, po amiodarone, 1liter ns bolus. Per Dr. Casey Deluna, Channel Account Manager acquisitions assistant Dr. Rubin recommended digoxin and amiodarone if blood pressure is low. CT Head: neg ICH. Ct cervical spine: no acute fracture. CT abd: acute l1 deformity. Dr. Deluna discussed the acute L1 deformity with ortho acquisitions assistant Dr. Guan who recommends activity as tolerated, pain meds, pt/ot, and outpt fu at [facility] after discharge. [facility] was called to admit the pt for afib / aflutter w rvr, fall,and acute L1 deformity for pain control. " HOSPITAL COURSE: Due to hypotension, patient was given amiodarone and digoxin for his A. fib with RVR. Midodrine was stopped as it may have contributed to patient's rapid heart rate. Patient had been given 0.125 mg of digoxin x4. Patient was put on a amiodarone drip and initially planned to be transitioned to oral amiodarone. Unfortunately, these new medications had caused nausea and p atient did not tolerate. On 05/20/2020, patient had to go to the bathroom and slid to the ground. He crawled to the bathroom instead. This weakness is most likely due to hypoglycemia from poor oral intake. Patient had nausea from the amiodarone and digoxin which both were discontinued. Patient was put on a dextrose drip and he did better. The following day, his appetite returned and he no longer had nausea. When the amiodarone and digoxin was discontinued, patient was put on Lopressor 25 mg every 6 hours with holding parameters instead. Off of midodrine, patient was only able to tolerate Lopressor twice a day. Today, patient felt well. He ate his breakfast without issue. Repeat blo od glucose was elevated. He cleared physical therapy. Patient was discharged home. Of note, patient was given 2 Percocet for low back pain. The low back pain is most likely secondary to the L1 compression fracture. The Percocet did cause some altered mental status. Started patient on lidocaine patches which helped with his back pain. Send patient home with some lidocaine patches. DISCHARGE MEDICATIONS: Please see below. ALLERGIES: Please see below. PHYSICAL EXAMINATION ON DISCHARGE: VITAL SIGNS: Please see below. GENERAL: Comfortable, in no apparent distress. HEENT: Sclera clear. NECK: Supple. RESPIRATORY: Lungs clear to auscultation bilaterally, no rales, wheeze or rhonchi. CARDIOVASCULAR: Regular rate and irregular rhythm. ABDOMEN: Soft, nontender, no guarding or rebound tenderness. Normal bowel sounds. MUSCLE SKELETAL: No pitting edema bilaterally PSYCHOLOGICAL: Normal mood and affect LABORATORY DATA: Please see below. IMAGING: Radiologist interpretation. Relevant images below, please see chart for all images CT angio chest 1. No evidence for pulmonary embolus. 2. Findings suggest cardiomegaly with pulmonary vascular congestion/interstitial edema along with trace basilar atelectasis. No significant effusions. 3. Chronic emphysematous changes and advanced fibrosis/scarring. CT abdomen pelvis with IV contrast only 1. Subtle acute compression deformity involving L1 without associated retropulsed fragment or canal stenosis. 2. Chronic changes to the abdomen and pelvis. PROGNOSIS: Good ACTIVITY: As tolerated. DIET: As tolerated DISCHARGE PLAN: Home with home services DISPOSITION: Home, Self-Care. DISCHARGE INSTRUCTIONS: 1. Follow-up with PCP within a week 2. Follow-up with cardiology within a week 3. Hold midodrine and start Lopressor 25 mg twice a day. Please monitor your blood pressure at home. If systolic blood pressure drops below 100, please do not take your Lopressor and contact your PCP or go to the nearest ER 4. I have sent a week supply of lidocaine patches to your pharmacy. Your insurance may not cover the lidocaine patches. Please discuss with your PCP about alternative such as Voltaren gel ITEMS TO FOLLOWUP ON ON OUTPATIENT: 1. Blood pressure 2. Heart rate 3. Low back pain, can consider outpatient referral to orthopedic surgery DISCHARGE CONDITION: Stable Total time spent on discharge planning, discharge summary, and medication reconciliation: 45 minutes Vital Signs/I&Os Vital Signs Date Time Temp Pulse Resp B/P (MAP) Pulse Ox O2 Delivery O2 Flow Rate FiO2 05/21/21 06:00 98.3 85 18 135/72 (93) 95 Room Air I&O- Last 24 Hours up to 6 AM 05/21/21 06:00 Intake Total 1980 ml Output Total 2700 ml Balance -720 ml Laboratory Data Labs 24H Laboratory Tests 2 05/21/21 08:14: Nucleated Red Blood Cells % (auto) 0.0, Anion Gap 4L, Glomerular Filtration Rate > 60.0, Calcium Level 8.0L 05/21/21 11:07: Bedside Glucose (Misc Panel) 123H CBC/BMP Laboratory Tests 05/21/21 08:14 FSBS Laboratory Tests Test 05/21/21 11:07 Range/Units Bedside Glucose (Misc Panel) 123 83-110 MG/DL Microbiology Microbiology 05/16/21 Respiratory Virus Panel (PCR) ([facility]) - Final, Complete Discharge Medications Scheduled Apixaban (Eliquis) 5 Mg Tab, 5 MG PO BID, (Reported) Ascorbic Acid (Ascorbic Acid) 500 Mg Tablet, 1,000 MG PO QHS, (Reported) Ferrous Gluconate (Ferrous Gluconate) 324 Mg Tablet, 324 MG PO DAILY, (Reported) TAKES AT NOON Levothyroxine Sodium (Levothyroxine Sodium) 100 Mcg Tablet, 100 MCG PO DAILY, (Reported) Lidocaine (Lidocaine) 5% Adh..patch, 1 PATCH TD DAILY Magnesium Oxide/Magnesium (bu-Fkat-Tihzzvm Tablet) 133 Mg Tablet, 266 MG PO QHS, (Reported) Metoprolol Tartrate (Metoprolol Tartrate) 25 Mg Tablet, 25 MG PO BID [place]-3 Fatty Acids/Fish Oil (Fish Oil 1,000 mg Capsule) 1 Each Capsule, 1,000 MG PO QPM, (Reported) TAKES AT DINNERTIME Prednisolone Acetate (Pred Forte 1% Opth Susp) 5 Ml Drops.susp, 1 DROP OS Q2D, (Reported) Prednisone (Prednisone) 10 Mg Tablet, 10 MG PO DAILY, (Reported) TAKES WITH TWO 1 MG TABS FOR 12 MG TOTAL DOSE Prednisone (Prednisone) 1 Mg Tablet, 2 MG PO DAILY, (Reported) TAKES WITH 10 MG TAB FOR 12 MG TOTAL DOSE Sodium Chloride (Sodium Chloride 5% Opth Oint) 1 Dose/3.5 Gm Oint, 1 DOSE OD BID, (Reported) Vit C/E/Zn/Coppr/Lutein/Zeaxan (Preservision Areds 2 Softgel) 1 Each Capsule, 1 CAP PO BID, (Reported) Scheduled PRN Epinephrine (Epinephrine) 0.3 Mg/0.3 Ml Auto.injct, 0.3 MG IM ASDIRECTED PRN for ANAPHYLAXIS, (Reported) Famotidine (Pepcid AC) 10 Mg Tablet, 10 MG PO DAILY PRN for HEARTBURN, (Reported) Hypromellose (Isopto Tears) 15 Ml Drops, 1 DROP OU QID PRN for DRY EYES, (Reported) Allergies Coded Allergies: bee venom protein (honey bee) (Verified Allergy, Unknown, 10/10/18) meloxicam (Verified Allergy, Unknown, 10/10/18) terazosin (Verified Allergy, Unknown, 01/08/21) ADELE CHAN DO May 21, 2021 17:41
[2021-05-21] MEDS ORDERED: METOPROLOL TART 25 MG TABLET PO SCH (21:00)
== END 2021-05-21 14:47 | disposition home health service (06) | DRG 310 ==
LOC: M ED 13:04 → EDBD 13:04 → M ED INP 17:33 → ENRESERV 20:51 → M PCU 23:40 → M MSPAV 05-20 11:51
PROVIDERS: ADMIT General Practice; ATTEND Internal Medicine
DX: I48.91 Unspecified atrial fibrillation (principal); R55 Syncope and collapse; I48.92 Unspecified atrial flutter; Z86.73 Personal history of transient ischemic attack (TIA), and cerebral infarction without residual deficits; M06.9 Rheumatoid arthritis, unspecified; E03.9 Hypothyroidism, unspecified; K21.9 Gastro-esophageal reflux disease without esophagitis; H44.23 Degenerative myopia, bilateral; Z79.899 Other long term (current) drug therapy; Z91.030 Bee allergy status; Z88.8 Allergy status to other drugs, medicaments and biological substances; E78.5 Hyperlipidemia, unspecified; N40.0 Benign prostatic hyperplasia without lower urinary tract symptoms; Z95.0 Presence of cardiac pacemaker; Z79.52 Long term (current) use of systemic steroids; Z87.891 Personal history of nicotine dependence

== ENCOUNTER → 2021-06-28 | Outpatient (REF) | payer MEDICARE ==
[~2021-06-28] MED LIST changes: +ASCO500T PO; +LIDO5TD TD; +MIDO2.5T PO
[2021-06-28 16:41] LABS: PERCENT SATURATION 12.1 % (19.7-50.0)
== END ==
LOC: M LAB REF 16:17
PROVIDERS: ATTEND Internal Medicine
DX: D64.9 Anemia, unspecified (principal)

== ENCOUNTER → 2021-07-17 | Outpatient (REF) | payer MEDICARE | LOC: M LAB REF 14:17 | PROVIDERS: ATTEND Internal Medicine | DX: M25.50 Pain in unspecified joint (principal) ==

== ENCOUNTER → 2021-08-22 | Outpatient (CLI) | payer MEDICARE | LOC: M WHC 10:33 | PROVIDERS: ATTEND Internal Medicine | DX: Z13.820 Encounter for screening for osteoporosis (principal); S32.000D Wedge compression fracture of unspecified lumbar vertebra, subsequent encounter for fracture with routine healing ==

== ENCOUNTER → 2022-04-19 | Outpatient (REF) | payer MEDICARE | LOC: M LAB REF 16:03 | PROVIDERS: ATTEND Physician Assistant Medical | DX: R41.0 Disorientation, unspecified (principal); R17 Unspecified jaundice ==

== ENCOUNTER → 2022-04-24 | Outpatient (CLI) | payer MEDICARE | LOC: M RAD 09:18 | PROVIDERS: ATTEND Internal Medicine | DX: R51.9 Headache, unspecified (principal); R41.0 Disorientation, unspecified ==

== ENCOUNTER → 2022-04-25 | Outpatient (REF) | payer MEDICARE | LOC: M LAB REF 16:10 | PROVIDERS: ATTEND Internal Medicine | DX: R41.3 Other amnesia (principal); E53.8 Deficiency of other specified B group vitamins ==

== ENCOUNTER 2022-05-10 04:34 | Inpatient (IN) | payer MEDICARE ==
[~2022-05-10] VITALS: Ht 165.1 cm; Wt 68.9 kg
[2022-05-10] MEDS ORDERED: LIDOCAINE 2% 5ML JELLY UROJET TOP ONE (04:50)
[2022-05-10 05:24] LABS: VENOUS BASE EXCESS -3.8 (-2.0-2.0); VENOUS HCO3 22.5 MEQ/L (23.0-27.0); VENOUS O2 SATURATION 40.4 % (60.0-80.0); VENOUS PARTIAL PRESSURE O2 24.8 mmHg (30.0-50.0); VENOUS PH 7.316 UNITS (7.330-7.430); VENOUS TOTAL CO2 23.8 MEQ/L (24.0-28.0)
[2022-05-10 05:26] LABS: BASO # 0.1 10^3/uL (0.0-0.2); BASO % 0.4 % (0.0-1.0); EOS # 0.2 10^3/uL (0.0-0.5); EOS % 0.9 % (0.0-3.0); HEMATOCRIT 42.8 % (42.0-52.0); LYMPH # 3.1 10^3/uL (1.5-5.0); LYMPH % 13.8 % (24.0-44.0); MEAN CORPUSCULAR HEMOGLOBIN 27.8 pg (27.0-33.0); MEAN CORPUSCULAR HGB CONC 32.7 g/dl (32.0-36.5); MEAN CORPUSCULAR VOLUME 85.1 fl (80.0-96.0); MONO % 8.7 % (2.0-8.0); NEUTROPHILS # 16.8 10^3/uL (1.5-8.5); NEUTROPHILS % 74.9 % (36.0-66.0); PLATELET COUNT, AUTOMATED 284 10^3/uL (150-450); RED BLOOD COUNT 5.03 10^6/uL (4.30-6.10); WHITE BLOOD COUNT 22.4 10^3/uL (4.0-10.0)
[2022-05-10 05:51] LABS: OSMOLALITY SERUM 270 MOSM/KG (280-301)
[2022-05-10 05:59] LABS: AMPHETAMINES LEVEL URINE NEGATIVE (NEGATIVE); BARBITURATES URINE NEGATIVE (NEGATIVE); BENZODIAZEPINES URINE NEGATIVE (NEGATIVE); CANNABINOIDS URINE NEGATIVE (NEGATIVE); COCAINE METABOLITE URINE NEGATIVE (NEGATIVE); METHADONE URINE NEGATIVE (NEGATIVE); OPIATES URINE NEGATIVE (NEGATIVE); PHENCYCLIDINE URINE NEGATIVE (NEGATIVE)
[2022-05-10 06:03] LABS: CK-MB VALUE MASS 8.1 NG/ML (<3.6); MB/CK RELATIVE INDEX 6.86 (< OR =4)
[2022-05-10] MEDS ORDERED: NS 1,000 ML IV ONE (06:10)
[2022-05-10 06:12] LABS: ACETAMINOPHEN LEVEL < 2.0 UG/ML (10.0-30.0); ALT/SGPT 22 U/L (12-78); BILIRUBIN,DIRECT 0.3 MG/DL (0.0-0.2); BLOOD UREA NITROGEN 26 MG/DL (7-18); CARBON DIOXIDE LEVEL 22 MEQ/L (21-32); CHLORIDE LEVEL 93 MEQ/L (98-107); CREATININE FOR GFR 1.12 MG/DL (0.70-1.30); ETHYL ALCOHOL (ETHANOL) < 0.003 % (0.000-0.010); GLOMERULAR FILTRATION RATE > 60.0 (>35); GLUCOSE, FASTING 87 MG/DL (70-100); POTASSIUM SERUM 4.8 MEQ/L (3.5-5.1); SALICYLATE LEVEL < 1.7 MG/DL (5.0-30.0); SODIUM LEVEL 129 MEQ/L (136-145); TOTAL PROTEIN 5.8 GM/DL (6.4-8.2)
[2022-05-10] MEDS ORDERED: HALOPERIDOL 5MG/ML VIAL (J1630 PER 1) As Ordered ONE (06:29)
[2022-05-10] MEDS ORDERED: HALOPERIDOL 5MG/ML VIAL (J1630 PER 1) IV ONE (06:35)
[2022-05-10] MEDS ORDERED: ISOVUE-370 76% 100ML VIAL As Ordered ONE (06:45)
[2022-05-10] MEDS ORDERED: cefTRIAXone SOD 2 GM in D5W MINI-BAG PLUS 50 ML IV ONE (06:50)
[2022-05-10] MEDS ORDERED: NS 1,100 ML in IV 1 EA IV ONE (06:50)
[2022-05-10] MEDS ORDERED: ASPIRIN 300 MG SUPP PR ONE (06:50)
[2022-05-10 07:20] LABS: CK-MB VALUE MASS 7.8 NG/ML (<3.6); MB/CK RELATIVE INDEX 7.36 (< OR =4)
[2022-05-10] MEDS ORDERED: APIXABAN 5 MG TAB (ELIQUIS) PO ONE (08:55)
[2022-05-10] MEDS ORDERED: ELIQ2.5T PO (09:44)
[2022-05-10] MEDS ORDERED: FAMO1TAB11 PO (09:57)
[2022-05-10] MEDS ORDERED: FAMO20TA4 PO (09:58)
[2022-05-10] MEDS ORDERED: OMEG1CAP85 PO (10:02)
[2022-05-10] MEDS ORDERED: GUMMCHW PO (10:03)
[2022-05-10] MEDS ORDERED: SODI5OPD OD (10:05)
[2022-05-10] MEDS ORDERED: METO1TAB87 PO (10:07)
[2022-05-10] MEDS ORDERED: FURO20TA2 PO (10:07)
[2022-05-10] MEDS ORDERED: HOME MED LIST COMPLETE! XX SCH (10:10)
[2022-05-10] MEDS ORDERED: ACETAMINOPHEN TAB 650MG DOSE (2X325MG) PO PRN (11:10)
[2022-05-10] MEDS ORDERED: VANCOMYCIN HCL 750 MG, VIAL MATE ADAPTER 1 EACH in NS 250 ML IV SCH (11:25)
[2022-05-10] MEDS: LEVOTHYROXINE 100MCG TABLET (0.1MG) PO SCH (11:53)
[2022-05-10] MEDS: NS 1,000 ML IV SCH (11:53)
[2022-05-10] MEDS: METOPROLOL TART 12.5 MG PER 1/2 TAB PO SCH ×2 (11:53→21:00)
[2022-05-10] MEDS: ASPIRIN 81MG ENTERIC TABLET PO SCH (12:00)
[2022-05-10] MEDS ORDERED: VANCOMYCIN HCL 1,000 MG, VIAL MATE ADAPTER 1 EACH in D5W 250 ML IV ONE (13:00)
[2022-05-10] MEDS: predniSONE 1 MG TAB PO SCH (14:47)
[2022-05-10] MEDS: predniSONE 10 MG TAB PO SCH (14:47)
[2022-05-10 14:58] VITALS: BP 110/67
[2022-05-10 16:00] VITALS: BP 100/57
[2022-05-10] MEDS ORDERED: METOPROLOL TART 12.5 MG PER 1/2 TAB PO ONE (17:40)
[2022-05-10] MEDS ORDERED: VANCOMYCIN HCL 750 MG, VIAL MATE ADAPTER 1 EACH in D5W 250 ML IV SCH (18:00)
[2022-05-10 20:00] VITALS: BP_SYST 104; BP_SYST 98; BP_DIAS 54; BP_DIAS 61
[2022-05-10] MEDS: ASCORBIC ACID 500 MG TAB PO SCH (22:03)
[2022-05-10] MEDS: APIXABAN 2.5 MG TAB (ELIQUIS) PO SCH (22:04)
[2022-05-10] MEDS: ATORVASTATIN 20 MG TAB PO SCH (22:04)
[2022-05-11] VITALS (7 sets, daily range): BP systolic 92–144; BP diastolic 53–87
[2022-05-11] MEDS ORDERED: oxyCODONE 5MG TAB PO ONE (03:05)
[2022-05-11] MEDS ORDERED: NS 500 ML IV SCH (03:20)
[2022-05-11] MEDS ORDERED: METOPROLOL TART 12.5 MG PER 1/2 TAB PO ONE (03:35)
[2022-05-11] MEDS: FAMOTIDINE 20 MG TAB PO PRN (03:36)
[2022-05-11] MEDS: NS 1,000 ML IV SCH ×3 (03:44→17:41)
[2022-05-11] MEDS: LEVOTHYROXINE 100MCG TABLET (0.1MG) PO SCH (06:20)
[2022-05-11 07:25] LABS: MEAN CORPUSCULAR HEMOGLOBIN 28.3 pg (27.0-33.0); MEAN CORPUSCULAR HGB CONC 32.9 g/dl (32.0-36.5); PLATELET COUNT, AUTOMATED 220 10^3/uL (150-450); RED BLOOD COUNT 4.07 10^6/uL (4.30-6.10)
[2022-05-11 07:29] LABS: HEMOGLOBIN 11.5 g/dl (13.5-17.5)
[2022-05-11 07:53] LABS: ALT/SGPT 29 U/L (12-78); BILIRUBIN,TOTAL 0.6 MG/DL (0.2-1.0); BLOOD UREA NITROGEN 16 MG/DL (7-18); CALCIUM LEVEL 7.2 MG/DL (8.8-10.2); CARBON DIOXIDE LEVEL 22 MEQ/L (21-32); CHLORIDE LEVEL 102 MEQ/L (98-107); CHOLESTEROL LEVEL 146 MG/DL (<200); CREATININE FOR GFR 0.54 MG/DL (0.70-1.30); GLOMERULAR FILTRATION RATE > 60.0 (>35); GLUCOSE, FASTING 100 MG/DL (70-100); HDL CHOLESTEROL 41 MG/DL (>40); LDL CHOLESTEROL 88 MG/DL (<100); MAGNESIUM LEVEL 1.8 MG/DL (1.8-2.4); NON-HDL-C 105 MG/DL; POTASSIUM SERUM 4.1 MEQ/L (3.5-5.1); SODIUM LEVEL 130 MEQ/L (136-145); TOTAL PROTEIN 4.8 GM/DL (6.4-8.2); TRIGLYCERIDES LEVEL 87 MG/DL (<150); VANCOMYCIN RANDOM 8.3 UG/ML
[2022-05-11] MEDS ORDERED: cefTRIAXone SOD 2 GM in D5W MINI-BAG PLUS 50 ML IV SCH (08:00)
[2022-05-11] MEDS ORDERED: VANCOMYCIN HCL 750 MG, VIAL MATE ADAPTER 1 EACH in NS 250 ML IV SCH (08:25)
[2022-05-11] MEDS: predniSONE 10 MG TAB PO SCH (09:16)
[2022-05-11] MEDS: APIXABAN 2.5 MG TAB (ELIQUIS) PO SCH ×2 (09:16→22:19)
[2022-05-11] MEDS: ASPIRIN 81MG ENTERIC TABLET PO SCH (09:16)
[2022-05-11] MEDS: predniSONE 1 MG TAB PO SCH (09:16)
[2022-05-11] MEDS ORDERED: PILL CUTTER 1 EACH XX PRN (09:25)
[2022-05-11] MEDS: METOPROLOL TART 12.5 MG PER 1/2 TAB PO SCH ×2 (09:40→22:18)
[2022-05-11] MEDS: VANCOMYCIN HCL 1,000 MG, VIAL MATE ADAPTER 1 EACH in D5W 250 ML IV SCH ×2 (10:19→22:17)
[2022-05-11 13:46] LABS: HEMATOCRIT 41.8 % (42.0-52.0); HEMOGLOBIN 13.1 g/dl (13.5-17.5)
[2022-05-11] MEDS: ATORVASTATIN 20 MG TAB PO SCH (22:18)
[2022-05-11] MEDS: ASCORBIC ACID 500 MG TAB PO SCH (22:19)
[2022-05-11] MEDS: RAMELTEON 8 MG TAB (ROZEREM) PO PRN (23:39)
[2022-05-12] VITALS (8 sets, daily range): BP systolic 90–124; BP diastolic 55–76
[2022-05-12] MEDS ORDERED: METOPROLOL TART 25 MG TABLET PO ONE (01:35)
[2022-05-12] MEDS: LEVOTHYROXINE 100MCG TABLET (0.1MG) PO SCH (06:20)
[2022-05-12] MEDS: NS 1,000 ML IV SCH (06:21)
[2022-05-12 06:38] LABS: BASO # 0.1 10^3/uL (0.0-0.2); BASO % 0.3 % (0.0-1.0); EOS # 0.2 10^3/uL (0.0-0.5); EOS % 1.1 % (0.0-3.0); HEMATOCRIT 33.5 % (42.0-52.0); LYMPH # 0.9 10^3/uL (1.5-5.0); LYMPH % 5.2 % (24.0-44.0); MEAN CORPUSCULAR HEMOGLOBIN 28.1 pg (27.0-33.0); MEAN CORPUSCULAR HGB CONC 32.8 g/dl (32.0-36.5); MEAN CORPUSCULAR VOLUME 85.5 fl (80.0-96.0); MONO # 1.2 10^3/uL (0.0-0.8); MONO % 6.4 % (2.0-8.0); NEUTROPHILS # 15.6 10^3/uL (1.5-8.5); NEUTROPHILS % 86.3 % (36.0-66.0); PLATELET COUNT, AUTOMATED 238 10^3/uL (150-450); RED BLOOD COUNT 3.92 10^6/uL (4.30-6.10); WHITE BLOOD COUNT 18.1 10^3/uL (4.0-10.0)
[2022-05-12 07:03] LABS: ALT/SGPT 28 U/L (12-78); BILIRUBIN,TOTAL 0.4 MG/DL (0.2-1.0); BLOOD UREA NITROGEN 19 MG/DL (7-18); CALCIUM LEVEL 7.1 MG/DL (8.8-10.2); CARBON DIOXIDE LEVEL 22 MEQ/L (21-32); CHLORIDE LEVEL 99 MEQ/L (98-107); GLOMERULAR FILTRATION RATE > 60.0 (>35); GLUCOSE, FASTING 120 MG/DL (70-100); MAGNESIUM LEVEL 1.8 MG/DL (1.8-2.4); SODIUM LEVEL 127 MEQ/L (136-145); TOTAL PROTEIN 4.4 GM/DL (6.4-8.2)
[2022-05-12] MEDS: predniSONE 1 MG TAB PO SCH (09:44)
[2022-05-12] MEDS: APIXABAN 2.5 MG TAB (ELIQUIS) PO SCH ×2 (09:44→21:30)
[2022-05-12] MEDS: predniSONE 10 MG TAB PO SCH (09:44)
[2022-05-12] MEDS: ASPIRIN 81MG ENTERIC TABLET PO SCH (09:44)
[2022-05-12] MEDS: METOPROLOL TART 25 MG TABLET PO SCH ×2 (09:45→21:31)
[2022-05-12] MEDS: VANCOMYCIN HCL 1,000 MG, VIAL MATE ADAPTER 1 EACH in D5W 250 ML IV SCH ×2 (10:18→22:34)
[2022-05-12] MEDS: SODIUM CHLORIDE NASAL 0.65% SPRAY BTL (OCEAN) SCH ×2 (12:50→21:33)
[2022-05-12 14:03] LABS: BLOOD UREA NITROGEN 19 MG/DL (7-18); CALCIUM LEVEL 6.8 MG/DL (8.8-10.2); CARBON DIOXIDE LEVEL 21 MEQ/L (21-32); CHLORIDE LEVEL 100 MEQ/L (98-107); CREATININE FOR GFR 0.44 MG/DL (0.70-1.30); GLOMERULAR FILTRATION RATE > 60.0 (>35); GLUCOSE, FASTING 132 MG/DL (70-100); POTASSIUM SERUM 4.3 MEQ/L (3.5-5.1); SODIUM LEVEL 126 MEQ/L (136-145)
[2022-05-12] MEDS: ASCORBIC ACID 500 MG TAB PO SCH (21:32)
[2022-05-12] MEDS: FAMOTIDINE 20 MG TAB PO PRN (22:34)
[2022-05-13 00:16] VITALS: BP 126/63
[2022-05-13 04:37] VITALS: BP 131/65
[2022-05-13] MEDS: LEVOTHYROXINE 100MCG TABLET (0.1MG) PO SCH (05:13)
[2022-05-13 08:00] VITALS: BP 117/63
[2022-05-13] MEDS: SODIUM CHLORIDE NASAL 0.65% SPRAY BTL (OCEAN) SCH ×2 (09:00→21:30)
[2022-05-13] MEDS ORDERED: LEVALBUTEROL 1.25 MG/0.5 ML CONCENTRATE NEB INH PRN (09:10)
[2022-05-13 09:28] LABS: BASO # 0.1 10^3/uL (0.0-0.2); BASO % 0.4 % (0.0-1.0); EOS # 0.4 10^3/uL (0.0-0.5); EOS % 3.7 % (0.0-3.0); HEMATOCRIT 31.1 % (42.0-52.0); MEAN CORPUSCULAR HEMOGLOBIN 27.9 pg (27.0-33.0); MEAN CORPUSCULAR HGB CONC 32.2 g/dl (32.0-36.5); MEAN CORPUSCULAR VOLUME 86.6 fl (80.0-96.0); MONO % 8.9 % (2.0-8.0); NEUTROPHILS # 8.7 10^3/uL (1.5-8.5); NEUTROPHILS % 77.5 % (36.0-66.0); PLATELET COUNT, AUTOMATED 267 10^3/uL (150-450); RED BLOOD COUNT 3.59 10^6/uL (4.30-6.10); WHITE BLOOD COUNT 11.2 10^3/uL (4.0-10.0)
[2022-05-13 09:46] LABS: ALBUMIN 1.9 GM/DL (3.2-5.2); ALT/SGPT 39 U/L (12-78); BILIRUBIN,TOTAL 0.4 MG/DL (0.2-1.0); BLOOD UREA NITROGEN 14 MG/DL (7-18); CARBON DIOXIDE LEVEL 23 MEQ/L (21-32); CHLORIDE LEVEL 98 MEQ/L (98-107); CREATININE FOR GFR 0.52 MG/DL (0.70-1.30); GLOMERULAR FILTRATION RATE > 60.0 (>35); GLUCOSE, FASTING 110 MG/DL (70-100); MAGNESIUM LEVEL 1.9 MG/DL (1.8-2.4); SODIUM LEVEL 126 MEQ/L (136-145); TOTAL PROTEIN 4.2 GM/DL (6.4-8.2)
[2022-05-13] MEDS: predniSONE 1 MG TAB PO SCH (09:52)
[2022-05-13] MEDS: ASPIRIN 81MG ENTERIC TABLET PO SCH (09:53)
[2022-05-13] MEDS: predniSONE 10 MG TAB PO SCH (09:53)
[2022-05-13] MEDS: APIXABAN 2.5 MG TAB (ELIQUIS) PO SCH ×2 (09:53→21:29)
[2022-05-13] MEDS: METOPROLOL TART 25 MG TABLET PO SCH ×2 (09:54→21:29)
[2022-05-13] MEDS: SENOKOT S TAB PO SCH ×2 (09:57→21:29)
[2022-05-13 11:30] LABS: FERRITIN 201 NG/ML (26-388); IRON (FE) 14 UG/DL (65-175); PERCENT SATURATION 9.2 % (19.7-50.0); TOTAL IRON BINDING CAPACITY 152 UG/DL (250-450)
[2022-05-13] MEDS: VANCOMYCIN HCL 750 MG, VIAL MATE ADAPTER 1 EACH in D5W 250 ML IV SCH (12:26)
[2022-05-13 12:45] VITALS: BP 113/66
[2022-05-13] MEDS ORDERED: TOLVAPTAN 7.5 MG HALF-TAB PO ONE (14:00)
[2022-05-13] MEDS: FAMOTIDINE 20 MG TAB PO PRN (14:15)
[2022-05-13 15:08] LABS: HEMATOCRIT 32.9 % (42.0-52.0); HEMOGLOBIN 10.6 g/dl (13.5-17.5)
[2022-05-13] MEDS: FERROUS SULFATE 325MG TAB PO SCH (16:09)
[2022-05-13 16:22] VITALS: BP 150/73
[2022-05-13 20:21] VITALS: BP 132/69
[2022-05-13] MEDS: ASCORBIC ACID 500 MG TAB PO SCH (21:30)
[2022-05-14] VITALS (10 sets, daily range): BP systolic 112–158; BP diastolic 66–100
[2022-05-14] MEDS: VANCOMYCIN HCL 750 MG, VIAL MATE ADAPTER 1 EACH in D5W 250 ML IV SCH ×2 (00:23→11:44)
[2022-05-14] MEDS: RAMELTEON 8 MG TAB (ROZEREM) PO PRN (00:30)
[2022-05-14 04:58] LABS: BASO # 0.1 10^3/uL (0.0-0.2); BASO % 0.7 % (0.0-1.0); EOS # 0.3 10^3/uL (0.0-0.5); EOS % 2.4 % (0.0-3.0); HEMATOCRIT 34.3 % (42.0-52.0); LYMPH # 1.2 10^3/uL (1.5-5.0); LYMPH % 11.2 % (24.0-44.0); MEAN CORPUSCULAR HEMOGLOBIN 27.8 pg (27.0-33.0); MEAN CORPUSCULAR HGB CONC 32.1 g/dl (32.0-36.5); MEAN CORPUSCULAR VOLUME 86.6 fl (80.0-96.0); MONO # 0.9 10^3/uL (0.0-0.8); MONO % 8.5 % (2.0-8.0); NEUTROPHILS # 7.9 10^3/uL (1.5-8.5); NEUTROPHILS % 76.5 % (36.0-66.0); PLATELET COUNT, AUTOMATED 322 10^3/uL (150-450); RED BLOOD COUNT 3.96 10^6/uL (4.30-6.10); WHITE BLOOD COUNT 10.3 10^3/uL (4.0-10.0)
[2022-05-14 05:40] LABS: ALBUMIN 2.1 GM/DL (3.2-5.2); ALT/SGPT 83 U/L (12-78); BILIRUBIN,TOTAL 0.4 MG/DL (0.2-1.0); BLOOD UREA NITROGEN 12 MG/DL (7-18); CALCIUM LEVEL 7.9 MG/DL (8.8-10.2); CARBON DIOXIDE LEVEL 25 MEQ/L (21-32); CHLORIDE LEVEL 106 MEQ/L (98-107); CREATININE FOR GFR 0.68 MG/DL (0.70-1.30); GLOMERULAR FILTRATION RATE > 60.0 (>35); GLUCOSE, FASTING 109 MG/DL (70-100); MAGNESIUM LEVEL 2.1 MG/DL (1.8-2.4); POTASSIUM SERUM 4.3 MEQ/L (3.5-5.1); SODIUM LEVEL 135 MEQ/L (136-145); TOTAL PROTEIN 5.2 GM/DL (6.4-8.2)
[2022-05-14] MEDS: LEVOTHYROXINE 100MCG TABLET (0.1MG) PO SCH (06:18)
[2022-05-14] MEDS: predniSONE 1 MG TAB PO SCH (07:37)
[2022-05-14] MEDS: SENOKOT S TAB PO SCH ×2 (07:38→20:10)
[2022-05-14] MEDS: predniSONE 10 MG TAB PO SCH (07:38)
[2022-05-14] MEDS: FERROUS SULFATE 325MG TAB PO SCH (07:38)
[2022-05-14] MEDS: ASPIRIN 81MG ENTERIC TABLET PO SCH (07:38)
[2022-05-14] MEDS: APIXABAN 2.5 MG TAB (ELIQUIS) PO SCH ×2 (07:38→20:10)
[2022-05-14] MEDS: FAMOTIDINE 20 MG TAB PO PRN (07:39)
[2022-05-14] MEDS: METOPROLOL TART 25 MG TABLET PO SCH ×2 (07:46→17:08)
[2022-05-14] MEDS: SODIUM CHLORIDE NASAL 0.65% SPRAY BTL (OCEAN) SCH ×2 (07:48→20:11)
[2022-05-14 10:22] LABS: VITAMIN B12 LEVEL 746 PG/ML
[2022-05-14 10:23] LABS: FOLATE 13.7 NG/ML
[2022-05-14] MEDS ORDERED: QUEtiapine FUMARATE 12.5 MG HALF-TAB PO PRN (17:15)
[2022-05-14] MEDS: ASCORBIC ACID 500 MG TAB PO SCH (20:10)
[2022-05-14] MEDS ORDERED: QUEtiapine FUMARATE 25 MG TAB PO PRN (20:30)
[2022-05-14] MEDS ORDERED: RAMELTEON 8 MG TAB (ROZEREM) PO SCH (21:00)
[2022-05-14] MEDS ORDERED: ADENOSINE 6MG/2ML INJECTION (J0153) IV STA ×3 (21:32→21:46)
[2022-05-14] MEDS ORDERED: METOPROLOL 5 MG/5 ML VIAL As Ordered ONE ×2 (21:55→21:56)
[2022-05-14] MEDS: METOPROLOL 5 MG/5 ML VIAL IV SCH ×3 (21:57→22:05)
[2022-05-14] MEDS ORDERED: METOPROLOL 5 MG/5 ML VIAL IV STA (22:09)
[2022-05-14] MEDS: METOPROLOL TART 50 MG TAB PO ONE ×2 (22:23→22:28)
[2022-05-15] VITALS: BP 138/93
[2022-05-15] MEDS ORDERED: OLANZapine INTRAMUSCULAR 10MG VIAL IM ONE
[2022-05-15] MEDS ORDERED: RAMELTEON 8 MG TAB (ROZEREM) PO PRN (02:20)
[2022-05-15] MEDS: LEVOTHYROXINE 100MCG TABLET (0.1MG) PO SCH (05:01)
[2022-05-15 08:00] VITALS: BP 135/60
[2022-05-15 08:43] LABS: BASO # 0.1 10^3/uL (0.0-0.2); BASO % 0.8 % (0.0-1.0); EOS # 0.6 10^3/uL (0.0-0.5); EOS % 5.6 % (0.0-3.0); HEMATOCRIT 30.6 % (42.0-52.0); HEMOGLOBIN 9.8 g/dl (13.5-17.5); LYMPH # 1.2 10^3/uL (1.5-5.0); LYMPH % 12.3 % (24.0-44.0); MEAN CORPUSCULAR HEMOGLOBIN 28.1 pg (27.0-33.0); MEAN CORPUSCULAR VOLUME 87.7 fl (80.0-96.0); MONO # 1.1 10^3/uL (0.0-0.8); MONO % 10.7 % (2.0-8.0); PLATELET COUNT, AUTOMATED 322 10^3/uL (150-450); RED BLOOD COUNT 3.49 10^6/uL (4.30-6.10)
[2022-05-15] MEDS: SODIUM CHLORIDE NASAL 0.65% SPRAY BTL (OCEAN) SCH ×2 (09:00→18:35)
[2022-05-15] MEDS ORDERED: METOPROLOL TART 50 MG TAB PO SCH (09:00)
[2022-05-15 09:24] LABS: CK-MB VALUE MASS 2.9 NG/ML (<3.6); MB/CK RELATIVE INDEX 6.74 (< OR =4)
[2022-05-15 09:27] LABS: ALT/SGPT 93 U/L (12-78); BILIRUBIN,TOTAL 0.3 MG/DL (0.2-1.0); BLOOD UREA NITROGEN 18 MG/DL (7-18); CALCIUM LEVEL 7.9 MG/DL (8.8-10.2); CARBON DIOXIDE LEVEL 25 MEQ/L (21-32); CHLORIDE LEVEL 110 MEQ/L (98-107); CREATININE FOR GFR 0.67 MG/DL (0.70-1.30); GLOMERULAR FILTRATION RATE > 60.0 (>35); GLUCOSE, FASTING 91 MG/DL (70-100); MAGNESIUM LEVEL 2.2 MG/DL (1.8-2.4); PHOSPHORUS LEVEL 2.3 MG/DL (2.5-4.9); SODIUM LEVEL 139 MEQ/L (136-145); TOTAL PROTEIN 4.1 GM/DL (6.4-8.2)
[2022-05-15] MEDS: METOPROLOL TART 25 MG TABLET PO SCH ×2 (10:32→20:41)
[2022-05-15] MEDS: predniSONE 1 MG TAB PO SCH (10:42)
[2022-05-15] MEDS: FERROUS SULFATE 325MG TAB PO SCH ×2 (10:42→20:40)
[2022-05-15] MEDS: ASPIRIN 81MG ENTERIC TABLET PO SCH (10:42)
[2022-05-15] MEDS: APIXABAN 2.5 MG TAB (ELIQUIS) PO SCH ×2 (10:43→18:33)
[2022-05-15] MEDS: predniSONE 10 MG TAB PO SCH (10:43)
[2022-05-15] MEDS: SENOKOT S TAB PO SCH ×2 (10:43→18:33)
[2022-05-15] MEDS: FAMOTIDINE 20 MG TAB PO PRN (11:28)
[2022-05-15 11:30] VITALS: BP 108/61
[2022-05-15 12:59] LABS: CK-MB VALUE MASS 3.3 NG/ML (<3.6); MB/CK RELATIVE INDEX 8.05 (< OR =4)
[2022-05-15] MEDS: PANTOPRAZOLE 40MG TAB (PROTONIX) PO SCH (17:33)
[2022-05-15 17:38] VITALS: BP 124/76
[2022-05-15] MEDS: ASCORBIC ACID 500 MG TAB PO SCH (18:32)
[2022-05-15 18:35] VITALS: BP 104/57
[2022-05-15 20:00] VITALS: BP 136/67
[2022-05-15] MEDS ORDERED: SODIUM PHOSPHATE INJ 20 MMOL in D5W 250 ML IV ONE (20:00)
[2022-05-16] VITALS (7 sets, daily range): BP systolic 105–136; BP diastolic 53–82
[2022-05-16] MEDS: LEVOTHYROXINE 100MCG TABLET (0.1MG) PO SCH (06:02)
[2022-05-16 06:04] LABS: BASO # 0.1 10^3/uL (0.0-0.2); BASO % 0.7 % (0.0-1.0); EOS # 0.5 10^3/uL (0.0-0.5); EOS % 4.5 % (0.0-3.0); HEMATOCRIT 30.2 % (42.0-52.0); HEMOGLOBIN 9.7 g/dl (13.5-17.5); LYMPH # 1.6 10^3/uL (1.5-5.0); LYMPH % 14.2 % (24.0-44.0); MEAN CORPUSCULAR HEMOGLOBIN 28.3 pg (27.0-33.0); MEAN CORPUSCULAR HGB CONC 32.1 g/dl (32.0-36.5); MONO # 1.1 10^3/uL (0.0-0.8); MONO % 10.2 % (2.0-8.0); NEUTROPHILS # 7.7 10^3/uL (1.5-8.5); NEUTROPHILS % 69.8 % (36.0-66.0); PLATELET COUNT, AUTOMATED 364 10^3/uL (150-450); RED BLOOD COUNT 3.43 10^6/uL (4.30-6.10)
[2022-05-16 06:31] LABS: ALT/SGPT 84 U/L (7.0-40); BILIRUBIN,TOTAL 0.5 MG/DL (0.3-1.2); BLOOD UREA NITROGEN 18 MG/DL (9-23); CALCIUM LEVEL 7.4 MG/DL (8.3-10.6); CARBON DIOXIDE LEVEL 26 MMOL/L (20-31); CHLORIDE LEVEL 102 MMOL/L (98-107); CREATININE FOR GFR 0.75 MG/DL (0.70-1.30); GLOMERULAR FILTRATION RATE > 60.0 (>35); GLUCOSE, FASTING 97 MG/DL (74-106); MAGNESIUM LEVEL 1.7 MG/DL (1.8-2.4); SODIUM LEVEL 137 MMOL/L (136-145); TOTAL PROTEIN 4.2 G/DL
[2022-05-16] MEDS ORDERED: MAGNESIUM OXIDE 400MG TAB (MAG-OX) PO ONE (08:00)
[2022-05-16] MEDS ORDERED: SENNA 8.6 MG TAB (SENOKOT) PO PRN (09:10)
[2022-05-16] MEDS: ASPIRIN 81MG ENTERIC TABLET PO SCH (09:28)
[2022-05-16] MEDS: APIXABAN 2.5 MG TAB (ELIQUIS) PO SCH ×2 (09:28→21:08)
[2022-05-16] MEDS: FERROUS SULFATE 325MG TAB PO SCH ×2 (09:28→21:08)
[2022-05-16] MEDS: predniSONE 10 MG TAB PO SCH (09:28)
[2022-05-16] MEDS: METOPROLOL TART 25 MG TABLET PO SCH ×2 (09:28→21:08)
[2022-05-16] MEDS: predniSONE 1 MG TAB PO SCH (09:28)
[2022-05-16] MEDS: PANTOPRAZOLE 40MG TAB (PROTONIX) PO SCH (09:29)
[2022-05-16] MEDS: SODIUM CHLORIDE NASAL 0.65% SPRAY BTL (OCEAN) SCH ×2 (09:29→21:08)
[2022-05-16] MEDS: DOCUSATE SODIUM 100MG CAPSULE PO SCH (09:36)
[2022-05-16] MEDS ORDERED: METO1TAB87 PO ×3 (15:02→16:22)
[2022-05-16] MEDS ORDERED: ASPI81TAEC PO ×2 (15:02→16:22)
[2022-05-16] MEDS ORDERED: FERR1TAB8 PO ×2 (15:02→16:22)
[2022-05-16] MEDS ORDERED: COLA100C5 PO ×2 (15:02→16:22)
[2022-05-16] MEDS: ASCORBIC ACID 500 MG TAB PO SCH (21:08)
[2022-05-17 04:00] VITALS: BP 130/84
[2022-05-17] MEDS: LEVOTHYROXINE 100MCG TABLET (0.1MG) PO SCH (05:46)
[2022-05-17 05:58] LABS: BASO # 0.1 10^3/uL (0.0-0.2); BASO % 0.8 % (0.0-1.0); EOS # 0.4 10^3/uL (0.0-0.5); EOS % 4.3 % (0.0-3.0); HEMATOCRIT 33.9 % (42.0-52.0); HEMOGLOBIN 10.6 g/dl (13.5-17.5); LYMPH # 1.3 10^3/uL (1.5-5.0); LYMPH % 14.3 % (24.0-44.0); MEAN CORPUSCULAR HEMOGLOBIN 27.9 pg (27.0-33.0); MEAN CORPUSCULAR HGB CONC 31.3 g/dl (32.0-36.5); MEAN CORPUSCULAR VOLUME 89.2 fl (80.0-96.0); MONO # 0.8 10^3/uL (0.0-0.8); MONO % 9.1 % (2.0-8.0); NEUTROPHILS # 6.5 10^3/uL (1.5-8.5); NEUTROPHILS % 70.7 % (36.0-66.0); PLATELET COUNT, AUTOMATED 359 10^3/uL (150-450); WHITE BLOOD COUNT 9.1 10^3/uL (4.0-10.0)
[2022-05-17 06:26] LABS: ALBUMIN 2.1 G/DL (3.2-5.2); ALT/SGPT 61 U/L (7.0-40); BILIRUBIN,TOTAL 0.5 MG/DL (0.3-1.2); BLOOD UREA NITROGEN 16 MG/DL (9-23); CALCIUM LEVEL 7.4 MG/DL (8.3-10.6); CARBON DIOXIDE LEVEL 26 MMOL/L (20-31); CHLORIDE LEVEL 103 MMOL/L (98-107); CREATININE FOR GFR 0.74 MG/DL (0.70-1.30); GLOMERULAR FILTRATION RATE > 60.0 (>35); GLUCOSE, FASTING 76 MG/DL (74-106); MAGNESIUM LEVEL 1.9 MG/DL (1.8-2.4); PHOSPHORUS LEVEL 2.7 MG/DL (2.4-5.1); POTASSIUM SERUM 4.3 MMOL/L (3.5-5.1); SODIUM LEVEL 138 MMOL/L (136-145); TOTAL PROTEIN 4.4 G/DL (5.7-8.2)
[2022-05-17] MEDS: APIXABAN 2.5 MG TAB (ELIQUIS) PO SCH ×2 (09:12→20:12)
[2022-05-17] MEDS: predniSONE 10 MG TAB PO SCH (09:12)
[2022-05-17] MEDS: DOCUSATE SODIUM 100MG CAPSULE PO SCH (09:12)
[2022-05-17] MEDS: PANTOPRAZOLE 40MG TAB (PROTONIX) PO SCH (09:12)
[2022-05-17] MEDS: FERROUS SULFATE 325MG TAB PO SCH ×2 (09:12→20:12)
[2022-05-17] MEDS: ASPIRIN 81MG ENTERIC TABLET PO SCH (09:12)
[2022-05-17] MEDS: SODIUM CHLORIDE NASAL 0.65% SPRAY BTL (OCEAN) SCH ×2 (09:15→20:16)
[2022-05-17] MEDS: METOPROLOL TART 25 MG TABLET PO SCH ×2 (09:15→20:15)
[2022-05-17] MEDS: predniSONE 1 MG TAB PO SCH (09:15)
[2022-05-17 10:14] VITALS: BP 133/75
[2022-05-17 14:00] VITALS: BP 125/65
[2022-05-17 18:08] VITALS: BP 111/61
[2022-05-17] MEDS: MAGNESIUM OXIDE 400MG TAB (MAG-OX) PO SCH (20:12)
[2022-05-17 20:15] VITALS: BP 132/56
[2022-05-17] MEDS: ASCORBIC ACID 500 MG TAB PO SCH (20:15)
[2022-05-18] VITALS (8 sets, daily range): BP systolic 112–152; BP diastolic 62–79
[2022-05-18] MEDS: LEVOTHYROXINE 100MCG TABLET (0.1MG) PO SCH (05:30)
[2022-05-18 06:14] LABS: BASO # 0.1 10^3/uL (0.0-0.2); BASO % 0.7 % (0.0-1.0); EOS # 0.4 10^3/uL (0.0-0.5); EOS % 4.3 % (0.0-3.0); HEMATOCRIT 33.7 % (42.0-52.0); HEMOGLOBIN 10.6 g/dl (13.5-17.5); LYMPH # 1.2 10^3/uL (1.5-5.0); LYMPH % 14.4 % (24.0-44.0); MEAN CORPUSCULAR HGB CONC 31.5 g/dl (32.0-36.5); MEAN CORPUSCULAR VOLUME 88.9 fl (80.0-96.0); MONO # 0.7 10^3/uL (0.0-0.8); MONO % 8.9 % (2.0-8.0); NEUTROPHILS # 5.8 10^3/uL (1.5-8.5); NEUTROPHILS % 70.8 % (36.0-66.0); PLATELET COUNT, AUTOMATED 386 10^3/uL (150-450); RED BLOOD COUNT 3.79 10^6/uL (4.30-6.10); WHITE BLOOD COUNT 8.2 10^3/uL (4.0-10.0)
[2022-05-18 07:41] LABS: ALBUMIN 2.1 G/DL (3.2-5.2); ALT/SGPT 40 U/L (7.0-40); BILIRUBIN,TOTAL 0.5 MG/DL (0.3-1.2); BLOOD UREA NITROGEN 13 MG/DL (9-23); CALCIUM LEVEL 8.2 MG/DL (8.3-10.6); CARBON DIOXIDE LEVEL 29 MMOL/L (20-31); CHLORIDE LEVEL 102 MMOL/L (98-107); GLOMERULAR FILTRATION RATE > 60.0 (>35); GLUCOSE, FASTING 81 MG/DL (74-106); POTASSIUM SERUM 4.6 MMOL/L (3.5-5.1); SODIUM LEVEL 137 MMOL/L (136-145); TOTAL PROTEIN 4.3 G/DL (5.7-8.2)
[2022-05-18] MEDS: DOCUSATE SODIUM 100MG CAPSULE PO SCH (08:52)
[2022-05-18] MEDS: predniSONE 10 MG TAB PO SCH (08:52)
[2022-05-18] MEDS: ASPIRIN 81MG ENTERIC TABLET PO SCH (08:52)
[2022-05-18] MEDS: predniSONE 1 MG TAB PO SCH (08:52)
[2022-05-18] MEDS: PANTOPRAZOLE 40MG TAB (PROTONIX) PO SCH (08:52)
[2022-05-18] MEDS: FERROUS SULFATE 325MG TAB PO SCH ×2 (08:52→18:52)
[2022-05-18] MEDS: APIXABAN 2.5 MG TAB (ELIQUIS) PO SCH ×2 (08:52→18:52)
[2022-05-18] MEDS: SODIUM CHLORIDE NASAL 0.65% SPRAY BTL (OCEAN) SCH ×2 (08:53→18:54)
[2022-05-18] MEDS ORDERED: METOPROLOL TART 50 MG TAB PO SCH (09:00)
[2022-05-18 10:16] LABS: CK-MB VALUE MASS < 1.0 NG/ML (<3.6); CPK CREATINE PHOSPHOKINASE 18 U/L (46-171); MB/CK RELATIVE INDEX 5.55 (< OR =4)
[2022-05-18] MEDS: ASCORBIC ACID 500 MG TAB PO SCH (18:52)
[2022-05-18] MEDS: MAGNESIUM OXIDE 400MG TAB (MAG-OX) PO SCH (18:54)
[2022-05-18] MEDS: METOPROLOL TART 12.5 MG PER 1/2 TAB PO SCH (20:20)
[2022-05-19] VITALS: BP 118/72
[2022-05-19] MEDS: LEVOTHYROXINE 100MCG TABLET (0.1MG) PO SCH (05:48)
[2022-05-19 05:50] VITALS: BP 116/80
[2022-05-19 07:16] LABS: HEMATOCRIT 33.4 % (42.0-52.0); HEMOGLOBIN 10.5 g/dl (13.5-17.5); MEAN CORPUSCULAR HEMOGLOBIN 27.9 pg (27.0-33.0); MEAN CORPUSCULAR HGB CONC 31.4 g/dl (32.0-36.5); MEAN CORPUSCULAR VOLUME 88.8 fl (80.0-96.0); PLATELET COUNT, AUTOMATED 395 10^3/uL (150-450); RED BLOOD COUNT 3.76 10^6/uL (4.30-6.10); WHITE BLOOD COUNT 8.7 10^3/uL (4.0-10.0)
[2022-05-19 07:43] LABS: ALBUMIN 2.3 G/DL (3.2-5.2); ALT/SGPT 28 U/L (7.0-40); BILIRUBIN,TOTAL 0.5 MG/DL (0.3-1.2); BLOOD UREA NITROGEN 11 MG/DL (9-23); CALCIUM LEVEL 8.4 MG/DL (8.3-10.6); CARBON DIOXIDE LEVEL 30 MMOL/L (20-31); CHLORIDE LEVEL 101 MMOL/L (98-107); GLOMERULAR FILTRATION RATE > 60.0 (>35); GLUCOSE, FASTING 78 MG/DL (74-106); POTASSIUM SERUM 3.9 MMOL/L (3.5-5.1); SODIUM LEVEL 137 MMOL/L (136-145); TOTAL PROTEIN 4.7 G/DL (5.7-8.2)
[2022-05-19] MEDS: PANTOPRAZOLE 40MG TAB (PROTONIX) PO SCH (09:04)
[2022-05-19] MEDS: APIXABAN 2.5 MG TAB (ELIQUIS) PO SCH (09:04)
[2022-05-19] MEDS: predniSONE 10 MG TAB PO SCH (09:04)
[2022-05-19 09:05] VITALS: BP 128/64
[2022-05-19] MEDS: METOPROLOL TART 12.5 MG PER 1/2 TAB PO SCH (09:05)
[2022-05-19] MEDS: DOCUSATE SODIUM 100MG CAPSULE PO SCH (09:05)
[2022-05-19] MEDS: ASPIRIN 81MG ENTERIC TABLET PO SCH (09:05)
[2022-05-19] MEDS: FERROUS SULFATE 325MG TAB PO SCH (09:05)
[2022-05-19] MEDS: predniSONE 1 MG TAB PO SCH (09:05)
[2022-05-19] MEDS: SODIUM CHLORIDE NASAL 0.65% SPRAY BTL (OCEAN) SCH (09:06)
[2022-05-19 10:00] VITALS: BP 127/70
[2022-05-19] MEDS ORDERED: METO1TAB87 PO (10:14)
== END 2022-05-19 13:51 | disposition home health service (06) | DRG 64 ==
LOC: M ED 04:34 → M ED INP 11:10 → ENRESERV 13:26 → M PCU 14:28 → M MSPAV 05-16 22:48
PROVIDERS: ADMIT Family Medicine; ATTEND Internal Medicine
DX: I63.9 Cerebral infarction, unspecified (principal); I21.A1 Myocardial infarction type 2; E22.2 Syndrome of inappropriate secretion of antidiuretic hormone; I50.32 Chronic diastolic (congestive) heart failure; I48.20 Chronic atrial fibrillation, unspecified; I47.1 Supraventricular tachycardia; E87.1 Hypo-osmolality and hyponatremia; R47.01 Aphasia; Z95.2 Presence of prosthetic heart valve; I65.21 Occlusion and stenosis of right carotid artery; M06.9 Rheumatoid arthritis, unspecified; E03.9 Hypothyroidism, unspecified; G89.29 Other chronic pain; D50.9 Iron deficiency anemia, unspecified; K21.9 Gastro-esophageal reflux disease without esophagitis; E78.5 Hyperlipidemia, unspecified; E83.51 Hypocalcemia; R74.01 Elevation of levels of liver transaminase levels; Z95.0 Presence of cardiac pacemaker; I35.0 Nonrheumatic aortic (valve) stenosis; Z79.52 Long term (current) use of systemic steroids; M48.56XD Collapsed vertebra, not elsewhere classified, lumbar region, subsequent encounter for fracture with routine healing; Z79.899 Other long term (current) drug therapy; Z79.82 Long term (current) use of aspirin; Z91.030 Bee allergy status; Z88.8 Allergy status to other drugs, medicaments and biological substances; F41.9 Anxiety disorder, unspecified; F32.A Depression, unspecified; Z98.41 Cataract extraction status, right eye; Z98.42 Cataract extraction status, left eye; Z94.7 Corneal transplant status; Z22.7 Latent tuberculosis; N40.0 Benign prostatic hyperplasia without lower urinary tract symptoms

== ENCOUNTER → 2022-06-04 | Outpatient (REF) | payer MEDICARE ==
[~2022-06-04] MED LIST changes: +ASPI81TAEC PO; +COLA100C5 PO; +ELIQ2.5T PO; +FAMO1TAB11 PO; +FAMO20TA4 PO; +FERR1TAB8 PO; +FURO20TA2 PO; +GUMMCHW PO; +OMEG1CAP85 PO; +SODI5OPD OD
[2022-06-04 14:59] LABS: HEMATOCRIT 42.6 % (42.0-52.0); HEMOGLOBIN 12.8 g/dl (13.5-17.5); MEAN CORPUSCULAR HEMOGLOBIN 27.4 pg (27.0-33.0); PLATELET COUNT, AUTOMATED 334 10^3/uL (150-450); RED BLOOD COUNT 4.68 10^6/uL (4.30-6.10)
[2022-06-04 16:52] LABS: ALBUMIN 2.7 G/DL (3.2-5.2); ALKALINE PHOSPHATASE 57 U/L (46-116); ALT/SGPT 21 U/L (7.0-40); AST/SGOT 18 U/L (<34); BILIRUBIN,TOTAL 0.5 MG/DL (0.3-1.2); BLOOD UREA NITROGEN 16 MG/DL (9-23); CALCIUM LEVEL 8.2 MG/DL (8.3-10.6); CARBON DIOXIDE LEVEL 27 MMOL/L (20-31); CHLORIDE LEVEL 100 MMOL/L (98-107); GLOMERULAR FILTRATION RATE > 60.0 (>35); GLUCOSE, FASTING 82 MG/DL (74-106); MAGNESIUM LEVEL 2.4 MG/DL (1.8-2.4); POTASSIUM SERUM 4.9 MMOL/L (3.5-5.1); SODIUM LEVEL 137 MMOL/L (136-145); TOTAL PROTEIN 5.2 G/DL (5.7-8.2)
== END ==
LOC: M SHH 14:21
PROVIDERS: ATTEND Internal Medicine
DX: K21.9 Gastro-esophageal reflux disease without esophagitis (principal); R17 Unspecified jaundice; E87.5 Hyperkalemia

== ENCOUNTER → 2022-07-05 | Outpatient (REF) | payer MEDICARE ==
[2022-07-05 17:14] LABS: PERCENT SATURATION 15.6 % (19.7-50.0)
[2022-07-05 17:18] LABS: FERRITIN 44.9 NG/ML (10.5-307.3)
== END ==
LOC: M LAB REF 16:11
PROVIDERS: ATTEND Internal Medicine
DX: E61.1 Iron deficiency (principal)

== ENCOUNTER → 2022-11-07 | Outpatient (REF) | payer MEDICARE ==
[~2022-11-07] MED LIST changes: +ARTIDRO4 OU; -POLYOPD OU; +SODI1SOL4 OD; -SODI3.5O3 OD; +SODI3.5O5 OD; -SODI5OPD OD
[2022-11-07 18:12] LABS: PERCENT SATURATION 9.1 % (19.7-50.0)
[2022-11-07 18:16] LABS: FERRITIN 37.6 NG/ML (10.5-307.3)
== END ==
LOC: M LAB REF 16:30
PROVIDERS: ATTEND Internal Medicine
DX: E61.1 Iron deficiency (principal)

== ENCOUNTER → 2023-02-08 | Outpatient (REF) | payer MEDICARE ==
[2023-02-08 13:43] LABS: FERRITIN 33.3 NG/ML (10.5-307.3)
== END ==
LOC: M LAB REF 12:43
PROVIDERS: ATTEND Internal Medicine
DX: E61.1 Iron deficiency (principal)

== ENCOUNTER → 2023-09-30 | Outpatient (REF) | payer MEDICARE ==
[~2023-09-30] MED LIST changes: +MECL-209 PO; -MECL1TAB31 PO
[2023-09-30 17:45] LABS: FERRITIN 23.7 NG/ML (10.5-307.3)
[2023-09-30 18:23] LABS: PERCENT SATURATION 4.9 % (19.7-50.0)
== END ==
LOC: M LAB REF 16:28
PROVIDERS: ATTEND Internal Medicine
DX: D64.9 Anemia, unspecified (principal)

== ENCOUNTER → 2023-10-10 | Outpatient (REF) | payer MEDICARE | LOC: M LAB REF 16:18 | PROVIDERS: ATTEND Internal Medicine | DX: N39.0 Urinary tract infection, site not specified (principal) ==

== ENCOUNTER → 2023-10-22 | Outpatient (REF) | payer MEDICARE | LOC: M LAB REF 17:29 | PROVIDERS: ATTEND Internal Medicine | DX: N39.0 Urinary tract infection, site not specified (principal); R31.0 Gross hematuria ==